=== PATIENT | female | born 1940 | race Caucasian/White ===

== ENCOUNTER 2020-08-18 07:33 | Outpatient (REF) | payer MEDICARE, MEDICAID, SELFPAY ==
[2020-08-18 11:03] LABS: Cholesterol 139 mg/dL; HDL Cholesterol 50 mg/dL; LDL Cholesterol Calculated 72 mg/dl; Triglycerides 86 mg/dL
== END 2020-08-18 07:34 | disposition home or self-care (01) ==
LOC: HO.10HDL 07:33
PROVIDERS: Visit Provider Internal Medicine
DX: E78.5 Hyperlipidemia, unspecified (principal)
CPT/HCPCS: 80061

== ENCOUNTER 2021-03-25 07:55 | Outpatient (REF) | payer MEDICARE, MEDICAID, SELFPAY ==
[2021-03-25 10:12] LABS: MANUAL DIFF FLAG NO
[2021-03-25 10:15] LABS: Basophils Percent Auto 0.5 % (0-2); Eosinophils Absolute Auto 0.1 X10*3/uL (0.0-0.4); Eosinophils Percent Auto 1.4 % (0-4); Hematocrit 39.3 % (37-47); Hemoglobin 13.1 g/dl (12.0-16.0); Imm Gran Abs Auto 0.03 X10*3/uL (0.00-0.03); Imm Gran Pct Auto 0.7 % (0.0-0.4); Lymphocytes Percent Auto 22.2 % (20-40); Mean Corpuscular HGB Conc 33.3 g/dl (31.0-35.0); Mean Corpuscular Volume 89.9 fL (80-98); Mean Platelet Volume 9.5 fL (9.4-12.3); Monocytes Absolute Auto 0.6 X10*3/uL (0.1-1.2); Monocytes Percent Auto 13.3 % (2-11); Neutrophils Absolute Auto 2.6 X10*3/uL (2.0-8.3); Neutrophils Percent Auto 61.9 % (45-73); Platelet Count 271 X10*3/uL (160-400); Red Blood Count 4.37 X10*6/uL (4.20-5.50); Red Cell Distribution Width 12.1 % (11.0-16.0); White Blood Count 4.3 X10*3/uL (4.8-10.8)
[2021-03-25 10:39] LABS: Alanine Aminotransferase 21 U/L (0-31); Alkaline Phosphatase 69 U/L (39-117); Anion Gap 14 (12-20); Aspartate Amino Transferase 32 U/L (5-31); Bilirubin Total 0.5 mg/dL (0.0-1.0); Blood Urea Nitrogen 17 mg/dL (9-16); Calcium 9.3 mg/dL (8.4-10.2); Carbon Dioxide 23 mmol/L (22-29); Chloride 106 mmol/L (96-108); Cholesterol 144 mg/dL; Estimated Glomerular Filt Rate > 60; Glucose Fasting 93 mg/dL (60-99); HDL Cholesterol 46 mg/dL; LDL Cholesterol Calculated 82 mg/dl; Sodium 139 mmol/L (135-145); Total Protein 8.2 g/dL (6.5-8.0); Triglycerides 82 mg/dL
[2021-03-25 11:03] LABS: Thyroid Stimulating Hormone 0.93 uIU/mL (0.32-4.0)
== END 2021-03-25 07:56 | disposition home or self-care (01) ==
LOC: HO.10HDL 07:55
PROVIDERS: Visit Provider Internal Medicine
DX: Z00.00 Encounter for general adult medical examination without abnormal findings (principal); E03.9 Hypothyroidism, unspecified; E11.9 Type 2 diabetes mellitus without complications
CPT/HCPCS: 36415; 80053; 80061; 84443; 85025

== ENCOUNTER 2021-12-20 13:35 | Inpatient (IN) | payer MEDICARE, MEDICAID, SELFPAY ==
--- NOTE | ~2021-12-20 | CT_ITS ---
EXAMINATION: CT HEAD WITHOUT CONTRAST CLINICAL INFORMATION: Confusion COMPARISON: Previous head CT July 2017 TECHNIQUE: Contiguous axial imaging was performed from the skull base to vertex without intravenous administration of contrast. This CT examination was performed using dose optimization techniques as appropriate, variously including the following: *Automated exposure control *Adjustment of mA and/or kV according to patient size (this includes techniques or standardized protocols for targeted exams where dose is matched to indication/reason for exam; i.e. extremities or head) *Use of iterative reconstruction technique DLP: 594 mGy-cm FINDINGS: There is no evidence of an extra-axial collection. There is no evidence of intra-axial or extra-axial hemorrhage. The ventricles and extra-axial CSF spaces are appropriate. There is nonspecific periventricular white matter disease. No mass, mass effect or infarct is seen. There is soft tissue opacification of the left middle ear and mastoid air cells similar to previous exam. The visualized paranasal sinuses and right mastoid air cells and middle ear are clear. There are degenerative changes at the right temporomandibular joint. Bony structures are otherwise unremarkable. CT/CT head/brain wo con IMPRESSION: No acute intracranial findings. Nonspecific periventricular white matter disease, soft tissue opacification of the left mastoid air cells and middle ear and degenerative changes of the right temporomandibular joint similar to 2017 exam.
--- NOTE | ~2021-12-20 | XR_ITS ---
EXAMINATION: XR CHEST CLINICAL INFORMATION: Weakness COMPARISON: Previous chest x-ray July 2017 TECHNIQUE: Frontal view of the chest was obtained. FINDINGS: The cardiac and mediastinal contours are stable. There is subsegmental atelectasis at the left lung base. The lungs are otherwise clear. There is no pleural effusion or pneumothorax. Bony structures are unremarkable. XR/XR chest 1V IMPRESSION: Subsegmental atelectasis at the left lung base.
--- NOTE | ~2021-12-20 | XR_ITS ---
EXAMINATION: XR CHEST CLINICAL INFORMATION: Fever. COMPARISON: 12/20/2021 chest radiograph. TECHNIQUE: Frontal view of the chest was obtained. FINDINGS: No significant abnormality is noted involving the heart, lungs, mediastinum, bony thorax or soft tissues. XR/XR chest 1V IMPRESSION: No acute cardiopulmonary process.
--- NOTE | 2021-12-20 13:41 | ECG_ITS ---
Test Reason : AM Blood Pressure : / mmHG Vent. Rate : 073 BPM Atrial Rate : 073 BPM P-R Int : 184 ms QRS Dur : 092 ms QT Int : 416 ms P-R-T Axes : 076 043 048 degrees QTc Int : 458 ms Normal sinus rhythm Nonspecific ST and T wave abnormality Abnormal ECG When compared with ECG of 21-OCT-2019 09:39, Nonspecific T wave abnormality has replaced inverted T waves in Inferior leads Referred By: Shayy Hay Electronically Signed By:JOSI TORO MD
--- NOTE | 2021-12-20 13:41 | PC.NURSE ---
patient's son lilly calls ahead of patient's arrival leaving contact number for information on patient's condition recently. lilly lives in [place]. [phone]
--- NOTE | 2021-12-20 13:50 | ED_ITS ---
HPI - Altered Mental Status General Chief Complaint: Altered Mental Status Stated Complaint: AMS Time Seen by Provider: 12/20/21 13:40 Source: patient, EMS and old records reviewed Mode of arrival: EMS Limitations: no limitations History of Present Illness HPI narrative: 81 y/o female with history of anxiety, HTN, HLD who presents to the ED from home via EMS with confusion. She lives home alone but was on the phone with her son who lives in [place] and said she wasn't sounding right so he had her call 911. She reports she is bad because I'm bleeding out of my behind. She is a poor historian but states she has had rectal bleeding for a few days. She states she has been straining to go and has blood streaks in her underwear. She also has been incontinent of urine and urinating more frequently. She denies any pain with urination, no nausea, vomiting or diarrhea. No lightheadedness or dizziness. She thinks she may be a little weaker than usual. MD complaint: confusion Onset (ago): unknown Timing confirmed by: family member Severity: moderate Consistency of symptoms: unknown Associated symptoms: loss of appetite, weakness, foul smelling urine and incontinence Treatments prior to arrival: IV fluid Related Data Previous Rx's Medication Instructions Recorded amlodipine 2.5 mg tablet 2.5 mg PO DAILY #90 tab 12/21/20 cetirizine 10 mg tablet (All Day 10 mg PO DAILY PRN #90 tab 12/21/20 Allergy (cetirizine)) fenofibrate 54 mg tablet 54 mg PO DAILY #60 tab 06/01/21 hydrochlorothiazide 25 mg tablet 25 mg PO DAILY #90 tab 10/11/21 Allergies Allergy/AdvReac Type Severity Reaction Status Date / Time acetaminophen Allergy Unknown HIVES,RASH Verified 12/20/21 15:34 [From TYLENOL-CODEINE #3] codeine Allergy Unknown HIVES,RASH Verified 12/20/21 15:34 [From TYLENOL-CODEINE #3] penicillin V Allergy Unknown Unknown Verified 12/20/21 15:34 Sulfa (Sulfonamide Allergy Unknown Unknown Verified 12/20/21 15:34 Antibiotics) Review of Systems Review of Systems: Constitutional: No Fever, No Chills ENT/Mouth: No sore throat, No Rhinorrhea, No Swallowing Difficulty Eyes: No Eye Pain, No Swelling, No Redness Cardiovascular: No Chest Pain, No SOB, No Orthopnea, No Edema Respiratory: No Cough, No Sputum, No Wheezing, No dyspnea Gastrointestinal: No Nausea, No Vomiting, No Diarrhea, No abdominal Pain, + Hematochezia, No Melena Genitourinary: No Dysuria, No Urinary Frequency, No Hematuria Musculoskeletal: No joint pain, No Myalgias Skin: No Skin Lesions, No rash Neuro: + Weakness, No Numbness, No Dizziness, No Headache Psych: + Anxiety/Panic, No Depression Heme/Lymph: No Bruising, No Lymphadenopathy Endocrine: No Polyuria, No Polydipsia [facility] Past Medical History Medical History (Updated 12/20/21 @ 16:51 by LARTICE Lopez) Anxiety Hyperlipidemia Hypertension Surgical History History of hysterectomy History of open reduction and internal fixation (ORIF) procedure Family History Family History (Updated 05/10/21 @ 09:57 by MIGUEL Sharif) Father No problems noted. Mother Hypertension Social History Social History Alcohol intake: never Advance Directives: No Advance Directives Information Provided: No Physical Exam ED Vital Signs: Vital Signs - 24 hr 12/20/21 13:51 12/20/21 14:00 Temperature 98.8 F 98.8 F Pulse Rate 73 73 Respiratory Rate 18 18 Blood Pressure 146/65 H 146/65 H Pulse Oximetry 99 99 BMI result Body Mass Index 24.4 Appearance: Alert. Oriented X3. No acute distress. Smells of urine Eyes: Pupils equal, round and reactive to light. ENT: Pharynx normal. Neck: Normal inspection. Neck supple. CVS: Tachycardic, regular rhythm. Pulses normal. Respiratory: No respiratory distress. Breath sounds normal. Abdomen: Obese, Soft and nontender. +BS x4 Genitalia: external hemorroid visible, erythematous but not bleeding, tender. external vaginal exam with protrusion consistent with cystocele. Skin: Skin warm and dry. Normal skin color. Normal skin turgor. No rashes. Extremities: No lower extremity edema. No peripheral swelling. Neuro: Oriented X 3. Asks repeated questions, confused at times. No motor deficit. No sensory deficit. Course Course Course Narrative: 81-year-old female with a history of hyperlipidemia, hypertension, anxiety who presents to the ER from home via EMS with confusion. There was concern for UTI given foul-smelling urine. She also reports rectal bleeding. On arrival to the ER she is tachycardic, afebrile, oriented but confused and asking repeated questions. Will get metabolic workup, CT head, urinalysis and evaluate for source of infection. Reevaluation(s) Reevaluation #1: Urinalysis is positive for infection, IV Rocephin ordered. She has no leukocytosis or fever at this time. She is getting gentle IV fluids. Her H&H is near her baseline 13.2/35.5. No evidence of active GI bleeding although she does have a visible hemorrhoid on examination, no active bleeding. Reevaluation #2: Sodium is 118. Urine osmolality and urine sodium added. She is on hydrochlorothiazide 25 mg per day. When asked additional questions she reports drinking 4-5 water bottles, 16 oz each because her son tells her she does not drink enough water. Her appetite has been poor in her p.o. intake has been poor. She is hungry and thirsty on arrival to the ED. She is getting normal saline. Hyponatremia is most likely multifactorial. Will plan to hold her HCTZ, give her gentle fluids and fluid restrict orally. Will follow urine studies. Dr. natali Redding made aware of the case, did a bedside ultrasound, her IVC is flat. She does not appear to be volume overloaded. Will admit to ICU for close m onitoring of her sodium. Consultations Consultation #1: Dr. Lea ICU MDM - Altered Mental Status Medical Records Attestation: I reviewed the patient's medical records. Lab Data Attestation: I reviewed the patient's lab results. Result diagrams: 12/20/21 14:26 12/20/21 15:49 Labs: Lab Results 12/20/21 12/20/21 12/20/21 Range/Units 14:00 14:00 14:00 WBC (4.8-10.8) X10*3/uL RBC (4.20-5.50) X10*6/uL Hgb (12.0-16.0) g/dl Hct (37.0-47.0) % MCV (80.0-98.0) fL MCH (27.0-33.0) pg MCHC (31.0-35.0) g/dl RDW (11.0-16.0) % Plt Count (160-400) X10*3/uL MPV (9.4-12.3) fL Immature Gran % (Auto) (0.0-0.4) % Neut % (Auto) (45-73) % Lymph % (Auto) (20-40) % Greene % (Auto) (2-11) % Eos % (Auto) (0-4) % Baso % (Auto) (0-2) % Lymph # (Auto) (1.2-4.9) X10*3/uL Greene # (Auto) (0.1-1.2) X10*3/uL Eos # (Auto) (0.0-0.4) X10*3/uL Baso # (Auto) (0.0-0.2) X10*3/uL Abs Immat Gran (auto) (0.00-0.03) X10*3/uL Absolute Neuts (auto) (2.0-8.3) x10*3/uL Absolute Nucleated RBC (0.0-0.012) X10*3/uL Nucleated RBC % (auto) (0.0-0.2) /100WBC Smear Tech's Comments Sodium (135-145) mmol/L Potassium (3.3-5.1) mmol/L Chloride (96-108) mmol/L Carbon Dioxide (22-29) mmol/L Anion Gap (12-20) BUN (9-16) mg/dL Creatinine (0.5-1.4) mg/dL Estim Creat Clear Calc Estimated GFR Random Glucose (60-115) mg/dL Lactic Acid (0.5-2.0) mmol/L Calcium (8.4-10.2) mg/dL Magnesium (1.6-2.6) mg/dL Total Bilirubin (0.0-1.0) mg/dL Direct Bilirubin (0.0-0.5) mg/dL AST (5-31) U/L ALT (0-31) U/L Alkaline Phosphatase (39-117) U/L Troponin I High Sens (<3.5-17.0) ng/L Total Protein (6.5-8.0) g/dL Albumin (3.5-5.0) g/dL Urine Color YELLOW Urine Appearance HAZY Urine pH 7.0 (5.0-8.0) Ur Specific [place] 1.015 (1.005-1.025) Urine Protein NEG (NEG-TRACE) MG/DL Urine Glucose (UA) NEG (NEG) MG/DL Urine Ketones NEG (NEG) MG/DL Urine Blood 1+ H (NEG) Urine Nitrite NEG (NEG) Ur Leukocyte Esterase 1+ H (NEG) Urine RBC 1-4 (0) /HPF Urine WBC 5-9 H (0-4) /HPF Ur Squamous Epith Cells TRACE /LPF Urine Bacteria 4+ /LPF COVID-19 (ALISSA) Negative (Negative) COVID-19 Clin Com See Note Influenza Type A (TAVARES) Negative (Negative) Influenza Type B (TAVARES) Negative (Negative) Influenza A & B Note See Note 12/20/21 12/20/21 12/20/21 Range/Units 14:26 14:26 15:49 WBC 6.6 (4.8-10.8) X10*3/uL RBC 4.25 (4.20-5.50) X10*6/uL Hgb 13.2 (12.0-16.0) g/dl Hct 35.5 L (37.0-47.0) % MCV 83.5 (80.0-98.0) fL MCH 31.1 (27.0-33.0) pg MCHC 37.2 H (31.0-35.0) g/dl RDW 11.9 (11.0-16.0) % Plt Count 256 (160-400) X10*3/uL MPV 9.7 (9.4-12.3) fL Immature Gran % (Auto) 2.0 H (0.0-0.4) % Neut % (Auto) 70.9 (45-73) % Lymph % (Auto) 18.3 L (20-40) % Greene % (Auto) 7.4 (2-11) % Eos % (Auto) 0.9 (0-4) % Baso % (Auto) 0.5 (0-2) % Lymph # (Auto) 1.2 (1.2-4.9) X10*3/uL Greene # (Auto) 0.5 (0.1-1.2) X10*3/uL Eos # (Auto) 0.1 (0.0-0.4) X10*3/uL Baso # (Auto) 0.0 (0.0-0.2) X10*3/uL Abs Immat Gran (auto) 0.13 H (0.00-0.03) X10*3/uL Absolute Neuts (auto) 4.7 (2.0-8.3) x10*3/uL Absolute Nucleated RBC 0.000 (0.0-0.012) X10*3/uL Nucleated RBC % (auto) 0.0 (0.0-0.2) /100WBC Smear Tech's Comments VERIFIED Sodium 118 L* (135-145) mmol/L Potassium 3.1 L D (3.3-5.1) mmol/L Chloride 86 L (96-108) mmol/L Carbon Dioxide 24 (22-29) mmol/L Anion Gap 11 L (12-20) BUN 12 (9-16) mg/dL Creatinine 0.62 (0.5-1.4) mg/dL Estim Creat Clear Calc 58.8 Estimated GFR > 60 Random Glucose 95 (60-115) mg/dL Lactic Acid (0.5-2.0) mmol/L Calcium 9.1 (8.4-10.2) mg/dL Magnesium 1.9 (1.6-2.6) mg/dL Total Bilirubin 0.8 (0.0-1.0) mg/dL Direct Bilirubin 0.4 (0.0-0.5) mg/dL AST 41 H (5-31) U/L ALT 22 (0-31) U/L Alkaline Phosphatase 65 (39-117) U/L Troponin I High Sens 3.7 (<3.5-17.0) ng/L Total Protein 7.9 (6.5-8.0) g/dL Albumin 4.1 (3.5-5.0) g/dL Urine Color Urine Appearance Urine pH (5.0-8.0) Ur Specific [place] (1.005-1.025) Urine Protein (NEG-TRACE) MG/DL Urine Glucose (UA) (NEG) MG/DL Urine Ketones (NEG) MG/DL Urine Blood (NEG) Urine Nitrite (NEG) Ur Leukocyte Esterase (NEG) Urine RBC (0) /HPF Urine WBC (0-4) /HPF Ur Squamous Epith Cells /LPF Urine Bacteria /LPF COVID-19 (ALISSA) (Negative) COVID-19 Clin Com Influenza Type A (TAVARES) (Negative) Influenza Type B (TAVARES) (Negative) Influenza A & B Note 12/20/21 Range/Units 15:49 WBC (4.8-10.8) X10*3/uL RBC (4.20-5.50) X10*6/uL Hgb (12.0-16.0) g/dl Hct (37.0-47.0) % MCV (80.0-98.0) fL MCH (27.0-33.0) pg MCHC (31.0-35.0) g/dl RDW (11.0-16.0) % Plt Count (160-400) X10*3/uL MPV (9.4-12.3) fL Immature Gran % (Auto) (0.0-0.4) % Neut % (Auto) (45-73) % Lymph % (Auto) (20-40) % Greene % (Auto) (2-11) % Eos % (Auto) (0-4) % Baso % (Auto) (0-2) % Lymph # (Auto) (1.2-4.9) X10*3/uL Greene # (Auto) (0.1-1.2) X10*3/uL Eos # (Auto) (0.0-0.4) X10*3/uL Baso # (Auto) (0.0-0.2) X10*3/uL Abs Immat Gran (auto) (0.00-0.03) X10*3/uL Absolute Neuts (auto) (2.0-8.3) x10*3/uL Absolute Nucleated RBC (0.0-0.012) X10*3/uL Nucleated RBC % (auto) (0.0-0.2) /100WBC Smear Tech's Comments Sodium (135-145) mmol/L Potassium (3.3-5.1) mmol/L Chloride (96-108) mmol/L Carbon Dioxide (22-29) mmol/L Anion Gap (12-20) BUN (9-16) mg/dL Creatinine (0.5-1.4) mg/dL Estim Creat Clear Calc Estimated GFR Random Glucose (60-115) mg/dL Lactic Acid 0.8 (0.5-2.0) mmol/L Calcium (8.4-10.2) mg/dL Magnesium (1.6-2.6) mg/dL Total Bilirubin (0.0-1.0) mg/dL Direct Bilirubin (0.0-0.5) mg/dL AST (5-31) U/L ALT (0-31) U/L Alkaline Phosphatase (39-117) U/L Troponin I High Sens (<3.5-17.0) ng/L Total Protein (6.5-8.0) g/dL Albumin (3.5-5.0) g/dL Urine Color Urine Appearance Urine pH (5.0-8.0) Ur Specific [place] (1.005-1.025) Urine Protein (NEG-TRACE) MG/DL Urine Glucose (UA) (NEG) MG/DL Urine Ketones (NEG) MG/DL Urine Blood (NEG) Urine Nitrite (NEG) Ur Leukocyte Esterase (NEG) Urine RBC (0) /HPF Urine WBC (0-4) /HPF Ur Squamous Epith Cells /LPF Urine Bacteria /LPF COVID-19 (ALISSA) (Negative) COVID-19 Clin Com Influenza Type A (TAVARES) (Negative) Influenza Type B (TAVARES) (Negative) Influenza A & B Note ECG Data ECG #1: Attestation: I personally reviewed and interpreted this ECG as follows: ECG interpretation date: 12/20/21 Prior ECG tracings: available for review Interpretation: normal sinus rhythm, HR 73 bpm, nonspecific ST & T wave abnormality, normal NE interval, No ST segment elevation or depression Critical Care Time Critical Care Time Critical Care Time: Yes Total Critical Care Time: 40 Attestation: I have personally provided critical care time exclusive of time spent on separately billable procedures. Time includes review of lab data, radiology results, discussion with consultants, and monitoring for potential decompensation. Intervention performed as documented. Discharge Plan Discharge Clinical Impression: Acute metabolic encephalopathy, Acute hyponatremia, Acute UTI Patient Disposition: Admitted As Inpatient Prescriptions: No Action cetirizine [All Day Allergy (cetirizine)] 10 mg tablet 10 mg PO DAILY PRN (Reason: allergy symptoms) Qty: 90 8RF amlodipine 2.5 mg tablet 2.5 mg PO DAILY Qty: 90 8RF fenofibrate 54 mg tablet 54 mg PO DAILY Qty: 60 6RF hydrochlorothiazide 25 mg tablet 25 mg PO DAILY Qty: 90 8RF
[2021-12-20 13:51] VITALS: BP 146/65; BP 150/81; PULSE 71; PULSE 73; RESP 18; TEMP 37.1; O2SAT 99; BMI 24.4
[2021-12-20 14:00] VITALS: BP 146/65; PULSE 73; RESP 18; TEMP 37.1; O2SAT 99
[2021-12-20 14:14] LABS: Appearance Urine HAZY; Color Urine YELLOW; Glucose Urine UA NEG (NEG); Leukocyte Esterase Urine 1+ (NEG); Nitrite Urine NEG (NEG); Specific Gravity - Urine 1.015 (1.005-1.025); UACC Culture Trigger YES; Urine Blood 1+ (NEG); Urine Ketones NEG (NEG); Urine Protein NEG (NEG-TRACE)
[2021-12-20 14:23] LABS: COVID-19 Test Negative (Negative)
[2021-12-20 14:30] LABS: IDNOW Serial# 08D9AD1C; Influenza A Negative (Negative); Influenza B2 Negative (Negative)
--- NOTE | 2021-12-20 14:31 | PHA.MEDREC ---
MED REC COMPLETE FROM PHARMACY HISTORY, PATIENT WITH AMS Pharmacy Consult ? Medication Reconciliation Pharmacy has completed the medication reconciliation.
--- NOTE | 2021-12-20 14:31 | PC.NURSE ---
Addendum entered by Edgardo Liu 12/20/21 14:34: provider in room w pt and reports hemorrhoids and poss bladder/vaginal prolapse. Original Note: pt a&ox3, but some baseline confusion - pt asking the same questions repeatedly, has questions about her inability to move her bowels. attempted to draw blood and place IV, was able to obtain some labs, unable to place IV. 20G left hand placed by EMS. pt brought to CT.
[2021-12-20 14:40] LABS: Basophils Percent Auto 0.5 % (0-2); Eosinophils Absolute Auto 0.1 X10*3/uL (0.0-0.4); Eosinophils Percent Auto 0.9 % (0-4); Hematocrit 35.5 % (37.0-47.0); Hemoglobin 13.2 g/dl (12.0-16.0); Imm Gran Abs Auto 0.13 X10*3/uL (0.00-0.03); Lymphocytes Absolute Auto 1.2 X10*3/uL (1.2-4.9); Lymphocytes Percent Auto 18.3 % (20-40); MANUAL DIFF FLAG SCAN; Mean Corpuscular HGB Conc 37.2 g/dl (31.0-35.0); Mean Corpuscular Hemoglobin 31.1 pg (27.0-33.0); Mean Corpuscular Volume 83.5 fL (80.0-98.0); Mean Platelet Volume 9.7 fL (9.4-12.3); Monocytes Absolute Auto 0.5 X10*3/uL (0.1-1.2); Monocytes Percent Auto 7.4 % (2-11); Neutrophils Absolute Auto 4.7 x10*3/uL (2.0-8.3); Neutrophils Percent Auto 70.9 % (45-73); PLT CLUMP 1; Red Blood Count 4.25 X10*6/uL (4.20-5.50); Red Cell Distribution Width 11.9 % (11.0-16.0); SCAN SMEAR FLAG 1
[2021-12-20 14:42] LABS: Platelet Count 256 X10*3/uL (160-400); White Blood Count 6.6 X10*3/uL (4.8-10.8)
[2021-12-20] MEDS: 0.9 % Sodium Chloride 1,000 ML 999 ML IVCONT (14:46)
--- NOTE | 2021-12-20 14:51 | PC.NURSE ---
flds started per provider order
[2021-12-20 14:56] LABS: SLIDE REVIEW VERIFIED
[2021-12-20 14:59] LABS: Bacteria Urine 4+ /LPF; Squamous Epithelial Cell Urine TRACE /LPF
[2021-12-20 15:03] LABS: Troponin-I High Sensitivity 3.7 ng/L (<3.5-17.0)
--- NOTE | 2021-12-20 15:43 | PC.NURSE ---
tech attempting to get labs
[2021-12-20 16:11] LABS: Lactic Acid 0.8 mmol/L (0.5-2.0)
[2021-12-20] MEDS: cefTRIAXone sodium 1 GM in 0.9 % Sodium Chloride 50 ML IV (16:14)
[2021-12-20 16:24] LABS: Alanine Aminotransferase 22 U/L (0-31); Albumin Level 4.1 g/dL (3.5-5.0); Alkaline Phosphatase 65 U/L (39-117); Anion Gap 11 (12-20); Aspartate Amino Transferase 41 U/L (5-31); Bilirubin Direct 0.4 mg/dL (0.0-0.5); Bilirubin Total 0.8 mg/dL (0.0-1.0); Blood Urea Nitrogen 12 mg/dL (9-16); Calcium 9.1 mg/dL (8.4-10.2); Carbon Dioxide 24 mmol/L (22-29); Chloride 86 mmol/L (96-108); Creatinine Clr Calc Pharmacy 58.8; Estimated Glomerular Filt Rate > 60; Glucose Random 95 mg/dL (60-115); Magnesium 1.9 mg/dL (1.6-2.6); Potassium 3.1 mmol/L (3.3-5.1); Sodium 118 mmol/L (135-145); Total Protein 7.9 g/dL (6.5-8.0)
--- NOTE | 2021-12-20 16:32 | PC.NURSE ---
patient medicated per order, used bedpan
--- NOTE | 2021-12-20 16:36 | PC.NURSE ---
pt ivf continues to run slowly
[2021-12-20 17:04] VITALS: BP 135/72; PULSE 74; RESP 16; O2SAT 98
--- NOTE | 2021-12-20 17:05 | P.HPCC_ITS ---
History of Present Illness Date of Service: 12/20/21 Attending physician on admission: Luís Lea Chief Complaint: confusion/altered mental status 81-year-old female hypertensive on hydrochlorothiazide admitted with confusion although oriented and awake no seizure activity no fall who admits to drinking at least in 0 5 quarts of just plain water no mixture of electrolytes and takes her hydrochlorothiazide and she is hyponatremic at 01:18 probably accounting for mental status and also hypokalemic all consistent with the combination of hydrochlorothiazide effect reducing did diluting capacity and for that we are awaiting the osmolality of the urine but the sodium at 51 reflects the hydrochlorothiazide effect coupled with her free water intake and my bedside echo shows normal LV and RV function no primary valve or pericardial disease and she has a small IVC diameter with normal inspiratory collapse so she is anywhere from mildly hypovolemic to euvolemic Review of Systems Review of Systems: Yes all other systems are reviewed and are negative PMFSH Past Medical History Medical History (Updated 12/20/21 @ 17:09 by Luís Lea MD) Anxiety Hyperlipidemia Hypertension Family History Family History (Updated 05/10/21 @ 09:57 by MIGUEL Sharif) Father No problems noted. Mother Hypertension Surgical History Surgical History History of hysterectomy History of open reduction and internal fixation (ORIF) procedure Social History Social History Alcohol intake: never Advance Directives: No Advance Directives Information Provided: No Meds Allergies Allergy/AdvReac Type Severity Reaction Status Date / Time acetaminophen Allergy Unknown HIVES,RASH Verified 12/20/21 15:34 [From TYLENOL-CODEINE #3] codeine Allergy Unknown HIVES,RASH Verified 12/20/21 15:34 [From TYLENOL-CODEINE #3] penicillin V Allergy Unknown Unknown Verified 12/20/21 15:34 Sulfa (Sulfonamide Allergy Unknown Unknown Verified 12/20/21 15:34 Antibiotics) Active Medications: Current Medications Levofloxacin (Levaquin) 500 mg in 100 mls @ 100 mls/hr IV Q24H [facility] Potassium Chloride/Sodium Chloride () 40 meq in 1,000 mls @ 80 mls/hr IVCONT .[id number] [facility] Pharmacy Consult (Consult Rx Perform Med Rec) 1 each MISCELLANE ONCE PRN PRN Reason: Consult order Physical Exam Vital Signs: Vital Signs: Last Vital Signs Temp 98.8 F 12/20/21 14:00 Pulse 74 12/20/21 17:04 Resp 16 12/20/21 17:04 BP 135/72 12/20/21 17:04 Pulse Ox 98 12/20/21 17:04 BMI result Body Mass Index 24.4 awake and alert nonfocal neurologically good bilateral carotid upstrokes and bedside echo shows normal cardiac function lungs clear by chest x-ray and exam abdomen benign no organomegaly no peripheral edema no acrocyanosis Results Labs CBC and Chem 7: 12/20/21 14:26 12/20/21 15:49 Labs: Laboratory Results - last 24 hr 12/20/21 12/20/21 12/20/21 14:00 14:00 14:00 MCV MCH MCHC RDW Plt Count MPV Immature Gran % (Auto) Neut % (Auto) Lymph % (Auto) [place] % (Auto) Eos % (Auto) Baso % (Auto) Lymph # (Auto) [place] # (Auto) Eos # (Auto) Baso # (Auto) Abs Immat Gran (auto) Absolute Neuts (auto) Absolute Nucleated RBC Nucleated RBC % (auto) Smear Tech's Comments Anion Gap Estim Creat Clear Calc Estimated GFR Random Glucose Lactic Acid Calcium Magnesium Total Bilirubin Direct Bilirubin AST ALT Alkaline Phosphatase Troponin I High Sens Total Protein Albumin Urine Color YELLOW Urine Appearance HAZY Urine pH 7.0 Ur Specific [place] 1.015 Urine Protein NEG Urine Glucose (UA) NEG Urine Ketones NEG Urine Blood 1+ H Urine Nitrite NEG Ur Leukocyte Esterase 1+ H Urine RBC 1-4 Urine WBC 5-9 H Ur Squamous Epith Cells TRACE Urine Bacteria 4+ Ur Random Sodium COVID-19 (ALISSA) Negative COVID-19 Clin Com See Note Influenza Type A (TAVARES) Negative Influenza Type B (TAVARES) Negative Influenza A & B Note See Note 12/20/21 12/20/21 12/20/21 14:00 14:26 14:26 MCV 83.5 MCH 31.1 MCHC 37.2 H RDW 11.9 Plt Count 256 MPV 9.7 Immature Gran % (Auto) 2.0 H Neut % (Auto) 70.9 Lymph % (Auto) 18.3 L [place] % (Auto) 7.4 Eos % (Auto) 0.9 Baso % (Auto) 0.5 Lymph # (Auto) 1.2 [place] # (Auto) 0.5 Eos # (Auto) 0.1 Baso # (Auto) 0.0 Abs Immat Gran (auto) 0.13 H Absolute Neuts (auto) 4.7 Absolute Nucleated RBC 0.000 Nucleated RBC % (auto) 0.0 Smear Tech's Comments VERIFIED Anion Gap Estim Creat Clear Calc Estimated GFR Random Glucose Lactic Acid Calcium Magnesium Total Bilirubin Direct Bilirubin AST ALT Alkaline Phosphatase Troponin I High Sens 3.7 Total Protein Albumin Urine Color Urine Appearance Urine pH Ur Specific [place] Urine Protein Urine Glucose (UA) Urine Ketones Urine Blood Urine Nitrite Ur Leukocyte Esterase Urine RBC Urine WBC Ur Squamous Epith Cells Urine Bacteria Ur Random Sodium 51.0 COVID-19 (ALISSA) COVID-19 Clin Com Influenza Type A (TAVARES) Influenza Type B (TAVARES) Influenza A & B Note 12/20/21 12/20/21 15:49 15:49 MCV MCH MCHC RDW Plt Count MPV Immature Gran % (Auto) Neut % (Auto) Lymph % (Auto) [place] % (Auto) Eos % (Auto) Baso % (Auto) Lymph # (Auto) [place] # (Auto) Eos # (Auto) Baso # (Auto) Abs Immat Gran (auto) Absolute Neuts (auto) Absolute Nucleated RBC Nucleated RBC % (auto) Smear Tech's Comments Anion Gap 11 L Estim Creat Clear Calc 58.8 Estimated GFR > 60 Random Glucose 95 Lactic Acid 0.8 Calcium 9.1 Magnesium 1.9 Total Bilirubin 0.8 Direct Bilirubin 0.4 AST 41 H ALT 22 Alkaline Phosphatase 65 Troponin I High Sens Total Protein 7.9 Albumin 4.1 Urine Color Urine Appearance Urine pH Ur Specific [place] Urine Protein Urine Glucose (UA) Urine Ketones Urine Blood Urine Nitrite Ur Leukocyte Esterase Urine RBC Urine WBC Ur Squamous Epith Cells Urine Bacteria Ur Random Sodium COVID-19 (ALISSA) COVID-19 Clin Com Influenza Type A (TAVARES) Influenza Type B (TAVARES) Influenza A & B Note Imaging Radiologist's Impressions: Impressions Chest X-Ray 12/20/21 14:30 IMPRESSION: Subsegmental atelectasis at the left lung base. Head CT 12/20/21 14:42 IMPRESSION: No acute intracranial findings. Nonspecific periventricular white matter disease, soft tissue opacification of the left mastoid air cells and middle ear and degenerative changes of the right temporomandibular joint similar to 2017 exam. Assessment and Plan (1) Acute metabolic encephalopathy: Status: Acute (2) Acute hyponatremia: Status: Acute (3) Acute UTI: Status: Acute (4) Hyperlipidemia: Status: Acute (5) Hypertension: Status: Acute (6) Hypokalemia due to excessive renal loss of potassium: Status: Acute Plan IV replacement at 80 cc/hour consisting of normal saline with 40 mEq per L of KCl at the same time stopping the hydrochlorothiazide and just follow her chemistry and await the urine osmolality to confirm
[2021-12-20] MEDS: KCl 40 mEq in 0.9 % Sodium Chl 40 MEQ/1,000 ML IV.SOLN 80 MEQ IVCONT (17:41)
[2021-12-20 18:00] VITALS: BP 121/64; PULSE 78; RESP 14; O2SAT 98
--- NOTE | 2021-12-20 19:04 | PC.NURSE ---
pt alert, oriented to person/place, vss, increased confusion, continues to ask repeated questions, difficult to redirect. calender inspector applied. bedding changed, pt using purewik. pt requesting food, given sandwich/pudding/juice.
[2021-12-20 20:22] LABS: Anion Gap 9 (12-20); Blood Urea Nitrogen 10 mg/dL (9-16); Calcium 8.3 mg/dL (8.4-10.2); Carbon Dioxide 25 mmol/L (22-29); Chloride 93 mmol/L (96-108); Creatinine Clr Calc Pharmacy 57.9; Estimated Glomerular Filt Rate > 60; Glucose Random 109 mg/dL (60-115); Potassium 2.9 mmol/L (3.3-5.1); Sodium 124 mmol/L (135-145)
--- NOTE | 2021-12-20 20:25 | PC.NURSE ---
spoke w son to update on pt condition, admission, son to follow up tomorrow.
--- NOTE | 2021-12-20 20:47 | P.PNCC_ITS ---
Critical Care Event Note Summary Date of Service: 12/20/21 Code activated: No Critical Care Time (minutes): 0 Comment: Patient's sodium came up to 124, patient will be transferred to [facility] for further monitoring as per Dr Lea request. Due to the fast increase in sodium from 119-124 in 4 hours, hospitalist will consult Nephrology. pt's HCTZ should be stopped at home to avoid a repeat issue and she should be counseled on an appropriate amount of water to drink daily. Patient is doing well, alert and talkative, resting comfortably watching television in bed. Vital signs are stable, patient has no complaints at this time. Patient appears to be hard of hearing, unsure if she has hearing aids with her. Dr Ruiz will accept the pt to [facility].
--- NOTE | 2021-12-20 20:55 | PC.NURSE ---
discontinued KCl per verbal provider order, phlebotomy notified about new lab order.
[2021-12-20 21:32] LABS: Anion Gap 9 (12-20); Blood Urea Nitrogen 11 mg/dL (9-16); Calcium 8.2 mg/dL (8.4-10.2); Carbon Dioxide 22 mmol/L (22-29); Chloride 96 mmol/L (96-108); Creatinine Clr Calc Pharmacy 59.8; Estimated Glomerular Filt Rate > 60; Glucose Random 117 mg/dL (60-115); Sodium 124 mmol/L (135-145)
[2021-12-20 21:58] VITALS: BP 132/61; PULSE 67; RESP 16; TEMP 36.9; O2SAT 98
--- NOTE | 2021-12-20 22:00 | PC.NURSE ---
PATIENT CAME OVER FROM THE MAIN ED ED ,PATIENT WAS INCONTINENT OF URINE ,BED BATH WAS GIVEN AND BEDDING WAS CHANGE .
[2021-12-20 23:43] VITALS: PULSE 60; RESP 16
[2021-12-21] VITALS (7 sets, daily range): BP systolic 128–177; BP diastolic 62–82; PULSE 61–75; RESP 14–20; TEMP 36.6–37.1; O2SAT 96–99
[2021-12-21 02:07] LABS: Anion Gap 12 (12-20); Blood Urea Nitrogen 13 mg/dL (9-16); Calcium 9.1 mg/dL (8.4-10.2); Carbon Dioxide 24 mmol/L (22-29); Chloride 95 mmol/L (96-108); Creatinine Clr Calc Pharmacy 60.8; Estimated Glomerular Filt Rate > 60; Glucose Random 91 mg/dL (60-115); Potassium 3.7 mmol/L (3.3-5.1); Sodium 127 mmol/L (135-145)
--- NOTE | 2021-12-21 06:39 | PC.NURSE ---
2200; Patient transferred to bed 5 overflow ed. Patient is alert, oriented to self and place, vague on time/situation, patient asks repeated questions, [place]. Denies pain or discomfort, incontinent of urine x2 overnight. vss, callbell within reach.
[2021-12-21] MEDS: levoFLOXacin/D5W 500 MG/100 ML PIGGYBACK 100 MG IV (08:00)
--- NOTE | 2021-12-21 10:51 | PC.NURSE ---
Pt is Alert, oriented x 3 but confused with repetitive questions at this time. Pt denies pain, increased urination at this time, IV antibitics given as per MAR order, spoke to Dr. Fuentes for morning medications as patient is fixated on them at this time. Pt's son given update on POC. Call josé within reach. Will continue to monitor.
[2021-12-21] MEDS: Loratadine 10 MG TABLET PO (11:38)
--- NOTE | 2021-12-21 11:55 | MHC.CM.PN ---
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
--- NOTE | 2021-12-21 12:00 | HO.PM.IMPN ---
Subjective Subjective Date of Service: 12/21/21 Interval History: Hyponatremia, UTI, metabolic encephalopathy Review of Systems seems still confused, Denies any chest pain or shortness of breath or abdominal pain or abdominal pain. Physical Exam Vital Signs: Vital Signs: Last Vital Signs Temp 98.5 F 12/21/21 07:59 Pulse 75 12/21/21 07:59 Resp 15 12/21/21 07:59 BP 132/63 12/21/21 07:59 Pulse Ox 98 12/21/21 07:59 BMI result Body Mass Index 24.4 Appearance: Awake , alert ,confused .? Eyes: Pupils equal, round and reactive to light.? Sclera nonicteric.? ENT: Pharynx normal.? Moist mucous membranes. cvs: rrr, [id number] , no murmur res: clear to auscultation ,no rhonchii or wheezing abd: no rebound or guarding ,nt, bs present. ext pulses present , no cyanosis ,Gait well balanced well coordinated. neuro: axo2, move all ext. Objective Data Active Medications Amlodipine Besylate (Amlodipine Besylate 2.5 Mg Tablet) 2.5 mg PO DAILY [facility]; Protocol Fenofibrate (Fenofibrate 54 Mg Tablet) 54 mg PO DAILY [facility] Levofloxacin (Levaquin) 500 mg in 100 mls @ 100 mls/hr IV Q24H [facility] Last Infusion: 12/21/21 11:25 Dose: 0 mls/hr Documented by: TRINY Dextrose (D5w) 1,000 mls @ 50 mls/hr IVCONT .Q20H [facility] Loratadine (Loratadine 10 Mg Tablet) 10 mg PO DAILY PRN PRN Reason: allergy symptoms Last Admin: 12/21/21 11:38 Dose: 10 mg Documented by: TRINY Pharmacy Consult (Consult Rx Perform Med Rec) 1 each MISCELLANE ONCE PRN PRN Reason: Consult order Labs CBC & Chem 7: 12/20/21 14:26 12/21/21 12:24 Labs: Laboratory Results - last 24 hr 12/20/21 12/20/21 12/20/21 14:00 14:00 14:00 MCV MCH MCHC RDW Plt Count MPV Immature Gran % (Auto) Neut % (Auto) Lymph % (Auto) Dougherty % (Auto) Eos % (Auto) Baso % (Auto) Lymph # (Auto) Dougherty # (Auto) Eos # (Auto) Baso # (Auto) Abs Immat Gran (auto) Absolute Neuts (auto) Absolute Nucleated RBC Nucleated RBC % (auto) Smear Tech's Comments Anion Gap Estim Creat Clear Calc Estimated GFR Random Glucose Lactic Acid Calcium Magnesium Total Bilirubin Direct Bilirubin AST ALT Alkaline Phosphatase Troponin I High Sens Total Protein Albumin Urine Color YELLOW Urine Appearance HAZY Urine pH 7.0 Ur Specific [place] 1.015 Urine Protein NEG Urine Glucose (UA) NEG Urine Ketones NEG Urine Blood 1+ H Urine Nitrite NEG Ur Leukocyte Esterase 1+ H Urine RBC 1-4 Urine WBC 5-9 H Ur Squamous Epith Cells TRACE Urine Bacteria 4+ Ur Random Sodium COVID-19 (ALISSA) Negative COVID-19 Clin Com See Note Influenza Type A (TAVARES) Negative Influenza Type B (TAVARES) Negative Influenza A & B Note See Note 12/20/21 12/20/21 12/20/21 14:00 14:26 14:26 MCV 83.5 MCH 31.1 MCHC 37.2 H RDW 11.9 Plt Count 256 MPV 9.7 Immature Gran % (Auto) 2.0 H Neut % (Auto) 70.9 Lymph % (Auto) 18.3 L Dougherty % (Auto) 7.4 Eos % (Auto) 0.9 Baso % (Auto) 0.5 Lymph # (Auto) 1.2 Dougherty # (Auto) 0.5 Eos # (Auto) 0.1 Baso # (Auto) 0.0 Abs Immat Gran (auto) 0.13 H Absolute Neuts (auto) 4.7 Absolute Nucleated RBC 0.000 Nucleated RBC % (auto) 0.0 Smear Tech's Comments VERIFIED Anion Gap Estim Creat Clear Calc Estimated GFR Random Glucose Lactic Acid Calcium Magnesium Total Bilirubin Direct Bilirubin AST ALT Alkaline Phosphatase Troponin I High Sens 3.7 Total Protein Albumin Urine Color Urine Appearance Urine pH Ur Specific [place] Urine Protein Urine Glucose (UA) Urine Ketones Urine Blood Urine Nitrite Ur Leukocyte Esterase Urine RBC Urine WBC Ur Squamous Epith Cells Urine Bacteria Ur Random Sodium 51.0 COVID-19 (ALISSA) COVID-19 Clin Com Influenza Type A (TAVARES) Influenza Type B (TAVARES) Influenza A & B Note 12/20/21 12/20/21 12/20/21 15:49 15:49 19:52 MCV MCH MCHC RDW Plt Count MPV Immature Gran % (Auto) Neut % (Auto) Lymph % (Auto) Dougherty % (Auto) Eos % (Auto) Baso % (Auto) Lymph # (Auto) Dougherty # (Auto) Eos # (Auto) Baso # (Auto) Abs Immat Gran (auto) Absolute Neuts (auto) Absolute Nucleated RBC Nucleated RBC % (auto) Smear Tech's Comments Anion Gap 11 L 9 L Estim Creat Clear Calc 58.8 57.9 Estimated GFR > 60 > 60 Random Glucose 95 109 Lactic Acid 0.8 Calcium 9.1 8.3 L D Magnesium 1.9 Total Bilirubin 0.8 Direct Bilirubin 0.4 AST 41 H ALT 22 Alkaline Phosphatase 65 Troponin I High Sens Total Protein 7.9 Albumin 4.1 Urine Color Urine Appearance Urine pH Ur Specific [place] Urine Protein Urine Glucose (UA) Urine Ketones Urine Blood Urine Nitrite Ur Leukocyte Esterase Urine RBC Urine WBC Ur Squamous Epith Cells Urine Bacteria Ur Random Sodium COVID-19 (ALISSA) COVID-19 Clin Com Influenza Type A (TAVARES) Influenza Type B (TAVARES) Influenza A & B Note 12/20/21 12/21/21 21:00 01:28 MCV MCH MCHC RDW Plt Count MPV Immature Gran % (Auto) Neut % (Auto) Lymph % (Auto) Dougherty % (Auto) Eos % (Auto) Baso % (Auto) Lymph # (Auto) Dougherty # (Auto) Eos # (Auto) Baso # (Auto) Abs Immat Gran (auto) Absolute Neuts (auto) Absolute Nucleated RBC Nucleated RBC % (auto) Smear Tech's Comments Anion Gap 9 L 12 Estim Creat Clear Calc 59.8 60.8 Estimated GFR > 60 > 60 Random Glucose 117 H 91 Lactic Acid Calcium 8.2 L 9.1 D Magnesium Total Bilirubin Direct Bilirubin AST ALT Alkaline Phosphatase Troponin I High Sens Total Protein Albumin Urine Color Urine Appearance Urine pH Ur Specific [place] Urine Protein Urine Glucose (UA) Urine Ketones Urine Blood Urine Nitrite Ur Leukocyte Esterase Urine RBC Urine WBC Ur Squamous Epith Cells Urine Bacteria Ur Random Sodium COVID-19 (ALISSA) COVID-19 Clin Com Influenza Type A (TAVARES) Influenza Type B (TVAARES) Influenza A & B Note Microbiology Microbiology Results: Microbiology 12/20/21 15:49 Urine Culture - Preliminary Urine clean catch - Urine quijano top Culture in progress. Assessment and Plan (1) Acute UTI: Status: Acute (2) Acute metabolic encephalopathy: Status: Acute (3) Acute hyponatremia: Status: Acute Plan 81-year-old female hypertensive on hydrochlorothiazide admitted with confusion,uti: 1. Acute metabolic encephalopathy secondary to probable hyponatremia : Improving but still confused Monitor electrolytes and renal function closely once sodium around [address] the patient on fluid restrictions. Hold hydrochlorothiazide Nephrology following 2. UTI: Continue IV antibiotics urine and blood culture pending 3.HTN: Continue amlodipine DVT prophylaxis Quality Stroke Does the patient have a stroke diagnosis?: No VTE Prior VTE?: No VTE Risk Level:: Medical - low VTE Device Contraindication: N/A - Device Ordered VTE Drug Contraindication: Treatment Not Indicated
--- NOTE | 2021-12-21 12:02 | P.CONNP_ITS ---
History of Present Illness Reason for Consult Consult date: 12/21/21 Chief Complaint Chief complaint: hyponatremia/ altered mental status History of Present Illness Narrative: 81 year old female with history of anxiety and HTN , who had been on HCTZ presented to the ER from home via EMS with altered mental status. She lives at home alone but was on the phone with her son who lives in [place] who felt she was no alright forcing him to call 911. She also has been incontinent of urine and urinating more frequently. She denies any pain with urination, no nausea, vomiting or diarrhea. No lightheadedness or dizziness. She thinks she may be a little weaker than usual. She was found to have UTI with profound hyponatremia. ICU had been consulted who had given her volume repletion as they thought her low sodium was as a result of diuretic. Her Na was corrected close to 4 MEq in 4 hours and it has gone upto 127 now. Nephrology has been consulted to assist in her clinical management during her current hospital stay Review of Systems Review of Systems Yes all other systems are reviewed and are negative PMFSH Past Medical History Medical History (Updated 12/20/21 @ 17:09 by Luís Lea MD) Anxiety Hyperlipidemia Hypertension Family History Family History (Updated 05/10/21 @ 09:57 by MIGUEL Sharif) Father No problems noted. Mother Hypertension Surgical History Surgical History History of hysterectomy History of open reduction and internal fixation (ORIF) procedure Social History Social History Alcohol intake: never Advance Directives: No Advance Directives Information Provided: No service: No Meds Allergies Allergy/AdvReac Type Severity Reaction Status Date / Time acetaminophen Allergy Unknown HIVES,RASH Verified 12/20/21 15:34 [From TYLENOL-CODEINE #3] codeine Allergy Unknown HIVES,RASH Verified 12/20/21 15:34 [From TYLENOL-CODEINE #3] penicillin V Allergy Unknown Unknown Verified 12/20/21 15:34 Sulfa (Sulfonamide Allergy Unknown Unknown Verified 12/20/21 15:34 Antibiotics) Active Medications: Current Medications Amlodipine Besylate (Amlodipine Besylate 2.5 Mg Tablet) 2.5 mg PO DAILY [facility]; Protocol Fenofibrate (Fenofibrate 54 Mg Tablet) 54 mg PO DAILY [facility] Levofloxacin (Levaquin) 500 mg in 100 mls @ 100 mls/hr IV Q24H [facility] Last Infusion: 12/21/21 11:25 Dose: Infused Documented by: Dextrose (D5w) 1,000 mls @ 50 mls/hr IVCONT .Q20H [facility] Loratadine (Loratadine 10 Mg Tablet) 10 mg PO DAILY PRN PRN Reason: allergy symptoms Last Admin: 12/21/21 11:38 Dose: 10 mg Documented by: Pharmacy Consult (Consult Rx Perform Med Rec) 1 each MISCELLANE ONCE PRN PRN Reason: Consult order Physical Exam Vital Signs: Last Vital Signs Temp 98.5 F 12/21/21 07:59 Pulse 75 12/21/21 07:59 Resp 15 12/21/21 07:59 BP 132/63 12/21/21 07:59 Pulse Ox 98 12/21/21 07:59 BMI result Body Mass Index 24.4 Const General: no acute distress Eyes EOM: EOMs intact bilaterally Neck Neck: Yes supple Resp Auscultation: diminished lung sounds Cardio Rate: regular rate GI Palpation (GI): Soft to palpation Neuro General: moves all extremities Results Lab Results Result Diagrams: 12/20/21 14:26 12/21/21 01:28 Lab results: Chemistry 12/20/21 12/20/21 12/20/21 15:49 19:52 21:00 Sodium 118 L* 124 L 124 L Potassium 3.1 L D 2.9 L 3.0 L Carbon Dioxide 24 25 22 BUN 12 10 11 Creatinine 0.62 0.63 0.61 Calcium 9.1 8.3 L D 8.2 L 12/21/21 01:28 Sodium 127 L Potassium 3.7 D Carbon Dioxide 24 BUN 13 Creatinine 0.60 Calcium 9.1 D Hematology 12/20/21 14:26 WBC 6.6 Hgb 13.2 Plt Count 256 Urinalysis 12/20/21 14:00 Urine Color YELLOW Urine Appearance HAZY Urine pH 7.0 Ur Specific [place] 1.015 Urine Protein NEG Urine Glucose (UA) NEG Urine Ketones NEG Urine Blood 1+ H Urine Nitrite NEG Ur Leukocyte Esterase 1+ H Urine RBC 1-4 Urine WBC 5-9 H Ur Squamous Epith Cells TRACE Assessment and Plan (1) Acute hyponatremia: Status: Acute Plan No H/O recurrent hyponatremia Had low Cl, low K and low Na Had been on HCTZ; Denies polydypsia Urine Osmolality pending No H/O CHF/renal / liver disease Has H/O anxiety; IVC was collapsed on USS Likely hypovolemic hyponatremia; Na currently 127 Would drop 3-4 MEQ of Na today with D5W today& then D/C D5W Once Na is dropped by 3-4 MEQ , would fluid restrict 48 oz/24 hours Needs close monitoring of serum sodium; Shall follow up Procedures Date of Service Date of Service: 12/21/21
[2021-12-21 12:54] LABS: Sodium 126 mmol/L (135-145)
[2021-12-21] MEDS: Dextrose 5 % 1,000 ML 50 ML IVCONT (13:00)
--- NOTE | 2021-12-21 13:34 | MHC.CM.PN ---
spoke with pts son who is in [facility] he is her hcp he will be faxng the proxy to cm dept he explains that he paysmprivateky for homem kaker every 2 weeks a hairdresser every 2 months [place] to do grocery shopping and an rn to attend to pts feet every 2 months [facility] address is [address] [address]
[2021-12-21 14:50] LABS: Osmolality Urine 402 mosm/kg (373-1093)
[2021-12-21 16:24] LABS: Sodium 127 mmol/L (135-145)
[2021-12-21 20:26] LABS: Sodium 128 mmol/L (135-145)
[2021-12-21] MEDS: Heparin Sodium,Porcine 5,000 UNIT/ML VIAL 5000 UNIT SUBCUT (20:37)
[2021-12-22] VITALS (8 sets, daily range): BP systolic 146–189; BP diastolic 70–84; PULSE 64–97; RESP 16–19; TEMP 36–37.1; O2SAT 94–99
[2021-12-22] MEDS: Heparin Sodium,Porcine 5,000 UNIT/ML VIAL 5000 UNIT SUBCUT ×3 (03:14→17:02)
[2021-12-22] MEDS: Dextrose 5 % 1,000 ML 70 ML IVCONT (03:19)
[2021-12-22 07:36] LABS: Anion Gap 11 (12-20); Blood Urea Nitrogen 9 mg/dL (9-16); Calcium 8.8 mg/dL (8.4-10.2); Carbon Dioxide 23 mmol/L (22-29); Chloride 99 mmol/L (96-108); Creatinine Clr Calc Pharmacy 61.8; Estimated Glomerular Filt Rate > 60; Glucose Random 97 mg/dL (60-115); Potassium 3.7 mmol/L (3.3-5.1); Sodium 129 mmol/L (135-145)
--- NOTE | 2021-12-22 08:24 | P.PNIM_ITS ---
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 Physical Exam Vital Signs: Vital Signs: Last Vital Signs Temp 97.6 F 12/22/21 07:42 Pulse 67 12/22/21 07:42 Resp 18 12/22/21 07:42 BP 146/76 H 12/22/21 07:42 Pulse Ox 98 12/22/21 07:42 BMI result Body Mass Index 24.4 Appearance: Awake , alert ,confused .?s. cvs: rrr, [id number] , no murmur res: clear to auscultation ,no rhonchii or wheezing abd: no rebound or guarding ,nt, bs present. ext pulses present , no cyanosis ,Gait well balanced well coordinated. neuro: axo2, move all ext Objective Data Active Medications Amlodipine Besylate (Amlodipine Besylate 2.5 Mg Tablet) 2.5 mg PO DAILY [facility]; Protocol Fenofibrate (Fenofibrate 54 Mg Tablet) 54 mg PO DAILY [facility] Heparin Sodium (Porcine) (Heparin Sodium,Porcine 5,000 Unit/Ml Vial) 5,000 unit SUBCUT Q8H [facility] Last Admin: 12/22/21 03:14 Dose: 5,000 unit Documented by: ZACH Levofloxacin (Levaquin) 500 mg in 100 mls @ 100 mls/hr IV Q24H [facility] Last Infusion: 12/21/21 11:25 Dose: 0 mls/hr Documented by: TRINY Dextrose (D5w) 1,000 mls @ 70 mls/hr IVCONT .[id number] [facility] Last Admin: 12/22/21 03:19 Dose: 70 mls/hr Documented by: ZACH Loratadine (Loratadine 10 Mg Tablet) 10 mg PO DAILY PRN PRN Reason: allergy symptoms Last Admin: 12/21/21 11:38 Dose: 10 mg Documented by: TRINY Pharmacy Consult (Consult Rx Perform Med Rec) 1 each MISCELLANE ONCE PRN PRN Reason: Consult order Labs CBC & Chem 7: 12/20/21 14:26 12/22/21 10:01 Labs: Laboratory Results - last 24 hr 12/20/21 12/20/21 12/20/21 14:00 15:49 19:52 Sodium 118 L* 124 L Anion Gap Estim Creat Clear Calc Estimated GFR Random Glucose Calcium Urine Osmolality 402 12/20/21 12/21/21 12/21/21 21:00 01:28 12:24 Sodium 124 L 127 L 126 L Anion Gap Estim Creat Clear Calc Estimated GFR Random Glucose Calcium Urine Osmolality 12/21/21 12/21/21 12/22/21 16:07 20:10 06:12 Sodium 127 L 128 L 129 L Anion Gap 11 L Estim Creat Clear Calc 61.8 Estimated GFR > 60 Random Glucose 97 Calcium 8.8 Urine Osmolality Microbiology Microbiology Results: Microbiology 12/20/21 15:49 Blood Culture - Preliminary Blood - Venous No growth after 24 hours. 12/20/21 15:48 Blood Culture - Preliminary Blood - Venous No growth after 24 hours. 12/20/21 15:49 Urine Culture - Preliminary Urine clean catch - Urine quijano top Culture in progress. Assessment and Plan (1) Acute UTI: Status: Acute (2) Acute metabolic encephalopathy: Status: Acute Plan 81-year-old female hypertensive on hydrochlorothiazide admitted with confusion,uti: 1. Acute metabolic encephalopathy secondary to probable hyponatremia : Improving but still confused Monitor electrolytes and renal function closely once sodium around 129 , fluid restrictions. Hold hydrochlorothiazide Nephrology following 2. UTI:? will switch for po antibiotics urine and blood culture pending 3.HTN:? Continue amlodipine 4. As probable rectal prolapse: Outpatient followup as per GI and DVT prophylaxis PT recommended rehab-waiting for placement. Quality Stroke Does the patient have a stroke diagnosis?: No VTE Prior VTE?: No VTE Risk Level:: Medical - low VTE Device Contraindication: N/A - Device Ordered VTE Drug Contraindication: Treatment Not Indicated
[2021-12-22] MEDS: Fenofibrate 54 MG TABLET PO (09:25)
[2021-12-22] MEDS: Loratadine 10 MG TABLET PO (09:30)
[2021-12-22 10:57] LABS: Sodium 129 mmol/L (135-145)
--- NOTE | 2021-12-22 12:40 | PM.PNNEP ---
Subjective Subjective Date of Service: 12/22/21 Interval history: Seen AM. Events noted. All recent data reviewed Physical Exam Vital Signs: Vital Signs: Last Vital Signs Temp 98.6 F 12/22/21 11:01 Pulse 70 12/22/21 11:45 Resp 18 12/22/21 11:01 BP 158/70 H 12/22/21 11:45 Pulse Ox 98 12/22/21 11:45 BMI result Body Mass Index 24.4 Const: Other: Hard of hearing General: alert Orientation/consciousness: patient oriented x3 Eyes: EOM: EOMs intact bilaterally Neck: Neck: Yes supple Resp: Auscultation: diminished lung sounds Cardio: Rate: regular rate GI: Palpation (GI): Soft to palpation Neuro: General: patient oriented x3 and moves all extremities Objective Data Labs CBC & Chem 7: 12/20/21 14:26 12/22/21 10:01 Labs: Laboratory Results - last 24 hr 12/20/21 12/21/21 12/21/21 14:00 12:24 16:07 Sodium 126 L 127 L Potassium Chloride Carbon Dioxide Anion Gap BUN Creatinine Estim Creat Clear Calc Estimated GFR Random Glucose Calcium Urine Osmolality 402 12/21/21 12/22/21 12/22/21 20:10 06:12 10:01 Sodium 128 L 129 L 129 L Potassium 3.7 Chloride 99 Carbon Dioxide 23 Anion Gap 11 L BUN 9 Creatinine 0.59 Estim Creat Clear Calc 61.8 Estimated GFR > 60 Random Glucose 97 Calcium 8.8 Urine Osmolality Microbiology Microbiology Results: Microbiology 12/20/21 15:49 Blood - Venous Blood Culture - Preliminary No growth after 24 hours. 12/20/21 15:48 Blood - Venous Blood Culture - Preliminary No growth after 24 hours. 12/20/21 15:49 Urine clean catch - Urine quijano top Urine Culture - Preliminary Culture in progress. Procedures Date of Service Date of Service: 12/22/21 Assessment & Plan Assessment and plan (1) Acute hyponatremia: Status: Acute Assessment and Plan: No H/O recurrent hyponatremia Had low Cl, low K and low Na Had been on HCTZ; Denies polydypsia No H/O CHF/renal / liver disease Has H/O anxiety; IVC was collapsed on USS @ presentation Likely hypovolemic hyponatremia May have some mild excess ADH Na currently 129 would fluid restrict 48 oz/24 hours Shall follow? up Time Spent With Patient Time: Total time spent is greater than 50% in coordination of care (as documented) at patient's floor/unit and/or counseling patient: Progress Note: Quality Stroke Does the patient have a stroke diagnosis?: No
--- NOTE | 2021-12-22 15:06 | MHC.CM.PN ---
IMM 12/21/21 Female 81 PT evaluation today recommends STR. Arlin/son/HCP was called re discharge planning. Unable to speak with son, a detailed VM was left: Patient qualifies for STR for strengthening. Preferences for STR should be called to Case management. A bed search has been started. Options for preference will be offered. CM office contact info has been left for return call. Met with Pt re DP. STR rec by P.T.. Local facilities in [place] have been referred. [facility]. [facility] pt would like [facility]. She defers to her son tho. CM will follow.
[2021-12-22] MEDS: levoFLOXacin 250 MG TABLET PO (16:59)
[2021-12-22] MEDS: amLODIPine Besylate 2.5 MG TABLET PO (17:10)
[2021-12-22] MEDS: Docusate Sodium 100 MG CAPSULE PO (20:01)
[2021-12-23] VITALS (7 sets, daily range): BP systolic 112–152; BP diastolic 64–72; PULSE 73–107; RESP 15–20; TEMP 36.4–38.2; O2SAT 96–99
[2021-12-23] MEDS: Heparin Sodium,Porcine 5,000 UNIT/ML VIAL 5000 UNIT SUBCUT ×3 (01:56→16:36)
[2021-12-23 08:02] LABS: Hematocrit 34.1 % (37.0-47.0); Hemoglobin 12.1 g/dl (12.0-16.0); Mean Corpuscular HGB Conc 35.5 g/dl (31.0-35.0); Mean Corpuscular Volume 87.4 fL (80.0-98.0); Mean Platelet Volume 8.5 fL (9.4-12.3); Platelet Count 269 X10*3/uL (160-400); Red Cell Distribution Width 12.7 % (11.0-16.0); White Blood Count 3.5 X10*3/uL (4.8-10.8)
[2021-12-23 08:14] LABS: Lactic Acid 1.1 mmol/L (0.5-2.0)
[2021-12-23 08:17] LABS: Anion Gap 11 (12-20); Blood Urea Nitrogen 11 mg/dL (9-16); Carbon Dioxide 24 mmol/L (22-29); Chloride 99 mmol/L (96-108); Creatinine Clr Calc Pharmacy 59.8; Estimated Glomerular Filt Rate > 60; Glucose Random 99 mg/dL (60-115); Potassium 4.1 mmol/L (3.3-5.1); Sodium 130 mmol/L (135-145)
[2021-12-23] MEDS: amLODIPine Besylate 2.5 MG TABLET PO (08:43)
[2021-12-23] MEDS: Fenofibrate 54 MG TABLET PO (08:43)
[2021-12-23] MEDS: polyethylene glycoL 3350 17 GM POWD.PACK PO (08:43)
[2021-12-23] MEDS: Loratadine 10 MG TABLET PO (08:48)
--- NOTE | 2021-12-23 10:04 | P.PNIM_ITS ---
Subjective Subjective Date of Service: 12/23/21 Interval History: fever, tachycaria, hyponatremia uti Review of Systems Mental status is improving, patient had fever preventive maintenance coordinator Denies any new complaint of cough phlegm or nausea vomiting or diarrhea. Physical Exam Vital Signs: Vital Signs: Last Vital Signs Temp 99.9 F 12/23/21 07:08 Pulse 100 12/23/21 07:08 Resp 18 12/23/21 07:08 BP 112/68 12/23/21 07:08 Pulse Ox 98 12/23/21 07:08 BMI result Body Mass Index 24.4 ? Appearance: Awake , alert ,confused .? cvs: rrr, [id number] , no murmur res: clear to auscultation ,no rhonchii or wheezing abd: no rebound or guarding ,nt, bs present. ext pulses present , no cyanosis ,Gait well balanced well coordinated. neuro: axo2, move all ext Objective Data Active Medications Amlodipine Besylate (Amlodipine Besylate 2.5 Mg Tablet) 2.5 mg PO DAILY [facility]; Protocol Last Admin: 12/23/21 08:43 Dose: 2.5 mg Documented by: NATALI Docusate Sodium (Docusate Sodium 100 Mg Capsule) 100 mg PO BEDTIME [facility] Last Admin: 12/22/21 20:01 Dose: 100 mg Documented by: FRANCOISE Fenofibrate (Fenofibrate 54 Mg Tablet) 54 mg PO DAILY [facility] Last Admin: 12/23/21 08:43 Dose: 54 mg Documented by: NATALI Heparin Sodium (Porcine) (Heparin Sodium,Porcine 5,000 Unit/Ml Vial) 5,000 unit SUBCUT Q8H [facility] Last Admin: 12/23/21 01:56 Dose: 5,000 unit Documented by: FRANCOISE Dextrose (D5w) 1,000 mls @ 70 mls/hr IVCONT .[id number] [facility] Last Admin: 12/23/21 08:49 Dose: Not Given Documented by: NATALI Non-Admin Reason: no iv - md aware Levofloxacin (Levofloxacin 250 Mg Tablet) 250 mg PO Q24H [facility] Last Admin: 12/22/21 16:59 Dose: 250 mg Documented by: VERN Loratadine (Loratadine 10 Mg Tablet) 10 mg PO DAILY PRN PRN Reason: allergy symptoms Last Admin: 12/23/21 08:48 Dose: 10 mg Documented by: NATALI Pharmacy Consult (Consult Rx Perform Med Rec) 1 each MISCELLANE ONCE PRN PRN Reason: Consult order Polyethylene Glycol (Polyethylene Glycol 3350 17 Gm Powd.Pack) 17 gm PO DAILY [facility] Last Admin: 12/23/21 08:43 Dose: 17 gm Documented by: NATALI Labs CBC & Chem 7: 12/23/21 07:41 12/23/21 07:41 Labs: Laboratory Results - last 24 hr 12/23/21 12/23/21 12/23/21 07:41 07:41 07:41 MCV 87.4 MCH 31.0 MCHC 35.5 H RDW 12.7 Plt Count 269 MPV 8.5 L Absolute Nucleated RBC 0.000 Nucleated RBC % (auto) 0.0 Anion Gap 11 L Estim Creat Clear Calc 59.8 Estimated GFR > 60 Random Glucose 99 Lactic Acid 1.1 Calcium 9.0 Microbiology Microbiology Results: Microbiology 12/20/21 15:48 Blood Culture - Preliminary Blood - Venous No growth after 48 hours. 12/20/21 15:49 Blood Culture - Preliminary Blood - Venous No growth after 48 hours. 12/20/21 15:49 Urine Culture - Final Urine clean catch - Urine quijano top Assessment and Plan (1) Acute UTI: Status: Acute (2) Acute metabolic encephalopathy: Status: Acute Plan 81-year-old female hypertensive on hydrochlorothiazide admitted with confusion,uti: 1. Acute metabolic encephalopathy secondary to probable hyponatremia : Improving but still confused Monitor electrolytes and renal function closely once sodium around 129 , fluid restrictions. Hold hydrochlorothiazide Nephrology following 2. UTI:? will switch for po antibiotics still febrile , tachycaric met sirs citertia Lactic acid normal, blood culture repeated sent urine and blood culture pending Switched back to IV Levaquin. 3.HTN:? Continue amlodipine 4. As probable rectal prolapse:? Outpatient followup as per GI and DVT prophylaxis PT recommended rehab-waiting for placement. Quality Stroke Does the patient have a stroke diagnosis?: No VTE Prior VTE?: No VTE Risk Level:: Medical - low VTE Device Contraindication: N/A - Device Ordered VTE Drug Contraindication: Treatment Not Indicated
--- NOTE | 2021-12-23 11:57 | PM.PNNEP ---
Subjective Subjective Date of Service: 12/23/21 Interval history: Events noted. All recent data reviewed Physical Exam Vital Signs: Vital Signs: Last Vital Signs Temp 98.2 F 12/23/21 11:24 Pulse 88 12/23/21 11:24 Resp 18 12/23/21 11:24 BP 131/66 12/23/21 11:24 Pulse Ox 99 12/23/21 11:24 BMI result Body Mass Index 24.4 Const: General: no acute distress HEENT: Head: Yes normocephalic Mouth: moist mucous membranes Eyes: EOM: EOMs intact bilaterally Resp: Auscultation: diminished lung sounds Cardio: Rate: regular rate GI: Palpation (GI): Soft to palpation Neuro: General: moves all extremities Objective Data Labs CBC & Chem 7: 12/23/21 07:41 12/23/21 07:41 Labs: Laboratory Results - last 24 hr 12/23/21 12/23/21 12/23/21 07:41 07:41 07:41 WBC 3.5 L RBC 3.90 L Hgb 12.1 Hct 34.1 L MCV 87.4 MCH 31.0 MCHC 35.5 H RDW 12.7 Plt Count 269 MPV 8.5 L Absolute Nucleated RBC 0.000 Nucleated RBC % (auto) 0.0 Sodium 130 L Potassium 4.1 Chloride 99 Carbon Dioxide 24 Anion Gap 11 L BUN 11 Creatinine 0.61 Estim Creat Clear Calc 59.8 Estimated GFR > 60 Random Glucose 99 Lactic Acid 1.1 Calcium 9.0 Microbiology Microbiology Results: Microbiology 12/20/21 15:48 Blood - Venous Blood Culture - Preliminary No growth after 48 hours. 12/20/21 15:49 Blood - Venous Blood Culture - Preliminary No growth after 48 hours. 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 up Time Spent With Patient Time: Total time spent is greater than 50% in coordination of care (as documented) at patient's floor/unit and/or counseling patient: Progress Note: Quality Stroke Does the patient have a stroke diagnosis?: No
[2021-12-23 12:03] LABS: Adenovirus PCR Not Detected (Not Detect.); Bordetella parapertussis PCR Not Detected (Not Detect.); Bordetella pertussis PCR Not Detected (Not Detect.); Chlamydia pneumoniae PCR Not Detected (Not Detect.); Coronavirus 229E PCR Not Detected (Not Detect.); Coronavirus HKU1 PCR Not Detected (Not Detect.); Coronavirus NL63 PCR Not Detected (Not Detect.); Coronavirus OC43 PCR Not Detected (Not Detect.); Human metapneumovirus PCR Not Detected (Not Detect.); Influenza A PCR Detected (Not Detect.); Influenza B PCR Not Detected (Not Detect.); Mycoplasma pneumoniae PCR Not Detected (Not Detect.); Parainfluenza 1 PCR Not Detected (Not Detect.); Parainfluenza 2 PCR Not Detected (Not Detect.); Parainfluenza 3 PCR Not Detected (Not Detect.); Parainfluenza 4 PCR Not Detected (Not Detect.); RSV PCR Not Detected (Not Detect.); Rhino/Enterovirus PCR Not Detected (Not Detect.); SARS-CoV-2 PCR Not Detected (Not Detect.)
[2021-12-23] MEDS: levoFLOXacin/D5W 500 MG/100 ML PIGGYBACK 100 MG IV (14:42)
[2021-12-23] MEDS: Docusate Sodium 100 MG CAPSULE PO (21:21)
[2021-12-24] MEDS: Heparin Sodium,Porcine 5,000 UNIT/ML VIAL 5000 UNIT SUBCUT ×2 (02:47→09:58)
[2021-12-24 04:00] VITALS: BP 142/67; PULSE 73; RESP 18; TEMP 37.2; O2SAT 96
[2021-12-24] MEDS: Throat Lozenge, Medicated LOZENGE 1 LOZENGE MUCOUS MEM (06:26)
[2021-12-24 07:20] VITALS: BP 118/58; PULSE 63; RESP 17; TEMP 36.7; O2SAT 97
--- NOTE | 2021-12-24 07:58 | P.DS_ITS ---
DS: Providers Provider Date of Service: 12/24/21 Date of admission: 12/20/21 16:55 Primary care physician: Alcides Powers MD Consults: 12/20/21 20:45 Consult to Nephrology Routine Consulting Provider: [facility] Reason for consultation: hyponatremia Has provider been notified: No 12/22/21 09:24 Consult to Urology Routine Consulting Provider: Mateusz Nath Reason for consultation: bladder proplase question Has provider been notified: No DS: Diagnosis Discharge Diagnosis (1) Acute UTI: Status: Acute (2) Acute metabolic encephalopathy: Status: Acute DS: Summary Hospital Course Hospital Course: 81-year-old female hypertensive on hydrochlorothiazide admitted with confusion although oriented and awake no seizure activity no fall who admits to drinking at least in 0 5 quarts of just plain water no mixture of electrolytes and takes her hydrochlorothiazide and she is hyponatremic at 01:18 probably accounting for mental status and also hypokalemic all consistent with the combination of hydrochlorothiazide effect reducing did diluting capacity and for that we are awaiting the osmolality of the urine but the sodium at 51 reflects the hydrochlorothiazide effect coupled with her free water intake and my bedside echo shows normal LV and RV function no primary valve or pericardial disease and she has a small IVC diameter with normal inspiratory collapse so she is anywhere from mildly hypovolemic to euvolemic. Hospital course: Patient admitted for hyponatremia-seen by Nephrology thought to be related to hydrochlorothiazide use, and hypo volemic hyponatremia. patient hyponatremia seems improved, patient also has UTI and on Levaquin seems improving-please complete the course of p.o. antibiotics. Discussed with the family- Patient possibly has mildly uterine prolapse for which she needs to follow-up out patiently with core cutter. influenza A:started her tamiflu -complete the course tamiflu. Hypertension: Her blood pressure seems to be controlled with amlodipine currently, if needed amlodipine can be adjusted for blood pressure will stop hydrochlorothiazide secondary to hyponatremia, consider repeating renal fun ction and electrolytes in rehab in 1 week. Above management discussed with the patient in detail as well as patient family over the phone length they understand and in agreement with the above plan, time spent 50 minutes and 50% time spent on counseling. Significant findings: As above. Procedures performed: None. Treatment and response: As above. Complications: None. Time Spent with Patient Time attestation: Total time spent providing and/or coordinating discharge services: Discharge coordination time: Greater than 30 minutes Quality: Safe Use of Opioids Does Pt have an Active Cancer Diagnosis on the Problem List?: No Quality: Stroke Does the patient have a stroke diagnosis?: No Physical Exam Vital Signs: Vital Signs: Last Vital Signs Temp 98.0 F 12/24/21 07:20 Pulse 63 12/24/21 07:20 Resp 17 12/24/21 07:20 BP 118/58 L 12/24/21 07:20 Pulse Ox 97 12/24/21 07:20 BMI result Body Mass Index 24.4 Appearance: Alert.? Oriented X3.? not in distress.? Eyes: Pupils equal, round and reactive to light.? Sclera nonicteric.? ENT: Pharynx normal.? Moist mucous membranes. cvs: rrr, [id number] , no murmur res: clear to auscultation ,no rhonchii or wheezing abd: no rebound or guarding ,nt, bs present. ext pulses present , no cyanosis . neuro: axo3 , nonfocal. DS: Data Data Completed and Pending Labs on day of discharge: Laboratory Results - last 24 hr 12/23/21 12/23/21 12/23/21 07:41 07:41 07:41 WBC 3.5 L RBC 3.90 L Hgb 12.1 Hct 34.1 L MCV 87.4 MCH 31.0 MCHC 35.5 H RDW 12.7 Plt Count 269 MPV 8.5 L Absolute Nucleated RBC 0.000 Nucleated RBC % (auto) 0.0 Sodium 130 L Potassium 4.1 Chloride 99 Carbon Dioxide 24 Anion Gap 11 L BUN 11 Creatinine 0.61 Estim Creat Clear Calc 59.8 Estimated GFR > 60 Random Glucose 99 Lactic Acid 1.1 Calcium 9.0 Respiratory Panel Golden Adenovirus (Rapid PCR) B.pert (TEM-PCR) B.parapertussis DNA PCR C. pneumoniae DNA (PCR) Coronavirus OC43 (PCR) Coronavirus HKU1 (PCR) Coronavirus 229E (PCR) Coronavirus NL63 (PCR) Human Metapneumovir PCR Influenza A (RT-PCR) Influenza B (RT-PCR) M. pneumoniae (PCR) Parainfluenza 1 (PCR) Parainfluenza 2 (PCR) Parainfluenza 3 (PCR) Parainfluenza 4 (PCR) RSV (PCR) Entero/Rhino (PCR) SARS-CoV-2 RNA (RT-PCR) 12/23/21 10:23 WBC RBC Hgb Hct MCV MCH MCHC RDW Plt Count MPV Absolute Nucleated RBC Nucleated RBC % (auto) Sodium Potassium Chloride Carbon Dioxide Anion Gap BUN Creatinine Estim Creat Clear Calc Estimated GFR Random Glucose Lactic Acid Calcium Respiratory Panel Golden See Note Adenovirus (Rapid PCR) Not Detected B.pert (TEM-PCR) Not Detected B.parapertussis DNA PCR Not Detected C. pneumoniae DNA (PCR) Not Detected Coronavirus OC43 (PCR) Not Detected Coronavirus HKU1 (PCR) Not Detected Coronavirus 229E (PCR) Not Detected Coronavirus NL63 (PCR) Not Detected Human Metapneumovir PCR Not Detected Influenza A (RT-PCR) Detected A Influenza B (RT-PCR) Not Detected M. pneumoniae (PCR) Not Detected Parainfluenza 1 (PCR) Not Detected Parainfluenza 2 (PCR) Not Detected Parainfluenza 3 (PCR) Not Detected Parainfluenza 4 (PCR) Not Detected RSV (PCR) Not Detected Entero/Rhino (PCR) Not Detected SARS-CoV-2 RNA (RT-PCR) Not Detected Preliminary micro results at discharge 12/20/21 15:48 Blood Culture - Preliminary Blood - Venous No growth after 48 hours. 12/20/21 15:49 Blood Culture - Preliminary Blood - Venous No growth after 48 hours. Additional Comments Additional comments: XR/XR chest 1V IMPRESSION: No acute cardiopulmonary process. Discharge Plan Discharge Patient Disposition: [facility] Discharge Diagnosis: uti, hyponatremia Referrals: [facility] [Outside] - 1 Week Alcides Powers MD [Primary Care Provider] - 1 Week Discharge Medications: New levofloxacin 250 mg tablet 250 mg PO DAILY Qty: 5 0RF oseltamivir [Tamiflu] 75 mg capsule 30 mg PO BID 5 Days Qty: 4 0RF Robitussin Cough-Sore Throat 325-10 mg/10 mL liquid 20 ml PO Q4H PRN (Reason: cold symptoms) Qty: 237 0RF Continued cetirizine [All Day Allergy (cetirizine)] 10 mg tablet 10 mg PO DAILY PRN (Reason: allergy symptoms) Qty: 90 8RF amlodipine 2.5 mg tablet 2.5 mg PO DAILY Qty: 90 8RF fenofibrate 54 mg tablet 54 mg PO DAILY Qty: 60 6RF Discontinued hydrochlorothiazide 25 mg tablet 25 mg PO DAILY Qty: 90 8RF Discharge Orders: Discharge Order (Routine); Ordered 12/24/21 Ordered By: Elisa Fuentes Diet: advance to usual diet Activity on Discharge: As tolerated Stand Alone Forms: Patient Portal Discharge page Care Plan Goals: Patient admitted for hyponatremia-seen by Nephrology thought to be related to hydrochlorothiazide use, and hypo volemic hyponatremia. patient hyponatremia seems improved, patient also has UTI and on Levaquin seems improving-please complete the course of p.o. antibiotics. Patient possibly has mildly uterine prolapse for which she needs to follow-up out patiently with core cutter. Health Concerns: As above. Plan of Treatment: As above. Assessment: As above.
[2021-12-24] MEDS: Fenofibrate 54 MG TABLET PO (09:58)
[2021-12-24] MEDS: amLODIPine Besylate 2.5 MG TABLET PO (09:58)
[2021-12-24] MEDS: Oseltamivir Phosphate 75 MG CAPSULE PO (09:58)
[2021-12-24] MEDS: Loratadine 10 MG TABLET PO (10:05)
--- NOTE | 2021-12-24 11:13 | MHC.CM.PN ---
Patient has been medically cleared for dc to [facility]/SNF today. CM confirmed with Son/Hansel @ [phone] that [facility] is first choice. Patient will dc to [facility] today at 2PM, via [facility]. IMM addressed with Hansel and kobe will be mailed certified letter to him and a copy has been placed on the chart.
[2021-12-24 11:26] VITALS: BP 132/71; PULSE 64; RESP 18; TEMP 36.7; O2SAT 98
== END 2021-12-24 14:33 | disposition skilled nursing facility (03) | DRG 640 ==
LOC: HO.ED 16:51 → HO.EDOVER 17:09 → HO.IMC 12-21 16:13
PROVIDERS: Internal Medicine; Physician Assistant; Admitting Provider Internal Medicine Cardiovascular Disease; Emergency Provider Emergency Medicine; PCP Internal Medicine; Visit Provider Internal Medicine
DX: E87.1 Hypo-osmolality and hyponatremia (principal); G93.41 Metabolic encephalopathy; N39.0 Urinary tract infection, site not specified; J10.81 Influenza due to other identified influenza virus with encephalopathy; E78.5 Hyperlipidemia, unspecified; T50.2X5A Adverse effect of carbonic-anhydrase inhibitors, benzothiadiazides and other diuretics, initial encounter; E87.6 Hypokalemia; I10 Essential (primary) hypertension; Z20.822 Contact with and (suspected) exposure to COVID-19; Z79.899 Other long term (current) drug therapy
CPT/HCPCS: 36415; 70450; 71045; 80048; 80076; 81001; 83605; 83735; 83935; 84295; 84300; 84484; 85025; 85027; 87040; 87086; 87502; 87633; 87635; 93005; 96361; 96365; 97116; 97162; 99285; 99291; J0696; J1956

== ENCOUNTER → 2022-02-02 11:00 | Outpatient (BNVA) | payer MEDICARE, MEDICAID, SELFPAY | PROVIDERS: PCP Internal Medicine; Referring Provider Internal Medicine; Visit Provider Surgery | DX: K62.3 Rectal prolapse (principal) | CPT/HCPCS: 99202 ==

== ENCOUNTER 2025-06-24 12:16 | Inpatient (IN) | payer OTHER, SELFPAY ==
--- OUTSIDE RECORDS SUMMARY | 2025-06-19 | XMS_ITS | Encounter Summary ---
Author Organization [place] [address] Care Team Providers Care Gear Machine Operator General Name Role Phone Patrizia Mariscal LANGUAGE PATH Primary Care Provider [phone] Reason for Visit * Reason Comments Med Management Monthly med mgmt Encounter Details Date Type Department Care Team (Late st Contact Info) Description 06/19/2025 Clinical Support [address] [phone] Nasima Caceres RN Social History Tobacco Use Types Packs/Day Years Used Date Smoking Tobacco: Never Smokeless Tobacco: Never Alcohol Use Standard Drinks/Week Comments Never 0 (1 standard drink = 0.6 oz pur e alcohol) Comments Unknown Sex and Gender Information Value Date Recorded Sex Assigned at Not on file Legal Sex Female 3:20 AM EST Gender Identity Not on file Sexual Orientation Not on file documented as of this encounter Last Filed Vital Signs Vital Sign Reading Time Taken Comments Blood Pressure 126/68 06/19/2025 11:08 AM EDT Pulse 78 06/19/2025 11:08 AM EDT Temperature 36.7 C (98.1 F) 06/19/2025 11:08 AM EDT Respiratory Rate 16 06/19/2025 11:08 AM EDT Oxygen Saturation 98% 06/19/2025 11:08 AM EDT Inhaled Oxygen Concentration - - Weight 56.1 kg (123 lb 9.6 oz) 06/19/2025 11:08 AM EDT Height - - Body Mass Index 23.35 05/01/2025 11:00 AM EDT documented in this encounter Progress Notes * Nasima Caceres RN - 06/19/2025 12:00 AM EDT Par seen in home for monthly med mgmt, VS, weight. Par presents at baseline. Hearing much improved.Good mood, cooperative and engaging. Par denies pain this visit, L hip intermittent pain uses muscle rub with good effect. Mediplanner empty, par is compliant with meds. Par has good understanding ofhealthy diet. Par has no concerns this visit. Wants a dental appt. Team aware. Educated that q4 week SN visit moving forward. Par in agreement. Plan to continue monitoring at [facility]. documented in this encounter Plan of Treatment Upcoming Encounters Date Type Department Care Team (Late st Contact Info) Description 06/25/2025 11:30 AM EDT [facility] / [facility] Visit [facility] [address] [place] [phone] Brina Tse 07/02/2025 11:30 AM EDT [facility] / [facility] Home Visit [facility] [address] [place] [phone] Brina Tse 07/03/2025 Clinical Support [facility] [address] [place] [phone] Nasima Caceres RN 07/09/2025 11:30 AM EDT [facility] / [facility] Home Visit [facility] [address] [place] [phone] Brina Tse 07/15/2025 10:30 AM EDT Clinical Support [facility] [address] [place] [phone] 07/16/2025 11:30 AM EDT [facility] / [facility] Home Visit [facility] [address] [place] [phone] Brina Tse 07/17/2025 Clinical Support [facility] [address] [place] [phone] Nasima Caceres, STORMY 07/22/2025 10:00 AM EST Clinical Support [facility] [address] [place] [phone] 07/23/2025 11:30 AM EST [facility] / [facility] Home Visit [facility] [address] [place] [phone] Brina Tse 07/24/2025 11:00 AM EST [facility] Visit [facility] [address] [place] [phone] Patrizia Mariscal NP [address] [place] [phone] 07/25/2025 10:00 AM EST Clinical Support [facility] [address] [place] [phone] 07/30/2025 11:30 AM EST [facility] / [facility] Home Visit [facility] [address] [place] [phone] Brina Tse 07/31/2025 Clinical Support [facility] [address] [place] [phone] Nasima Caceres, STORMY 08/06/2025 11:30 AM EST [facility] / [facility] Home Visit [facility] [address] [place] [phone] Brina Tse 08/13/2025 11:30 AM EST [facility] / [facility] Home Visit [facility] [address] [place] [phone] Brina Tse 08/14/2025 Clinical Support [facility] [address] [place] [phone] Nasima Caceres, RN 08/19/2025 11:00 AM EST Clinical Support [facility] [address] [place] [phone] 08/20/2025 11:30 AM EST [facility] / [facility] Home Visit [facility] [address] [place] [phone] Brina Tse 08/28/2025 Clinical Support [facility] [address] [place] [phone] Nasima Caceres, STORMY 09/11/2025 Clinical Support [facility] [address] [place] [phone] Nasima Caceres, STORMY 09/25/2025 Clinical Support [facility] [address] [place] [phone] Nasima Caceres, RN 10/09/2025 Clinical Support [facility] [address] [place] [phone] Nasima Caceres, STORMY 10/23/2025 Clinical Support [facility] [address] [place] [phone] Nasima Caceres, RN 11/06/2025 Clinical Support [facility] [address] [place] [phone] Nasima Caceres, RN 11/20/2025 Clinical Support [facility] [address] [place] [phone] Nasima Caceres, RN 12/04/2025 Clinical Support [facility] [address] [place] [phone] Nasima Caceres, RN 12/18/2025 Clinical Support [facility] [address] [place] [phone] Nasima Caceres, STORMY 01/01/2026 [facility] [address] [place] [phone] Nasima Caceres, STORMY 01/15/2026 [facility] [address] [place] [phone] Nasima Caceres, STORMY 01/29/2026 [facility] [address] [place] [phone] Nasima Caceres, STORMY 02/12/2026 Clinical Support [facility] [address] [place] [phone] Nasima Caceres, STORMY 02/26/2026 [facility] [address] [place] [phone] Nasima Caceres, STORMY 02/27/2026 9:45 AM EDT [facility] [address] [place] [phone] 03/12/2026 [facility] [address] [place] [phone] Nasima Caceres, STORMY 03/26/2026 [facility] Support [facility] [address] [place] [phone] Nasima Caceres, STORMY 04/09/2026 [facility] Support [facility] [address] [place] [phone] Nasima Caceres, STORMY 04/23/2026 [facility] Support [facility] [address] [place] [phone] Nasima Caceres, STORMY 05/07/2026 Clinical Support [facility] [address] [phone] Nasima Caceres, STORMY 05/21/2026 Clinical Support [address] [phone] Nasima Caceres, STORMY 06/04/2026 Clinical Support [address] [phone] Nasima Caceres, RN documented as of this encounter Visit Diagnoses Not on filedocumented in this encounter Care Teams Gear Machine Operator General Relationship Specialty Start Date End Date Patrizia Mariscal NP PCP - General Family Medicine 07/26/24 documented as of this encounter
--- NOTE | ~2025-06-24 | CT_ITS ---
EXAMINATION: CT HEAD WITHOUT CONTRAST CLINICAL INFORMATION: Fall, head strike COMPARISON: 12/20/2021 TECHNIQUE: Contiguous axial imaging was performed from the skull base to vertex without intravenous administration of contrast. This CT examination was performed using dose optimization techniques as appropriate, variously including the following: *Automated exposure control *Adjustment of mA and/or kV according to patient size (this includes techniques or standardized protocols for targeted exams where dose is matched to indication/reason for exam; i.e. extremities or head) *Use of iterative reconstruction technique FINDINGS: There is no evidence of intracranial hemorrhage or extra-axial fluid collection. There is no mass effect, or edema. No CT evidence of acute territorial infarct. Ventricles, sulci, and cisterns are normal in size and configuration for patient age. No hydrocephalus. No midline shift. Negative hyperdense MCA sign. Negative insular ribbon sign. Patchy periventricular and deep white matter hypoattenuation is consistent with moderate small vessel ischemic changes. Normal pituitary. Mild atheromatous calcification of the bilateral carotid siphons and V4 segments vertebral arteries bilaterally. Globes and orbital contents image normally. No extracranial soft tissue abnormalities. There is mild sphenoid paranasal sinus disease bilaterally. There is chronic opacification of the left mastoid air cells extending into the left middle ear cavity, also chronic. 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 No suspicious bony abnormalities. There are no acute fractures evident. CT/CT head/brain wo IV con IMPRESSION: 1. No acute intracranial abnormality. No acute fracture evident. 2. 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 3. Severe degenerative arthritis right TM joint. Electronically signed by: Brandon Maharaj MD 06/24/2025 03:24 PM EDT
--- NOTE | ~2025-06-24 | XR_ITS ---
EXAMINATION: XR PELVIS CLINICAL INFORMATION: post op COMPARISON: None available. TECHNIQUE: AP view of the pelvis. 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 Femoral, and acetabular components are intact, well seated, in anatomic alignment. No periprosthetic fracture is evident. There are 3 compression screws fixating the left hip, unchanged from the prior radiograph. There are skin olga over the lateral right hip, with subcutaneous emphysema and soft tissue swelling, expected postop. There are soft tissue vascular calcifications. XR/XR pelvis 1-2V IMPRESSION: Total right hip arthroplasty without complication. Electronically signed by: Brandon Maharaj MD 06/27/2025 02:28 PM EDT
--- NOTE | ~2025-06-24 | XR_ITS ---
EXAMINATION: XR HIP 2 OR MORE VIEWS RIGHT HISTORY: pain, fall COMPARISON: Comparison is made with the prior examination dated 11/03/2017. FINDINGS: A single AP view of the pelvis and two views of the right hip are submitted. Osseous mineralization is normal. There is a comminuted subcapital fracture of the femur. No additional fracture is identified. There is no dislocation. The patient is status post internal fixation of the left hip with 3 cannulated screws. There is degenerative disc disease of the spine. There is mild narrowing of both hip joints. The soft tissues are unremarkable. XR/XR hip RT min 2V IMPRESSION: Comminuted subcapital fracture. Electronically signed by: Michael Floyd MD 06/24/2025 01:18 PM EDT
--- NOTE | ~2025-06-24 | XR_ITS ---
EXAMINATION: XR CHEST CLINICAL INFORMATION: fall COMPARISON: None available. TECHNIQUE: Frontal view of the chest was obtained. FINDINGS: The patient is rotated toward the left. Heart size normal. Lungs clear. XR/XR chest 1V IMPRESSION: No acute disease. Electronically signed by: Teodoro Chapman MD 06/24/2025 01:19 PM EDT RP
--- NOTE | ~2025-06-24 | CT_ITS ---
EXAMINATION: CT CERVICAL SPINE WITHOUT IV CONTRAST HISTORY: fall. TECHNIQUE: Helical CT of the cervical spine was performed per standard departmental protocol. Coronal and sagittal reformatted images were also evaluated. One or more of the following techniques was used for dose reduction: Automated exposure control, adjustment of the mA and/or kV according to patient size, use of iterative reconstruction technique. DLP: 279 mGy-cm COMPARISON: There are no prior studies available for comparison. FINDINGS: CERVICAL SPINE: There is mild to moderate leftward curvature. Osseous mineralization is normal. The vertebral bodies maintain normal height without evidence of fracture or subcutaneous fixation. There is moderate degenerative disc disease with disc space narrowing and osteophyte formation. Evaluation for disc pathology is limited by lack of intrathecal contrast material. BRAIN: The visualized portion of the brain is unremarkable. SINUSES: There is mucosal thickening in the bilateral sphenoid sinuses. There is complete opacification of the left mastoid air cells and middle ear cavity. LUNG APICES: There is a 10 mm nodule at the left lung apex. SOFT TISSUES: There is a 1.5 cm partially calcified left thyroid nodule. CT/CT cervical spine wo IV con IMPRESSION: 1. No evidence of fracture or subluxation of the cervical spine. 2. 10 mm left apical lung nodule. Nonemergent chest CT is recommended for further evaluation. 3. Complete opacification of the left mastoid air cells and middle ear cavity. Electronically signed by: Michael Floyd MD 06/24/2025 03:18 PM EDT
--- OUTSIDE RECORDS SUMMARY | 2025-06-24 11:00 | XMS_ITS | Encounter Summary ---
Author Organization [facility] [place] [address] Care Team Providers Care Glass Bulb Machine Adjuster Name Role Phone Patrizia Mariscal NP Primary Care Provider [phone] Reason for Visit * Reason Comments Follow-up Insomnia Encounter Details Date Type Department Care Team (Late st Contact Info) Description 06/24/2025 11:00 AM EDT Clinical Support [address] [phone] Nasima Caceres RN Social History [...] on file documented as of this encounter Progress Notes * Nasima Caceres RN - 06/24/2025 11:00 AM EDT Par seen in home by RN after [facility] mgr received a call from par who was frantic and crying. This lead technical writer called par and left a message stating 15 min arrival. Neighbor allowed access to building as pardid not answer. Apartment door was unlocked. Par sitting in living room chair. Visibly upset, crying, apartment smelled of urine and feces. Freddy was very anxious and stated where is the ambulance, I can't walk dt anxiety, it was difficult to get full story. Per par, on Monday she fell under the table and has been stuck in chair since Monday. She could not explain how she got up, as she was perseverating about sitting in shit and being hungry. This lead technical writer made 2 waffles while waiting for EMS. Freddy was anxious about not taking her meds x2 days and asking multiple times am I going to . Freddy had one empty water bottle and one full water bottle within reach. Phone was in reach. PERS wrist and necklace both in bedroom. Freddy was incont of bladder and bowel. Par reported I can't walk rollator within reach. Minimal pain noted. Par reports R groin pain. Freddy was able to stand for approx 5secs with max assist so SN could take pants off and help clean while waiting for EMT. No open areas, bruising or abrasions noted. Groin and buttocks very excoriated. Shirt was changed, pants and underpants were removed and SN used wet wipes to clean up feces. Clothing and sheet freddy was using on chair was thrown away with garbage in building trash chute. EMS arrived and given report and med list, SN assisted with using sheet for sling to lift to stretcher. Underwear and pants, shoes, purse and house keys went with EMS, freddy was wearing her glasses. VS not obtained by this lead technical writer, as freddy was anxious and very concerned about getting cleaned up and eating. During elevator ride down, freddy was cooperative, engaging and did not seem confused. Freddy was talking with neighbors and smiling, appeared less anxious. [place] team aware of par's status. documented in this encounter Plan of Treatment Upcoming Encounters Date Type Department Care Team (Late st Contact Info) Description 06/25/2025 11:30 AM EDT [facility] Home [facility] / [facility] Home Visit [facility] [address] [place] [phone] Brina Tse 07/02/2025 11:30 AM EDT [facility] Home [facility] / [facility] [address] [place] [phone] Brina Tse 07/03/2025 Clinical Support [facility] [place] [facility] [address] [place] [phone] Nasima Caceres, RN 07/09/2025 11:30 AM EDT [facility] Home [facility] / [facility] [place] [facility] [address] [place] [phone] Brina Tse 07/15/2025 10:30 AM EDT Clinical Support [facility] [place] [address] [place] [phone] 07/16/2025 11:30 AM EDT [facility] Home [facility] / [facility] [place] [facility] [address] [place] [phone] Dedrick Brina 07/17/2025 Clinical [facility] [address] [place] [phone] Nasima Caceres, STOMRY 07/22/2025 10:00 AM EST Clinical Support [facility] [place] [address] [place] [phone] 07/23/2025 11:30 AM EST [facility] Home [facility] / [facility] [place] [facility] [address] [place] [phone] Colin Tseah 07/24/2025 11:00 AM EST [facility] [place] [facility] [address] [place] [phone] Patrizia Mariscal NP [address] [address] 07/25/2025 10:00 AM EST Clinical Support [facility] [place] [address] [place] [phone] 07/30/2025 11:30 AM EST [facility] Home [facility] / [facility] Home [facility] [place] [facility] [address] [place] [phone] Dedrick Brina 07/31/2025 Clinical [facility] [place] [facility] [address] [place] [phone] Nasima Caceres, RN 08/06/2025 11:30 AM EST [facility] / [facility] [address] [place] [phone] Dedrick Brina 08/13/2025 11:30 AM EST [facility] Home [facility] / [facility] Home [facility] [place] [facility] [address] [place] [phone] Dedrick Brina 08/14/2025 Clinical [facility] [address] [place] [phone] Nasima Caceres, STORMY 08/19/2025 11:00 AM EST Clinical Support [facility] [address] [place] [phone] 08/20/2025 11:30 AM EST [facility] Home [facility] / [facility] Home [facility] [address] [place] [phone] Dedrick Brina 08/28/2025 [facility] Support [facility] [address] [place] [phone] Nasima Caceres, RN 09/11/2025 [facility] Support [facility] [address] [place] [phone] Nasima Caceres, RN 09/25/2025 [facility] Support [facility] [address] [place] [phone] Nasima Caceres, RN 10/09/2025 [facility] Support [facility] [address] [place] [phone] Nasima Caceres, RN 10/23/2025 Clinical [facility] [place] [facility] [address] [place] [phone] Nasima Caceres, RN 11/06/2025 Clinical Support [facility] [place] [facility] [address] [place] [phone] Nasima Caceres, RN 11/20/2025 Clinical Support [facility] [place] [facility] [address] [place] [phone] Nasima Caceres, STORMY 12/04/2025 Clinical Support [facility] [place] [facility] [address] [place] [phone] Nasima Caceres, STORMY 12/18/2025 Clinical Support [facility] [place] [facility] [address] [place] [phone] Nasima Caceres, STORMY 01/01/2026 Clinical Support [facility] [place] [facility] [address] [place] [phone] Nasima Caceres, STORMY 01/15/2026 Clinical Support [facility] [address] [place] [phone] Nasima Caceres, STORMY 01/29/2026 Clinical Support [facility] [place] [facility] [address] [place] [phone] Nasima Caceres, STORMY 02/12/2026 Clinical Support [facility] [place] [facility] [address] [place] [phone] Nasima Caceres, STORMY 02/26/2026 Clinical Support [facility] [place] [facility] [address] [place] [phone] Nasima Caceres, STORMY 02/27/2026 9:45 AM EDT PACE External Visit [facility] [address] [phone] 03/12/2026 Clinical Support [facility] [address] [phone] Nasima Caceres, STORMY 03/26/2026 Clinical Support [facility] [address] [phone] Nasima Caceres, STORMY 04/09/2026 Clinical Support [facility] [address] [phone] Nasima Caceres, STORMY 04/23/2026 Clinical Support [address] [phone] Nasima Caceres, STORMY 05/07/2026 Clinical Support [address] [phone] Nasima Caceres, STORMY 05/21/2026 Clinical Support [address] [phone] Nasima Caceres, STORMY 06/04/2026 Clinical Support [address] [phone] Nasima Caceres, RN documented as of this encounter Visit Diagnoses Not on filedocumented in this encounter Care Teams Glass Bulb Machine Adjuster Relationship Specialty Start Date End Date Patrizia Mariscal NP PCP - General Family Medicine 07/26/24 documented as of this encounter
[2025-06-24 12:21] VITALS: BP 138/66; BP 142/73; PULSE 109; PULSE 76; RESP 15; TEMP 38.6; O2SAT 96; BMI 44.1
--- NOTE | 2025-06-24 12:36 | ECG_ITS ---
Test Reason : FALL Blood Pressure : */* mmHG Vent. Rate : 94 BPM Atrial Rate : 94 BPM P-R Int : 158 ms QRS Dur : 88 ms QT Int : 344 ms P-R-T Axes : 84 37 -12 degrees QTcB Int : 430 ms Normal sinus rhythm ST & T wave abnormality, consider inferior ischemia Abnormal ECG When compared with ECG of 20-Dec-2021 13:49, ST more depressed Inferior leads T wave inversion now evident in Inferior leads Referred By: Miya Patel Electronically Signed By: JOSI TORO MD
[2025-06-24 13:12] LABS: MANUAL DIFF FLAG NO
[2025-06-24 13:14] LABS: Hematocrit 37.9 % (37.0-47.0); Hemoglobin 12.8 g/dl (12.0-16.0); Imm Gran Abs Auto 0.10 X10*3/uL (0.00-0.03); Imm Gran Pct Auto 0.9 % (0.0-0.4); Lymphocytes Absolute Auto 0.9 X10*3/uL (1.2-4.9); Mean Corpuscular HGB Conc 33.8 g/dl (31.0-35.0); Mean Corpuscular Hemoglobin 30.4 pg (27.0-33.0); Mean Corpuscular Volume 90.0 fL (80.0-98.0); NRBC Abs Auto 0.000 X10*3/uL (0.0-0.012); NRBC Pct Auto 0.0 /100WBC (0.0-0.2); Platelet Count 275 X10*3/uL (160-400); Red Blood Count 4.21 X10*6/uL (4.20-5.50); White Blood Count 11.6 X10*3/uL (4.8-10.8)
--- NOTE | 2025-06-24 13:17 | ED.FALL ---
HPI - Fall General Chief Complaint: Fall Stated Complaint: Unable to ambulate Time Seen by Provider: 06/24/25 12:27 Source: patient and old records reviewed Mode of arrival: ambulatory Limitations: no limitations History of Present Illness ED Provider: SP RM Narrative: 85 yo female with PMH of anxiety, HLD, HTN, who lives alone she is not on blood thinners here with c/o having unwitnessed fall while ambulating with a walker. She reports a trip and fall. She has been on the ground since then. She denies LOC or headstrike. She has [facility] at home and they found her today c/o R hip pain and covered in urine and feces. Her buttocks and vaginal area where raw. She is demaning her c collar be removed and does not want it on. She states she couldn't walk due to the pain. complaint: fall Onset (ago): day(s) (Monday) Fall from: standing Fall witnessed: no Place fall occurred: home Loss of consciousness: none Prolonged down time: yes and day(s) Symptoms prior to fall: none Context: tripped/slipped Location of injury: pelvis Severity: moderate Quality: aching Associated symptoms (after fall): unable to walk Related Data Home Medications ?Medication ?Instructions ?Recorded ?Confirmed hydrochlorothiazide 25 mg tablet 25 mg PO DAILY 01/11/22 02/02/22 Previous Rx's ?Medication ?Instructions ?Recorded cetirizine 10 mg tablet (All Day 10 mg PO DAILY PRN allergy 12/21/20 Allergy (cetirizine)) symptoms #90 tabs fenofibrate 54 mg tablet 54 mg PO DAILY #60 tabs 06/01/21 levofloxacin 250 mg tablet 250 mg PO DAILY #5 tabs 12/24/21 amlodipine 2.5 mg tablet 2.5 mg PO DAILY #90 tabs 02/18/22 Allergies Allergy/AdvReac Type Severity Reaction Status Date / Time acetaminophen (From Allergy Unknown HIVES,RASH Verified 06/24/25 12:25 TYLENOL-CODEINE #3) codeine (From Allergy Unknown HIVES,RASH Verified 06/24/25 12:25 TYLENOL-CODEINE #3) penicillin V Allergy Unknown Unknown Verified 06/24/25 12:25 Sulfa (Sulfonamide Allergy Unknown Unknown Verified 06/24/25 12:25 Antibiotics) Review of Systems Review of Systems: Constitutional : No Fever, No Chills ENT/Mouth : No Ear Pain, No Hoarseness, No sore throat Eyes: No Eye Pain, No Swelling, No Redness, No Foreign Body Cardiovascular : No Chest Pain, No SOB Respiratory : No Cough, No Dyspnea Gastrointestinal : No Nausea, No Vomiting, No Diarrhea, No abdominal Pain Genitourinary : No Dysuria, No Hematuria Musculoskeletal : positive joint pain, No Myalgias, No Joint Swelling Skin : No Skin lacerations, No rash Neuro : No Weakness, No Numbness, No Loss of Consciousness, No Dizziness, No Headache All other systems reviewed and are negative [facility] Past Medical History Attestation statement: The following information was validated with the patient. Source: old records reviewed Medical History Rectal prolapse Anxiety Hyperlipidemia Hypertension Surgical History History of open reduction and internal fixation (ORIF) procedure History of hysterectomy Family History Family History Father No problems noted. Mother Hypertension Social History Social History Household Members: None Housing: Assisted Living Facility Do you presently have visiting nurse or other home services: Yes Alcohol intake: never Patient Tobacco Use Status: Never used Tobacco e-Cigarette/Vaping Use: Never Used Second Hand Smoke Exposure: No Advance Directives: No Advance Directives Information Provided: No Do you have a plan to hurt others: No Plan service: No Current occupational status: disabled Current occupational exposures/hazards: No Cognitive needs: Yes Hearing needs: Yes Vision needs: Yes Physical Exam Vital Signs: Vital Signs: Last Vital Signs Temp 99.7 F 06/24/25 14:37 Pulse 85 06/24/25 14:37 Resp 16 06/24/25 14:37 BP 155/89 H 06/24/25 14:37 Pulse Ox 96 06/24/25 14:37 O2 Del Method Room Air 06/24/25 14:37 BMI result Body Mass Index 44.1 Appearance: Alert. Oriented X3. in pain, mild acute distress. frail and thin Eyes: Pupils equal, round and reactive to light. ENT: Pharynx dry MM. atraumatic Neck: Normal inspection. Neck supple. CVS: Normal heart rate and rhythm. Pulses normal. Respiratory: No respiratory distress. Breath sounds normal. Abdomen: Soft and nontender. : raw excoriated skin on vaginal area and buttocks - applied barrier cream Skin: Skin warm and dry. Normal skin color. Normal skin turgor. Extremities: No lower extremity edema. R hip ttp along upper thigh - compartments are soft and compressible, distal NV intact Neuro: Oriented X 3. No motor deficit. No sensory deficit. CN2-12 intact Medications Administered Discontinued Medications Generic Name Dose Route Start Last Admin Trade Name Freq PRN Reason Stop Dose Admin Ceftriaxone Sodium 1 gm 06/24/25 12:55 06/24/25 13:16 Ceftriaxone Sodium 1 Gm Vial IVPUSH 06/24/25 12:56 1 gm ONCE ONE Administration Fentanyl 50 mcg 06/24/25 12:36 06/24/25 13:18 Fentanyl Citrate/Pf 100 Mcg/2 Ml Vial IVPUSH 06/24/25 12:37 50 mcg ONCE ONE Administration Protocol Sodium Chloride 1,000 mls @ 999 mls/hr 06/24/25 12:36 06/24/25 13:57 Ns IV 06/24/25 13:36 Infused .Q1H1M ONE Infusion Acetaminophen 1,000 mg in 100 mls @ 400 mls/hr 06/24/25 12:55 06/24/25 13:41 Ofirmev IV 06/24/25 13:09 Infused ONCE ONE Infusion Potassium Chloride 40 meq 06/24/25 13:33 06/24/25 14:02 Potassium Chloride Er 20 Meq Tab.Er.Prt PO 06/24/25 13:34 40 meq ONCE ONE Administration Medical Decision Making Medical Decision Making MDM Narrative: 85 yo female with PMH of anxiety, HLD, HTN, who lives alone she is not on blood thinners here with c/o trip and fall on Monday with downtime since then - she has pain in R hip but NV intact and compartment soft suspect fracture, she will also need CT head/cspine given age, labs, IVF, IV tylenol and fentanyl for pain, xrays of R hip. Given fever empiric ceftriaxone ordered. Planned admit Differential Diagnosis Differential Diagnoses: The differential diagnosis associated with the presentation includes femur fracture, rhabdo, anemia, lyte abnormality, UTI, pneumonia, head injury Admission/Observation Consideration of admission/observation: Escalation of care including admission/observation considered admit for further management patient's pain is better but she is very angry and wants to eat. no cause for fever at this time could be skin breakdown - I did cover with ceftriaxone. No UTI or pneumonia viral panel is pending Consult Healthcare Provider Management of the patient was discussed with: Hospitalist (will admit) and Roller Skates Assembler (message sent to orthopedics) Lab Data MDM Lab Attestation statement: I reviewed the patient's lab results. 06/24/25 13:01 06/24/25 13:01 Labs: Lab Results 06/24/25 06/24/25 06/24/25 Range/Units 13:01 13:40 14:55 WBC 11.6 H (4.8-10.8) X10*3/uL RBC 4.21 (4.20-5.50) X10*6/uL Hgb 12.8 (12.0-16.0) g/dl Hct 37.9 (37.0-47.0) % MCV 90.0 (80.0-98.0) fL MCH 30.4 (27.0-33.0) pg MCHC 33.8 (31.0-35.0) g/dl RDW 12.3 (11.0-16.0) % Plt Count 275 (160-400) X10*3/uL MPV 8.5 L (9.4-12.3) fL Immature Gran % (Auto) 0.9 H (0.0-0.4) % Neut % (Auto) 84.9 H (45-73) % Lymph % (Auto) 7.5 L (20-40) % [place] % (Auto) 6.5 (2-11) % Eos % (Auto) 0.0 (0-4) % Baso % (Auto) 0.2 (0-2) % Lymph # (Auto) 0.9 L (1.2-4.9) X10*3/uL [place] # (Auto) 0.8 (0.1-1.2) X10*3/uL Eos # (Auto) 0.0 (0.0-0.4) X10*3/uL Baso # (Auto) 0.0 (0.0-0.2) X10*3/uL Abs Immat Gran (auto) 0.10 H (0.00-0.03) X10*3/uL Absolute Neuts (auto) 9.9 H (2.0-8.3) x10*3/uL Absolute Nucleated RBC 0.000 (0.0-0.012) X10*3/uL Nucleated RBC % (auto) 0.0 (0.0-0.2) /100WBC PT 12.8 H (10.9-12.4) SEC INR 1.1 (0.9-1.1) Sodium 140 (135-145) mmol/L Potassium 3.0 L (3.3-5.1) mmol/L Chloride 103 (96-108) mmol/L Carbon Dioxide 29 (22-29) mmol/L Anion Gap 11 L (12-20) BUN 50 H (9-16) mg/dL Creatinine 0.67 (0.5-1.4) mg/dL Estim Creat Clear Calc 79.7 Estimated GFR > 60 Random Glucose 170 H (60-115) mg/dL Lactic Acid 1.6 (0.5-2.0) mmol/L Calcium 8.9 (8.4-10.2) mg/dL Magnesium 2.5 (1.6-2.6) mg/dL Total Bilirubin 1.2 H (0.0-1.0) mg/dL Direct Bilirubin 0.5 (0.0-0.5) mg/dL AST 96 H (5-31) U/L ALT 40 H (0-31) U/L Alkaline Phosphatase 85 (39-117) U/L Total Creatine Kinase 1875 H (26-140) U/L Troponin I High Sens 21.6 H (<3.5-17.0) ng/L C-Reactive Protein 13.25 H (< or = 0.50) mg/dL Total Protein 8.2 H (6.5-8.0) g/dL Albumin 3.9 (3.5-5.0) g/dL Lipase 25 (8-78) U/L Urine Color Dark Yellow Urine Appearance Clear Urine pH 6.0 (5.0-9.0) Ur Specific Emmett 1.025 (1.005-1.025) Urine Protein 30 (1+) H (Neg-Trace) mg/dL Urine Glucose (UA) Negative (Negative) mg/dL Urine Ketones Trace (Negative) mg/dL Urine Blood Negative (Negative) Urine Nitrite Negative (Negative) Ur Leukocyte Esterase Small (1+) H (Negative) Urine RBC 0-2 (0-2) /HPF Urine WBC 0-5 (0-5) /HPF Ur Squamous Epith Cells 0-2 (0-2) /HPF Urine Bacteria None Seen (None Seen) Hyaline Casts 3-5 (0-2) /LPF Blood Type A Negative Antibody Screen NEGATIVE Independent Interpretation I performed an independent interpretation of an: EKG, Plain X-Ray (+ femur fracture) and CT Scan (no trauma) Interpretation: Rate: 94 Rhythm: NSR [place]: mpr,a; Normal P waves. Normal JENNY. Normal QRS complex. ST T wave : nonspecific ST T wave changes in inf and lateral leads, no NEHEMIAH, hx of same in 2020 qTC: 430 prior studies: no sig change from 2020 The study has been interpreted contemporaneously by me. . Radiology Impression Discussion of test interpretation with radiology: I have reviewed the radiologist's reading. Independent Historian Clinical information obtained from an independent historian. History obtained from or confirmed by: EMS External Record Review External record reviewed: Inpatient record and Outpatient record Discharge Plan Discharge Clinical Impression: Femur fracture, right, Fever and chills, Acute hypokalemia, Rhabdomyolysis, Skin excoriation Patient Disposition: Admitted As Inpatient Print Language: Italian
[2025-06-24 13:23] LABS: INTERNATIONAL NORM RATIO 1.1 (0.9-1.1); Prothrombin Time 12.8 SEC (10.9-12.4)
[2025-06-24 13:30] LABS: Alanine Aminotransferase 40 U/L (0-31); Albumin Level 3.9 g/dL (3.5-5.0); Alkaline Phosphatase 85 U/L (39-117); Anion Gap 11 (12-20); Aspartate Amino Transferase 96 U/L (5-31); Blood Urea Nitrogen 50 mg/dL (9-16); Calcium 8.9 mg/dL (8.4-10.2); Carbon Dioxide 29 mmol/L (22-29); Chloride 103 mmol/L (96-108); Creatinine Clr Calc Pharmacy 79.7; Estimated Glomerular Filt Rate > 60; Lipase 25 U/L (8-78); Magnesium 2.5 mg/dL (1.6-2.6); Potassium 3.0 mmol/L (3.3-5.1); Sodium 140 mmol/L (135-145); Total Protein 8.2 g/dL (6.5-8.0)
[2025-06-24 13:38] LABS: Troponin-I High Sensitivity 21.6 ng/L (<3.5-17.0)
[2025-06-24] MEDS: Potassium Chloride ER 20 MEQ TAB.ER.PRT 40 MEQ PO (14:02)
[2025-06-24 14:03] VITALS: BP 132/70; PULSE 90; RESP 20; TEMP 37.7; O2SAT 96
[2025-06-24 14:37] VITALS: BP 155/89; PULSE 85; RESP 16; TEMP 37.6; O2SAT 96
[2025-06-24 15:11] LABS: Appearance Urine Clear; Glucose Urine UA Negative (Negative); PH 6.0 (5.0-9.0); Specific Gravity - Urine 1.025 (1.005-1.025); UMIC TRIGGER UACC YES
--- NOTE | 2025-06-24 15:18 | PC.NURSE ---
assumed care of patient, brought in ambulance from home, states she was walking with walker on monday and has been on the floor since the fall, found by [facility] services this morning. patient presented to the ED was covered in feces and urine. patient cleaned up, aura area noted to be red and raw, barrier cream applied. patient stated she has pain in the right hip, xray confirms hip is broken. 18fr rose placed, 800 cc chico urine output, ua obtained and sent. patient is alert and oriented to palce, time and situation, recall is altered, asks the same questions despite being told the answer previously. has #20 IV in right AC. family called and given update, plan for admit
[2025-06-24 15:22] LABS: UACC Culture Trigger YES
--- NOTE | 2025-06-24 15:59 | PM.CNOR ---
History of Present Illness HPI Consult date: 06/24/25 Chief complaint: Hip fracture Narrative: 85 yo female with PMH of anxiety, HLD, HTN, who lives alone admitted to the medical service after sustaining a fall resulting in a right femoral neck fracture . She had an unwitnessed fall while ambulating with a walker. She reports a trip and fall. She states she fell on Monday and has been on thr ground since the [facility] found her earlier today. She denies LOC or headstrike. While in the ED patient has labs significant for Acute hypokalemia, Rhabdomyolysis. Patient was admitted to medical service and orthopedics was consulted for surgical intervention Review of Systems Review of Systems: Yes all other systems are reviewed and are negative PMFSH Past Medical History Medical History Rectal prolapse Anxiety Hyperlipidemia Hypertension Family History Family History Father No problems noted. Mother Hypertension Surgical History Surgical History History of open reduction and internal fixation (ORIF) procedure History of hysterectomy Social History Social History Household Members: None Housing: Assisted Living Facility Do you presently have visiting nurse or other home services: Yes Alcohol intake: never Patient Tobacco Use Status: Never used Tobacco e-Cigarette/Vaping Use: Never Used Second Hand Smoke Exposure: No Advance Directives: No Advance Directives Information Provided: No Do you have a plan to hurt others: No Plan service: No Current occupational status: disabled Current occupational exposures/hazards: No Cognitive needs: Yes Hearing needs: Yes Vision needs: Yes Meds Allergies Allergy/AdvReac Type Severity Reaction Status Date / Time acetaminophen (From Allergy Unknown HIVES,RASH Verified 06/24/25 12:25 TYLENOL-CODEINE #3) codeine (From Allergy Unknown HIVES,RASH Verified 06/24/25 12:25 TYLENOL-CODEINE #3) penicillin V Allergy Unknown Unknown Verified 06/24/25 12:25 Sulfa (Sulfonamide Allergy Unknown Unknown Verified 06/24/25 12:25 Antibiotics) Active Medications: Current Medications Acetaminophen (Acetaminophen 325 Mg Tablet) 650 mg PO Q6H PRN PRN Reason: Pain, Mild 1-3,fever,headache Calcium Carbonate (Calcium Carbonate 750 Mg Tab.Chew) 750 mg PO Q4H PRN PRN Reason: Heartburn Magnesium Hydroxide (Milk Of Magnesia 30 Ml Oral.Susp) 30 ml PO DAILY PRN PRN Reason: Constipation Melatonin (Melatonin 3 Mg Tablet) 6 mg PO BEDTIME PRN PRN Reason: Insomnia Sodium Chloride (0.9 % Sodium Chloride Flush 3 Ml Syringe) 3 ml IVFLUSH QSHIFT [facility] Home Medications ?Medication ?Instructions ?Recorded ?Confirmed ?Last Taken ?Type hydrochlorothiazide 25 mg tablet 25 mg PO DAILY 01/11/22 06/24/25 Unknown History acetaminophen 500 mg tablet 1,000 mg PO Q6H PRN Pain 06/24/25 06/24/25 Unknown History cyanocobalamin (vitamin B-12) 1,000 mcg PO DAILY 06/24/25 06/24/25 Unknown History 1,000 mcg tablet (Vitamin B-12) lidocaine 4 % topical cream 1 appl topical TID PRN Mild Pain 06/24/25 06/24/25 Unknown History (Scale Score 1-4) loperamide 2 mg tablet 2 mg PO BID PRN Diarrhea 06/24/25 06/24/25 Unknown History melatonin 5 mg tablet 5 mg PO BEDTIME 06/24/25 06/24/25 Unknown History Physical Exam Vital Signs: Vital Signs: Last Vital Signs Temp 99.7 F 06/24/25 14:37 Pulse 85 06/24/25 14:37 Resp 16 06/24/25 14:37 BP 155/89 H 06/24/25 14:37 Pulse Ox 96 06/24/25 14:37 O2 Del Method Room Air 06/24/25 14:37 BMI result Body Mass Index 44.1 Const: General: cooperative and no acute distress Orientation/consciousness: patient oriented x3 Resp: Effort & Inspection: normal respiratory effort and able to speak in complete sentences Cardio: Peripheral pulses: Peripheral pulses 2+ throughout Neuro: General: patient oriented x3 Extrem: Other: Rt hip skin intact , unable to SLR, pain with log roll. She is able to plantar and dorsi flex. NVI. Results Labs 06/24/25 13:01 06/24/25 13:01 Labs: Abnormal lab results 06/24/25 06/24/25 Range/Units 13:01 14:55 WBC 11.6 H (4.8-10.8) X10*3/uL MPV 8.5 L (9.4-12.3) fL Immature Gran % (Auto) 0.9 H (0.0-0.4) % Neut % (Auto) 84.9 H (45-73) % Lymph % (Auto) 7.5 L (20-40) % Lymph # (Auto) 0.9 L (1.2-4.9) X10*3/uL Abs Immat Gran (auto) 0.10 H (0.00-0.03) X10*3/uL Absolute Neuts (auto) 9.9 H (2.0-8.3) x10*3/uL PT 12.8 H (10.9-12.4) SEC Potassium 3.0 L (3.3-5.1) mmol/L Anion Gap 11 L (12-20) BUN 50 H (9-16) mg/dL Random Glucose 170 H (60-115) mg/dL Total Bilirubin 1.2 H (0.0-1.0) mg/dL AST 96 H (5-31) U/L ALT 40 H (0-31) U/L Total Creatine Kinase 1875 H (26-140) U/L Troponin I High Sens 21.6 H (<3.5-17.0) ng/L C-Reactive Protein 13.25 H (< or = 0.50) mg/dL Total Protein 8.2 H (6.5-8.0) g/dL Urine Protein 30 (1+) H (Neg-Trace) mg/dL Ur Leukocyte Esterase Small (1+) H (Negative) H & H 06/24/25 Range/Units 13:01 Hgb 12.8 (12.0-16.0) g/dl Hct 37.9 (37.0-47.0) % Coagulation 06/24/25 Range/Units 13:01 INR 1.1 (0.9-1.1) All other labs normal. Diagnostic results Hip x-ray: image reviewed (XR hip RT min 2V IMPRESSION: Comminuted subcapital fracture.) Assessment and Plan (1) Femur fracture, right: Qualifiers: Encounter type: sequela Femur location: unspecified portion of femur Fracture morphology: unspecified fracture morphology Fracture type: closed Qualified Code(s): S72.91XS - Unspecified fracture of right femur, sequela Status: Acute Plan I explained to the patient the extent of her injury which would benefit from surgical intervention for optimal functioning. The patient does understand nonsurgical intervention would result in significantly limited function including bed bound for anywhere from 8-12 weeks at least. Given the patient is ambulatory, it would be recommended to pursue surgical intervention. We discussed the procedure in detail along with the risks benefits and alternatives. Risks including but not limited to infection, injury to surrounding nerves and tissue and bone, small and large vessels, stiffness,need for further surgery, DVT/PE along with intraoperative complications including but not limited to . We discussed postoperative recovery which includes Home with VNA vs STR. I explained typical recovery is often WBAT with a walker for approximately 6 weeks,but overall recovery could be anywhere from 6-12 months. The patient does express understanding and would like to proceed with Operative fixation of the right hip with Dr. Hewitt. The patient will be booked accordingly. NPO after midnight, medical clearance obtained. Procedures Date of Service Date of Service: 06/24/25
--- NOTE | 2025-06-24 16:15 | PM.IMHP ---
History of Present Illness Date of Service: 06/24/25 Attending physician on admission: Elisa Fuentes Chief Complaint: fall athome 85 yo female with PMH of anxiety, HLD, HTN, who lives alone she is not on blood thinners, very loud on hearing-came with c/o having unwitnessed fall while ambulating with a walker. She reports a trip and fall. She has been on the ground since then. She denies LOC or headstrike. She has VNA at home and they found her today c/o R hip pain and covered in urine and feces. Her buttocks and vaginal area where raw. She has very loud on hearing-but still could able to answer most of the questions-says that she fell down sometime on Monday, and then she called the ambulance-but actually the stories different as above. But she remembers she fell down because she missed the chair, she did not lose consciousness. In ED patient also found to have 101.4 temp, mild tachycardia, WBC count of 11.2, potassium 3.0, elevated CPK, mild elevated LFT, trop, EKG seems unchanged. Imaging studies shows: Comminuted subcapital fracture-please see detailed imaging studies reports in the imaging section. Denies any new complaint of chest pain or shortness of breath or abdominal pain or nausea or vomiting Denies any cough Denies any weakness or numbness. Review of Systems Review of Systems: As above. Yes all other systems are reviewed and are negative [facility] Medical History Rectal prolapse Anxiety Hyperlipidemia Hypertension Family History Father No problems noted. Mother Hypertension Surgical History History of open reduction and internal fixation (ORIF) procedure History of hysterectomy Social History Household Members: None Housing: Assisted Living Facility Do you presently have visiting nurse or other home services: Yes Alcohol intake: never Patient Tobacco Use Status: Never used Tobacco e-Cigarette/Vaping Use: Never Used Second Hand Smoke Exposure: No Advance Directives: No Advance Directives Information Provided: No Do you have a plan to hurt others: No Plan service: No Current occupational status: disabled Current occupational exposures/hazards: No Cognitive needs: Yes Hearing needs: Yes Vision needs: Yes Meds Allergies Allergy/AdvReac Type Severity Reaction Status Date / Time acetaminophen (From Allergy Unknown HIVES,RASH Verified 06/24/25 12:25 TYLENOL-CODEINE #3) codeine (From Allergy Unknown HIVES,RASH Verified 06/24/25 12:25 TYLENOL-CODEINE #3) penicillin V Allergy Unknown Unknown Verified 06/24/25 12:25 Sulfa (Sulfonamide Allergy Unknown Unknown Verified 06/24/25 12:25 Antibiotics) Active Medications: Current Medications Acetaminophen (Acetaminophen 325 Mg Tablet) 650 mg PO Q6H PRN PRN Reason: Pain, Mild 1-3,fever,headache Calcium Carbonate (Calcium Carbonate 750 Mg Tab.Chew) 750 mg PO Q4H PRN PRN Reason: Heartburn Magnesium Hydroxide (Milk Of Magnesia 30 Ml Oral.Susp) 30 ml PO DAILY PRN PRN Reason: Constipation Melatonin (Melatonin 3 Mg Tablet) 6 mg PO BEDTIME PRN PRN Reason: Insomnia Sodium Chloride (0.9 % Sodium Chloride Flush 3 Ml Syringe) [facility]ations ?Medication ?Instructions ?Recorded ?Confirmed ?Last Taken ?Type hydrochlorothiazide 25 mg tablet 25 mg PO DAILY 01/11/22 06/24/25 Unknown History acetaminophen 500 mg tablet 1,000 mg PO Q6H PRN Pain 06/24/25 06/24/25 Unknown History cyanocobalamin (vitamin B-12) 1,000 mcg PO DAILY 06/24/25 06/24/25 Unknown History 1,000 mcg tablet (Vitamin B-12) lidocaine 4 % topical cream 1 appl topical TID PRN Mild Pain 06/24/25 06/24/25 Unknown History (Scale Score 1-4) loperamide 2 mg tablet 2 mg PO BID PRN Diarrhea 06/24/25 06/24/25 Unknown History melatonin 5 mg tablet 5 mg PO BEDTIME 06/24/25 06/24/25 Unknown History Physical Exam Vital Signs and Narrative: Vital Signs: Last Vital Signs Temp 99.7 F 06/24/25 14:37 Pulse 85 06/24/25 14:37 Resp 16 06/24/25 14:37 BP 155/89 H 06/24/25 14:37 Pulse Ox 96 10/07/25 14:37 O2 Del Method Room Air 06/24/25 14:37 BMI result Body Mass Index 44.1 Appearance: Alert.? Oriented X3.? cvs: rrr, [id number] . res: clear to auscultation ,no rhonchii or wheezing abd: no rebound or guarding ,nt, bs present. ext pulses present , no cyanosis, right leg externally rotated, still can wiggle both toes. neuro: axo3 , nonfocal. Results Labs 06/24/25 13:01 06/24/25 13:01 Labs: Laboratory Results - last 24 hr 06/24/25 06/24/25 06/24/25 13:01 13:40 14:55 MCV 90.0 MCH 30.4 MCHC 33.8 RDW 12.3 Plt Count 275 MPV 8.5 L Immature Gran % (Auto) 0.9 H Neut % (Auto) 84.9 H Lymph % (Auto) 7.5 L [place] % (Auto) 6.5 Eos % (Auto) 0.0 Baso % (Auto) 0.2 Lymph # (Auto) 0.9 L [place] # (Auto) 0.8 Eos # (Auto) 0.0 Baso # (Auto) 0.0 Abs Immat Gran (auto) 0.10 H Absolute Neuts (auto) 9.9 H Absolute Nucleated RBC 0.000 Nucleated RBC % (auto) 0.0 PT 12.8 H INR 1.1 Anion Gap 11 L Estim Creat Clear Calc 79.7 Estimated GFR > 60 Random Glucose 170 H Lactic Acid 1.6 Calcium 8.9 Magnesium 2.5 Total Bilirubin 1.2 H Direct Bilirubin 0.5 AST 96 H ALT 40 H Alkaline Phosphatase 85 Total Creatine Kinase 1875 H Troponin I High Sens 21.6 H C-Reactive Protein 13.25 H Total Protein 8.2 H Albumin 3.9 Lipase 25 Urine Color Dark Yellow Urine Appearance Clear Urine pH 6.0 Ur Specific [place] 1.025 Urine Protein 30 (1+) H Urine Glucose (UA) Negative Urine Ketones Trace Urine Blood Negative Urine Nitrite Negative Ur Leukocyte Esterase Small (1+) H Urine RBC 0-2 Urine WBC 0-5 Ur Squamous Epith Cells 0-2 Urine Bacteria None Seen Hyaline Casts 3-5 Blood Type A Negative Antibody Screen NEGATIVE Imaging Radiologist's Impressions: Impressions Hip X-Ray 06/24/25 13:12 IMPRESSION: Comminuted subcapital fracture. Chest X-Ray 06/24/25 13:14 IMPRESSION: No acute disease. Cervical Spine CT 06/24/25 14:21 IMPRESSION: 1. No evidence of fracture or subluxation of the cervical spine. 2. 10 mm left apical lung nodule. Nonemergent chest CT is recommended for further evaluation. 3. Complete opacification of the left mastoid air cells and middle ear cavity. Electronically signed by: Michael Floyd MD 06/24/2025 03:18 PM EDT RP Head CT 06/24/25 14:21 IMPRESSION: 1. No acute intracranial abnormality. No acute fracture evident. 2. 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 3. Severe degenerative arthritis right TM joint. Assessment and Plan (1) Femur fracture, right: Qualifiers: Encounter type: sequela Femur location: unspecified portion of femur Fracture morphology: unspecified fracture morphology Fracture type: closed Qualified Code(s): S72.91XS - Unspecified fracture of right femur, sequela Status: Acute (2) Rhabdomyolysis: Qualifiers: Encounter type: initial encounter Rhabdomyolysis type: traumatic Qualified Code(s): T79.6XXA - Traumatic ischemia of muscle, initial encounter Status: Acute (3) Fever: Qualifiers: Fever type: unspecified Qualified Code(s): R50.9 - Fever, unspecified Status: Acute Plan 85 yo female with PMH of anxiety, HLD, HTN, who lives alone she is not on blood thinners, very loud on hearing-came with c/o having unwitnessed fall while ambulating with a walker. She reports a trip and fall. Right Hip fracture : Pain management, orthopedic evaluation, incentive spirometry, chest physiotherapy, PT evaluation after surgery elevated trops EKG unchanged We will repeat troponin again Echo cardiology for risk straification fever/tachycardia -meets sirs. wbc 11.2 Lactic acid 1.6. Patient denies any respiratory or urinary or abdominal symptoms UA negative for pyuria and bacteriuria Blood cultures sent by ED Chest x-ray negative Patient received ceftriaxone in the ED, consider continuing ceftriaxone until blood culture come back. If patient has persistent fever-may need further workup. prerenal azotemia: IV fluid Monitor renal function electrolyte Acute hypokalemia: Repleted Monitor electrolytes. Rhabdomyolysis: EKG unchanged Echo added IV fluids mild elevated lft's: ?related to rhabdo. ivf moniter lft -if does not improve -consider further workup. CT cervical spine: Incidental findin mm left apical lung nodule. Nonemergent chest CT is recommended for further evaluation. DVT prophylaxis: Mechanical devices in anticipation of surgery. As per the family they do not want vaccine/biological. Above management discussed with the patient and her family in detail length they all understand and in agreement with the above plan, time spent 70 minute. Patient is full code. Family is requesting to talk to ortho before the procedure if possible, son's name is Hansel ([phone]). Quality Stroke Does the patient have a stroke diagnosis?: No VTE Prior VTE?: No VTE Risk Level:: Medical - moderate - high VTE Device Contraindication: N/A - Device Ordered VTE Drug Contraindication: N/A - Med Ordered
--- OUTSIDE RECORDS SUMMARY | 2025-06-24 16:21 | XMS_ITS ---
Author Organization [facility] Address [address] [place] [address] Phone Care Team Providers Care Docking Saw Operator Name Role Phone Patrizia Mariscal CRIPPLE CHASER Primary Care Provider [phone] [facility] Status:Enrolled (Active) Start date:11/16/2024 Related program episode:Program of [facility] for [facility] Elder[facility] (Active) Case Team Name Relationship Phone Patrizia Mariscal CRIPPLE CHASER(Responsible Staff) Nurse Prac titioner [phone] Continued Care and Services Coordination
--- OUTSIDE RECORDS SUMMARY | 2025-06-24 16:21 | XMS_ITS | Encounter Summary ---
Author Organization [facility] [place] [address] Care Team Providers Care Bicycle Fitter Name Role Phone Patrizia Mariscal DROP SHIPMENT CLERK Primary Care Provider [phone] Encounter Details Date Type Department Care Team (Late st Contact Info) Description 06/20/2025 [facility] [place] [facility] [address] [place] [phone] Kiera Cameron RN Hard of hearing Social History Tobacco Use Types Packs/Day Years [...] on file documented as of this encounter Plan of Treatment Upcoming Encounters Date Type Department Care Team (Late st Contact Info) Description 06/25/2025 11:30 AM EDT [facility] [address] [place] [phone] Brina Tse 07/02/2025 11:30 AM EDT [facility] [place] [facility] [address] [place] [address] Brina Tse 07/03/2025 Clinical Support [facility] [address] [place] [address] Nasima Caceres, RN 07/09/2025 11:30 AM EDT [facility] [place] [facility] [address] [place] [phone] Brina Tse 07/15/2025 10:30 AM EDT Clinical Support [facility] [place] [address] [place] [address] 07/16/2025 11:30 AM EDT [facility] / [facility] [place] [facility] [address] [place] [address] Brina Tse 07/17/2025 Clinical [facility] [place] [facility] [address] [place] [address] Nasima Caceres, STORMY 07/22/2025 10:00 AM EST Clinical Support [facility] [place] [address] [place] [phone] 07/23/2025 11:30 AM EST [facility] [place] [facility] [address] [place] [phone] Brina Tse 07/24/2025 11:00 AM EST Office Visit [facility] [place] [facility] [address] [place] [address] Patrizia Mariscal NP [address] [address] 07/25/2025 10:00 AM EST Clinical Support [facility] [place] [address] [place] [address] 07/30/2025 11:30 AM EST [facility] [place] [facility] [address] [place] [phone] [facility] 07/31/[facility] [place] [facility] [address] [place] [phone] Nasima Caceres, RN 08/06/2025 11:30 AM EST [facility] [place] [facility] [address] [place] [phone] [facility] 08/13/2025 11:30 AM EST [facility] [place] [facility] [address] [place] [phone] [facility] 08/14/2025 [facility] [place] [facility] [address] [place] [phone] Nasima Caceres, STORMY 08/19/2025 11:00 AM EST [facility] Support [facility] [place] [address] [place] [phone] 08/20/2025 11:30 AM EST [facility] [place] [facility] [address] [place] [phone] [facility] 08/28/2025 [facility] [place] [facility] [address] [place] [phone] Nasima Caceres, RN 09/11/2025 Clinical Support [facility] [place] [facility] [address] [place] [phone] Nasima Caceres, RN 09/25/2025 Clinical Support [facility] [address] [place] [phone] Nasima Caceres, RN 10/09/2025 Clinical Support [facility] [place] [facility] [address] [place] [phone] Nasima Caceres, RN 10/23/2025 Clinical Support [facility] [place] [facility] [address] [place] [phone] Nasima Caceres, STORMY 11/06/2025 Clinical Support [facility] [place] [facility] [address] [place] [phone] Nasima Caceres, RN 11/20/2025 [facility] [place] [facility] [address] [place] [phone] Nasima Caceres, STORMY 12/04/2025 Clinical [facility] [place] [facility] [address] [place] [phone] Nasima Caceres, RN 12/18/2025 Clinical [facility] [place] [facility] [address] [place] [phone] Nasima Caceres, STORMY 01/01/2026 Clinical [facility] [place] [facility] [address] [place] [phone] Nasima Caceres, STORMY 01/15/2026 Clinical [facility] [place] [facility] [address] [place] [phone] Nasima Caceres, RN 01/29/2026 Clinical [facility] [place] [facility] [address] [place] [phone] Nasima Caceres, STORMY 02/12/2026 Clinical [facility] [place] [facility] [address] [place] [phone] Nasima Caceres, STORMY 02/26/2026 Clinical [facility] [place] [facility] [address] [place] [phone] Nasima Caceres, STORMY 02/27/2026 9:45 AM EDT [facility] [address] [phone] 03/12/2026 Clinical [facility] [place] [facility] [address] [place] [phone] Nasima Caceres, STORMY 03/26/2026 Clinical Support [address] [phone] Nasima Caceres, STORMY 04/09/2026 Clinical Support [address] [phone] Nasima Caceres, STORMY 04/23/2026 Clinical Support [address] [phone] Nasima Caceres, STORMY 05/07/2026 Clinical Support [address] [phone] Nasima Caceres, STORMY 05/21/2026 Clinical Support [address] [phone] Nasima Caceres, STORMY 06/04/2026 Clinical Support [address] [phone] Nasima Caceres, RN documented as of this encounter Visit Diagnoses Diagnosis Hard of hearing Unspecified hearing loss documented in this encounter Orders [facility] Orderables Count Last Ordered Date First Ordered Date [facility] 1 06/13/2025 documented in this encounter Care Teams Bicycle Fitter Relationship Specialty Start Date End Date Patrizia Mariscal NP PCP - General Family Medicine 07/26/24 documented as of this encounter
--- OUTSIDE RECORDS SUMMARY | 2025-06-24 16:21 | XMS_ITS | Encounter Summary ---
Author Organization [facility] [place] [address] Care Team Providers Care Cable Puller Name Role Phone Patrizia Mariscal [employer] Primary Care Provider [phone] Encounter Details Date Type Department Care Team (Late st Contact Info) Description 01/28/2025 Health Home [facility] [place] [facility] [address] [place] [phone] Beverly Lebron RN Social History Tobacco Use Types Packs/Day Years Used Date Smoking Tobacco: Never Assessed Comments Unknown Sex and Gender Information Value [...] In [facility] Services [address] [place] [phone] Brina Tse 07/02/2025 11:30 AM EDT [facility] / [facility] [place] [facility] [address] [place] [phone] Brina Tse 07/03/2025 Clinical Support [facility] [address] [place] [address] Nasima Caceres, STORMY 07/09/2025 11:30 AM EDT [facility] / [facility] [place] [facility] [address] [place] [phone] Brina Tse 07/15/2025 10:30 AM EDT Clinical Support [facility] [place] [address] [place] [phone] 07/16/2025 11:30 AM EDT [facility] / [facility] [place] [facility] [address] [place] [phone] Brina Tse 07/17/2025 Clinical Support [facility] [address] [place] [phone] Nasima Caceres RN 07/22/2025 10:00 AM EST Clinical Support [facility] [place] [address] [place] [phone] 07/23/2025 11:30 AM EST [facility] / [facility] [place] [facility] [address] [place] [phone] Brina Tse 07/24/2025 11:00 AM EST Office Visit [facility] [address] [place] [phone] Patrizia Mariscal NP [address] [address] 07/25/2025 10:00 AM EST Clinical Support [facility] [place] [address] [place] [phone] 07/30/2025 11:30 AM EST [facility] / [facility] [place] [facility] [address] [place] [phone] Brina Tse 07/31/2025 Clinical Support [facility] [place] [facility] [address] [place] [phone] Nasima Caceres, RN 08/06/2025 11:30 AM EST [facility] / [facility] [place] [facility] [address] [place] [phone] Dedrick Avon 08/13/2025 11:30 AM EST [facility] / [facility] [place] [facility] [address] [place] [phone] Dedrick Avon 08/14/2025 Clinical Support [facility] [address] [place] [phone] Nasima Caceres, RN 08/19/2025 11:00 AM EST Clinical Support [facility] [place] [address] [place] [phone] 08/20/2025 11:30 AM EST [facility] / [facility] [place] [facility] [address] [place] [phone] Dedrick Avon 08/28/2025 Clinical Support [facility] [address] [place] [phone] Nasima Caceres, RN 09/11/2025 Clinical Support [facility] [address] [place] [phone] Nasima Caceres, RN 09/25/2025 Clinical Support [facility] [address] [place] [phone] Nasima Caceres, RN 10/09/2025 Clinical Support [facility] [address] [place] [phone] Nasima Caceres, RN 10/23/2025 Clinical Support [facility] [address] [place] [phone] Nasima Caceres, STORMY 11/06/2025 Clinical Support [facility] [address] [place] [phone] Nasima Caceres, RN 11/20/2025 Clinical Support [facility] [place] [facility] [address] [place] [phone] Nasima Caceres, STORMY 12/04/2025 Clinical Support [facility] [place] [facility] [address] [place] [phone] Nasima Caceres, STORMY 12/18/2025 Clinical Support [facility] [place] [facility] [address] [place] [phone] Nasima Caceres, STORMY 01/01/2026 Clinical Support [facility] [place] [facility] [address] [place] [phone] Nasima Caceres, STORMY 01/15/2026 Clinical Support [facility] [place] [facility] [address] [place] [phone] Nasima Caceres, STORMY 01/29/2026 Clinical Support [facility] [place] [facility] [address] [place] [phone] Nasima Caceres, STORMY 02/12/2026 Clinical Support [facility] [place] [facility] [address] [place] [phone] Nasima Caceres, RN 02/26/2026 Clinical Support [facility] [place] [facility] [address] [place] [phone] Nasima Caceres, STORMY 02/27/2026 9:45 AM EDT [facility] Visit [facility] [place] [address] [place] [phone] 03/12/2026 Clinical Support [facility] [place] [facility] [address] [place] [phone] Nasima Caceres, STORMY 03/26/2026 Clinical Support [address] [phone] Nasima Caceres, STORMY 04/09/2026 Clinical Support [address] [phone] Nasima Caceres, STORMY 04/23/2026 Clinical Support [address] [phone] Nasima Caceres, STORMY 05/07/2026 Clinical Support [address] [phone] Nasima Caceres, STORMY 05/21/2026 Clinical Support [address] [phone] aNsima Caceres, STORMY 06/04/2026 Clinical Support [address] [phone] Nasima Caceres, RN documented as of this encounter Visit Diagnoses Not on filedocumented in this encounter Care Teams Cable Puller Relationship Specialty Start Date End Date Patrizia Mariscal NP PCP - General Family Medicine 07/26/24 documented as of this encounter
--- OUTSIDE RECORDS SUMMARY | 2025-06-24 16:21 | XMS_ITS | Clinical Summary ---
Author Organization [facility] Facility Address [address] [address] Care Team Providers Care Vp Compliance Name Role Phone Alcides Powers MD Primary Care Provider [phone] Social History Tobacco Use Types Packs/Day Years Used Date Smoking Tobacco: Never Assessed Comments Unknown Sex and Gender Information Value Date Recorded Sex Assigned at Not on file Legal Sex Female 8:40 AM EDT Gender Identity Not on file Sexual Orientation Not on file Plan of Treatment Health Maintenance Due Date Last Done Comments Pneumococcal Vaccine: 50+ Ye ars (1 of 1 - PCV) 1990 Influenza Vaccine (#1) 2025 Hepatitis B Vaccine Aged Out No longe r eligible based on patient's age to complete this topic Insurance Medicare Medicaid [place] Care Teams Vp Compliance Relationship Specialty Start Date End Date Alcides Powers MD [address] [place] [address] PCP - General Internal Medicine 12/22/21
--- OUTSIDE RECORDS SUMMARY | 2025-06-24 16:21 | XMS_ITS ---
Author Organization [facility] Address [address] [place] [address] Phone Care Team Providers Care Gas Distribution Plant Operator Name Role Phone Patrizia Mariscal [employer] Primary Care Provider [phone] Program of [facility] Elder[facility] Status:Enrolled (Active) Start date:03/18/2022 Enrollment date:03/18/2022 Related social drivers of health:Housing Instability, Financial Risk, Transportation, Social Isolation, Food Risk Related service episodes:[facility] (Active) Overview This episode will track [facility] documentation. Case Team Name Relationship Phone Patrizia Mariscal [employer] Nurse Practitioner Ivonne Meade Recreational Therapist Myrna Stratton RN Ski Topper Nasima Caceres package dyeing machine operatorSki Topper Radha Watkins SIGNAL SYSTEM TESTING MAINTAINER Pipe Setter Willy Woo OT Occupational Therapist Marko Aaron RD Dietitian Jc Sequeira PT Physical Therapist [facility] Jarad Castrejon ENVIRONMENTAL DIRECTOR Data Management Consultant Marylu Nova package dyeing machine operatorSki Topper Kathryn Hernandez Data Management Consultant Sherley [facility] Data Management Consultant Hernan Kendrick Spiritual Care Gregoria Ferreira OT Occupational Therapist Renate Guerrier CYBER INTELLIGENCE ANALYST Data Management Consultant Soto Albetr PT Physical Therapist Marilu Simon RN Registered Nurse Kristi Evans MD Primary Care Provider [phone] Continued Care and Services Coordination
--- OUTSIDE RECORDS SUMMARY | 2025-06-24 16:22 | XMS_ITS | Clinical Summary ---
Author Organization [facility] Address [address] [place] [address] Phone Care Team Providers Care Plugger Man Name Role Phone Margo Mariscal [employer]IN [employer] FRAMER Primary Care Provider [phone] Allergies Active Allergy Reactions Criticality Noted Date Comments Codeine 11/04/2024 Sensitivity. Stated on enrollment. Milk Containing Products (Dairy) 11/04/2024 Dairy- diarrhea Other 11/04/2024 Seasonal Allergies- takes antihistamine PRN Medications amLODIPine (NORVASC) 2.5 mg tablet 1 tab by mouth daily Active cetirizine (ZyrTEC) 10 mg tablet 1 tab by mouth daily Active cyanocobalami n (VITAMIN B-12) 1,000 mcg tablet 1 tab by mouth daily Active hydroCHLOROth iazide (HYDRODIURIL) 25 mg tablet 1 tab by mouth daily Active melatonin 5 mg tablet 1 tab by mouth every day at bedtime Active acetaminophen (TYLENOL) 500 mg tabletIndicat ions:Other chronic pain Take 2 tablets (1,000 mg total) by mouth every 6 (six) hours if needed for moderate pain. 100 tablet 5 01/31/ 25 07/30/ 025 Active loperamide (Imodium A-D) 2 mg tabletIndicat ions:Function al diarrhea Take 1 tablet (2 mg total) by mouth 2 (two) times a day if needed for diarrhea. 30 tablet 2 06/11/20 25 025 Active lidocaine (XYLOCAINE) 4 % external solutionIndic ations:Rectal prolapse Apply topically 3 (three) times a day if needed for mild pain. 1 application to (affected) skin 3 times per day prn pain 50 mL 5 06/11/20 25 026 Active UNABLE TO FIND BAG BALM) - ointment apply to rectal prolapse after toileting/eloisa l movements. cleanse area first with soft cloth and water. 025 Discontinued lidocaine (XYLOCAINE) 4 % external solution 1 application to (affected) skin 3 times per day prn pain 025 Discontinued(Re order) Active Problems Problem Noted Date Diagnosed Date Irritable bowel syndrome wit h both constipation and diarrhea 04/24/2025 Assessment & Plan (04/24/2025 12:33 PM EDT): Condition; stable. Continue to encourage following high-fiber diet. Monitor. Other specified disorders of bone density and structure, multiple sites 11/04/2024 Overview (11/04/2024): DEXA: Z13.820, M85.89 Assessment & Plan (04/24/2025 12:55 PM EDT): Chronic condition; monitor vitamin D level. No DEXA scan on record. Will discuss with son. Allergic rhinitis 11/04/2024 Assessment & Plan (04/24/2025 12:30 PM EDT): Chronic condition; stable. Continue on oral antihistamine. Monitor. Cystocele, unspecified 11/04/2024 Assessment & Plan (04/24/2025 12:42 PM EDT): >>ASSESSMENT AND PLAN FOR CYSTOCELE, UNSPECIFIED WRITTEN ON 04/24/2025 12:37 PM BY MARGO MARISCAL NP Chronic condition; stable. Continue to follow and use pessary. Follow-up with urology nurse practitioner as indicated. >>ASSESSMENT AND PLAN FOR PELVIC PROLAPSE WRITTEN ON 04/24/2025 12:37 PM BY MARGO MARISCAL NP Chronic condition; stable. Continue to monitor. Vaginal vault prolapse 11/04/2024 Assessment & Plan (04/24/2025 12:43 PM EDT): Chronic condition; stable. Continue to monitor. Rectal prolapse 11/04/2024 Assessment & Plan (04/24/2025 12:32 PM EDT): Chronic condition; has been stable. Continue to monitor Deficiency of vitamin B12 11/04/2024 Assessment & Plan (04/24/2025 12:32 PM EDT): Chronic condition; continue daily B12 supplementation. Check B12 level with next of labs. Vitamin D deficiency 11/04/2024 Assessment & Plan (04/24/2025 12:32 PM EDT): Chronic condition; check vitamin D level. Moderate dementia without be havioral disturbance (CMS/HCC V24, CMS/HCC V28) 11/04/2024 Assessment & Plan (04/24/2025 12:28 PM EDT): Chronic condition; stable. Would benefit from a cognition evaluation. Will discuss with occupational therapy. OCD (obsessive compulsive disorder) 11/04/2024 Overview (11/04/2024): Undiagnosed OCD Assessment & Plan (04/24/2025 4:31 PM EDT): Chronic condition; stable. Unchanged. Continue to monitor. Anxiety 11/04/2024 Assessment & Plan (04/24/2025 4:31 PM EDT): Chronic condition; labile. PAR reassured during visit. Dental caries 11/04/2024 Assessment & Plan (04/24/2025 12:32 PM EDT): Chronic condition; stable. Follow-up with dentist as indicated. Hard of hearing 11/04/2024 Overview (11/04/2024): Hard of Hearing, Bilateral Assessment & Plan (04/24/2025 12:29 PM EDT): Extremely hard of hearing worse with cerumen in ears. Encourage participant to use hearing aids. Impacted cerumen of both ears 11/04/2024 Overview (11/04/2024): Cerumen, Bilateral Ears Assessment & Plan (04/24/2025 3:51 PM EDT): Ear lavage preformed with minimal success. Able to use ear curette and removed a moderate amount of cerumen from left ear. PAR tolerated well. Remainder of cerumen in deeper into canal. EAR Instructed PAR to use Debrox ear drop for another week and to RTC next week for repeat Lavage. ENT referral in place but appointment too far out. Assessment & Plan (04/24/2025 12:30 PM EDT): Able to remove some cerumen from ears bilaterally but still has cerumen in both ears. Lavage performed first and then curette used to attempt to remove remainder of cerumen, but participant reported pain. Advised participant to use Debrox eardrops for 5 days prior to next visit. Also plan to refer to ENT if unsuccessful. Hemorrhoids, external 11/04/2024 Assessment & Plan (04/24/2025 12:31 PM EDT): Condition; stable. Continue to monitor and treat as needed. Hyperlipidemia 11/04/2024 Assessment & Plan (04/24/2025 4:28 PM EDT): Chronic condition; not on any statin therapy, Monitor. Hypertension 11/04/2024 Assessment & Plan (04/24/2025 12:31 PM EDT): Chronic condition; stable. Blood pressure is at goal. Continue current medications as prescribed. Urinary incontinence 11/04/2024 Assessment & Plan (04/24/2025 12:43 PM EDT): Chronic condition; continue supportive measures. Urination frequency 11/04/2024 Assessment & Plan (04/24/2025 4:32 PM EDT): Chronic condition; continue supportive measures. Nocturia 11/04/2024 Assessment & Plan (04/24/2025 4:32 PM EDT): Chronic condition; continue supportive measures. Leg length discrepancy 11/04/2024 Overview (11/04/2024): Length Discrepancy, Left Leg Shoe Lift Assessment & Plan (04/24/2025 1:16 PM EDT): Has lift left shoe Dry skin 11/04/2024 Overview (11/04/2024): Dry Feet Assessment & Plan (04/24/2025 4:27 PM EDT): Chronic condition; use moisturizer as needed. Hammer toe of left foot 11/04/2024 Overview (11/04/2024): Hammertoe, Left Fourth Toe Assessment & Plan (04/24/2025 4:27 PM EDT): Chronic condition; encourage use of proper footwear. Cataracts, bilateral 11/04/2024 Assessment & Plan (04/24/2025 12:30 PM EDT): Chronic condition; surgery not yet indicated. Continue with yearly eye examinations. Presbyopia 11/04/2024 Assessment & Plan (04/24/2025 4:32 PM EDT): Chronic condition; stable. Continue to follow up with optometry for yearly eye exam. Resolved Problems Problem Noted Date Diagnosed Date Resolved Date Onychomycosis 11/04/2024 04/24/2025 Encounters Date Type Department Care Team Description 06/24/2025 11:00 AM EDT Clinical Support [address] [phone] Nasima Caceres, STORMY 06/20/2025 Lab [facility] [address] [place] [phone] Kiera Cameron, STORMY Hard of hearing 06/19/2025 Clinical Support [facility] [address] [phone] Nasima Caceres, RN 06/18/2025 11:30 AM EDT PACE Home Care / PACE Home Visit [facility] [address] [place] [phone] Brina Tse 06/16/2025 11:30 AM EDT Treatment [facility] [address] [place] [phone] Wilma, Keira, CAKE FROSTER 06/13/2025 Lab [facility] [address] [place] [phone] Kiera Cameron, STORMY Hard of hearing 06/11/2025 11:30 AM EDT PACE Home Care / [facility] Home [facility] [address] [place] [phone] Brina Tse 06/06/2025 Lab [facility] [address] [place] [phone] Kiera Cameron, STORMY Hard of hearing 06/05/2025 9:15 AM EDT PACE External Visit [facility] [address] [phone] Adult general medical examination 06/04/2025 11:30 AM EDT PACE Home Care / PACE Home Visit [facility] [address] [place] [phone] Brina Tse 05/30/2025 Lab [facility] [address] [place] [phone] Kiera Cameron, RN Hard of hearing 05/28/2025 11:30 AM EDT PACE Home Care / [facility] Home [facility] [address] [place] [phone] Brina Tse 05/27/2025 11:00 AM EDT Treatment [facility] [address] [place] [phone] Jc Sequeira, PT 05/23/2025 Telephone [facility] [address] [place] [phone] Jc Sequeira, PT 05/23/2025 Telephone [facility] [address] [place] [phone] Jc Sequeira, PT 05/23/2025 Lab [facility] [address] [place] [phone] Kiera Cameron, STORMY Hard of hearing 05/22/2025 11:00 AM EDT Clinical Support [facility] [address] [place] [phone] Kiera Cameron, STORMY 05/21/2025 11:30 AM EDT PACE Home Care / [facility] Home [facility] [address] [place] [phone] Brina Tse 05/16/2025 Telephone [facility] [address] [place] [phone] Jc Sequeira, PT 05/16/2025 Lab [facility] [address] [place] [phone] Kiera Cameron, RN Hard of hearing 05/14/2025 11:30 AM EDT PACE Home Care / PACE Home Visit [facility] [address] [place] [phone] Brina Tse 05/09/2025 Lab [facility] [address] [phone] Kiera Cameron, RN Hard of hearing 05/07/2025 11:30 AM EDT PACE Home Care / PACE Home Visit [facility] [address] [place] [phone] Brina Tse 05/02/2025 Lab [facility] [address] [phone] Kiera Cameron, RN Hard of hearing 05/01/2025 12:45 PM EDT Office Visit [address] [phone] Margo Mariscal, SAUL Edema of left lower leg (Primary Dx) 05/01/2025 11:50 AM EDT PACE External Visit [address] [phone] Healthcare maintenance 05/01/2025 10:00 AM EDT Clinical Support [address] [phone] Marilu Simon, STORMY 05/01/2025 10:00 AM EDT Clinical Support [address] [phone] Kiera Cameron, RN 05/01/2025 Plan of Care Documentation [address] [phone] 04/30/2025 11:30 AM EDT PACE [facility] [address] [place] [phone] Brina Tse 04/25/2025 [facility] [address] [place] [phone] Jc Sequeira, PT 04/25/2025 Lab [facility] [address] [place] [phone] Kiera Cameron, STORMY Hard of hearing 04/24/2025 1:15 PM EDT Treatment [facility] [address] [place] [phone] Jc Sequeira, PT 04/24/2025 1:00 PM EDT Office Visit [facility] [address] [place] [phone] Margo Mariscal, SAUL Impacted cerumen of both ears (Primary Dx); Acute cystitis without hematuria 04/23/2025 11:30 AM EDT PACE Home Care / [facility] Home Visit [facility] [address] [place] [phone] Brina Tse 04/21/2025 12:00 PM EDT Clinical Support [facility] [address] [phone] Nasima Caceres RN 04/18/2025 Lab [facility] [address] [phone] Kiera Cameron, STORMY Hard of hearing 04/16/2025 11:30 AM EDT PACE Home Care / PACE Home Visit [facility] [address] [place] [phone] Brina Tse 04/14/2025 11:00 AM EDT [facility]ACE Assessment [facility] [address] [place] [phone] Jc Sequeira, PT Dementia, unspecified dementia severity, unspecified dementia type, unspecified whether behavioral, psychotic, or mood disturbance or anxiety (CMS/HCC V24, CMS/HCC V28) (Primary Dx) 04/14/2025 11:00 AM EDT [facility]ACE Assessment [facility] [address] [place] [phone] Willy Woo, OT Moderate dementia without behavioral disturbance (CMS/HCC V24, [facility] V28) (Primary Dx) 04/11/2025 10:00 AM EDT PACE Assessment [address] [phone] Marilu Simon RN Adult general medical examination (Primary Dx) 04/11/2025 10:00 AM EDT PACE Assessment [address] [phone] Margo Mariscal NP Impacted cerumen of both ears (Primary Dx); History of skin cancer; Primary hypertension; Vitamin D deficiency; Deficiency of vitamin B12; Moderate dementia without behavioral disturbance ([facility] V24, [facility] V28); Hard of hearing; Age-related cataract of both eyes, unspecified age-related cataract type; Non-seasonal allergic rhinitis, unspecified trigger; Hemorrhoids, external; Rectal prolapse; Dental caries; Irritable bowel syndrome with both constipation and diarrhea; Cystocele, unspecified; Vaginal vault prolapse; Urinary incontinence, unspecified type; Other specified disorders of bone density and structure, multiple sites; Leg length discrepancy; Dry skin; Hammer toe of left foot; Moderate mixed hyperlipidemia not requiring statin therapy; Obsessive-compulsive disorder, unspecified type; Anxiety; Urination frequency; Nocturia; Presbyopia 04/11/[address] [phone] Kiera Cameron, STORMY Hard of hearing 04/10/2025 11:00 AM EDT Clinical Support [address] [phone] Nasima Caceres RN 04/09/2025 1:30 PM EDT PACE [facility] [address] [place] [phone] Brina Tse 04/04/[address] [phone] Kiera Cameron, STORMY Hard of hearing 04/02/2025 12:30 PM EDT PACE Home Care / [facility] Home Visit [facility] [address] [place] [address] Brina Tse 03/28/2025 Lab [facility] [address] [place] [address] Kiera Cameron RN Hard of hearing 03/26/2025 12:00 PM EDT PACE Home Care / [facility] Home Visit [facility] [address] [place] [address] Brina Tse 03/25/2025 10:00 AM EDT [facility] External Visit [facility] [address] [place] [address] Hammer toe of left foot from Last 3 Months Surgical History Surgery Date Site/Laterality Comments HYSTERECTOMY N/A HIP FRACTURE SURGERY Left RECTAL PROLAPSE REPAIR INCONTINENCE SURGERY Medical History Medical History Date Comments Uses hearing aid History of basal cell carcinoma History of urinary tract infection History of fracture of left hip Social History Tobacco Use Types Packs/Day Years Used Date Smoking Tobacco: Never Smokeless Tobacco: Never Tobacco Cessation:Counseling Given: Not Answered Alcohol Use Standard Drinks/Week Comments Never 0 (1 standard drink = 0.6 oz pur e alcohol) Comments Unknown Sex and Gender Information Value Date Recorded Sex Assigned at Not on file Legal Sex Female 3:20 AM EST Gender Identity Not on file Sexual Orientation Not on file Obstetrics History Last Filed Vital Signs Vital Sign Reading Time Taken Comments Blood Pressure 126/68 06/19/2025 11:08 AM EDT Pulse 78 06/19/2025 11:08 AM EDT Temperature 36.7 C (98.1 F) 06/19/2025 11:08 AM EDT Respiratory Rate 16 06/19/2025 11:08 AM EDT Oxygen Saturation 98% 06/19/2025 11:08 AM EDT Inhaled Oxygen Concentration - - Weight 56.1 kg (123 lb 9.6 oz) 06/19/2025 11:08 AM EDT Height 154.9 cm (5' 1 ) 05/01/2025 11:00 AM EDT Body Mass Index 23.35 05/01/2025 11:00 AM EDT Plan of Treatment Upcoming Encounters Date Type Department Care Team (Late st Contact Info) Description 06/25/2025 11:30 AM EDT PACE Home Care / [facility] Home Visit [facility] [address] [place] [address] Brina Tse 07/02/2025 11:30 AM EDT PACE Home Care / [facility] Home Visit [facility] [address] [place] [phone] Brina Tse 07/03/2025 Clinical Support [facility] [address] [place] [phone] Nasima Caceres, RN 07/09/2025 11:30 AM EDT PACE Home Care / [facility] Home Visit [facility] [address] [place] [phone] Brina Tse 07/15/2025 10:30 AM EDT Clinical Support [facility] [address] [place] [phone] 07/16/2025 11:30 AM EDT PACE Home Care / [facility] Home Visit [facility] [address] [place] [phone] Brina Tse 07/17/2025 Clinical Support [facility] [address] [place] [phone] Nasima Caceres, RN 07/22/2025 10:00 AM EST Clinical Support [facility] [address] [place] [phone] 07/23/2025 11:30 AM EST PACE Home Care / [facility] Home Visit [facility] [address] [place] [phone] Brina Tse 07/24/2025 11:00 AM EST Office Visit [facility] [address] [place] [phone] Margo Mariscal, SAUL [address] [address] 07/25/2025 10:00 AM EST Clinical Support [facility] [address] [place] [address] 07/30/2025 11:30 AM EST PACE Home Care / [facility] [address] [place] [address] Dedrick Brina 07/31/2025 Clinical Support [facility] [address] [place] [phone] Nasima Caceres, RN 08/06/2025 11:30 AM EST PACE Home Care / [facility] Home [facility] [address] [place] [phone] Dedrick Brina 08/13/2025 11:30 AM EST PACE Home Care / PACE Home Visit [facility] [address] [place] [phone] Dedrick Brina 08/14/2025 Clinical Support [facility] [address] [place] [phone] Nasima Caceres, STORMY 08/19/2025 11:00 AM EST Clinical Support [facility] [address] [place] [phone] 08/20/2025 11:30 AM EST PACE Home Care / [facility] Home [facility] [address] [place] [phone] Dedrick Brina 08/28/2025 Clinical Support [facility] [address] [place] [phone] Nasima Caceres, RN 09/11/2025 Clinical Support [facility] [address] [place] [phone] Nasima Caceres, RN 09/25/2025 Clinical Support [facility] [address] [place] [phone] Nasima Caceres, RN 10/09/2025 Clinical Support [facility] [address] [place] [phone] Nasima Caceres, STORMY 10/23/2025 Clinical Support [facility] [address] [place] [phone] Nasima Caceres, RN 11/06/2025 Clinical Support [facility] [address] [place] [phone] Nasima Caceers, STORMY 11/20/2025 Clinical Support [facility] [address] [place] [phone] Nasima Caceres, STORMY 12/04/2025 Clinical Support [facility] [address] [place] [phone] Nasima Caceres, STORMY 12/18/2025 Clinical Support [facility] [address] [place] [phone] Nasima Caceres, STORMY 01/01/2026 Clinical Support [facility] [address] [place] [phone] Nasima Caceres, STORMY 01/15/2026 Clinical Support [facility] [address] [place] [phone] Nasima Caceres, RN 01/29/2026 Clinical Support [facility] [address] [place] [phone] Nasima Caceres, STORMY 02/12/2026 Clinical Support [facility] [address] [place] [phone] Nasima Caceres, STORMY 02/26/2026 Clinical Support [facility] [address] [address] Nasima Caceres RN 02/27/2026 9:45 AM EDT PACE External Visit [address] [phone] 03/12/2026 Clinical Support [facility] [address] [phone] Nasima Caceres RN 03/26/2026 Clinical Support [facility] [address] [phone] Nasima Caceres, STORMY 04/09/2026 Clinical Support [facility] [address] [phone] Nasima Caceres, STORMY 04/23/2026 Clinical Support [facility] [address] [phone] Nasima Caceres RN 05/07/2026 Clinical Support [facility] [address] [phone] Nasima Caceres, STORMY 05/21/2026 Clinical Support [facility] [address] [phone] Nasima Caceres, STORMY 06/04/2026 Clinical Support [facility] [address] [phone] Nasima Caceres, RN Health Maintenance Due Date Last Done Comments COVID-19 Vaccine (#1) 1945 DTaP,Tdap,and Td Vaccines (1 - Tdap) 1959 Zoster Vaccines (1 of 2) 1959 Pneumococcal Vaccine: 50+ Years (1 of 1 - PCV) 1990 RSV Immunization Adult Patients (1 - 1-dose 75+ series) 2015 Falls Risk Assessment 08/21/2022 Osteoporosis Screening (Bone Density Screening) 08/21/2022 Social Influencers of Health Screening 08/21/2022 Depression Screening 09/18/2024 Influenza Vaccine (#1) 2025 06/22/2011 Hypertension/CHF/CAD Annual BMP Blood Test 04/11/2026 04/11/2025, 09/19/2024 Cholesterol Screening (Lipid Panel) 10/18/2029 10/18/2024 HIB Vaccines Aged Out No longer eligi ble based on patient's age to complete this topic HPV Vaccines Aged Out No longer eligi ble based on patient's age to complete this topic Hepatitis A Vaccines Aged Out No long er eligible based on patient's age to complete this topic Hepatitis B Vaccines Aged Out No long er eligible based on patient's age to complete this topic IPV Vaccines Aged Out No longer eligi ble based on patient's age to complete this topic MMR Vaccines Aged Out No longer eligi ble based on patient's age to complete this topic Meningococcal ACWY Vaccine Aged Out N o longer eligible based on patient's age to complete this topic Meningococcal B Vaccine Aged Out No l onger eligible based on patient's age to complete this topic RSV Immunization Patients Under 20 months Aged Out No longer eligible b ased on patient's age to complete this topic Varicella Vaccines Aged Out No longer eligible based on patient's age to complete this topic Procedures Procedure Name Priority Date/Time Associated Diagnosis Comments URINALYSIS WITH REFLEX MICROSCOPIC AND CULTURE Routine 04/21/2025 10:24 AM EDT Urination frequency CULTURE URINE Routine 04/21/2025 10:24 AM EDT Urination frequency CBC WITH AUTO DIFFERENTIAL Routine 04/11/2025 12:17 PM EDT Deficiency of vitamin B12 VITAMIN D 25 HYDROXY Routine 04/11/2025 12:17 PM EDT Vitamin D deficiency COMPREHENSIVE METABOLIC PANEL Routine 04/11/2025 12:17 PM EDT Primary hypertension CBC AND DIFFERENTIAL Routine 04/11/2025 12:17 PM EDT Deficiency of vitamin B12 LIPID PANEL Routine 10/18/2024 from Last 3 Months or Most Recently Relevant to Health Maintenance Results * (ABNORMAL) Urinalysis with reflex microscopic and culture (04/21/2025 10:24 AM EDT) Specific [place]fall Urine 1.018 1.003 - 1.030 LAB URINALYSIS - AUTOMATED METHOD 04/21/2025 6:[address] [facility] pH, Urine 7.0 5.0 - 8.0 pH LAB URINALYSIS - AUTOMATED METHOD 04/21/2025 6:[address] [facility] Leukocytes, Urine Large(A) Negative LAB URINALYSIS - AUTOMATED METHOD 04/21/2025 6:[address] [facility] Nitrite, Urine Negative Negative LAB URINALYSIS - AUTOMATED METHOD 04/21/2025 6:[address] [facility] Protein, Urine Trace <=Trace mg/dL LAB URINALYSIS - AUTOMATED METHOD 04/21/2025 6:[address] [facility] Glucose, Urine Negative Negative mg/dL LAB URINALYSIS - AUTOMATED METHOD 04/21/2025 6:[address] [facility] Ketones, Urine Negative Negative mg/dL LAB URINALYSIS - AUTOMATED METHOD 04/21/2025 6:[address] [facility] Urobilinogen, Urine 1.0 0.2 - 1.0 mg/dL LAB URINALYSIS - AUTOMATED METHOD 04/21/2025 6:[address] [facility] Bilirubin, Urine Negative Negative LAB URINALYSIS - AUTOMATED METHOD 04/21/2025 6:[address] [facility] Blood, Urine Negative Negative LAB URINALYSIS - AUTOMATED METHOD 04/21/2025 6:[address] [facility] RBC, Urine 1.6 0 - 4 /HPF LAB URINALYSIS - AUTOMATED METHOD 04/21/2025 6:[address] [facility] WBC, Urine 144.8(H) 0 - 4 /HPF LAB URINALYSIS - AUTOMATED METHOD 04/21/2025 6:55 PM EDT [facility] Squamous Epithelial, Urine >100(H) 0 - 60 /LPF LAB URINALYSIS - AUTOMATED METHOD 04/21/2025 6:55 PM EDT [facility] Bacteria, Urine Many(A) Negative /HPF LAB URINALYSIS - AUTOMATED METHOD 04/21/2025 6:55 PM EDT [facility] Hyaline Casts, Urine 10.0(H) 0 - 3 /LPF LAB URINALYSIS - AUTOMATED METHOD 04/21/2025 6:55 PM EDT [facility] Urine Urine specimen obtained by clean catch procedure / Unknown Non-blood Collection / Unknown 04/21/2025 10:24 AM EDT 04/21/2025 10:24 AM EDT Margo Mariscal [employer] LAB URINE ORDERABLES Final Re sult [facility] [address] [place] [address], * (ABNORMAL) Culture urine (04/21/2025 10:24 AM EDT) Culture, Urine >=100,000 CFU/mL Enterobacter cloacae complex(A) PIYUSH 04/24/2025 8:06 AM EDT [facility] Comment: This is an edited result. Previous organism was Gram negative bacilli on 04/23/2025 at 1119 EDT. Urine Urine specimen obtained by clean catch procedure / Unknown Non-blood Collection / Unknown 04/21/2025 10:24 AM EDT 04/21/2025 6:55 PM EDT Narrative Organism Antibiotic Method Susceptibility Enterobacter cloacae complex Amoxicillin/Clavulanate PIYUSH 16 ug/ml: Resistant Enterobacter cloacae complex Cefoxitin PIYUSH >=64 ug/ml: Resistant Enterobacter cloacae complex Ceftazidime PIYUSH <=0.5 ug/ml: Susceptible Enterobacter cloacae complex Cefepime PIYUSH <=0.12 ug/ml: Susceptible Enterobacter cloacae complex Meropenem PIYUSH <=0.25 ug/ml: Susceptible Enterobacter cloacae complex Amikacin PIYUSH <=1 ug/ml: Susceptible Enterobacter cloacae complex Gentamicin PIYUSH <=1 ug/ml: Susceptible Enterobacter cloacae complex Ciprofloxacin PIYUSH <=0.06 ug/ml: Susceptible Enterobacter cloacae complex Levofloxacin PIYUSH <=0.12 ug/ml: Susceptible Enterobacter cloacae complex Nitrofurantoin PIYUSH <=16 ug/ml: Susceptible Enterobacter cloacae complex Trimethoprim/Sulfamethoxazo le PIYUSH <=20 ug/ml: Susceptible us Margo Mariscal NP LAB MICROBIOLOGY - GENERAL OR DERABLES Final Result [facility] [address] [place] [address], * (ABNORMAL) CBC auto differential (04/11/2025 12:17 PM EDT) WBC 5.2 4.8 - 10.8 K/mcL LAB HEMETOLOGY METHOD 04/11/2025 6:46 PM EDT [facility] RBC 4.00 3.80 - 4.80 M/mcL LAB HEMETOLOGY METHOD 04/11/2025 6:46 PM EDT [facility] Hemoglobin 13.3 11.5 - 16.0 g/dL LAB HEMETOLOGY METHOD 04/11/2025 6:46 PM EDT [facility] Hematocrit 37.0 35.0 - 47.0 % LAB HEMETOLOGY METHOD 04/11/2025 6:46 PM EDT [facility] MCV 91.6 79.0 - 98.0 FL LAB HEMETOLOGY METHOD 04/11/2025 6:46 PM EDT [facility] MCH 32.9(H) 27.0 - 32.0 pcg LAB HEMETOLOGY METHOD 04/11/2025 6:46 PM EDT [facility] MCHC 35.9 32.0 - 37.0 g/dL LAB HEMETOLOGY METHOD 04/11/2025 6:46 PM EDT [facility] RDW 12.3 11.0 - 15.0 % LAB HEMETOLOGY METHOD 04/11/2025 6:46 PM EDT [facility] Platelets 324 130 - 400 K/mcL LAB HEMETOLOGY METHOD 04/11/2025 6:46 PM EDT [facility] MPV 9.7 7.0 - 11.0 FL LAB [facility] NRBC 0.0 <1.0 % [facility]OLOGY [facility] NRBC Absolute 0.00 <0.10 K/mcL LAB HEMETOLOGY METHOD 04/11/2025 6:46 PM EDT [facility] Neutrophils Relative 69.9 % LAB [facility]OLOGY [facility] Lymphocytes Relative 21.6 % LAB HEMETOLOGY METHOD 04/11/2025 6:[address] [facility] Monocytes Relative 6.9 % LAB HEMETOLOGY METHOD [facility] Eosinophils Relative 0.4 % LAB HEMETOLOGY METHOD [facility]25 [facility] Basophils Relative 0.6 % LAB HEMETOLOGY METHOD [facility]25 [facility] Immature Granulocytes Relative 0.6 % LAB HEMETOLOGY METHOD 04/11/2025 6:[address] [facility] Neutrophils Absolute 3.62 1.50 - 7.00 K/mcL LAB HEMETOLOGY METHOD 04/11/2025 6:46 PM EDT [facility] Lymphocytes Absolute 1.12 1.00 - 5.00 K/mcL LAB HEMETOLOGY METHOD 04/11/2025 6:46 PM EDT [facility] Monocytes Absolute 0.36 0.20 - 1.00 K/mcL LAB HEMETOLOGY METHOD 04/11/2025 6:46 PM EDT [facility] Eosinophils Absolute 0.02 0.00 - 0.50 K/[facility] LAB HEMETOLOGY METHOD 04/11/2025 6:46 PM EDT [facility] Basophils Absolute 0.03 0.00 - 0.20 K/[facility] LAB HEMETOLOGY METHOD 04/11/2025 6:46 PM EDT [facility] Immature Granulocytes Absolute 0.03 0.00 - 0.03 K/mcL LAB HEMETOLOGY METHOD 04/11/2025 6:46 PM EDT [facility] Blood Venous blood specimen / Unknown Venipuncture / Unknown 04/11/2025 12:17 PM EDT 04/11/2025 12:17 PM EDT Margo Mariscal NP LAB BLOOD ORDERABLES Final Re sult [facility] [address] [place] [address], * Vitamin D 25 hydroxy (04/11/2025 12:17 PM EDT) Vit D, 25-Hydroxy 36.1 30.0 - 80.0 ng/mL LAB CHEMISTRY METHOD 04/11/2025 8:45 PM EDT [facility] Blood Venous blood specimen / Unknown Venipuncture / Unknown 04/11/2025 12:17 PM EDT 04/11/2025 12:17 PM EDT us Margo Barb Mariscal [employer] LAB BLOOD ORDERABLES Final Re sult [facility] [address] [place] [address], * (ABNORMAL) Comprehensive metabolic panel (04/11/2025 12:17 PM EDT) Sodium 132(L) 133 - 145 mmol/L LAB CHEMISTRY METHOD 04/11/2025 7:44 PM EDT [facility] Potassium 3.5 3.5 - 5.5 mmol/L LAB CHEMISTRY METHOD 04/11/2025 7:[address] [facility] Chloride 98 96 - 110 mmol/L LAB CHEMISTRY METHOD 04/11/2025 7:[address] [facility] CO2 30 21 - 32 mmol/L LAB CHEMISTRY [facility] Anion Gap 4 3 - 11 LAB CHEMISTRY METHOD 04/11/2025 7:[address] [facility] Glucose 110(H) 70 - 100 mg/dL LAB CHEMISTRY METHOD 04/11/2025 7:[address] [facility] BUN 15 5 - 25 mg/dL LAB CHEMISTRY METHOD 04/11/2025 7:[address] [facility] Creatinine 0.62 0.50 - 1.10 mg/dL LAB CHEMISTRY METHOD [facility]25 [facility] eGFR 88 >=60 mL/min/1. 73m2 LAB CHEMISTRY METHOD 04/11/2025 7:[address] [facility] Comment:Calculation based on the Chronic Kidney Disease Epidemiology Collaboration (CKD-EPI) equation refit without adjustment for race. BUN/Creatinine Ratio 24.2 LAB CHEMISTRY METHOD 04/11/2025 7:[address] [facility] Calcium 8.8 8.5 - 10.5 mg/dL LAB CHEMISTRY METHOD 04/11/2025 7:44 PM EDT [facility] AST (SGOT) 26 10 - 42 unit/L LAB CHEMISTRY METHOD 04/11/2025 7:44 PM EDT [facility] ALT (SGPT) 19 10 - 60 unit/L LAB CHEMISTRY METHOD 04/11/2025 7:44 PM EDT [facility] Alkaline Phosphatase 78 42 - 121 unit/L LAB CHEMISTRY METHOD 04/11/2025 7:44 PM EDT [facility] Total Protein 7.8 6.0 - 8.0 g/dL LAB CHEMISTRY METHOD 04/11/2025 7:44 PM EDT [facility] Albumin 3.5 3.2 - 5.0 g/dL LAB CHEMISTRY METHOD [facility] Total Bilirubin 0.4 0.0 - 1.4 mg/dL LAB CHEMISTRY METHOD 04/11/2025 7:44 PM EDT [facility] Blood Venous blood specimen / Unknown Venipuncture / Unknown 04/11/2025 12:17 PM EDT 04/11/2025 12:17 PM EDT Margo Mariscal NP LAB BLOOD ORDERABLES Final Re sult [facility] [address] [place] [address], * Lipid panel (10/18/2024) LDL/HDL Ratio 3 <=5 Triglycerides 93 <=150 mg/dL Cholesterol 152 <=200 mg/dL HDL 57 >=50 mg/dL LDL Cholesterol 77 <=100 mg/dL Blood Venous blood specimen / Unknown Historical Provider LAB BLOOD ORDERABLES La l Result from Last 3 Months or Most Recently Relevant to Health Maintenance Insurance [employer] * Guarantor: [employer] Account Type Relation to Patient Date of Phone Billing [place] [address] [employer] Advance Directives Documents on File Type Date Recorded Patient Intertype Operator Expl anation Advance Directives and Living Will 11/04/2024 6:59 PM ADV DIR-Healthcare Proxy [email or web address] * Full Code - Default (Latest Code Status on File) Date Activated Date Inactivated Comments 11/11/2024 4:41 PM This is order is used when code status has not been discussed with the patient, or code status is otherwise unknown/unconfirmed To update the patient's code status, place a code status order. Do not modify or discontinue any currently active code status orders. Care Teams Plugger Man Relationship Specialty Start Date End Date Margo Mariscal NP PCP - General Family Medicine 07/26/24
--- NOTE | 2025-06-24 16:33 | PHA.MEDREC ---
Addendum entered by Devin Otoole RPh 06/24/25 16:40: med rec reviewed Original Note: Pharmacy Consult ? Medication Reconciliation Pharmacy has completed the medication reconciliation. Spoke to patient fausto Hamm JR to confirm med list. Son states patient has VNA services through [facility] [place] [phone]. Utilized list from [facility] to confirm med list.
[2025-06-24 18:32] VITALS: BP 166/74; PULSE 80; RESP 15; TEMP 36.6; O2SAT 96
[2025-06-24 19:01] LABS: Troponin-I High Sensitivity 19.3 ng/L (<3.5-17.0)
--- NOTE | 2025-06-24 19:15 | PC.NURSE ---
Assuemd care of pt, presents with unwitnessed fall at home pt was found on the ground x4 days , unknown Head-strike, denies LOC, pt is alert and awake, aaox4, hard of hearing, pending admission bed
--- NOTE | 2025-06-24 19:41 | MHC.EDTECH ---
Pt refused nasal swabs that were ordered.
[2025-06-24 21:25] VITALS: BP 111/50; PULSE 71; RESP 15; TEMP 36.6; O2SAT 95
[2025-06-25] VITALS (15 sets, daily range): BP systolic 101–171; BP diastolic 54–90; PULSE 54–126; RESP 12–20; TEMP 36.3–37.2; O2SAT 93–98
[2025-06-25 04:48] LABS: MANUAL DIFF FLAG NO
[2025-06-25 04:54] LABS: Hematocrit 33.1 % (37.0-47.0); Hemoglobin 11.6 g/dl (12.0-16.0); Imm Gran Abs Auto 0.05 X10*3/uL (0.00-0.03); Imm Gran Pct Auto 0.7 % (0.0-0.4); Lymphocytes Absolute Auto 1.4 X10*3/uL (1.2-4.9); Mean Corpuscular HGB Conc 35.0 g/dl (31.0-35.0); Mean Corpuscular Hemoglobin 31.4 pg (27.0-33.0); Mean Corpuscular Volume 89.7 fL (80.0-98.0); NRBC Abs Auto 0.000 X10*3/uL (0.0-0.012); NRBC Pct Auto 0.0 /100WBC (0.0-0.2); Platelet Count 234 X10*3/uL (160-400); Red Blood Count 3.69 X10*6/uL (4.20-5.50); White Blood Count 7.0 X10*3/uL (4.8-10.8)
[2025-06-25 05:14] LABS: Alanine Aminotransferase 27 U/L (0-31); Albumin Level 3.0 g/dL (3.5-5.0); Alkaline Phosphatase 57 U/L (39-117); Anion Gap 11 (12-20); Aspartate Amino Transferase 64 U/L (5-31); Blood Urea Nitrogen 27 mg/dL (9-16); Calcium 8.1 mg/dL (8.4-10.2); Carbon Dioxide 24 mmol/L (22-29); Chloride 110 mmol/L (96-108); Creatinine Clr Calc Pharmacy 121.5; Estimated Glomerular Filt Rate > 60; Potassium 3.2 mmol/L (3.3-5.1); Sodium 142 mmol/L (135-145); Total Protein 6.5 g/dL (6.5-8.0)
--- NOTE | 2025-06-25 07:00 | CA_ITS ---
Transthoracic Echocardiogram Patient (Last, First, Middle): Eileen Leiva, Gender: F Date of : 1940 Age: 85 Procedure Date: 06/25/2025 Procedure Type: Transthoracic Echocardiogram Location: ER Height: 152.4 cm Weight: 58.06 kg BSA: 1.54 m2 Heart Rate: bpm BP: 157 / 75 mmHg Boot Trimmer: CLAYTON Referring MD: Elisa Fuentes MD Mine Foreman: Justino Umana MD Symptoms: eleavted trop Study Quality: Fair ECG Rhythm: Sinus Conclusions: - 1. Hyperdynamic LV EF of greater than 70% with impaired relaxation filling pattern 2. Cardiac valvular Dopplers within normal limits 3. Mildly elevated right ventricular systolic pressure 4. No gross pericardial effusion Findings Left Ventricle Normal left ventricular cavity size. There is normal left ventricular wall thickness. The left ventricular systolic function is hyperdynamic. The visually estimated ejection fraction is >70%. Spectral Doppler is indicative of an impaired relaxation filling pattern. Right Ventricle Normal right ventricular cavity size and systolic function. Atria Both atria are normal in size. There is lipomatous hypertrophy of the interatrial septum. There is no evidence of interatrial shunt. Aortic Valve The aortic valve was not well visualized. There is no aortic valve stenosis. There is no aortic valve regurgitation. Mitral Valve There is mild anterior mitral leaflet thickening. There is trace mitral valve regurgitation. There is no mitral valve stenosis. Pulmonic Valve The pulmonic valve was not well visualized. Tricuspid Valve Normal tricuspid valve structure. There is mild tricuspid valve regurgitation. The right ventricular systolic pressure is normal. The right ventricular systolic pressure is 43 mmHg. Normal right atrial pressure. Mild pulmonary hypertension is present. Great Vessels All visible segments of the aorta are normal in size. The pulmonary artery was not well visualized. Venous The inferior vena cava is normal in size and collapses greater than 50% with inspiration. Pericardium/Pleural There is no evidence of pericardial effusion. Measurements 2D Linear Measurements IVSd: 0.90 0.6-0.9/0.6-1.0 cm LVIDd: 3.17 3.9-5.3/4.2-5.9 cm LVIDd Index: 2.06 2.4-3.2/2.2-3.1 cm/m2 LVIDs: 2.11 2.0-3.6 cm LVPWd: 0.87 0.7-1.1 cm LA Diam: 3.40 2.7-3.8/3.0-4.0 cm LAIDs Index: 2.21 1.5-2.3 cm/m2 LV Mass: 159.47 67-162/88-224 g LV Mass Index: 103.55 43-95/49-115 g/m2 2D Systolic Function EF 4C: 77.30 >55% EF 2C: 67.10 >55% EF BiP: 70.80 >55% Mitral Valve MV VTI: 0.27 MV Pk Pradepe: 1.09 MV Mn Pradeep: 0.67 MV Pk Grad: 5.00 MV Mn Grad: 2.00 MV Pk E: 0.72 MV PK A: 1.11 MV Decel Time: 134.00 E/A: 0.70 E'Lateral: 7.51 E'Medial: 5.33 E/E' Med: 13.60 E/E' Lat: 9.60 PHT: 39.00 MVA PHT: 5.64 Decel Sully: 5.42 Aortic Valve AoV Pk Pradeep: 2.05 AoV Mn Pradeep: 1.30 AoV VTI: 0.45 AoV Pk Grad: 17.00 Aov Mn Grad: 8.00 Diastolic Function MV Pk E: 0.72 MV Pk A: 1.11 E/A: 0.70 E'Medial: 5.33 E/E' Med: 13.60 E' Laterial: 7.51 E/E' Lat: 9.60 Right Ventricle TAPSE (mm): 23.00 TVS' Pradeep: 17.00 Tricuspid Valve TR Pk Pradeep: 3.16 TR Pk Grad: 40.00 RA Press: 3.00 RVSP: 43.00 Pulmonary Valve PV Pk Pradeep: 1.11 Peak PV Grad: 5.00 Updated in Other Vendor System with Status of Final Justino Umana MD electronically signed on 06/25/2025 1:28:00 PM with status of Final
--- NOTE | 2025-06-25 08:22 | HO.ANESPROP2 ---
Documented by User: Lindsey Blankenship NP 06/25/25 08:26 HPI - Anesthesia Eval Consult details Narrative: 85 yr old female for right Had fall in 2017 with left hip fx/repair, no trouble with anesthesia. No recent illness. No CP or SOB; denies any cardiac hx Rhabdo: CK 900 on 06/25/25 [facility] Active Problems Active Problems: All Active Problems Fever (Acute) Skin excoriation (Acute) Rhabdomyolysis (Acute) Acute hypokalemia (Acute) Fever and chills (Acute) Femur fracture, right (Acute) Rectal prolapse (Acute) Hemorrhoid prolapse (Acute) Hypokalemia due to excessive renal loss of potassium (Acute) Acute metabolic encephalopathy (Acute) Acute hyponatremia (Acute) Acute UTI (Acute) Anxiety (Acute) Hyperlipidemia (Acute) Encounter for initial annual wellness visit (AWV) in Medicare patient (Acute) Hypertension (Acute) Past Medical History Medical History Rectal prolapse Anxiety Hyperlipidemia Hypertension Family History Family History Father No problems noted. Mother Hypertension Family history of problems with anesthesia: No Surgical History Surgical History History of open reduction and internal fixation (ORIF) procedure History of hysterectomy History of Problems with Anesthesia: No Social History Social History Household Members: None Housing: Assisted Living Facility Are you a primary infant childcare provider to a significant other at home: No Do you presently have visiting nurse or other home services: No Alcohol intake: never Patient Tobacco Use Status: Never used Tobacco e-Cigarette/Vaping Use: Never Used Second Hand Smoke Exposure: No service: No Current occupational status: disabled Current occupational exposures/hazards: No Cognitive needs: Yes Hearing needs: Yes Vision needs: Yes Meds Allergies Allergy/AdvReac Type Severity Reaction Status Date / Time acetaminophen (From Allergy Unknown HIVES,RASH Verified 06/25/25 14:46 TYLENOL-CODEINE #3) codeine (From Allergy Unknown HIVES,RASH Verified 06/25/25 14:46 TYLENOL-CODEINE #3) penicillin V Allergy Unknown Unknown Verified 06/25/25 14:46 Sulfa (Sulfonamide Allergy Unknown Unknown Verified 06/25/25 14:46 Antibiotics) Active Medications: Current Medications Acetaminophen (Acetaminophen 325 Mg Tablet) 650 mg PO Q6H PRN PRN Reason: Pain, Severe (Pain Scale 7-10) Last Admin: 06/24/25 20:34 Dose: 650 mg Amlodipine Besylate (Amlodipine Besylate 2.5 Mg Tablet) 2.5 mg PO DAILY [facility]LY [facility], [facility]; Protocol Calcium Carbonate (Calcium Carbonate 750 Mg Tab.Chew) 750 mg PO Q4H PRN PRN Reason: Heartburn Ceftriaxone Sodium (Ceftriaxone Sodium 1 Gm Vial) 1 gm IVPUSH Q24H [facility] Cyanocobalamin (Cyanocobalamin (Vitamin B-12) 1,000 Mcg Tablet) 1,000 mcg PO DAILY [facility], [facility]–1983 Sodium Chloride (Ns) 1,000 mls @ 80 mls/hr IVCONT .[id number] [facility], [facility] Last Admin: 06/25/25 05:58 Dose: 80 mls/hr Cefazolin Sodium/Dextrose (Ancef) 2 gm in 50 mls @ 100 mls/hr IV PREOP ONE Stop: 06/25/25 13:29 Lidocaine HCl (Lidocaine 4 % Cream Kit) 1 appl TOPICAL TID PRN PRN Reason: Mild Pain (Scale Score 1-4) Loperamide HCl (Loperamide Hcl 2 Mg Capsule) 2 mg PO BID PRN PRN Reason: Diarrhea Loratadine (Loratadine 10 Mg Tablet) 10 mg PO DAILY PRN PRN Reason: allergy symptoms Magnesium Hydroxide (Milk Of Magnesia 30 Ml Oral.Susp) 30 ml PO DAILY PRN PRN Reason: Constipation Melatonin (Melatonin 3 Mg Tablet) 6 mg PO BEDTIME PRN PRN Reason: Insomnia Melatonin (Melatonin 3 Mg Tablet) 6 mg PO BEDTIME [facility] Last Admin: 06/24/25 20:35 Dose: 6 mg Sodium Chloride (0.9 % Sodium Chloride Flush 3 Ml Syringe) 3 ml IVFLUSH QSHIFT [facility], [facility] Last Admin: 06/24/25 19:15 Dose: Not Given Home Medications ?Medication ?Instructions ?Recorded ?Confirmed ?Last Taken ?Type hydrochlorothiazide 25 mg tablet 25 mg PO DAILY 01/11/22 06/24/25 Unknown History acetaminophen 500 mg tablet 1,000 mg PO Q6H PRN Pain 06/24/25 06/24/25 Unknown History cyanocobalamin (vitamin B-12) 1,000 mcg PO DAILY 06/24/25 06/24/25 Unknown History 1,000 mcg tablet (Vitamin B-12) lidocaine 4 % topical cream 1 appl topical TID PRN Mild Pain 06/24/25 06/24/25 Unknown History (Scale Score 1-4) loperamide 2 mg tablet 2 mg PO BID PRN Diarrhea 06/24/25 06/24/25 Unknown History melatonin 5 mg tablet 5 mg PO BEDTIME 06/24/25 06/24/25 Unknown History Exam Height,Weight and Vital Signs: Height 5 ft 5 in Weight 120.3 kg Last Vital Signs Temp 97.8 F 06/25/25 00:35 Pulse 83 06/25/25 08:19 Resp 17 06/25/25 08:19 BP 169/74 H 06/25/25 08:19 Pulse Ox 98 06/25/25 08:19 O2 Del Method Room Air 06/25/25 08:19 Pertinent Lab Results Pertinent Lab Results: Laboratory Tests 06/24/25 06/24/25 06/24/25 13:01 13:40 14:55 WBC 11.6 H RBC 4.21 Hgb 12.8 Hct 37.9 MCV 90.0 MCH 30.4 MCHC 33.8 RDW 12.3 Plt Count 275 MPV 8.5 L Immature Gran % (Auto) 0.9 H Neut % (Auto) 84.9 H Lymph % (Auto) 7.5 L [place] % (Auto) 6.5 Eos % (Auto) 0.0 Baso % (Auto) 0.2 Lymph # (Auto) 0.9 L [place] # (Auto) 0.8 Eos # (Auto) 0.0 Baso # (Auto) 0.0 Abs Immat Gran (auto) 0.10 H Absolute Neuts (auto) 9.9 H Absolute Nucleated RBC 0.000 Nucleated RBC % (auto) 0.0 PT 12.8 H INR 1.1 Sodium 140 Potassium 3.0 L Chloride 103 Carbon Dioxide 29 Anion Gap 11 L BUN 50 H Creatinine 0.67 Estim Creat Clear Calc 79.7 Estimated GFR > 60 Random Glucose 170 H Lactic Acid 1.6 Calcium 8.9 Magnesium 2.5 Total Bilirubin 1.2 H Direct Bilirubin 0.5 AST 96 H ALT 40 H Alkaline Phosphatase 85 Total Creatine Kinase 1875 H Troponin I High Sens 21.6 H C-Reactive Protein 13.25 H Total Protein 8.2 H Albumin 3.9 Lipase 25 Urine Color Dark Yellow Urine Appearance Clear Urine pH 6.0 Ur Specific [place] 1.025 Urine Protein 30 (1+) H Urine Glucose (UA) Negative Urine Ketones Trace Urine Blood Negative Urine Nitrite Negative Ur Leukocyte Esterase Small (1+) H Urine RBC 0-2 Urine WBC 0-5 Ur Squamous Epith Cells 0-2 Urine Bacteria None Seen Hyaline Casts 3-5 Blood Type A Negative Antibody Screen NEGATIVE 06/24/25 06/25/25 18:31 03:31 WBC 7.0 RBC 3.69 L Hgb 11.6 L Hct 33.1 L MCV 89.7 MCH 31.4 MCHC 35.0 RDW 12.3 Plt Count 234 MPV 9.0 L Immature Gran % (Auto) 0.7 H Neut % (Auto) 68.6 Lymph % (Auto) 20.5 [place] % (Auto) 9.2 Eos % (Auto) 0.7 Baso % (Auto) 0.3 Lymph # (Auto) 1.4 [place] # (Auto) 0.7 Eos # (Auto) 0.1 Baso # (Auto) 0.0 Abs Immat Gran (auto) 0.05 H Absolute Neuts (auto) 4.8 Absolute Nucleated RBC 0.000 Nucleated RBC % (auto) 0.0 PT INR Sodium 142 Potassium 3.2 L Chloride 110 H Carbon Dioxide 24 Anion Gap 11 L BUN 27 H Creatinine 0.44 L Estim Creat Clear Calc 121.5 Estimated GFR > 60 Random Glucose 86 Lactic Acid Calcium 8.1 L D Magnesium Total Bilirubin 0.8 Direct Bilirubin AST 64 H ALT 27 Alkaline Phosphatase 57 Total Creatine Kinase 900 H Troponin I High Sens 19.3 H C-Reactive Protein Total Protein 6.5 Albumin 3.0 L Lipase Urine Color Urine Appearance Urine pH Ur Specific [place] Urine Protein Urine Glucose (UA) Urine Ketones Urine Blood Urine Nitrite Ur Leukocyte Esterase Urine RBC Urine WBC Ur Squamous Epith Cells Urine Bacteria Hyaline Casts Blood Type Antibody Screen Narrative Narrative: EKG 06/24/25 Vent. Rate : 94 BPM Atrial Rate : 94 BPM P-R Int : 158 ms QRS Dur : 88 ms QT Int : 344 ms P-R-T Axes : 84 37 -12 degrees QTcB Int : 430 ms Normal sinus rhythm ST & T wave abnormality, consider inferior ischemia Abnormal ECG When compared with ECG of 20-Dec-2021 13:49, ST no longer elevated in Inferior leads T wave inversion now evident in Inferior leads Airway Mallampati Class: IV TM Dist: >3cm Neck ROM: Limited Loose/Missing/Broken Teeth: Yes (broken teeth uppers 8/9) Heart: RRR Lungs: CTAB Assessment and Plan Final Anesthetic Review Family History of Problems with Anesthesia: No History of Problems with Anesthesia: No Documented by User: Sue Matute MD 06/25/25 15:59 PMFSH Past Medical History Medical History Rectal prolapse Anxiety Hyperlipidemia Hypertension Family History Family History Father No problems noted. Mother Hypertension Surgical History Surgical History History of open reduction and internal fixation (ORIF) procedure History of hysterectomy Social History Social History Household Members: None Housing: Assisted Living Facility Are you a primary infant childcare provider to a significant other at home: No Do you presently have visiting nurse or other home services: No Alcohol intake: never Patient Tobacco Use Status: Never used Tobacco e-Cigarette/Vaping Use: Never Used Second Hand Smoke Exposure: No service: No Current occupational status: disabled Current occupational exposures/hazards: No Cognitive needs: Yes Hearing needs: Yes Vision needs: Yes Meds Allergies Allergy/AdvReac Type Severity Reaction Status Date / Time acetaminophen (From Allergy Unknown HIVES,RASH Verified 06/25/25 14:46 TYLENOL-CODEINE #3) codeine (From Allergy Unknown HIVES,RASH Verified 06/25/25 14:46 TYLENOL-CODEINE #3) penicillin V Allergy Unknown Unknown Verified 06/25/25 14:46 Sulfa (Sulfonamide Allergy Unknown Unknown Verified 06/25/25 14:46 Antibiotics) Home Medications ?Medication ?Instructions ?Recorded ?Confirmed ?Last Taken ?Type hydrochlorothiazide 25 mg tablet 25 mg PO DAILY 01/11/22 06/24/25 Unknown History acetaminophen 500 mg tablet 1,000 mg PO Q6H PRN Pain 06/24/25 06/24/25 Unknown History cyanocobalamin (vitamin B-12) 1,000 mcg PO DAILY 06/24/25 06/24/25 Unknown History 1,000 mcg tablet (Vitamin B-12) lidocaine 4 % topical cream 1 appl topical TID PRN Mild Pain 06/24/25 06/24/25 Unknown History (Scale Score 1-4) loperamide 2 mg tablet 2 mg PO BID PRN Diarrhea 06/24/25 06/24/25 Unknown History melatonin 5 mg tablet 5 mg PO BEDTIME 06/24/25 06/24/25 Unknown History Exam Airway Mallampati Class: III Assessment and Plan Assessment Anesthesia Assessment: Anesthesia Plan Discussed and Chart Reviewed Final Anesthetic Review NPO: Yes ASA Class: III Final Preanesthetic Review: No Changes in Pt Med Stat, Meds/Allgs Chart Reviewed and Consent Obtained/Reviewed Patient Risk: Intermediate (consent with son, aware itermediate cardiac risk per clinical cytopathologist ) Procedure Risk: Intermediate Anesthetic Plan Anesthetic Plan: GA Disposition: Standard PACU
--- NOTE | 2025-06-25 09:39 | PM.CNCAR ---
History of Present Illness History of Present Illness Date of Service: 06/25/25 Requesting physician: Elisa Fuentes Consult reason: pre-op evaluation Chief complaint: Hip fracture Narrative: I was consulted to see Eileen in cardiology consultation today because of preop cardiovascular risk stratification prior to urgent hip surgery. Patient is a pleasant 84 year female with prior history of hypertension, poor balance with prior fall and left hip surgery in 2017 as per her came to the hospital with fall. Patient said she was trying to move her kitchen chair and lost her balance and fell and then had right hip pain. She says she was on the ground for about an hour or so and screening for help and her neighbors helped her to get to the hospital. Hip x-ray consistent with right hip fracture. She needs to undergo urgent hip repair for improving her morbidity and mortality. Patient's initially EKGs was suggestive of ST-depression in inferior leads. Patient has no chest pain. She says she has never had any prior cardiac issues. She says she walks in the hallways routinely with a walker in her apartment building and has no symptoms of chest pain or shortness of breath. She has no heart failure symptoms. Her troponins were minimally elevated but flat. She also was noted to have rhabdomyolysis. She is also noted to have hypokalemia. Blood pressure noted to be elevated this morning although she says she has not received her blood pressure medications in the morning. She denies any palpitations, lightheadedness, syncope. Review of Systems Constitutional: Constitutional: Reports other ( Poor balance) Eyes: Eyes: Reports no additional eye complaints Cardiovascular: Cardiovascular: Reports no additional cardiovascular complaints Respiratory: Respiratory: Reports no additional respiratory complaints Gastrointestinal: Gastrointestinal: Reports no additional gastrointestinal complaints Genitourinary: Genitourinary: Reports no additional female genitourinary complaints Musculoskeletal: Musculoskeletal: Reports no additional musculoskeletal complaints Integumentary/Breasts: Skin/Breast: Reports system reviewed and no additional complaints, except as docu Neurologic: Reports system reviewed and no additional complaints, except as documented Psychiatric: Psychiatric: Reports no additional psychiatric complaints Endocrine: Endocrine: Reports no additional endocrine complaints [facility] Past Medical History Medical History Rectal prolapse Anxiety Hyperlipidemia Hypertension Family History Family History Father No problems noted. Mother Hypertension Surgical History Surgical History History of open reduction and internal fixation (ORIF) procedure History of hysterectomy Social History Social History Household Members: None Housing: Assisted Living Facility Do you presently have visiting nurse or other home services: Yes Alcohol intake: never Patient Tobacco Use Status: Never used Tobacco Smoked in Last 30 Days: No e-Cigarette/Vaping Use: Never Used Second Hand Smoke Exposure: No Advance Directives: No Advance Directives Information Provided: No Do you have a plan to hurt others: No Plan service: No Current occupational status: disabled Current occupational exposures/hazards: No Cognitive needs: Yes Hearing needs: Yes Vision needs: Yes Meds Allergies Allergy/AdvReac Type Severity Reaction Status Date / Time acetaminophen (From Allergy Unknown HIVES,RASH Verified 06/24/25 12:25 TYLENOL-CODEINE #3) codeine (From Allergy Unknown HIVES,RASH Verified 06/24/25 12:25 TYLENOL-CODEINE #3) penicillin V Allergy Unknown Unknown Verified 06/24/25 12:25 Sulfa (Sulfonamide Allergy Unknown Unknown Verified 06/24/25 12:25 Antibiotics) Active Medications: Current Medications Acetaminophen (Acetaminophen 325 Mg Tablet) 650 mg PO Q6H PRN PRN Reason: Pain, Severe (Pain Scale 7-10) Last Admin: 06/24/25 20:34 Dose: 650 mg Amlodipine Besylate (Amlodipine Besylate 2.5 Mg Tablet) 2.5 mg PO DAILY [facility]; Protocol Last Admin: 06/25/25 09:24 Dose: 2.5 mg Calcium Carbonate (Calcium Carbonate 750 Mg Tab.Chew) 750 mg PO Q4H PRN PRN Reason: Heartburn Ceftriaxone Sodium (Ceftriaxone Sodium 1 Gm Vial) 1 gm IVPUSH Q24H [facility] Cyanocobalamin (Cyanocobalamin (Vitamin B-12) 1,000 Mcg Tablet) 1,000 mcg PO DAILY [facility] Last Admin: 06/25/25 09:24 Dose: 1,000 mcg Sodium Chloride (Ns) 1,000 mls @ 80 mls/hr IVCONT .[id number] [facility] Last Admin: 06/25/25 05:58 Dose: 80 mls/hr Cefazolin Sodium/Dextrose (Ancef) 2 gm in 50 mls @ 100 mls/hr IV PREOP ONE Stop: 06/25/25 13:29 Lidocaine HCl (Lidocaine 4 % Cream Kit) 1 appl TOPICAL TID PRN PRN Reason: Mild Pain (Scale Score 1-4) Loperamide HCl (Loperamide Hcl 2 Mg Capsule) 2 mg PO BID PRN PRN Reason: Diarrhea Loratadine (Loratadine 10 Mg Tablet) 10 mg PO DAILY PRN PRN Reason: allergy symptoms Magnesium Hydroxide (Milk Of Magnesia 30 Ml Oral.Susp) 30 ml PO DAILY PRN PRN Reason: Constipation Melatonin (Melatonin 3 Mg Tablet) 6 mg PO BEDTIME PRN PRN Reason: Insomnia Melatonin (Melatonin 3 Mg Tablet) 6 mg PO BEDTIME [facility] Last Admin: 06/24/25 20:35 Dose: 6 mg Sodium Chloride (0.9 % Sodium Chloride Flush 3 Ml Syringe) [facility] Last Admin: 06/25/25 09:19 Dose: Not Given Home Medications ?Medication ?Instructions ?Recorded ?Confirmed ?Last Taken ?Type hydrochlorothiazide 25 mg tablet 25 mg PO DAILY 01/11/22 06/24/25 Unknown History acetaminophen 500 mg tablet 1,000 mg PO Q6H PRN Pain 06/24/25 06/24/25 Unknown History cyanocobalamin (vitamin B-12) 1,000 mcg PO DAILY 06/24/25 06/24/25 Unknown History 1,000 mcg tablet (Vitamin B-12) lidocaine 4 % topical cream 1 appl topical TID PRN Mild Pain 06/24/25 06/24/25 Unknown History (Scale Score 1-4) loperamide 2 mg tablet 2 mg PO BID PRN Diarrhea 06/24/25 06/24/25 Unknown History melatonin 5 mg tablet 5 mg PO BEDTIME 06/24/25 06/24/25 Unknown History Physical Exam Vital Signs: Vital Signs: Last Vital Signs Temp 97.8 F 06/25/25 00:35 Pulse 82 06/25/25 09:24 Resp 12 06/25/25 09:24 BP 162/90 H 06/25/25 09:24 Pulse Ox 97 06/25/25 09:24 O2 Del Method Room Air 06/25/25 09:24 BMI result Body Mass Index 44.1 Const: General: cooperative, comfortable, no acute distress, alert and awake Nutritional Appearance: average body habitus Orientation/consciousness: patient oriented x3 HEENT: Head: Yes normocephalic and Yes atraumatic Neck: Neck: Yes trachea midline, Yes supple and Yes no JVD Resp: Effort & Inspection: normal respiratory effort Auscultation: clear to auscultation bilaterally Cardio: Jugular venous distension: no JVD Rate: regular rate Rhythm: regular rhythm Heart sounds: S1 normal heart sound present, S2 normal heart sound present, no click, no gallops and Murmur heart sound present systolic early and soft GI: Auscultation: normal bowel sounds Skin: General skin exam: no rashes or lesions noted Neuro: General: patient oriented x3 and no focal motor deficits Extrem: General: Yes no clubbing, cyanosis or edema Psych: Appearance: grossly normal Objective Labs and Meds 06/25/25 03:31 06/25/25 03:31 Lab results: Laboratory Results - last 24 hr 06/24/25 06/24/25 06/24/25 13:01 13:40 14:55 WBC 11.6 H RBC 4.21 Hgb 12.8 Hct 37.9 MCV 90.0 MCH 30.4 MCHC 33.8 RDW 12.3 Plt Count 275 MPV 8.5 L Immature Gran % (Auto) 0.9 H Neut % (Auto) 84.9 H Lymph % (Auto) 7.5 L [place] % (Auto) 6.5 Eos % (Auto) 0.0 Baso % (Auto) 0.2 Lymph # (Auto) 0.9 L [place] # (Auto) 0.8 Eos # (Auto) 0.0 Baso # (Auto) 0.0 Abs Immat Gran (auto) 0.10 H Absolute Neuts (auto) 9.9 H Absolute Nucleated RBC 0.000 Nucleated RBC % (auto) 0.0 PT 12.8 H INR 1.1 Sodium 140 Potassium 3.0 L Chloride 103 Carbon Dioxide 29 Anion Gap 11 L BUN 50 H Creatinine 0.67 Estim Creat Clear Calc 79.7 Estimated GFR > 60 Random Glucose 170 H Lactic Acid 1.6 Calcium 8.9 Magnesium 2.5 Total Bilirubin 1.2 H Direct Bilirubin 0.5 AST 96 H ALT 40 H Alkaline Phosphatase 85 Total Creatine Kinase 1875 H Troponin I High Sens 21.6 H C-Reactive Protein 13.25 H Total Protein 8.2 H Albumin 3.9 Lipase 25 Urine Color Dark Yellow Urine Appearance Clear Urine pH 6.0 Ur Specific [place] 1.025 Urine Protein 30 (1+) H Urine Glucose (UA) Negative Urine Ketones Trace Urine Blood Negative Urine Nitrite Negative Ur Leukocyte Esterase Small (1+) H Urine RBC 0-2 Urine WBC 0-5 Ur Squamous Epith Cells 0-2 Urine Bacteria None Seen Hyaline Casts 3-5 Blood Type A Negative Antibody Screen NEGATIVE 06/24/25 06/25/25 18:31 03:31 WBC 7.0 RBC 3.69 L Hgb 11.6 L Hct 33.1 L MCV 89.7 MCH 31.4 MCHC 35.0 RDW 12.3 Plt Count 234 MPV 9.0 L Immature Gran % (Auto) 0.7 H Neut % (Auto) 68.6 Lymph % (Auto) 20.5 [place] % (Auto) 9.2 Eos % (Auto) 0.7 Baso % (Auto) 0.3 Lymph # (Auto) 1.4 [place] # (Auto) 0.7 Eos # (Auto) 0.1 Baso # (Auto) 0.0 Abs Immat Gran (auto) 0.05 H Absolute Neuts (auto) 4.8 Absolute Nucleated RBC 0.000 Nucleated RBC % (auto) 0.0 PT INR Sodium 142 Potassium 3.2 L Chloride 110 H Carbon Dioxide 24 Anion Gap 11 L BUN 27 H Creatinine 0.44 L Estim Creat Clear Calc 121.5 Estimated GFR > 60 Random Glucose 86 Lactic Acid Calcium 8.1 L D Magnesium Total Bilirubin 0.8 Direct Bilirubin AST 64 H ALT 27 Alkaline Phosphatase 57 Total Creatine Kinase 900 H Troponin I High Sens 19.3 H C-Reactive Protein Total Protein 6.5 Albumin 3.0 L Lipase Urine Color Urine Appearance Urine pH Ur Specific [place] Urine Protein Urine Glucose (UA) Urine Ketones Urine Blood Urine Nitrite Ur Leukocyte Esterase Urine RBC Urine WBC Ur Squamous Epith Cells Urine Bacteria Hyaline Casts Blood Type Antibody Screen Imaging Radiologist's impression: Impressions Hip X-Ray 06/24/25 13:12 IMPRESSION: Comminuted subcapital fracture. Electronically signed by: Michael Floyd MD 06/24/2025 01:18 PM EDT Chest X-Ray 06/24/25 13:14 IMPRESSION: No acute disease. Electronically signed by: Teodoro Chapman MD 06/24/2025 01:19 PM EDT RP Cervical Spine CT 06/24/25 14:21 IMPRESSION: 1. No evidence of fracture or subluxation of the cervical spine. 2. 10 mm left apical lung nodule. Nonemergent chest CT is recommended for further evaluation. 3. Complete opacification of the left mastoid air cells and middle ear cavity. Electronically signed by: Michael Floyd MD 06/24/2025 03:18 PM EDT RP Head CT 06/24/25 14:21 IMPRESSION: 1. No acute intracranial abnormality. No acute fracture evident. 2. 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 3. Severe degenerative arthritis right TM joint. Electronically signed by: Brandon Maharaj MD 06/24/2025 03:24 PM EDT RP Assessment and Plan (1) Preoperative cardiovascular examination: Status: Acute preoperative cardiovascular risk stratification this elderly woman without any significant cardiovascular history and no significant cardiovascular symptoms in the recent past with exertion. Patient comes in to the hospital with a fall which is accidental and has right hip fracture needs to undergo urgent hip surgery. Patient has no symptoms of chest pain although EKGs suggestive of inferior ischemia with ST-depression inferior inferolateral leads there was no evidence of acute myocardial injury. Troponin elevation most likely related to rhabdomyolysis. At this point time patient is optimized to undergo surgery with intermediate risk for perioperative cardiovascular morbidity mortality. Her blood pressure needs to be controlled and I would give her p.o. amlodipine prior to surgery to control blood pressure. In the long run I think hydrochlorothiazide probably is not inappropriate therapy for elderly person who is at risk for developing electrolyte imbalance especially hypokalemia. I would also correct her hypokalemia which may be responsible for EKG changes. Please consider postoperative consult if there any further cardiac issues. Will sign of the case. Thank you for allowing me to partake in her care Procedures Date of Service Date of Service: 06/25/25
--- NOTE | 2025-06-25 14:07 | MHC.CM.PN ---
Pt in surgery today, CM to meet with tomorrow.
--- NOTE | 2025-06-25 14:50 | PC.NURSE ---
RECTAL TEMP REMOVED
--- NOTE | 2025-06-25 14:52 | PC.NURSE ---
report given to arnoldo lucia rn. miguel gil to naa lee that was not given in ER. Aware that son needs to son consent and dr. victoria needs to be aware of that. site needs to be marked and signatures needed on preop record when all completed.
--- NOTE | 2025-06-25 15:01 | MHC.SHP ---
Pre-Procedural Eval Section A - 24 Hr Update-Section A only Date of Service: 06/25/25 The patient is an INPATIENT: Yes Changes since office visit: No Cold of Flu in the past 2 weeks, No New Medical Problems, No Changes in Medication and No Patient answered all questions The patient has been examined within 24 hours of the surgical procedure. The History & Physical has been completed within 30 days and I have reviewed it.: Yes Section B - Complete if H&P > 30 days Chief Complaint: Hip fracture Allergies: Allergies Allergy/AdvReac Type Severity Reaction Status Date / Time acetaminophen (From Allergy Unknown HIVES,RASH Verified 06/25/25 14:46 TYLENOL-CODEINE #3) codeine (From Allergy Unknown HIVES,RASH Verified 06/25/25 14:46 TYLENOL-CODEINE #3) penicillin V Allergy Unknown Unknown Verified 06/25/25 14:46 Sulfa (Sulfonamide Allergy Unknown Unknown Verified 06/25/25 14:46 Antibiotics) Plan I have reviewed the history and physical and performed a pertinent physical examination on my patient. No changes have occurred unless specified. Time Spent With Patient Time: Total time managing care of this patient today ____ minutes.
--- NOTE | 2025-06-25 15:02 | P.PNIM_ITS ---
Subjective Subjective Date of Service: 06/25/25 Interval History: hip pain Physical Exam 2 Vital Signs: Vital Signs: Last Vital Signs Temp 98.1 F 06/25/25 14:44 Pulse 98 06/25/25 14:44 Resp 18 06/25/25 14:44 BP 126/88 06/25/25 14:44 Pulse Ox 97 06/25/25 14:44 O2 Del Method Room Air 06/25/25 14:44 BMI result Body Mass Index 44.1 Const: General: cooperative, comfortable, no acute distress, alert and awake Nutritional Appearance: average body habitus Orientation/consciousness: p atient oriented x3 HEENT: Head: Yes normocephalic and Yes atraumatic Neck: Neck: Yes trachea midline, Yes supple and Yes no JVD Resp: Effort & Inspection: normal respiratory effort Auscultation: clear to auscultation bilaterally Cardio: Jugular venous distension: no JVD Rate: regular rate Rhythm: r egular rhythm Heart sounds: S1 normal heart sound present, S2 normal heart sound present, no click, no gallops and Murmur heart sound present systolic early and soft GI: Auscultation: normal bowel sounds Skin: General skin exam: no rashes or lesions noted Neuro: General: patient oriented x3 and no focal motor deficits Extrem: General: Yes no clubbing, cyanosis or edema Psych: Appearance: grossly normal Objective Data Active Medications Acetaminophen (Acetaminophen 325 Mg Tablet) 650 mg PO Q6H PRN PRN Reason: Pain, Severe (Pain Scale 7-10) Last Admin: 06/24/25 20:34 Dose: 650 mg Documented By: NUPUR Amlodipine Besylate (Amlodipine Besylate 2.5 Mg Tablet) 2.5 mg PO DAILY [facility]; Protocol Last Admin: 06/25/25 09:24 Dose: 2.5 mg Documented By: DARRICK Calcium Carbonate (Calcium Carbonate 750 Mg Tab.Chew) 750 mg PO Q4H PRN PRN Reason: Heartburn Ceftriaxone Sodium (Ceftriaxone Sodium 1 Gm Vial) 1 gm IVPUSH Q24H [facility] Cyanocobalamin (Cyanocobalamin (Vitamin B-12) 1,000 Mcg Tablet) 1,000 mcg PO DAILY [facility] Last Admin: 06/25/25 09:24 Dose: 1,000 mcg Documented By: DARRICK Sodium Chloride (Ns) 1,000 mls @ 80 mls/hr IVCONT .[id number] [facility] Last Admin: 06/25/25 05:58 Dose: 80 mls/hr Documented By: CLAUDIO Lidocaine HCl (Lidocaine 4 % Cream Kit) 1 appl TOPICAL TID PRN PRN Reason: Mild Pain (Scale Score 1-4) Loperamide HCl (Loperamide Hcl 2 Mg Capsule) 2 mg PO BID PRN PRN Reason: Diarrhea Loratadine (Loratadine 10 Mg Tablet) 10 mg PO DAILY PRN PRN Reason: allergy symptoms Magnesium Hydroxide (Milk Of Magnesia 30 Ml Oral.Susp) 30 ml PO DAILY PRN PRN Reason: Constipation Melatonin (Melatonin 3 Mg Tablet) 6 mg PO BEDTIME PRN PRN Reason: Insomnia Melatonin (Melatonin 3 Mg Tablet) 6 mg PO BEDTIME [facility] Last Admin: 06/24/25 20:35 Dose: 6 mg Documented By: BRUNO-MATTE Sodium Chloride (0.9 % Sodium Chloride Flush 3 Ml Syringe) 3 ml IVFLUSH QSHIFT [facility] Last Admin: 06/25/25 09:19 Dose: Not Given Documented By: DARRICK Non-Admin Reason: IV Running Labs 06/25/25 03:31 06/25/25 03:31 Labs: Laboratory Results - last 24 hr 06/24/25 06/24/25 06/25/25 14:55 18:31 03:31 MCV 89.7 MCH 31.4 MCHC 35.0 RDW 12.3 Plt Count 234 MPV 9.0 L Immature Gran % (Auto) 0.7 H Neut % (Auto) 68.6 Lymph % (Auto) 20.5 [place] % (Auto) 9.2 Eos % (Auto) 0.7 Baso % (Auto) 0.3 Lymph # (Auto) 1.4 [place] # (Auto) 0.7 Eos # (Auto) 0.1 Baso # (Auto) 0.0 Abs Immat Gran (auto) 0.05 H Absolute Neuts (auto) 4.8 Absolute Nucleated RBC 0.000 Nucleated RBC % (auto) 0.0 Anion Gap 11 L Estim Creat Clear Calc 121.5 Estimated GFR > 60 Random Glucose 86 Calcium 8.1 L D Total Bilirubin 0.8 AST 64 H ALT 27 Alkaline Phosphatase 57 Total Creatine Kinase 900 H Troponin I High Sens 19.3 H Total Protein 6.5 Albumin 3.0 L Urine Color Dark Yellow Urine Appearance Clear Urine pH 6.0 Ur Specific [place] 1.025 Urine Protein 30 (1+) H Urine Glucose (UA) Negative Urine Ketones Trace Urine Blood Negative Urine Nitrite Negative Ur Leukocyte Esterase Small (1+) H Urine RBC 0-2 Urine WBC 0-5 Ur Squamous Epith Cells 0-2 Urine Bacteria None Seen Hyaline Casts 3-5 Microbiology Microbiology Results: Microbiology 06/24/25 Unknown Urine Culture - Preliminary Urine Catheterized - Straight Catheter Culture too young to evaluate. Assessment and Plan (1) Acute UTI: Status: Acute Plan 85F PMH mood disorder, hypertension, hyperlipidemia presented with fall, found to be febrile and right femoral fracture Mechanical fall complicated by right hip fracture Intermediate risk for surgery Benefits outweigh risk would proceed as planned Sirs criteria Possible viral sepsis versus urinary tract infection Continue empiric ceftriaxone Acute mild rhabdomyolysis IV fluids Acute hypokalemia Replace and monitor DVT prophylaxis-mechanical due to surgery Full code reason for continued hospitalization: Hip fracture, cultures pending Quality Stroke Does the patient have a stroke diagnosis?: No VTE Prior VTE?: No VTE Risk Level:: Medical - moderate - high VTE Device Contraindication: N/A - Device Ordered VTE Drug Contraindication: N/A - Med Ordered
--- NOTE | 2025-06-25 16:23 | PM.OP ---
Brief Operative Note Date of Service: 06/25/25 Pre-op diagnosis: Right femoral neck fracture Post-op diagnosis: same Procedure: Right hip Jah Implants: Sonja AccoladeC #[id number] with + bipolar Surgeon: Henrry Hewitt MD Anesthesia: GLMA and local Was an Director Regulatory Affairs used for this Procedure?: Yes Director Regulatory Affairs: Victorina Jean Estimated blood loss (mL): 200 IV fluids (mL): 750 Pathology: other Condition: stable Disposition: PACU
[2025-06-25] MEDS: 0.9 % Sodium Chloride Flush 3 ML SYRINGE IVFLUSH ×2 (17:45→20:17)
--- NOTE | 2025-06-25 17:50 | PC.NURSE ---
Pt HR upon arrival from the PACU in the 120s, pt asymptomatic. DR tan made aware. will continue to monitor.
[2025-06-26 04:00] VITALS: BP 108/52; PULSE 74; RESP 16; TEMP 36.1; O2SAT 95
--- NOTE | 2025-06-26 05:34 | PC.NURSE ---
spoke to patients son and gave update on patient. requested that patient has something other than tylenol for pain management due to patient being post op for fractured hip. patients son reassured this rn would reach out to provider to express concerns. linda notified and expressed sons concern for better pain management if something additional could be added prn due to the patient only having tylenol ordered. at this time, patient was given tylenol with good effect,patient VSS, and patient expressed that tylenol worked great for her, and is alert x 4. linda ordered an additional x1 dose of tylenol. patient stated she did not need the dose of tylenol and just wanted to go back to sleep.
[2025-06-26 06:32] LABS: MANUAL DIFF FLAG NO
[2025-06-26 06:46] LABS: Hematocrit 30.0 % (37.0-47.0); Hemoglobin 10.4 g/dl (12.0-16.0); Imm Gran Abs Auto 0.04 X10*3/uL (0.00-0.03); Imm Gran Pct Auto 0.6 % (0.0-0.4); Lymphocytes Absolute Auto 0.8 X10*3/uL (1.2-4.9); Mean Corpuscular HGB Conc 34.7 g/dl (31.0-35.0); Mean Corpuscular Hemoglobin 31.4 pg (27.0-33.0); Mean Corpuscular Volume 90.6 fL (80.0-98.0); NRBC Abs Auto 0.000 X10*3/uL (0.0-0.012); NRBC Pct Auto 0.0 /100WBC (0.0-0.2); Platelet Count 244 X10*3/uL (160-400); Red Blood Count 3.31 X10*6/uL (4.20-5.50); White Blood Count 6.4 X10*3/uL (4.8-10.8)
[2025-06-26 06:54] LABS: Anion Gap 10 (12-20); Blood Urea Nitrogen 20 mg/dL (9-16); Calcium 7.7 mg/dL (8.4-10.2); Carbon Dioxide 25 mmol/L (22-29); Chloride 106 mmol/L (96-108); Creatinine Clr Calc Pharmacy 113.6; Estimated Glomerular Filt Rate > 60; Potassium 3.6 mmol/L (3.3-5.1); Sodium 137 mmol/L (135-145)
[2025-06-26 07:17] VITALS: BP 110/56; PULSE 70; RESP 16; TEMP 36.6; O2SAT 93
--- NOTE | 2025-06-26 08:48 | PM.PNORT ---
Subjective Subjective Date of Service: 06/26/25 Interval history: POD1 s/p rt hip jeffrey Patient is resting in the recliner No overnight events Pain is managed No additional complaints Physical Exam Vital Signs: Vital Signs: Last Vital Signs Temp 97.8 F 06/26/25 07:17 Pulse 70 06/26/25 07:17 Resp 16 06/26/25 07:17 BP 110/56 L 06/26/25 07:17 Pulse Ox 93 06/26/25 07:17 O2 Del Method Room Air 06/26/25 07:17 BMI result Body Mass Index 44.1 Const: General: no acute distress Resp: Effort & Inspection: normal respiratory effort and able to speak in complete sentences Extrem: Other: rt hip dressing is c/d/i. Able to dorsi/plantar flex. Calf is supple and nontender. Sensation intact. Pedal pulse intact. Procedures Date of Service Date of Service: 06/26/25 Progress Note: A&P Assessment and plan (1) Femur fracture, right: Status: Acute (2) Rhabdomyolysis: Status: Acute (3) Status post hemiarthroplasty of right hip: Status: Acute Assessment and Plan: Continue pain mgmnt Begin ASA for dvt ppx begin PT/OT for right hip jeffrey Dispo planning-Pending PT eval, pain mgmnt, able to d/c to rehab once medically cleared Time Spent With Patient Time: Total time managing care of this patient today ____ minutes. Quality Stroke Does the patient have a stroke diagnosis?: No VTE Prior VTE?: No VTE Risk Level:: Medical - moderate - high VTE Device Contraindication: N/A - Device Ordered VTE Drug Contraindication: N/A - Med Ordered
--- NOTE | 2025-06-26 09:24 | MHC.CM.PN ---
CM met with Patient at bedside and addressed IMM with her, providing Patient with the original and a copy has been placed on the chart. CM assisted Patient with the completion of a HCP; she named her Son/Hansel as her Agent. Patient lives alone and has a Nurse and Homemaker through [employer]. PT is recommending STR and Patient agrees with that plan and referrals being made to facilities that are in contract with her insurance. CM has initiated and will follow for dc planning. Patient will require BLS transport at dc and she is unsure of her PCP's name.
[2025-06-26] MEDS: 0.9 % Sodium Chloride Flush 3 ML SYRINGE IVFLUSH ×3 (09:32→20:36)
--- NOTE | 2025-06-26 09:46 | HO.PM.IMPN ---
Subjective Subjective Date of Service: 06/26/25 Interval History: hip pain Physical Exam Vital Signs: Vital Signs: Last Vital Signs Temp 97.8 F 06/26/25 07:17 Pulse 70 06/26/25 07:17 Resp 16 06/26/25 07:17 BP 110/56 L 06/26/25 07:17 Pulse Ox 93 06/26/25 07:17 O2 Del Method Room Air 06/26/25 07:17 BMI result Body Mass Index 44.1 Const: General: no acute distress Resp: Effort & Inspection: normal respiratory effort and able to speak in complete sentences Extrem: Other: rt hip dressing is c/d/i. Able to dorsi/plantar flex. Calf is supple and nontender. Sensation intact. Pedal pulse intact. Objective Data Active Medications Acetaminophen (Acetaminophen 325 Mg Tablet) 650 mg PO Q6H PRN PRN Reason: Pain, Severe (Pain Scale 7-10) Last Admin: 06/26/25 05:10 Dose: 650 mg Documented By: DWAIN Amlodipine Besylate (Amlodipine Besylate 2.5 Mg Tablet) 2.5 mg PO DAILY [facility]; Protocol Last Admin: 06/26/25 09:32 Dose: 2.5 mg Documented By: ARIANNA Aspirin (Aspirin 325 Mg Tablet) 325 mg PO BID [facility] Calcium Carbonate (Calcium Carbonate 750 Mg Tab.Chew) 750 mg PO Q4H PRN PRN Reason: Heartburn Ceftriaxone Sodium (Ceftriaxone Sodium 1 Gm Vial) 1 gm IVPUSH Q24H [facility] Last Admin: 06/25/25 15:04 Dose: 1 gm Documented By: TING Cyanocobalamin (Cyanocobalamin (Vitamin B-12) 1,000 Mcg Tablet) 1,000 mcg PO DAILY [facility] Last Admin: 06/26/25 09:32 Dose: 1,000 mcg Documented By: ARIANNA Sodium Chloride (Ns) 1,000 mls @ 80 mls/hr IVCONT .[id number] [facility] Last Admin: 06/26/25 05:08 Dose: 80 mls/hr Documented By: DWAIN Cefazolin Sodium/Dextrose (Ancef) 2 gm in 50 mls @ 100 mls/hr IV POSTOP [facility] Lidocaine HCl (Lidocaine 4 % Cream Kit) 1 appl TOPICAL TID PRN PRN Reason: Mild Pain (Scale Score 1-4) Loperamide HCl (Loperamide Hcl 2 Mg Capsule) 2 mg PO BID PRN PRN Reason: Diarrhea Loratadine (Loratadine 10 Mg Tablet) 10 mg PO DAILY PRN PRN Reason: allergy symptoms Magnesium Hydroxide (Milk Of Magnesia 30 Ml Oral.Susp) 30 ml PO DAILY PRN PRN Reason: Constipation Melatonin (Melatonin 3 Mg Tablet) 6 mg PO BEDTIME PRN PRN Reason: Insomnia Melatonin (Melatonin 3 Mg Tablet) 6 mg PO BEDTIME [facility] Last Admin: 06/25/25 20:17 Dose: 6 mg Documented By: DWAIN Naloxone HCl (Naloxone Hcl 0.4 Mg/Ml Vial) 0.04 mg IVPUSH Q5M PRN PRN Reason: Excessive sedation or RR < 8 Sodium Chloride (0.9 % Sodium Chloride Flush 3 Ml Syringe) 3 ml IVFLUSH QSHIFT [facility] Last Admin: 06/26/25 09:32 Dose: 3 ml Documented By: ARIANNA Labs 06/26/25 05:59 06/26/25 05:59 Labs: Laboratory Results - last 24 hr 06/26/25 05:59 MCV 90.6 MCH 31.4 MCHC 34.7 RDW 12.4 Plt Count 244 MPV 8.8 L Immature Gran % (Auto) 0.6 H Neut % (Auto) 77.4 H Lymph % (Auto) 13.0 L [place] % (Auto) 8.6 Eos % (Auto) 0.2 Baso % (Auto) 0.2 Lymph # (Auto) 0.8 L [place] # (Auto) 0.6 Eos # (Auto) 0.0 Baso # (Auto) 0.0 Abs Immat Gran (auto) 0.04 H Absolute Neuts (auto) 4.9 Absolute Nucleated RBC 0.000 Nucleated RBC % (auto) 0.0 Anion Gap 10 L Estim Creat Clear Calc 113.6 Estimated GFR > 60 Fasting Glucose 124 H Calcium 7.7 L Microbiology Microbiology Results: Microbiology 06/24/25 13:01 Blood Culture - Preliminary Blood - Venous No growth after 24 hours. 06/24/25 13:01 Blood Culture - Preliminary Blood - Venous No growth after 24 hours. 06/24/25 Unknown Urine Culture - Preliminary Urine Catheterized - Straight Catheter Culture too young to evaluate. Assessment and Plan (1) Acute UTI: Status: Acute Plan 85F PMH mood disorder, hypertension, hyperlipidemia presented with fall, found to be febrile and right femoral fracture Mechanical fall complicated by right hip fracture pod 1 right hemiarthroplasty 06/25/25 Sirs criteria Possible viral sepsis versus urinary tract infection Continue empiric ceftriaxone follow up cultures Acute mild rhabdomyolysis resolved Acute hypokalemia Replaced DVT prophylaxis-asa bis Full code reason for continued hospitalization: cultures pending Quality Stroke Does the patient have a stroke diagnosis?: No VTE Prior VTE?: No VTE Risk Level:: Medical - moderate - high VTE Device Contraindication: N/A - Device Ordered VTE Drug Contraindication: N/A - Med Ordered
--- NOTE | 2025-06-26 10:53 | HO.POSTANES ---
Post Anesthesia Evaluation Post Anesthesia Evaluation Date of Service: 06/26/25 Vital Signs: Vital Signs Temp Pulse Resp BP Pulse Ox O2 Del Method 06/26/25 07:17 97.8 F 70 16 110/56 L 93 Room Air 06/26/25 04:00 97 F 74 16 108/52 L 95 Room Air 06/25/25 23:22 98.9 F 82 17 101/56 L 96 Room Air Anesthesia: General Mental Status: Awake Pain Control: Satisfactory Nausea/Vomiting: None Hydration: Adequate Anesthesia-Related Issues: No Anes. Related Issues
[2025-06-26 11:14] VITALS: BP 127/71; PULSE 75; RESP 16; TEMP 36.3; O2SAT 94
[2025-06-26 16:00] VITALS: BP 111/55; PULSE 78; RESP 16; TEMP 37; O2SAT 93
[2025-06-26 19:25] VITALS: BP 114/56; PULSE 75; RESP 16; TEMP 36.6; O2SAT 96
[2025-06-26 23:17] VITALS: BP 120/55; PULSE 70; RESP 16; TEMP 37.1; O2SAT 96
[2025-06-27 00:05] VITALS: BP 130/60; PULSE 74; RESP 17; TEMP 36.6; O2SAT 94
[2025-06-27 03:17] VITALS: BP 123/60; PULSE 73; RESP 19; TEMP 36.7; O2SAT 96
[2025-06-27 06:45] LABS: MANUAL DIFF FLAG NO
[2025-06-27 06:53] LABS: Hematocrit 27.7 % (37.0-47.0); Hemoglobin 9.3 g/dl (12.0-16.0); Imm Gran Abs Auto 0.08 X10*3/uL (0.00-0.03); Imm Gran Pct Auto 1.5 % (0.0-0.4); Lymphocytes Absolute Auto 1.1 X10*3/uL (1.2-4.9); Mean Corpuscular HGB Conc 33.6 g/dl (31.0-35.0); Mean Corpuscular Hemoglobin 31.0 pg (27.0-33.0); Mean Corpuscular Volume 92.3 fL (80.0-98.0); NRBC Abs Auto 0.000 X10*3/uL (0.0-0.012); NRBC Pct Auto 0.0 /100WBC (0.0-0.2); Platelet Count 224 X10*3/uL (160-400); Red Blood Count 3.00 X10*6/uL (4.20-5.50); White Blood Count 5.3 X10*3/uL (4.8-10.8)
[2025-06-27 07:03] LABS: Anion Gap 7 (12-20); Blood Urea Nitrogen 16 mg/dL (9-16); Calcium 7.8 mg/dL (8.4-10.2); Carbon Dioxide 28 mmol/L (22-29); Chloride 108 mmol/L (96-108); Creatinine Clr Calc Pharmacy 116.2; Estimated Glomerular Filt Rate > 60; Potassium 3.8 mmol/L (3.3-5.1); Sodium 139 mmol/L (135-145)
[2025-06-27 07:14] VITALS: BP 169/74; PULSE 78; RESP 18; TEMP 36.4; O2SAT 97
[2025-06-27] MEDS: 0.9 % Sodium Chloride Flush 3 ML SYRINGE IVFLUSH (07:56)
--- NOTE | 2025-06-27 08:38 | PM.PNORT ---
Subjective Subjective Date of Service: 06/27/25 Interval history: POD2 s/p Patient is resting in bed comfortably No overnight events Pain is managed No additional complaints Physical Exam Vital Signs: Vital Signs: Last Vital Signs Temp 97.6 F 06/27/25 07:14 Pulse 78 06/27/25 07:14 Resp 18 06/27/25 07:14 BP 169/74 H 06/27/25 07:14 Pulse Ox 97 06/27/25 07:14 O2 Del Method Room Air 06/27/25 07:14 BMI result Body Mass Index 44.1 Const: General: no acute distress Resp: Effort & Inspection: normal respiratory effort and able to speak in complete sentences Extrem: Other: rt hip dressing is c/d/i. Able to dorsi/plantar flex. Calf is supple and nontender. Sensation intact. Pedal pulse intact. Procedures Date of Service Date of Service: 06/27/25 Progress Note: A&P Assessment and plan (1) Status post hemiarthroplasty of right hip: Status: Acute Assessment and Plan: Continue pain mgmnt Continue ASA for dvt ppx Continue PT/OT for right hip jeffrey Dispo planning-PT/OT, pain mgmnt, able to d/c to rehab once medically cleared (2) Rhabdomyolysis: Status: Acute (3) Femur fracture, right: Status: Acute Time Spent With Patient Time: Total time managing care of this patient today ____ minutes. Quality Stroke Does the patient have a stroke diagnosis?: No VTE Prior VTE?: No VTE Risk Level:: Medical - moderate - high VTE Device Contraindication: N/A - Device Ordered VTE Drug Contraindication: N/A - Med Ordered
--- NOTE | 2025-06-27 10:02 | P.PNIM_ITS ---
Subjective Subjective Date of Service: 06/27/25 Interval History: improving Physical Exam 2 Vital Signs: Vital Signs: Last Vital Signs Temp 97.6 F 06/27/25 07:14 Pulse 78 06/27/25 07:14 Resp 18 06/27/25 07:14 BP 169/74 H 06/27/25 07:14 Pulse Ox 97 06/27/25 07:14 O2 Del Method Room Air 06/27/25 07:14 BMI result Body Mass Index 44.1 Const: General: no acute distress Resp: Effort & Inspection: normal respiratory effort and able to speak in complete sentences Extrem: Other: rt hip dressing is c/d/i. Able to dorsi/plantar flex. Calf is supple and nontender. Sensation intact. Pedal pulse intact. Objective Data Active Medications Acetaminophen (Acetaminophen 325 Mg Tablet) 650 mg PO Q6H PRN PRN Reason: Pain, Severe (Pain Scale 7-10) Last Admin: 06/26/25 20:32 Dose: 650 mg Documented By: DWAIN Amlodipine Besylate (Amlodipine Besylate 2.5 Mg Tablet) 2.5 mg PO DAILY [facility]; Protocol Last Admin: 06/27/25 07:56 Dose: 2.5 mg Documented By: ARIANNA Amoxicillin (Amoxicillin 250 Mg Capsule) 250 mg PO Q12H [facility] Aspirin (Aspirin 325 Mg Tablet) 325 mg PO BID [facility] Last Admin: 06/27/25 07:56 Dose: 325 mg Documented By: ARIANNA Calcium Carbonate (Calcium Carbonate 750 Mg Tab.Chew) 750 mg PO Q4H PRN PRN Reason: Heartburn Cyanocobalamin (Cyanocobalamin (Vitamin B-12) 1,000 Mcg Tablet) 1,000 mcg PO DAILY [facility] Last Admin: 06/27/25 07:56 Dose: 1,000 mcg Documented By: ARIANNA Cefazolin Sodium/Dextrose (Ancef) 2 gm in 50 mls @ 100 mls/hr IV POSTOP [facility] Lidocaine HCl (Lidocaine 4 % Cream Kit) 1 appl TOPICAL TID PRN PRN Reason: Mild Pain (Scale Score 1-4) Loperamide HCl (Loperamide Hcl 2 Mg Capsule) 2 mg PO BID PRN PRN Reason: Diarrhea Loratadine (Loratadine 10 Mg Tablet) 10 mg PO DAILY PRN PRN Reason: allergy symptoms Magnesium Hydroxide (Milk Of Magnesia 30 Ml Oral.Susp) 30 ml PO DAILY PRN PRN Reason: Constipation Melatonin (Melatonin 3 Mg Tablet) 6 mg PO BEDTIME PRN PRN Reason: Insomnia Melatonin (Melatonin 3 Mg Tablet) 6 mg PO BEDTIME [facility] Last Admin: 06/26/25 20:36 Dose: 6 mg Documented By: DWAIN Naloxone HCl (Naloxone Hcl 0.4 Mg/Ml Vial) 0.04 mg IVPUSH Q5M PRN PRN Reason: Excessive sedation or RR < 8 Sodium Chloride (0.9 % Sodium Chloride Flush 3 Ml Syringe) 3 ml IVFLUSH QSHIFT [facility] Last Admin: 06/27/25 07:56 Dose: 3 ml Documented By: ARIANNA Labs 06/27/25 06:07 06/27/25 06:07 Labs: Laboratory Results - last 24 hr 06/27/25 06:07 MCV 92.3 MCH 31.0 MCHC 33.6 RDW 12.5 Plt Count 224 MPV 9.0 L Immature Gran % (Auto) 1.5 H Neut % (Auto) 65.4 Lymph % (Auto) 21.0 [place] % (Auto) 8.1 Eos % (Auto) 3.2 Baso % (Auto) 0.8 Lymph # (Auto) 1.1 L [place] # (Auto) 0.4 Eos # (Auto) 0.2 Baso # (Auto) 0.0 Abs Immat Gran (auto) 0.08 H Absolute Neuts (auto) 3.5 Absolute Nucleated RBC 0.000 Nucleated RBC % (auto) 0.0 Anion Gap 7 L Estim Creat Clear Calc 116.2 Estimated GFR > 60 Random Glucose 94 Fasting Glucose 95 Calcium 7.8 L Microbiology Microbiology Results: Microbiology 06/24/25 Unknown Urine Culture - Final Urine Catheterized - Straight Catheter Enterococcus faecium 06/24/25 13:01 Blood Culture - Preliminary Blood - Venous No growth after 48 hours. 06/24/25 13:01 Blood Culture - Preliminary Blood - Venous No growth after 48 hours. Assessment and Plan (1) Acute UTI: Status: Acute Plan 85F PMH mood disorder, hypertension, hyperlipidemia presented with fall, found to be febrile and right femoral fracture Mechanical fall complicated by right hip fracture pod 2 right hemiarthroplasty 06/25/[address] sepsis (not severe) due to urinary tract infection e faecium change to amoxil (noted pcn allergy remote and non anaphylactic) Acute mild rhabdomyolysis resolved Acute hypokalemia Replaced DVT prophylaxis-asa bid Full code reason for continued hospitalization: dispo planning Quality Stroke Does the patient have a stroke diagnosis?: No VTE Prior VTE?: No VTE Risk Level:: Medical - moderate - high VTE Device Contraindication: N/A - Device Ordered VTE Drug Contraindication: N/A - Med Ordered
--- NOTE | 2025-06-27 10:07 | P.DS_ITS ---
DS: Providers Provider Date of Service: 06/27/25 Date of admission: 06/25/25 08:20 Date of discharge: 06/27/25 Primary care physician: Lesvia Cr MD Consults: 06/24/25 15:48 Consult to Orthopedics Routine Consulting Provider: [facility] Reason for consultation: hip fracture Has provider been notified: No 06/24/25 18:43 Consult to Cardiology Routine Consulting Provider: [facility] Reason for consultation: risk stratification for hip fracture surgery, elevated troponins Has provider been notified: No DS: Diagnosis Discharge Diagnosis (1) Acute UTI: Status: Acute DS: Summary Time Attestation Discharge Coordination Time (in mins): 33 Quality: Safe Use of Opioids Does Pt have an Active Cancer Diagnosis on the Problem List?: No Quality: Stroke Does the patient have a stroke diagnosis?: No Physical Exam Vital Signs: Vital Signs: Last Vital Signs Temp 97.6 F 06/27/25 07:14 Pulse 78 06/27/25 07:14 Resp 18 06/27/25 07:14 BP 169/74 H 06/27/25 07:14 Pulse Ox 97 06/27/25 07:14 O2 Del Method Room Air 06/27/25 07:14 BMI result Body Mass Index 44.1 DS: Data Data Completed and Pending Pending studies at discharge: Pending at discharge 06/25/25 16:13 Surgical [PTH] Routine Labs on day of discharge: Laboratory Results - last 24 hr 06/27/25 06:07 WBC 5.3 RBC 3.00 L Hgb 9.3 L Hct 27.7 L MCV 92.3 MCH 31.0 MCHC 33.6 RDW 12.5 Plt Count 224 MPV 9.0 L Immature Gran % (Auto) 1.5 H Neut % (Auto) 65.4 Lymph % (Auto) 21.0 Sharp % (Auto) 8.1 Eos % (Auto) 3.2 Baso % (Auto) 0.8 Lymph # (Auto) 1.1 L Sharp # (Auto) 0.4 Eos # (Auto) 0.2 Baso # (Auto) 0.0 Abs Immat Gran (auto) 0.08 H Absolute Neuts (auto) 3.5 Absolute Nucleated RBC 0.000 Nucleated RBC % (auto) 0.0 Sodium 139 Potassium 3.8 Chloride 108 Carbon Dioxide 28 Anion Gap 7 L BUN 16 Creatinine 0.46 L Estim Creat Clear Calc 116.2 Estimated GFR > 60 Random Glucose 94 Fasting Glucose 95 Calcium 7.8 L Preliminary micro results at discharge 06/24/25 13:01 Blood Culture - Preliminary Blood - Venous No growth after 48 hours. 06/24/25 13:01 Blood Culture - Preliminary Blood - Venous No growth after 48 hours. Discharge Plan Discharge Anticipated Discharge Date/Time: 06/27/25 10:05 Patient Disposition: Xfer SNF Discharge Diagnosis: sepsis uti, hip fracture, rhabdo Referrals: Hetal Thakkar PA-C [Physician [employer] Ii Inspector, Orthopedics] - 07/09/25 9:45 am Referral Note: 07/09/25 at 9:45 Physician,Unknown J [Physician, Medical] - 1 Week Discharge Medications: New aspirin 325 mg Tablet 325 mg PO BID 42 Days Qty: 0 0RF amoxicillin 500 mg tablet 500 mg PO BID Qty: 8 0RF Continued cetirizine [All Day Allergy (cetirizine)] 10 mg tablet 10 mg PO DAILY PRN (Reason: allergy symptoms) Qty: 90 8RF amlodipine 2.5 mg tablet 2.5 mg PO DAILY Qty: 90 8RF lidocaine 4 % Cream 1 appl TOPICAL TID PRN (Reason: Mild Pain (Scale Score 1-4)) loperamide 2 mg Tablet 2 mg PO BID PRN (Reason: Diarrhea) cyanocobalamin (vitamin B-12) [Vitamin B-12] 1,000 mcg Tablet 1,000 mcg PO DAILY acetaminophen 500 mg Tablet 1,000 mg PO Q6H PRN (Reason: Pain) melatonin 5 mg Tablet 5 mg PO BEDTIME hydrochlorothiazide 25 mg tablet 25 mg PO DAILY Discharge Orders: Discharge Order (Routine); Ordered 06/27/25 Ordered By: Richard Greco Activity on Discharge: Use cane or walker Stand Alone Forms: Patient Portal Discharge page Print Language: Armenian Care Plan Goals: Recovery Health Concerns: Hip fracture and UTI Plan of Treatment: Physical Therapy for total hip arthroplasty: posterior precautions, gait training, ROM, strength Limit stair climbing No showering, no tub bath-keep dressing clean, dry and intact No driving x 6 weeks Continue Aspirin tabs once a day x 6 weeks Follow up with [facility] in 2 weeks -Bandage/Incision Site Care: -Ice 20mins at a time -Make sure you use a towel or cloth on your skin as a barrier -DO NOT remove the bandage -Keep Bandage clean, dry and intact -Do not get the bandage wet: -No tub bath, pools or hot tubs -If there are any concerns regarding the bandage please call orthopedics: [phone] -Hip Precautions: -Do not bend hip past 90 degrees -Do not cross at your knees or ankles -Do not turn your operative leg inward (avoid twisting the foot in) -Avoid low chairs and deep couches -Use supportive shoes with nonslip soles -Physical Therapy: -Patient is WBAT with the use of a walker -Gait training -Limit stair climbing -Hip range of motion -Strengthening: Quadriceps and hip muscles -Walking: Gait training and gradually increasing distance with walker -Ankle pumps and incentive spirometry to limit the risk of blood clot -Diet: -Resume regular diet as tolerated. -Drink plenty of fluids and eat a high-fiber foods to avoid constipation -This is a common side effect of pain medication) -Take stool softeners as prescribed -Blood Clot Prevention: -Take the prescribed blood thinner as directed for 6 weeks -Perform ankle pumps and walk frequently with the walker and assistance if needed -Report calf pain, swelling, or shortness of breath immediately Assessment: See above
--- NOTE | 2025-06-27 10:21 | MHC.CM.PN ---
Per ROUNDS discussion, Patient is medically cleared for dc to [facility] today. CM asked MD if Patient is her own decision maker and if the HCP will be invoked. Per MD, decision making is decision specific, and family/HCP should be involved with decision making regarding dc planning. CM left detailed messages with Primary Contact/Justine @ [phone] and Son/HCP/Hansel @ [phone]; CM awaits a return call.
--- NOTE | 2025-06-27 10:45 | HO.WOUND ---
Wound Consult: Initial 85 yr old female admitted [place] [facility] [place] - See progress notes and H&P for detailed history. Wound consult placed for buttoks. Patient agreeable to assessment and photo documentation. Per chart review, patient was found down at home by [facility], she was sitting in urine/feces. Buttocks Groin Etiology: MASD/IAD Wound Bed: largely intact, moist red/purple with scattered open areas. open moist pink skin to posterior thigh fold. red/purple areas are all blanching Drainage / Odor: scant sanguineous Edges: ? diffuse Aura wound: ? No Induration, Fluctuance or Warmth noted Pain: yes Goals of Treatment: ? triad paste: provide an occlusive dressing, to allow moist wound healing with absorption of mild exudate, to minimize contamination of urine/stool or bacteria, and to soothe and protect aura wound skin. Incontinence Associated Dermatitis (IAD): bright or angry red, shiny, moist skin, may appear white or yellow in dark skin tones, blistered or denuded, may bleed, exposed to urine and/or stool (moderate to severe) Recommendations: 1. Turn and Reposition every 2 hours and as needed for patient comfort. Use pillows or wedges to support off loading positions. 2. Off Load all bony prominences with use of pillows and heel boots if needed. Apply Preventative foams where needed. 3. Monitor for incontinence and moisture control, use barrier creams when needed for prevention and treatment. 4. Provide adequate and supplemental nutrition. 5. Order or Continue low air loss mattress. 6. When applicable maintain blood glucose levels per Providers order. Buttocks/Groin/Perineum: Off Load Pressure with Q2 hr turns and use of pillows - Cleanse with PH balance spray or wipes, pat dry. ?Apply thin layer of Triad to wound bed - only pat and dab no scrub and rub when soiling occurs. Reapply thin layer PRN after each episode of incontinence. Re-consult wound care Nurse for wound deterioration or wound changes.
[2025-06-27 11:04] VITALS: BP 145/69; PULSE 82; RESP 18; TEMP 37.2; O2SAT 96
--- NOTE | 2025-06-27 13:24 | MHC.CM.PN ---
Addendum entered by Darlene Vargas 06/27/25 13:32: DC Summary has been faxed to TRAVIS/Marguerite @ [phone]. Original Note: Patient has been medically cleared for dc to [facility] today. Patient's Son/HCP/Hamm is in agreement with dc to [place] @ [facility] today at 3 PM, via [facility] (auth # [id number]). Last IMM addressed yesterday.
--- NOTE | 2025-06-27 14:52 | W.PM.OPN ---
Operative Note Operative Note Date of Service: 06/25/25 Narrative: Date of Service: 06/25/25 Pre-op diagnosis: Right femoral neck fracture Post-op diagnosis: same Procedure: Right hip Jah Implants: Sonja AccoladeC #4 [id number] with +0/26/47 bipolar Surgeon: Henrry Hewitt MD Anesthesia: GLMA and local Was an [employer] Supervisor used for this Procedure?: Yes [employer] Supervisor: Victorina Jean Estimated blood loss (mL): 200 IV fluids (mL): 750 Pathology: other Condition: stable Disposition: PACU Procedure in detail: Patient was brought to the operative room placed in the lateral decubitus position. All bony prominences were well padded and the was prepped and draped in standard sterile fashion. IV antibiotics per weight were administered and a time-out was called to identify proper site proper procedure proper surgeon. Radiographs were available and confirmed. I began by making a curvilinear incision over the posterolateral aspect of the greater trochanter. Dissection was taken down to the tensor fascia which was incised in line with the incision and a Charnley retractor was placed. The hip was internally rotated and the external rotators were identified. All vessels in the area were cauterized and a full-thickness capsular/external rotator layer was developed in a hockey-stick fashion starting just proximal to the piriformis. This layer was tagged and the displaced femoral neck fracture was identified. Clean-up cuts was performed while protecting the posterolateral soft tissues and the head was removed and measured (47 mm) on the back table. I then copiously irrigated the acetabulum and removed all bony fragments. Once this was done I used a cookie cutter to lateralize and a Charnley awl to identify the canal and then sequentially broached up to a #4. I then trialed with a standard head (+0) and a bipolar component matching the femoral head size (47). I was satisfied with the range of motion and stability and length. Therefore I removed all instrumentation and copiously irrigated. 2 bags of Simplex on the back table using 3rd gen technique. A centralizer and distal plug were placed and the canal irrigated and then dried. A cement gun was used to fill the canal and then the #4/127 Accolade C stem was placed maintaining anatomic version and against the calcar. Once the cement was dry and all excess cement was removed I re-trialed with a + bipolar. I was satisfied with the stability and tension. My final bipolar components were then placed. I closed the capsular layer with FiberWire and then copiously irrigated. I performed a layered closure with olga on skin. The patient was placed in sterile dressing extubated brought to recovery room in stable condition there were no known complications.
--- NOTE | 2025-07-02 16:04 | PC.NURSE ---
Pt was given Tylenol on 06/26/25 by this RN for a pain level of 3 in the right hip. There were two Tylenol orders in the system, one for mild pain level 1-3 and one for severe pain level 7-10, both with q 6 hr frequencies. When the active order was selected it documented under the severe pain order rather than the mild pain order for the matching level of pain.
== END 2025-06-27 15:30 | disposition skilled nursing facility (03) | DRG 853 ==
LOC: HO.ED 15:34 → HO.EDOVER 15:52 → HO.IMC 06-25 16:18
PROVIDERS: Orthopaedic Surgery; Physician Assistant; Admitting Provider Internal Medicine; Emergency Provider Emergency Medicine; PCP Internal Medicine; Visit Provider Internal Medicine
PROC: 0SRR0J9 Replacement of Right Hip Joint, Femoral Surface with Synthetic Substitute, Cemented, Open Approach (ICD-10-PCS; CPT 27125; principal; 2025-06-25 14:30)
DX: A41.9 Sepsis, unspecified organism (principal); S72.011A Unspecified intracapsular fracture of right femur, initial encounter for closed fracture; M62.82 Rhabdomyolysis; N39.0 Urinary tract infection, site not specified; W19.XXXA Unspecified fall, initial encounter; B95.2 Enterococcus as the cause of diseases classified elsewhere; E78.5 Hyperlipidemia, unspecified; I10 Essential (primary) hypertension; E87.6 Hypokalemia; R91.1 Solitary pulmonary nodule; Z79.899 Other long term (current) drug therapy
CPT/HCPCS: 36415; 70450; 71045; 72125; 72170; 73502; 80048; 80053; 80076; 81001; 81003; 82550; 83605; 83690; 83735; 84484; 85025; 85610; 86140; 86850; 86900; 86901; 87040; 87086; 87088; 87186; 88305; 88311; 93005; 93306; 97162; 97166; 97530; 97535; 99285; C1776; J0131; J0668; J0690; J0696; J1100; J2003; J2405; J2704; J2795; J3010; Q9957

== ENCOUNTER → 2025-06-24 12:36 | Outpatient (BNV) | payer OTHER, SELFPAY | PROVIDERS: Admitting Provider Internal Medicine; Emergency Provider Emergency Medicine; Visit Provider Internal Medicine Cardiovascular Disease | DX: R94.31 Abnormal electrocardiogram [ECG] [EKG] (principal); Z04.3 Encounter for examination and observation following other accident | CPT/HCPCS: 93010 ==

== ENCOUNTER → 2025-06-24 12:36 | Outpatient (BNV) | payer OTHER, SELFPAY | PROVIDERS: Emergency Provider Emergency Medicine; Visit Provider Radiology Diagnostic Radiology | DX: Z04.3 Encounter for examination and observation following other accident (principal); R91.8 Other nonspecific abnormal finding of lung field; H74.8X2 Other specified disorders of left middle ear and mastoid; S72.011A Unspecified intracapsular fracture of right femur, initial encounter for closed fracture; W19.XXXA Unspecified fall, initial encounter | CPT/HCPCS: 71045; 72125; 73502 ==

== ENCOUNTER → 2025-06-24 15:46 | Outpatient (BNV) | payer OTHER, SELFPAY | PROVIDERS: Admitting Provider Internal Medicine; Emergency Provider Emergency Medicine; Visit Provider Internal Medicine | DX: N39.0 Urinary tract infection, site not specified (principal) | CPT/HCPCS: 99222; 99232; 99239; 99499 ==

== ENCOUNTER → 2025-06-24 15:46 | Outpatient (BNV) | payer OTHER, SELFPAY | PROVIDERS: Admitting Provider Internal Medicine; Emergency Provider Emergency Medicine; Visit Provider Physician Assistant | DX: S72.001A Fracture of unspecified part of neck of right femur, initial encounter for closed fracture (principal) | CPT/HCPCS: 99223 ==

== ENCOUNTER 2025-06-25 08:20 | Outpatient (BNV) | payer OTHER, SELFPAY | END 2025-06-27 13:52 | PROVIDERS: Admitting Provider Internal Medicine; Emergency Provider Emergency Medicine; PCP Internal Medicine; Visit Provider Radiology Diagnostic Radiology | DX: S72.001A Fracture of unspecified part of neck of right femur, initial encounter for closed fracture (principal); Z96.641 Presence of right artificial hip joint | CPT/HCPCS: 72170 ==

== ENCOUNTER → 2025-06-25 08:20 | Outpatient (BNV) | payer OTHER, SELFPAY | PROVIDERS: Admitting Provider Internal Medicine; Emergency Provider Emergency Medicine; Visit Provider Internal Medicine Cardiovascular Disease | DX: Z01.810 Encounter for preprocedural cardiovascular examination (principal); I51.89 Other ill-defined heart diseases | CPT/HCPCS: 93306; 99222 ==

== ENCOUNTER 2025-07-09 09:57 | Outpatient (AMB) | payer OTHER, SELFPAY ==
--- OUTSIDE RECORDS SUMMARY | 2025-07-09 09:30 | XMS_ITS | Encounter Summary ---
Author Organization [facility] Address [address] [place] [address] Care Team Providers Care Help Desk Associate Name Role Phone Antonio Esquivel MD Primary Care Provider [phone] Reason for Visit * Consultation (Routine) - Authorized Specialty Diagnoses / Procedures Referred By Jackson osborne Referred To Contact Orthopaedics Diagnoses Closed fracture of right hip with routine healing, subsequent encounter Patrizia Mariscal NP [address] [facility] 1 [place] [address] Phone: tel: fax: [facility] [address] [place] [address] Dr [address] [place] [address] Phone: tel: Referral ID Status Reason Start Date Expiration Date Visits Requested Visits Authorized [id number] Authorized Specialty Services Required 06/30/2026 1 1 Encounter Details Date Type Department Care Team (Late st Contact Info) Description 07/09/2025 9:30 AM EDT PACE External Visit [facility] [address] [place] [phone] Social History Tobacco Use Types Packs/Day Years [...] Team (Late st Contact Info) Description 07/14/2025 9:00 AM EDT PACE Home Care / [facility] [place] [facility] [address] [place] [phone] Flavia Acuña 07/14/2025 3:00 PM EDT PACE Home Care / [facility] [place] [facility] [place] [facility] [address] [place] [phone] Flavia Acuña 07/15/2025 9:00 AM EDT PACE Home Care / [facility] [place] [facility] [place] [facility] [address] [place] [phone] Flavia Acuña 07/15/2025 10:30 AM EDT Clinical Support [facility] [place] [address] [place] [phone] 07/15/2025 3:00 PM EDT PACE Home Care / [facility] [place] [facility] [address] [place] [phone] Flavia Acuña 07/16/2025 3:00 PM EDT PACE Home Care / [facility] [place] [facility] [address] [place] [phone] Flavia Acuña 07/17/2025 9:00 AM EDT PACE Home Care / [facility] [place] [facility] [address] [place] [phone] Flavia Acuña 07/17/2025 2:00 PM EDT PACE Home Care / [facility] [place] [facility] [address] [place] [phone] Flavia Acuña 07/18/2025 10:00 AM EDT PACE Home Care / [facility] [address] [place] [address] Grace Kessler 07/18/2025 12:00 PM EDT [facility] [place] [facility] [address] [place] [address] Patrizia Mariscal, SAUL [address] [address] 07/18/2025 3:00 PM EDT PACE Home Care / [facility] [address] [place] [phone] Grace Kessler 07/21/2025 9:00 AM EST PACE Home Care / [facility] [place] [facility] [address] [place] [phone] Flavia Acuña 07/21/2025 3:00 PM EST PACE Home Care / [facility] [place] [facility] [address] [place] [phone] Falvia Acuña 07/22/2025 9:00 AM EST PACE Home Care / [facility] [place] [facility] [address] [place] [phone] Flavia Acuña 07/22/2025 10:00 AM EST Clinical Support [facility] [place] [address] [place] [address] 07/22/2025 3:00 PM EST PACE Home Care / [facility] [address] [place] [phone] Flavia Acuña 07/23/2025 11:30 AM EST PACE Home Care / [facility] [address] [place] [phone] Dedrick Brina 07/23/2025 3:00 PM EST PACE Home Care / [facility] [place] [facility] [address] [place] [address] Flavia Acuña 07/24/2025 9:00 AM EST PACE Home Care / [facility] [place] [facility] [address] [place] [address] Flavia Acuña 07/24/2025 11:00 AM EST [facility] [place] [facility] [address] [place] [address] Patrizia Mariscal, SAUL [address] [address] 07/24/2025 3:00 PM EST PACE Home Care / [facility] [place] [facility] [address] [place] [address] Flavia Acuña 07/25/2025 10:00 AM EST Clinical Support [facility] [place] [address] [place] [address] 07/25/2025 3:00 PM EST PACE Home Care / [facility] [place] [facility] [address] [place] [address] Grace Kessler 07/28/2025 9:00 AM EST PACE Home Care / [facility] [place] [facility] [address] [place] [address] Flavia Acuña 07/28/2025 3:00 PM EST PACE Home Care / [facility] [place] [facility] [address] [place] [address] Flavia Acuña 07/29/2025 9:00 AM EST PACE Home Care / [facility] [place] [facility] [address] [place] [address] Flavia Acuña 07/29/2025 3:00 PM EST PACE Home Care / [place] [facility] [place] [facility] [address] [place] [address] Flavia Acuña 07/30/2025 11:30 AM EST PACE Home Care / [place] [facility] [place] [facility] [address] [place] [phone] Brina Tse 07/30/2025 3:00 PM EST PACE Home Care / [place] [facility] [place] [facility] [place] [facility] [address] [place] [phone] Flavia Acuña 07/31/2025 9:00 AM EST PACE Home Care / [facility] [facility] [place] [facility] [place] [facility] [address] [place] [phone] Flavia Acuña 07/31/2025 3:00 PM EST PACE Home Care / [place] [facility] [place] [facility] [place] [facility] [address] [place] [phone] Flavia Acuña 08/01/2025 10:00 AM EST PACE Home Care / [facility] [place] [facility] [address] [place] [phone] Grace Kessler 08/01/2025 3:00 PM EST PACE Home Care / [place] [facility] [place] [facility] [place] [facility] [address] [place] [phone] Grace Kessler 08/04/2025 9:00 AM EST PACE Home Care / [place] [facility] [place] [facility] [place] [facility] [address] [place] [phone] Flavia Acuña 08/04/2025 3:00 PM EST PACE Home Care / [facility] [place] [facility] [address] [place] [address] Flavia Acuña 08/05/2025 9:00 AM EST PACE Home Care / [facility] [place] [facility] [address] [place] [address] Flavia Acuña 08/05/2025 3:00 PM EST PACE Home Care / [facility] [place] [facility] [address] [place] [address] Flavia Acuña 08/06/2025 10:45 AM EST Clinical Support [facility] [place] [address] [place] [address] 08/06/2025 11:30 AM EST PACE Home Care / [facility] [place] [facility] [address] [place] [address] Brina Tse 08/06/2025 3:00 PM EST PACE Home Care / [facility] [place] [facility] [address] [place] [phone] Flavia Acuña 08/07/2025 9:00 AM EST PACE Home Care / [facility] [place] [facility] [address] [place] [phone] Flavia Acuña 08/07/2025 3:00 PM EST PACE Home Care / [facility] [place] [facility] [address] [place] [phone] Flavia Acuña 08/08/2025 10:00 AM EST PACE Home Care / [facility] [place] [facility] [address] [place] [address] Grace Kessler 08/08/2025 3:00 PM EST PACE Home Care / [facility] [place] [facility] [address] [place] [address] Grace Kessler 08/11/2025 9:00 AM EST PACE Home Care / [facility] [place] [facility] [place] [facility] [address] [place] [address] Flavia Acuña 08/11/2025 3:00 PM EST PACE Home Care / [place] [facility] [place] [facility] [address] [place] [phone] Flavia Acuña 08/12/2025 9:00 AM EST PACE Home Care / [place] [facility] [place] [facility] [address] [place] [phone] Flavia Acuña 08/12/2025 3:00 PM EST PACE Home Care / [facility] [facility] [place] [facility] [address] [place] [phone] Flavia Acuña 08/13/2025 11:30 AM EST PACE Home Care / [facility] [facility] [place] [facility] [address] [place] [phone] Brina Tse 08/13/2025 3:00 PM EST PACE Home Care / [place] [facility] [place] [facility] [place] [facility] [address] [place] [phone] Flavia Acuña 08/14/2025 9:00 AM EST PACE Home Care / [facility] [facility] [place] [facility] [place] [facility] [address] [place] [phone] Flavia Acuña 08/14/2025 3:00 PM EST PACE Home Care / [facility] [place] [facility] [address] [place] [phone] Flavia Acuña 08/15/2025 10:00 AM EST PACE Home Care / [facility] [place] [facility] [address] [place] [address] Grace Kessler 08/15/2025 3:00 PM EST PACE Home Care / [facility] [place] [facility] [address] [place] [address] Grace Kessler 08/18/2025 9:00 AM EST PACE Home Care / [facility] [place] [facility] [address] [place] [address] Flavia Acuña 08/18/2025 3:00 PM EST PACE Home Care / [facility] [place] [facility] [address] [place] [address] Flavia Acuña 08/19/2025 9:00 AM EST PACE Home Care / [facility] [place] [facility] [address] [place] [address] Flavia Acuña 08/19/2025 11:00 AM EST Clinical Support [facility] [place] [address] [place] [address] 08/19/2025 3:00 PM EST PACE Home Care / [facility] [place] [facility] [address] [place] [phone] Flavia Acuña 08/20/2025 11:30 AM EST PACE Home Care / [facility] [place] [facility] [address] [place] [phone] Brina Tse 08/20/2025 3:00 PM EST PACE Home Care / [facility] [place] [facility] [address] [place] [address] Flavia Acuña 08/21/2025 9:00 AM EST PACE Home Care / [facility] [place] [facility] [place] [facility] [address] [place] [address] Flavia Acuña 08/21/2025 3:00 PM EST PACE Home Care / [facility] [place] [facility] [address] [place] [address] Flavia Acuña 08/22/2025 10:00 AM EST PACE Home Care / [facility] [place] [facility] [address] [place] [address] Grace Kessler 08/22/2025 3:00 PM EST PACE Home Care / [facility] [place] [facility] [address] [place] [phone] Grace Kessler 08/25/2025 9:00 AM EST PACE Home Care / [facility] [place] [facility] [address] [place] [phone] Flavia Acuña 08/25/2025 3:00 PM EST PACE Home Care / [facility] [place] [facility] [address] [place] [phone] Flavia Acuña 08/26/2025 9:00 AM EST PACE Home Care / [facility] [place] [facility] [place] [facility] [address] [place] [phone] Flavia Acuña 08/26/2025 3:00 PM EST PACE Home Care / [facility] [place] [facility] [place] [facility] [address] [place] [phone] Flavia Acuña 08/27/2025 11:30 AM EST PACE Home Care / [facility] [facility] [place] [facility] [place] [facility] [address] [place] [phone] Brina Tse 08/27/2025 3:00 PM EST PACE Home Care / [facility] [place] [facility] [address] [place] [address] Flavia Acuña 08/28/2025 9:00 AM EST PACE Home Care / [facility] [place] [facility] [address] [place] [phone] Flavia Acuña 08/28/2025 3:00 PM EST PACE Home Care / [facility] [place] [facility] [address] [place] [phone] Flavia Acuña 08/29/2025 10:00 AM EST PACE Home Care / [facility] [place] [facility] [address] [place] [phone] Grace Kessler 08/29/2025 3:00 PM EST PACE Home Care / [facility] [address] [place] [phone] Grace Kessler 09/01/2025 9:00 AM EST PACE Home Care / [facility] [place] [facility] [address] [place] [phone] Flavia Acuña 09/01/2025 3:00 PM EST PACE Home Care / [facility] [place] [facility] [place] [facility] [address] [place] [phone] Flavia Acuña 09/02/2025 9:00 AM EST PACE Home Care / [facility] [place] [facility] [address] [place] [phone] Flavia Acuña 09/02/2025 3:00 PM EST PACE Home Care / [facility] [place] [facility] [address] [place] [phone] Flavia Acuña 09/03/2025 11:30 AM EST PACE Home Care / [facility] [place] [facility] [address] [place] [phone] Colin Tseah 09/03/2025 3:00 PM EST PACE Home Care / [facility] [place] [facility] [address] [place] [phone] Flavia Acuña 09/04/2025 9:00 AM EST PACE Home Care / [facility] [place] [facility] [address] [place] [phone] Flavia Acuña 09/04/2025 3:00 PM EST PACE Home Care / [facility] [place] [facility] [address] [place] [phone] Flavia Acuña 09/05/2025 10:00 AM EST PACE Home Care / [facility] [place] [facility] [address] [place] [phone] Grace Kessler 09/05/2025 3:00 PM EST PACE Home Care / [facility] [place] [facility] [address] [place] [phone] Grace Kessler 02/27/2026 9:45 AM EDT P[place] External Visit [facility] [place] [address] [place] [phone] documented as of this encounter Visit Diagnoses Not on filedocumented in this encounter Orders Outpatient Referral Count Last Ordered Date Fir st Ordered Date AMB REFERRAL TO ORTHOPEDIC SURGERY 1 2024 documented in this encounter Care Teams Help Desk Associate Relationship Specialty Start Date End Date Antonio Esquivel MD [address] [place] [address] PCP - General Geriatric Medicine 06/30/25 documented as of this encounter
--- NOTE | 2025-07-09 10:07 | A.OFFVIS_ITS ---
Intake Visit Reasons: PO-s/p right hip jeffrey with NE 06/25/25 Intake Note: Eileen is an 85 year old female who presents today post operatively after undergoing a right hip jeffrey status post right femoral neck fracture, DOS 06/25/25, performed by Dr. Hewitt. Patient reports she is doing well, states that she wants to know when she is able to walk again. Allergies codeine (From TYLENOL-CODEINE #3) Allergy (Unknown, Verified 07/09/25 10:31) HIVES,RASH penicillin V Allergy (Unknown, Verified 07/09/25 10:31) Unknown Sulfa (Sulfonamide Antibiotics) Allergy (Unknown, Verified 07/09/25 10:31) Unknown Medication List - Last Reconciled 07/09/25 by Hetal Thakkar PA-C acetaminophen 1,000 mg PO Q6H PRN amlodipine 2.5 mg PO DAILY aspirin 325 mg PO BID 42 days cetirizine (All Day Allergy (cetirizine)) 10 mg PO DAILY PRN cyanocobalamin (vitamin B-12) (Vitamin B-12) 1,000 mcg PO DAILY hydrochlorothiazide 25 mg PO DAILY lidocaine 4% 1 appl topical TID PRN loperamide 2 mg PO BID PRN melatonin 5 mg PO BEDTIME HPI HPI PO-s/p right hip jeffrey with NE 06/25/25: Details: 85-year-old female returns to the office today status post right hip hemiarthroplasty with Dr. Hewitt on 06/25/2025. She is currently in a rehab facility where she is working with physical therapy ambulating with a walker. She has no concerns today. COUNTS INCLUDE 234 BEDS AT THE [facility] Medical History Rectal prolapse Anxiety Hyperlipidemia Hypertension Surgical History History of open reduction and internal fixation (ORIF) procedure History of hysterectomy Family History Father No problems noted. Mother Hypertension Social History Household Members: None Housing: Apartment Are you a primary critical care nurse practitioner to a significant other at home: No Do you presently have visiting nurse or other home services: Yes ([employer]) Alcohol intake: never Patient Tobacco Use Status: Former Tobacco user e-Cigarette/Vaping Use: Never Used Second Hand Smoke Exposure: No service: No Current occupational status: disabled Current occupational exposures/hazards: No Cognitive needs: Yes Hearing needs: Yes Vision needs: Yes Review of Systems Const All systems reviewed & are unremarkable except as noted in HPI and below Physical Exam Extrem Other: Right hip incision is clean dry and intact. No surrounding erythema or drainage. She is able to perform hip flexion and range of motion without pain. Calf is supple and nontender neurovascularly intact. Results Reviewed Results Reviewed: X-rays of the right hip obtained in the office today and reviewed by me show intact hip prosthesis. Assessment & Plan Assessment & Plan (1) Status post hemiarthroplasty of right hip: Code(s): Z96.641 - Presence of right artificial hip joint Category: Surgical Plan: Kim removed today Steri-Strips applied. The patient will continue working with physical therapy to improve strength and gait training. I explained to the patient she needs to be cleared by the Physical therapy Department in rehab to return back home to make sure she is safe and able to perform her ADLs. She will return in 4 weeks for routine follow up, sooner if needed. Orders: Orders XR hip RT min 2V Today M25.551 - Pain in right hip Coding Level of Care Code Global (82737) Diagnoses Status post hemiarthroplasty of right hip Z96.641
--- OUTSIDE RECORDS SUMMARY | 2025-07-09 12:00 | XMS_ITS ---
Author Organization [facility] Address [address] [place] [address] Phone Care Team Providers Care Drop Worker Name Role Phone Antonio Esquivel MD Primary Care Provider [phone] [facility] Status:Enrolled (Active) Start date:11/16/2024 Related program episode:Program of All-Inclusive Care for the Elderly (Active) Case Team Name Relationship Phone Patrizia Mariscal CERTIFIED ETHICAL HACKER(Responsible Staff) Nurse Prac titioner [phone] Continued Care and Services Coordination
--- OUTSIDE RECORDS SUMMARY | 2025-07-09 12:00 | XMS_ITS | Encounter Summary ---
Author Organization [facility] [place] [address] Care Team Providers Care Track And Field Coach Name Role Phone Antonio Esquivel MD Primary Care Provider [phone] Encounter Details Date Type Department Care Team (Late st Contact Info) Description 07/08/2025 Lab Requisition [facility] - Main Lab [address] [place] [address] Antonio Esquivel MD [address] [place] [address] Urinary tract infection, site not specified Social History Tobacco Use Types Packs/Day Years [...] PACE Home Care / PACE Home Visit [facility] [address] [place] [address] Flavia Acuña 07/14/2025 3:00 PM EDT PACE Home Care / [facility] [facility] [place] [facility] [place] [facility] [address] [place] [address] Flavia Acuña 07/15/2025 9:00 AM EDT PACE Home Care / [place] [facility] [place] [facility] [place] [facility] [address] [place] [phone] Flavia Acuña 07/15/2025 10:30 AM EDT Clinical Support [facility] [place] [address] [place] [address] 07/15/2025 3:00 PM EDT PACE Home Care / [facility] [facility] [place] [facility] [place] [facility] [address] [place] [phone] Flavia Acuña 07/16/2025 3:00 PM EDT PACE Home Care / [facility] [facility] [place] [facility] [address] [place] [address] Flavia Acuña 07/17/2025 9:00 AM EDT PACE Home Care / [facility] [place] [facility] [address] [place] [phone] Flavia Acuña 07/17/2025 2:00 PM EDT PACE Home Care / [facility] [place] [facility] [address] [place] [phone] Flavia Acuña 07/18/2025 10:00 AM EDT PACE Home Care / [facility] [facility] [place] [facility] [address] [place] [phone] Grace Kessler 07/18/2025 12:00 PM EDT [facility] [place] [facility] [address] [place] [address] Patrizia Mariscal, TUBING SUPERVISOR [address] [address] 07/18/2025 3:00 PM EDT PACE Home Care / [facility] [place] [facility] [address] [place] [address] Grace Kessler 07/21/2025 9:00 AM EST PACE Home Care / [facility] [place] [facility] [address] [place] [address] Flavia Acuña 07/21/2025 3:00 PM EST PACE Home Care / [facility] [place] [facility] [address] [place] [address] Flavia Acuña 07/22/2025 9:00 AM EST PACE Home Care / [facility] [place] [facility] [address] [place] [phone] Flavia Acuña 07/22/2025 10:00 AM EST Clinical Support [facility] [place] [address] [place] [address] 07/22/2025 3:00 PM EST PACE Home Care / [facility] [place] [facility] [address] [place] [phone] Flavia Acuña 07/23/2025 11:30 AM EST PACE Home Care / [facility] [place] [facility] [address] [place] [phone] Brina Tse 07/23/2025 3:00 PM EST PACE Home Care / [facility] [place] [facility] [address] [place] [phone] Flavia Acuña 07/24/2025 9:00 AM EST PACE Home Care / [facility] [place] [facility] [address] [place] [address] Flavia Acuña 07/24/2025 11:00 AM EST [facility] [place] [facility] [address] [place] [address] Patrizia Mariscal, SAUL [address] [address] 07/24/2025 3:00 PM EST PACE Home Care / [facility] [place] [facility] [address] [place] [address] Flavia Acuña 07/25/2025 10:00 AM EST Clinical Support [facility] [place] [address] [place] [address] 07/25/2025 3:00 PM EST PACE Home Care / [facility] [place] [facility] [address] [place] [address] Grace Kessler 07/28/2025 9:00 AM EST PACE Home Care / [facility] Home [facility] [place] [facility] [address] [place] [phone] Flavia Acuña 07/28/2025 3:00 PM EST PACE Home Care / [facility] [facility] [place] [facility] [address] [place] [phone] Flavia Acuña 07/29/2025 9:00 AM EST PACE Home Care / [facility] [facility] [place] [facility] [place] [facility] [address] [place] [phone] Flavia Acuña 07/29/2025 3:00 PM EST PACE Home Care / [facility] [place] [facility] [address] [place] [address] Flavia Acuña 07/30/2025 11:30 AM EST PACE Home Care / [place] [facility] Visit [facility] [place] [facility] [address] [place] [address] Brina Tse 07/30/2025 3:00 PM EST PACE Home Care / [place] [facility] [place] [facility] [address] [place] [phone] Flavia Acuña 07/31/2025 9:00 AM EST PACE Home Care / [place] [facility] [place] [facility] [address] [place] [phone] Flavia Acuña 07/31/2025 3:00 PM EST PACE Home Care / [place] [facility] [place] [facility] [address] [place] [phone] Flavia Acuña 08/01/2025 10:00 AM EST PACE Home Care / [place] [facility] [place] [facility] [address] [place] [phone] Grace Kessler 08/01/2025 3:00 PM EST PACE Home Care / [place] [facility] [place] [facility] [address] [place] [phone] Grace Kessler 08/04/2025 9:00 AM EST PACE Home Care / [place] [facility] [place] [facility] [address] [place] [phone] Flavia Acuña 08/04/2025 3:00 PM EST PACE Home Care / [place] [facility] [place] [facility] [address] [place] [phone] Flavia Acuña 08/05/2025 9:00 AM EST PACE Home Care / [place] [facility] [place] [facility] [place] [facility] [address] [place] [phone] Flavia Acuña 08/05/2025 3:00 PM EST PACE Home Care / [facility] [place] [facility] [address] [place] [phone] Flavia Acuña 08/06/2025 10:45 AM EST Clinical Support [facility] [place] [address] [place] [address] 08/06/2025 11:30 AM EST PACE Home Care / [facility] [place] [facility] [address] [place] [phone] Brina Tse 08/06/2025 3:00 PM EST PACE Home Care / [facility] [place] [facility] [address] [place] [phone] Flavia Acuña 08/07/2025 9:00 AM EST PACE Home Care / [facility] [place] [facility] [address] [place] [phone] Flavia Acuña 08/07/2025 3:00 PM EST PACE Home Care / [facility] [place] [facility] [address] [place] [phone] Flavia Acuña 08/08/2025 10:00 AM EST PACE Home Care / [facility] [place] [facility] [address] [place] [phone] Grace Kessler 08/08/2025 3:00 PM EST PACE Home Care / [facility] Home Visit [facility] [place] [facility] [address] [place] [phone] Grace Kessler 08/11/2025 9:00 AM EST PACE Home Care / [place] [facility] [place] [facility] [address] [place] [phone] Flavia Acuña 08/11/2025 3:00 PM EST PACE Home Care / [place] [facility] Visit [facility] [place] [facility] [address] [place] [address] Flavia Acuña 08/12/2025 9:00 AM EST PACE Home Care / [place] [facility] [place] [facility] [address] [place] [phone] Flavia Acuña 08/12/2025 3:00 PM EST PACE Home Care / [place] [facility] [place] [facility] [address] [place] [phone] Flavia Acuña 08/13/2025 11:30 AM EST PACE Home Care / [place] [facility] [place] [facility] [address] [place] [phone] Brina Tse 08/13/2025 3:00 PM EST PACE Home Care / [place] [facility] [place] [facility] [address] [place] [phone] Flavia Acuña 08/14/2025 9:00 AM EST PACE Home Care / [place] [facility] [place] [facility] [place] [facility] [address] [place] [phone] Flavia Acuña 08/14/2025 3:00 PM EST PACE Home Care / [place] [facility] [place] [facility] [place] [facility] [address] [place] [phone] Flavia Acuña 08/15/2025 10:00 AM EST PACE Home Care / [place] [facility] [place] [facility] [address] [place] [phone] Grace Kessler 08/15/2025 3:00 PM EST PACE Home Care / [place] [facility] [place] [facility] [place] [facility] [address] [place] [phone] Grace Kessler 08/18/2025 9:00 AM EST PACE Home Care / [place] [facility] [place] [facility] [place] [facility] [address] [place] [address] Flavia Acuña 08/18/2025 3:00 PM EST PACE Home Care / [place] [facility] Visit [facility] [place] [facility] [address] [place] [address] Flavia Acuña 08/19/2025 9:00 AM EST PACE Home Care / [facility] [place] [facility] [address] [place] [address] Flavia Acuña 08/19/2025 11:00 AM EST [facility] Support [facility] [place] [address] [place] [address] 08/19/2025 3:00 PM EST PACE Home Care / [facility] [place] [facility] [address] [place] [phone] Flavia Acuña 08/20/2025 11:30 AM EST PACE Home Care / [facility] [facility] Visit [facility] [place] [facility] [address] [place] [phone] Brina Tse 08/20/2025 3:00 PM EST PACE Home Care / [facility] [facility] Visit [facility] [place] [facility] [address] [place] [phone] Flavia Acuña 08/21/2025 9:00 AM EST PACE Home Care / [facility] [facility] Visit [facility] [place] [facility] [address] [place] [phone] Flavia Acuña 08/21/2025 3:00 PM EST PACE Home Care / [facility] [facility] Visit [facility] [place] [facility] [address] [place] [phone] Flavia Acuña 08/22/2025 10:00 AM EST PACE Home Care / [place] [facility] [place] [facility] [address] [place] [address] Grace Kessler 08/22/2025 3:00 PM EST PACE Home Care / [place] [facility] [place] [facility] [address] [place] [address] Grace Kessler 08/25/2025 9:00 AM EST PACE Home Care / [place] [facility] [place] [facility] [address] [place] [phone] Flavia Acuña 08/25/2025 3:00 PM EST PACE Home Care / [facility] [facility] [place] [facility] [address] [place] [phone] Flavia Acuña 08/26/2025 9:00 AM EST PACE Home Care / [facility] [facility] [place] [facility] [address] [place] [phone] Flavia Acuña 08/26/2025 3:00 PM EST PACE Home Care / [place] [facility] [place] [facility] [address] [place] [phone] Flavia Acuña 08/27/2025 11:30 AM EST PACE Home Care / [facility] [facility] [place] [facility] [place] [facility] [address] [place] [phone] Brina Tse 08/27/2025 3:00 PM EST PACE Home Care / [place] [facility] Visit [facility] [place] [facility] [address] [place] [phone] Flavia Acuña 08/28/2025 9:00 AM EST PACE Home Care / [facility] [facility] [place] [facility] [address] [place] [phone] Flavia Acuña 08/28/2025 3:00 PM EST PACE Home Care / [facility] [facility] [place] [facility] [address] [place] [address] Flavia Acuña 08/29/2025 10:00 AM EST PACE Home Care / [facility] [facility] [place] [facility] [address] [place] [address] Grace Kessler 08/29/2025 3:00 PM EST PACE Home Care / [facility] [facility] [place] [facility] [address] [place] [address] Grace Kessler 09/01/2025 9:00 AM EST PACE Home Care / [facility] [facility] [place] [facility] [place] [facility] [address] [place] [phone] Flavia Acuña 09/01/2025 3:00 PM EST PACE Home Care / [place] [facility] [place] [facility] [place] [facility] [address] [place] [phone] Flavia Acuña 09/02/2025 9:00 AM EST PACE Home Care / [facility] [facility] [place] [facility] [address] [place] [phone] Flavia Acuña 09/02/2025 3:00 PM EST PACE Home Care / [facility] [facility] [place] [facility] [address] [place] [phone] Flavia Acuña 09/03/2025 11:30 AM EST PACE Home Care / [facility] [facility] [place] [facility] [address] [place] [phone] Brina Tse 09/03/2025 3:00 PM EST PACE Home Care / [facility] [facility] [place] [facility] [place] [facility] [address] [place] [phone] Flavia Acuña 09/04/2025 9:00 AM EST PACE Home Care / [facility] [place] [facility] [address] [place] [address] Flavia Acuña 09/04/2025 3:00 PM EST PACE Home Care / [facility] [place] [facility] [address] [place] [address] Flavia Acuña 09/05/2025 10:00 AM EST PACE Home Care / [facility] [place] [facility] [address] [place] [address] Grace Kessler 09/05/2025 3:00 PM EST PACE Home Care / [facility] [place] [facility] [address] [place] [address] Grace Kessler 02/27/2026 9:45 AM EDT PACE External Visit [facility] [place] [address] [place] [address] documented as of this encounter Procedures Procedure Name Priority Date/Time Associated Diagnosis Comments URINALYSIS WITH REFLEX MICROSCOPIC AND CULTURE Routine 07/08/2025 12:00 AM EDT Urinary tract infection, site not specified REEVES URINE CULTURE TUBE Routine 07/08/2025 12:00 AM EDT Urinary tract infection, site not specified URINALYSIS WITH REFLEX MICROSCOPIC AND CULTURE Routine 07/08/2025 12:00 AM EDT Urinary tract infection, site not specified CULTURE URINE Routine 07/08/2025 12:00 AM EDT Urinary tract infection, site not specified documented in this encounter Results * Culture urine (07/08/2025 12:00 AM EDT) Culture, Urine 10,000-49,000 CFU/mL Mixed bacterial morphotypes present suggestive of possible contamination during collection. Suggest appropriate recollection if clinically indicated. 07/09/2025 8:36 AM EDT [facility] Urine Urine specimen obtained by clean catch procedure / Unknown 07/08/2025 07/08/2025 9:10 AM EDT us Antonio Esquivel MD LAB MICROBIOLOGY - GENERAL ORDER MICK Final Result Performing Organization Address [facility]/ZIP Co de Phone Number [facility] [address] [place] [address], [place] [phone] * Reeves urine culture tube (07/08/2025 12:00 AM EDT) Pathologist [facility] Extra Tube Hold for add-ons. 07/08/2025 11:01 AM EDT [facility] Comment:Auto resulted. Urine Urine specimen obtained by clean catch procedure / Unknown 07/08/2025 07/08/2025 9:03 AM EDT us Antonio Esquivel MD LAB URINE ORDERABLES Final Resul t Performing Organization Address [facility] de Phone Number [facility] [address] [place] [address], [place] [phone] * (ABNORMAL) Urinalysis with reflex microscopic and culture (07/08/2025 12:00 AM EDT) Pathologist [facility] Specific [place] Urine 1.015 1.003 - 1.030 LAB URINALYSIS - AUTOMATED METHOD 07/08/2025 9:10 AM EDT [facility] pH, Urine 7.0 5.0 - 8.0 pH LAB URINALYSIS - AUTOMATED METHOD 07/08/2025 9:10 AM EDT [facility] Leukocytes, Urine Small(A) Negative LAB URINALYSIS - AUTOMATED METHOD 07/08/2025 9:10 AM EDT [facility] Nitrite, Urine Negative Negative LAB URINALYSIS - AUTOMATED METHOD 07/08/2025 9:10 AM [facility] Protein, Urine Negative <=Trace mg/dL LAB URINALYSIS - AUTOMATED METHOD 07/08/2025 9:10 AM [facility] Glucose, Urine Negative Negative mg/dL LAB URINALYSIS - AUTOMATED METHOD 07/08/2025 9:10 AM [facility] Ketones, Urine Negative Negative mg/dL LAB URINALYSIS - AUTOMATED METHOD 07/08/2025 9:10 AM [facility] Urobilinogen, Urine 0.2 0.2 - 1.0 mg/dL LAB URINALYSIS - AUTOMATED METHOD 07/08/2025 9:10 AM [facility] Bilirubin, Urine Negative Negative LAB URINALYSIS - AUTOMATED METHOD 07/08/2025 9:10 AM [facility] Blood, Urine Negative Negative LAB URINALYSIS - AUTOMATED METHOD 07/08/2025 9:10 AM [facility] RBC, Urine 0.9 0 - 4 /HPF LAB URINALYSIS - AUTOMATED METHOD 07/08/2025 9:10 AM [facility] WBC, Urine 17.7(H) 0 - 4 /HPF LAB URINALYSIS - AUTOMATED METHOD 07/08/2025 9:10 AM [facility] Squamous Epithelial, Urine 77(H) 0 - 60 /LPF LAB URINALYSIS - AUTOMATED METHOD 07/08/2025 9:10 AM [facility] Bacteria, Urine Few(A) Negative /HPF LAB URINALYSIS - AUTOMATED METHOD 07/08/2025 9:10 AM [facility] Hyaline Casts, Urine 0.8 0 - 3 /LPF LAB URINALYSIS - AUTOMATED METHOD 07/08/2025 9:10 AM [facility] Urine Urine specimen obtained by clean catch procedure / Unknown 07/08/2025 07/08/2025 8:27 AM EDT us Antonio Esquivel MD LAB URINE ORDERABLES Final Resul t [facility] [address] [place] [address], documented in this encounter Visit Diagnoses Diagnosis Urinary tract infection, site not specified documented in this encounter Care Teams Track And Field Coach Relationship Specialty Start Date End Date Antonio Esquivel MD [address] [place] [address] PCP - General Geriatric Medicine 06/30/25 documented as of this encounter
--- OUTSIDE RECORDS SUMMARY | 2025-07-09 12:00 | XMS_ITS | Encounter Summary ---
Author Organization [facility] [place] [address] Care Team Providers Care Strap Stitcher Name Role Phone Antonio Esquivel MD Primary Care Provider [phone] Encounter Details Date Type Department Care Team (Late st Contact Info) Description 07/04/2025 [facility] [address] [place] [phone] Kiera Cameron RN Hard of hearing Social [...] [facility] [address] [place] [phone] Flavia Acuña 07/14/2025 3:00 PM EDT P[facility] Home [facility] / [facility] [place] [facility] [address] [place] [address] Flavia Acuña 07/15/2025 9:00 AM EDT [facility] Home [facility] / [facility] [place] [facility] [address] [place] [address] Flavia Acuña 07/15/2025 10:30 AM EDT Clinical Support [facility] [place] [address] [place] [address] 07/15/2025 3:00 PM EDT P[facility] Home [facility] / [facility] [place] [facility] [address] [place] [phone] Flavia Acuña 07/16/2025 3:00 PM EDT [facility] Home [facility] / [facility] [place] [facility] [address] [place] [phone] Flavia Acuña 07/17/2025 9:00 AM EDT P[facility] Home [facility] / [facility] [place] [facility] [address] [place] [phone] Flavia Acuña 07/17/2025 2:00 PM EDT [facility] Home [facility] / [facility] [place] [facility] [address] [place] [phone] Flavia Acuña 07/18/2025 10:00 AM EDT [facility] Home [facility] / [facility] [place] [facility] [address] [place] [phone] Grace Kessler 07/18/2025 12:00 PM EDT Office [facility] [address] [place] [address] Patrizia Mariscal NP [address] [address] 07/18/2025 3:00 PM EDT [facility] Home [facility] / [facility] [place] [facility] [address] [place] [address] Grace Kessler 07/21/2025 9:00 AM EST [facility] / [facility] [place] [facility] [address] [place] [address] Flavia Acuña 07/21/2025 3:00 PM EST [facility] / [facility] [place] [facility] [address] [place] [address] Flavia Acuña 07/22/2025 9:00 AM EST [facility] Home [facility] / [facility] [place] [facility] [address] [place] [address] Flavia Acuña 07/22/2025 10:00 AM EST Clinical Support [facility] [place] [address] [place] [address] 07/22/2025 3:00 PM EST [facility] Home [facility] / [facility] [place] [facility] [address] [place] [phone] Flavia Acuña 07/23/2025 11:30 AM EST [facility] Home [facility] / [facility] [place] [facility] [address] [place] [address] Brina Tse 07/23/2025 3:00 PM EST [facility] Home [facility] / [facility] [place] [facility] [address] [place] [phone] Flavia Acuña 07/24/2025 9:00 AM EST [facility] Home [facility] / [facility] [place] [facility] [address] [place] [phone] Flavia Acuña 07/24/2025 11:00 AM EST [facility] [address] [place] [address] Patrizia Mariscal, SAUL [address] [address] 07/24/2025 3:00 PM EST [facility] Home [facility] / [facility] [place] [facility] [address] [place] [phone] Flavia Acuña 07/25/2025 10:00 AM EST Clinical Support [facility] [place] [address] [place] [address] 07/25/2025 3:00 PM EST [facility] Home [facility] / [facility] [place] [facility] [address] [place] [phone] Grace Kessler 07/28/2025 9:00 AM EST [facility] Home [facility] / [facility] [place] [facility] [address] [place] [phone] Flavia Acuña 07/28/2025 3:00 PM EST P[facility] Home [facility] / [facility] [place] [facility] [address] [place] [phone] Flavia Acuña 07/29/2025 9:00 AM EST [facility] Home [facility] / [facility] [place] [facility] [address] [place] [phone] Flavia Acuña 07/29/2025 3:00 PM EST [facility] Home [facility] / [facility] [place] [facility] [address] [place] [phone] Flavia Acuña 07/30/2025 11:30 AM EST [facility] Home [facility] / [facility] [place] [facility] [address] [place] [phone] Brina Tse 07/30/2025 3:00 PM EST [facility] Home [facility] / [facility] [place] [facility] [address] [place] [address] Flavia Acuña 07/31/2025 9:00 AM EST [facility] Home [facility] / [facility] [place] [facility] [address] [place] [address] Flavia Acuña 07/31/2025 3:00 PM EST [facility] / [facility] [place] [facility] [address] [place] [address] Flavia Acuña 08/01/2025 10:00 AM EST [facility] Home [facility] / [facility] [place] [facility] [address] [place] [phone] Grace Kessler 08/01/2025 3:00 PM EST [facility] Home [facility] / [facility] [place] [facility] [address] [place] [phone] Grace Kessler 08/04/2025 9:00 AM EST [facility] Home [facility] / [facility] [place] [facility] [address] [place] [phone] Flavia Acuña 08/04/2025 3:00 PM EST [facility] Home [facility] / [facility] [place] [facility] [address] [place] [address] Flavia Acuña 08/05/2025 9:00 AM EST [facility] Home [facility] / [facility] [place] [facility] [address] [place] [phone] Flavia Acuña 08/05/2025 3:00 PM EST [facility] Home [facility] / [facility] [place] [facility] [address] [place] [phone] Flavia Acuña 08/06/2025 10:45 AM EST Clinical Support [facility] [address] [place] [address] 08/06/2025 11:30 AM EST [facility] Home [facility] / [facility] [place] [facility] [address] [place] [phone] Brina Tse 08/06/2025 3:00 PM EST [facility] Home [facility] / [facility] [place] [facility] [address] [place] [phone] Flavia Acuña 08/07/2025 9:00 AM EST [facility] Home [facility] / [facility] [place] [facility] [address] [place] [phone] Flavia Acuña 08/07/2025 3:00 PM EST [facility] Home [facility] / [facility] [place] [facility] [address] [place] [address] Flavia Acuña 08/08/2025 10:00 AM EST [facility] Home [facility] / [facility] [place] [facility] [address] [place] [address] Grace Kessler 08/08/2025 3:00 PM EST [facility] Home [facility] / [facility] [place] [facility] [address] [place] [phone] Grace Kessler 08/11/2025 9:00 AM EST [facility] Home [facility] / [facility] [place] [facility] [address] [place] [phone] Flavia Acuña 08/11/2025 3:00 PM EST [facility] Home [facility] / [facility] [place] [facility] [address] [place] [phone] Flavia Acuña 08/12/2025 9:00 AM EST [facility] Home [facility] / [facility] [place] [facility] [address] [place] [phone] Flavia Acuña 08/12/2025 3:00 PM EST [facility] Home [facility] / [facility] [place] [facility] [address] [place] [phone] Flavia Acuña 08/13/2025 11:30 AM EST [facility] Home [facility] / [facility] [place] [facility] [address] [place] [phone] Brina Tse 08/13/2025 3:00 PM EST [facility] Home [facility] / [facility] [place] [facility] [address] [place] [address] Flavia Acuña 08/14/2025 9:00 AM EST [facility] Home [facility] / [facility] [place] [facility] [address] [place] [phone] Flavia Acuña 08/14/2025 3:00 PM EST [facility] Home [facility] / [facility] [place] [facility] [address] [place] [phone] Flavia Acuña 08/15/2025 10:00 AM EST [facility] Home [facility] / [facility] [place] [facility] [address] [place] [phone] Grace Kessler 08/15/2025 3:00 PM EST [facility] Home [facility] / [facility] [place] [facility] [address] [place] [phone] Grace Kessler 08/18/2025 9:00 AM EST [facility] Home [facility] / [facility] [place] [facility] [address] [place] [phone] Flavia Acuña 08/18/2025 3:00 PM EST P[facility] Home [facility] / [facility] [place] [facility] [address] [place] [phone] Flavia Acuña 08/19/2025 9:00 AM EST [facility] Home [facility] / [facility] [place] [facility] [address] [place] [phone] Flavia Acuña 08/19/2025 11:00 AM EST Clinical Support [facility] [address] [place] [address] 08/19/2025 3:00 PM EST [facility] Home [facility] / [facility] [place] [facility] [address] [place] [phone] Flavia Acuña 08/20/2025 11:30 AM EST [facility] Home [facility] / [facility] [place] [facility] [address] [place] [phone] Brina Tse 08/20/2025 3:00 PM EST [facility] Home [facility] / [facility] [place] [facility] [address] [place] [phone] Flavia Acuña 08/21/2025 9:00 AM EST [facility] Home [facility] / [facility] [place] [facility] [address] [place] [phone] Flavia Acuña 08/21/2025 3:00 PM EST [facility] Home [facility] / [facility] [place] [facility] [address] [place] [phone] Flavia Acuña 08/22/2025 10:00 AM EST [facility] Home [facility] / [facility] [place] [facility] [address] [place] [phone] Grace Kessler 08/22/2025 3:00 PM EST [facility] Home [facility] / [facility] [place] [facility] [address] [place] [address] Grace Kessler 08/25/2025 9:00 AM EST [facility] Home [facility] / [facility] [place] [facility] [address] [place] [address] Flavia Acuña 08/25/2025 3:00 PM EST [facility] Home [facility] / [facility] [place] [facility] [address] [place] [address] Flavia Acuña 08/26/2025 9:00 AM EST [facility] Home [facility] / [facility] [place] [facility] [address] [place] [phone] Flavia Acuña 08/26/2025 3:00 PM EST [facility] Home [facility] / [facility] [place] [facility] [address] [place] [phone] Flavia Acuña 08/27/2025 11:30 AM EST [facility] Home [facility] / [facility] [place] [facility] [address] [place] [phone] Brina Tse 08/27/2025 3:00 PM EST [facility] / [facility] [place] [facility] [address] [place] [address] Flavia Acuña 08/28/2025 9:00 AM EST [facility] / [facility] [place] [facility] [address] [place] [phone] Flavia Acuña 08/28/2025 3:00 PM EST [facility] Home [facility] / [facility] [place] [facility] [address] [place] [address] [place] [address] Flavia Acuña 08/29/2025 10:00 AM EST [facility] Home [facility] / [facility] [place] [facility] [address] [place] [address] Grace Kessler 08/29/2025 3:00 PM EST [facility] / [facility] [place] [facility] [address] [place] [address] Grace Kessler 09/01/2025 9:00 AM EST [facility] / [facility] [place] [facility] [address] [place] [phone] Flavia Acuña 09/01/2025 3:00 PM EST [facility] / [facility] [place] [facility] [address] [place] [phone] Flavia Acuña 09/02/2025 9:00 AM EST [facility] / [facility] [place] [facility] [address] [place] [phone] Flavia Acuña 09/02/2025 3:00 PM EST [facility] / [facility] [place] [facility] [address] [place] [phone] Flavia Acuña 09/03/2025 11:30 AM EST [facility] / [facility] [place] [facility] [address] [place] [phone] Brina Tse 09/03/2025 3:00 PM EST [facility] Home [facility] / [facility] [place] [facility] [address] [place] [address] Flavia Acuña 09/04/2025 9:00 AM EST [facility] / [facility] [place] [facility] [address] [place] [phone] Flavia Acuña 09/04/2025 3:00 PM EST P[facility] Home [facility] / [facility] [place] [facility] [address] [place] [phone] Flavia Acuña 09/05/2025 10:00 AM EST PACE Home [facility] / [facility] [place] [facility] [address] [place] [phone] Grcae Kessler 09/05/2025 3:00 PM EST [facility] Home [facility] / [facility] [place] [facility] [address] [place] [phone] Grace Kessler 02/27/2026 9:45 AM EDT [facility] [place] [address] [place] [phone] documented as of this encounter Visit Diagnoses Diagnosis Hard of hearing Unspecified hearing loss documented in this encounter Orders PACE Service Orderables Count Last Ordered Date First Ordered Date [facility] 1 06/27/2025 documented in this encounter Care Teams Strap Stitcher Relationship Specialty Start Date End Date Antonio Esquivel MD [address] [place] [address] PCP - General Geriatric Medicine 06/30/25 documented as of this encounter
--- OUTSIDE RECORDS SUMMARY | 2025-07-09 12:00 | XMS_ITS | Encounter Summary ---
Author Organization [facility] [address] Care Team Providers Care Diabetes Education Coordinator Name Role Phone Antonio Esquivel MD Primary Care Provider [phone] Reason for Referral * Consultation (Routine) - Authorized Specialty Diagnoses / Procedures Referred By Contac t Referred To Contact [facility] Diagnoses S/P right hip fracture Patrizia Mariscal NP [address] [address] Phone: tel: fax: [facility] [employer] [facility] [address] [place] [address] Referral ID Status Reason Start Date Expiration Date Visits Requested Visits Authorized [id number] Authorized Co-Managemen t of Problem 06/27/2026 1 1 Encounter Details Date Type Department Care Team (Latest Contact Info) Description 06/27/2025 [facility] [address] [place] [id number] Marguerite Higginbotham, RN S/P right hip fracture (Primary Dx) Social History Tobacco Use Types Packs/Day Years [...] [place] [facility] [address] [place] [phone] Flavia Acuña 07/14/2025 3:00 PM EDT PACE Home Care / [facility] [place] [facility] [address] [place] [phone] Flavia Acuña 07/15/2025 9:00 AM EDT PACE Home Care / [facility] [place] [facility] [address] [place] [phone] Flavia Acuña 07/15/2025 10:30 AM EDT Clinical Support [facility] [place] [address] [place] [phone] 07/15/2025 3:00 PM EDT PACE Home Care / [facility] [place] [facility] [address] [place] [phone] Flavia Acuña 07/16/2025 3:00 PM EDT PACE Home Care / [facility] [place] [facility] [address] [place] [phone] Flavia Acuña 07/17/2025 9:00 AM EDT PACE Home Care / [facility] [place] [facility] [address] [place] [phone] Flavia Acuña 07/17/2025 2:00 PM EDT PACE Home Care / [facility] [place] [facility] [address] [place] [phone] Flavia Acuña 07/18/2025 10:00 AM EDT PACE Home Care / [facility] [place] [facility] 200 [place] [address] Grace Kessler 07/18/2025 12:00 PM EDT Office Visit [facility] 200 [place] [address] Patrizia Mariscal, SAUL [address] [address] 07/18/2025 3:00 PM EDT PACE Home Care / [facility] 200 [place] [address] Grace Kessler 07/21/2025 9:00 AM EST P[facility] Home Care / [facility] [place] [facility] [address] [place] [phone] Flavia Acuña 07/21/2025 3:00 PM EST PACE Home Care / [facility] [place] [facility] [address] [place] [phone] Flavia Acuña 07/22/2025 9:00 AM EST PACE Home Care / [facility] [place] [facility] [address] [place] [phone] Flavia Acuña 07/22/2025 10:00 AM EST Clinical Support [facility] [place] 200 [place] [address] 07/22/2025 3:00 PM EST PACE Home Care / [facility] [place] [facility] 200 [place] [address] Flavia Acuña 07/23/2025 11:30 AM EST PACE Home Care / [facility] [place] [facility] 200 [place] [address] Brina Tse 07/23/2025 3:00 PM EST PACE Home Care / [facility] [address] [place] [address] Flavia Acuña 07/24/2025 9:00 AM EST PACE Home Care / [facility] Home Visit [facility] [place] [facility] [address] [place] [address] Flavia Acuña 07/24/2025 11:00 AM EST [facility] [place] [facility] [address] [place] [address] Patrizia Mariscal NP [address] [address] 07/24/2025 3:00 PM EST PACE Home Care / [facility] Home [facility] [place] [facility] [address] [place] [phone] Flavia Acuña 07/25/2025 10:00 AM EST Clinical Support [facility] [place] 200 [place] [address] 07/25/2025 3:00 PM EST PACE Home Care / [facility] [place] [facility] [address] [place] [address] Grace Kessler 07/28/2025 9:00 AM EST PACE Home Care / [facility] Home [facility] [place] [facility] [address] [place] [phone] Flavia Acuña 07/28/2025 3:00 PM EST PACE Home Care / [facility] [place] [facility] [address] [place] [address] Flavia Acuña 07/29/2025 9:00 AM EST PACE Home Care / [facility] [place] [facility] [address] [place] [address] Flavia Acuña 07/29/2025 3:00 PM EST PACE Home Care / [facility] [place] [facility] [address] [place] [address] Flavia Acuña 07/30/2025 11:30 AM EST PACE Home Care / [facility] [place] [facility] [address] [place] [phone] Brina Tse 07/30/2025 3:00 PM EST PACE Home Care / [facility] [place] [facility] [address] [place] [phone] Flavia Acuña 07/31/2025 9:00 AM EST PACE Home Care / [facility] [place] [facility] [address] [place] [phone] Flavia Acuña 07/31/2025 3:00 PM EST PACE Home Care / [facility] [place] [facility] [address] [place] [phone] Flavia Acuña 08/01/2025 10:00 AM EST PACE Home Care / [facility] [place] [facility] [address] [place] [phone] Grace Kessler 08/01/2025 3:00 PM EST PACE Home Care / [facility] [place] [facility] [address] [place] [phone] Grace Kessler 08/04/2025 9:00 AM EST PACE Home Care / [facility] Visit [facility] [place] [facility] [address] [place] [phone] Flavia Acuña 08/04/2025 3:00 PM EST PACE Home Care / [facility] [place] [facility] [address] [place] [phone] Flavia Acuña 08/05/2025 9:00 AM EST PACE Home Care / [facility] [place] [facility] [address] [place] [phone] Flavia Acuña 08/05/2025 3:00 PM EST PACE Home Care / [facility] [place] [facility] [address] [place] [phone] Flavia Acuña 08/06/2025 10:45 AM EST Clinical Support [facility] [place] [address] [place] [phone] 08/06/2025 11:30 AM EST PACE Home Care / [facility] Visit [facility] [place] [facility] [address] [place] [phone] Brina Tse 08/06/2025 3:00 PM EST PACE Home Care / [facility] [place] [facility] [address] [place] [phone] Flavia Acuña 08/07/2025 9:00 AM EST PACE Home Care / [facility] [place] [facility] [address] [place] [phone] Flavia Acuña 08/07/2025 3:00 PM EST PACE Home Care / [facility] [place] [facility] [address] [place] [phone] Flavia Acuña 08/08/2025 10:00 AM EST PACE Home Care / [facility] [place] [facility] [address] [place] [phone] Grace Kessler 08/08/2025 3:00 PM EST PACE Home Care / [facility] Visit [facility] [place] [facility] [address] [place] [address] Grace Kessler 08/11/2025 9:00 AM EST PACE Home Care / [facility] [place] [facility] [address] [place] [address] Flavia Acuña 08/11/2025 3:00 PM EST PACE Home Care / [facility] [place] [facility] [address] [place] [phone] Flavia Acuña 08/12/2025 9:00 AM EST PACE Home Care / [facility] [place] [facility] [address] [place] [phone] Flavia Acuña 08/12/2025 3:00 PM EST PACE Home Care / [facility] [place] [facility] [address] [place] [phone] Flavia Acuña 08/13/2025 11:30 AM EST PACE Home Care / [facility] [place] [facility] [address] [place] [phone] Brina Tse 08/13/2025 3:00 PM EST PACE Home Care / [facility] [place] [facility] [address] [place] [phone] Flavia Acuña 08/14/2025 9:00 AM EST PACE Home Care / [facility] [place] [facility] [address] [place] [phone] Flavia Acuña 08/14/2025 3:00 PM EST PACE Home Care / [facility] [place] [facility] [address] [place] [phone] Flavia Acuña 08/15/2025 10:00 AM EST PACE Home Care / [facility] Visit [facility] [place] [facility] [address] [place] [address] Grace Kessler 08/15/2025 3:00 PM EST PACE Home Care / [facility] Visit [facility] [place] [facility] [address] [place] [address] Grace Kessler 08/18/2025 9:00 AM EST PACE Home Care / [facility] [place] [facility] [address] [place] [phone] Flavia Acuña 08/18/2025 3:00 PM EST PACE Home Care / [facility] [place] [facility] [address] [place] [phone] Flavia Acuña 08/19/2025 9:00 AM EST PACE Home Care / [facility] [place] [facility] [address] [place] [phone] Flavia Acuña 08/19/2025 11:00 AM EST Clinical Support [facility] [place] [address] [place] [address] 08/19/2025 3:00 PM EST PACE Home Care / [facility] [place] [facility] [address] [place] [address] Flavia Acuña 08/20/2025 11:30 AM EST PACE Home Care / [facility] [place] [facility] [address] [place] [phone] Brina Tse 08/20/2025 3:00 PM EST PACE Home Care / [facility] [place] [facility] [address] [place] [phone] Flavia Acuña 08/21/2025 9:00 AM EST PACE Home Care / [facility] [place] [facility] [address] [place] [address] Flavia Acuña 08/21/2025 3:00 PM EST PACE Home Care / [facility] [place] [facility] [address] [place] [address] Flavia Acuña 08/22/2025 10:00 AM EST PACE Home Care / [facility] [place] [facility] [address] [place] [address] Grace Kessler 08/22/2025 3:00 PM EST PACE Home Care / [facility] [place] [facility] [address] [place] [phone] Grace Kessler 08/25/2025 9:00 AM EST PACE Home Care / [facility] [place] [facility] [address] [place] [phone] Flavia Acuña 08/25/2025 3:00 PM EST PACE Home Care / [facility] Visit [facility] [place] [facility] [address] [place] [phone] Flavia Acuña 08/26/2025 9:00 AM EST PACE Home Care / [facility] [place] [facility] [address] [place] [phone] Flavia Acuña 08/26/2025 3:00 PM EST PACE Home Care / [facility] Visit [facility] [place] [facility] [address] [place] [phone] Flavia Acuña 08/27/2025 11:30 AM EST PACE Home Care / [facility] [place] [facility] [address] [place] [phone] AnaColin lewisah 08/27/2025 3:00 PM EST PACE Home Care / [facility] [place] [facility] [address] [place] [address] Flavia Acuña 08/28/2025 9:00 AM EST PACE Home Care / [facility] [place] [facility] [address] [place] [address] Flavia Acuña 08/28/2025 3:00 PM EST PACE Home Care / [facility] [place] [facility] [address] [place] [address] Flavia Acuña 08/29/2025 10:00 AM EST PACE Home Care / [facility] [place] [facility] [address] [place] [address] Grace Kessler 08/29/2025 3:00 PM EST PACE Home Care / [facility] [place] [facility] [address] [place] [address] Grace Kessler 09/01/2025 9:00 AM EST PACE Home Care / [facility] [place] [facility] [address] [place] [address] Flavia Acuña 09/01/2025 3:00 PM EST PACE Home Care / [facility] [place] [facility] [address] [place] [address] Flavia Acuña 09/02/2025 9:00 AM EST PACE Home Care / [facility] [place] [facility] [address] [place] [address] Flavia Acuña 09/02/2025 3:00 PM EST PACE Home Care / [facility] [place] [facility] [address] [place] [address] Flavia Acuña 09/03/2025 11:30 AM EST PACE Home Care / [facility] [place] [facility] [address] [place] [phone] Brina Tse 09/03/2025 3:00 PM EST PACE Home Care / [facility] [place] [facility] [address] [place] [phone] Flavia Acuña 09/04/2025 9:00 AM EST PACE Home Care / [facility] Visit [facility] [place] [facility] [address] [place] [phone] Flavia Acuña 09/04/2025 3:00 PM EST PACE Home Care / [facility] Visit [facility] [place] [facility] [address] [place] [phone] Flavia Acuña 09/05/2025 10:00 AM EST PACE Home Care / [facility] Visit [facility] [place] [facility] [address] [place] [phone] Grace Kessler 09/05/2025 3:00 PM EST PACE Home Care / [facility] Home Visit [facility] [address] [place] [phone] Grace Kessler 02/27/2026 9:45 AM EDT PACE External Visit [facility] [place] [address] [place] [phone] Scheduled Referrals Name Type Priority Associated Diagnoses Orde r Schedule PACE Admisssion Outpatient Referral Routine S/P right hip fracture Ordered: 06/27/2025 documented as of this encounter Visit Diagnoses Diagnosis S/P right hip fracture- Primary documented in this encounter Care Teams Diabetes Education Coordinator Relationship Specialty Start Date End Date Antonio Esquivel MD [address] [place] [address] PCP - General Geriatric Medicine 06/30/25 documented as of this encounter
--- OUTSIDE RECORDS SUMMARY | 2025-07-09 12:00 | XMS_ITS | Encounter Summary ---
Author Organization [facility] [place] [address] Care Team Providers Care Escrow Manager Name Role Phone Antonio Esquivel MD Primary Care Provider Encounter Details Date Type Department Care Team (Late st Contact Info) Description 06/30/2025 Lab Requisition [facility] - Main Lab [address] [place] [address] Antonio Esquivel MD [address] [place] [address] Urinary tract infection, site not specified; Hyperlipidemia, unspecified; Essential (primary) hypertension Social History Tobacco Use Types Packs/Day Years [...] [facility] / [facility] [place] [facility] [address] [place] [address] Flavia Acuña 07/14/2025 3:00 PM EDT PACE Home Care / [facility] Home [place] [facility] [place] [facility] [address] [place] [address] Flavia Acuña 07/15/2025 9:00 AM EDT PACE Home Care / [place] [facility] [place] [facility] [place] [facility] [address] [place] [phone] Flavia Acuña 07/15/2025 10:30 AM EDT Clinical Support [facility] [place] [address] [place] [address] 07/15/2025 3:00 PM EDT PACE Home Care / [place] [facility] [place] [facility] [place] [facility] [address] [place] [phone] Flavia Acuña 07/16/2025 3:00 PM EDT PACE Home Care / [place] [facility] [place] [facility] [place] [facility] [address] [place] [phone] Flavia Acuña 07/17/2025 9:00 AM EDT PACE Home Care / [facility] [facility] [place] [facility] [place] [facility] [address] [place] [phone] Flavia Acuña 07/17/2025 2:00 PM EDT PACE Home Care / [facility] [facility] [place] [facility] [place] [facility] [address] [place] [phone] Flavia Acuña 07/18/2025 10:00 AM EDT PACE Home Care / [place] [facility] [place] [facility] [place] [facility] [address] [place] [phone] Grace Kessler 07/18/2025 12:00 PM EDT [place] [facility] [place] [facility] [address] [place] [phone] Patrizia Mariscal, SAUL 200 [facility] [place] [address] [place] [address] 07/18/2025 3:00 PM EDT PACE Home Care / [place] [facility] [place] [facility] [place] [facility] [address] [place] [address] Grace Kessler 07/21/2025 9:00 AM EST PACE Home Care / [facility] [facility] [place] [facility] [place] [facility] [address] [place] [address] Flavia Acuña 07/21/2025 3:00 PM EST PACE Home Care / [facility] [place] [facility] [place] [facility] [address] [place] [address] Flavia Acuña 07/22/2025 9:00 AM EST PACE Home Care / [place] [facility] [place] [facility] [place] [facility] [address] [place] [address] Flavia Acuña 07/22/2025 10:00 AM EST Clinical Support [facility] [place] [address] [place] [address] 07/22/2025 3:00 PM EST PACE Home Care / [facility] [facility] [place] [facility] [place] [facility] [address] [place] [phone] Flavia Acuña 07/23/2025 11:30 AM EST PACE Home Care / [facility] [place] [facility] [address] [place] [phone] Brina Tse 07/23/2025 3:00 PM EST PACE Home Care / [place] [facility] [place] [facility] [place] [facility] [address] [place] [phone] Flavia Acuña 07/24/2025 9:00 AM EST PACE Home Care / [place] Home [place] [facility] [place] [facility] [address] [place] [address] Flavia Acuña 07/24/2025 11:00 AM EST [facility] [place] [facility] [place] [facility] [address] [place] [address] Patrizia Mariscal, SAUL [address] [address] 07/24/2025 3:00 PM EST PACE Home Care / [place] [facility] [place] [facility] [address] [place] [address] Flavia Acuña 07/25/2025 10:00 AM EST Clinical Support [facility] [place] [address] [place] [address] 07/25/2025 3:00 PM EST PACE Home Care / [place] [facility] [place] [facility] [address] [place] [phone] Grace Kessler 07/28/2025 9:00 AM EST PACE Home Care / [place] [facility] [place] [facility] [address] [place] [phone] Flavia Acuña 07/28/2025 3:00 PM EST PACE Home Care / [place] [facility] [place] [facility] [address] [place] [phone] Flavia Acuña 07/29/2025 9:00 AM EST PACE Home Care / [place] [facility] [place] [facility] [address] [place] [phone] Flavia Acuña 07/29/2025 3:00 PM EST PACE Home Care / [place] [facility] [place] [facility] [address] [place] [phone] Flavia Acuña 07/30/2025 11:30 AM EST PACE Home Care / [place] [facility] [place] [facility] [address] [place] [phone] Anadebbie Brina 07/30/2025 3:00 PM EST PACE Home Care / [place] [facility] [place] [facility] [place] [facility] [address] [place] [phone] Flavia Acuña 07/31/2025 9:00 AM EST PACE Home Care / [place] [facility] [place] [facility] [address] [place] [phone] Flavia Acuña 07/31/2025 3:00 PM EST PACE Home Care / [place] [facility] [place] [facility] [address] [place] [phone] Flavia Acuña 08/01/2025 10:00 AM EST PACE Home Care / [place] [facility] [place] [facility] [address] [place] [phone] Grace Kessler 08/01/2025 3:00 PM EST PACE Home Care / [place] [facility] [place] [facility] [address] [place] [phone] Grace Kessler 08/04/2025 9:00 AM EST PACE Home Care / [place] [facility] [place] [facility] [address] [place] [phone] Flavia Acuña 08/04/2025 3:00 PM EST PACE Home Care / [place] [facility] [place] [facility] [place] [facility] [address] [place] [phone] Flavia Acuña 08/05/2025 9:00 AM EST PACE Home Care / [place] [facility] [place] [facility] [address] [place] [phone] Flavia Acuña 08/05/2025 3:00 PM EST PACE Home Care / [place] [facility] [place] [facility] [address] [place] [phone] Flavia Acuña 08/06/2025 10:45 AM EST Clinical Support [facility] [place] [address] [place] [address] 08/06/2025 11:30 AM EST PACE Home Care / [place] [facility] [place] [facility] [address] [place] [phone] Brina Tse 08/06/2025 3:00 PM EST PACE Home Care / [place] [facility] [place] [facility] [place] [facility] [address] [place] [phone] Flavia Acuña 08/07/2025 9:00 AM EST PACE Home Care / [place] [facility] [place] [facility] [address] [place] [phone] Flavia Acuña 08/07/2025 3:00 PM EST PACE Home Care / [place] [facility] [place] [facility] [address] [place] [phone] Flavia Acuña 08/08/2025 10:00 AM EST PACE Home Care / [place] [facility] [place] [facility] [place] [facility] [address] [place] [phone] Grace Kessler 08/08/2025 3:00 PM EST PACE Home Care / [place] [facility] [place] [facility] [address] [place] [phone] Grace Kessler 08/11/2025 9:00 AM EST PACE Home Care / [place] [facility] [place] [facility] [place] [facility] [address] [place] [phone] Flavia Acuña 08/11/2025 3:00 PM EST PACE Home Care / [place] [facility] [place] [facility] [place] [facility] [address] [place] [address] Flavia Acuña 08/12/2025 9:00 AM EST PACE Home Care / [place] [facility] [place] [facility] [address] [place] [address] Flavia Acuña 08/12/2025 3:00 PM EST PACE Home Care / [place] [facility] [place] [facility] [address] [place] [phone] Flavia Acuña 08/13/2025 11:30 AM EST PACE Home Care / [place] [facility] [place] [facility] [address] [place] [phone] Brina Tse 08/13/2025 3:00 PM EST PACE Home Care / [place] [facility] [place] [facility] [address] [place] [phone] Flavai Acuña 08/14/2025 9:00 AM EST PACE Home Care / [place] [facility] [place] [facility] [address] [place] [phone] Flavia Acuña 08/14/2025 3:00 PM EST PACE Home Care / [place] [facility] [place] [facility] [address] [place] [phone] Flavia Acuña 08/15/2025 10:00 AM EST PACE Home Care / [place] [facility] [place] [facility] [address] [place] [phone] Grace Kessler 08/15/2025 3:00 PM EST PACE Home Care / [place] [facility] [place] [facility] [address] [place] [phone] Grace Kessler 08/18/2025 9:00 AM EST PACE Home Care / [place] [facility] [place] [facility] [place] [facility] [address] [place] [phone] Flavia Acuña 08/18/2025 3:00 PM EST PACE Home Care / [place] [facility] [place] [facility] [address] [place] [phone] Flavia Acuña 08/19/2025 9:00 AM EST PACE Home Care / [place] [facility] [place] [facility] [address] [place] [phone] Flavia Acuña 08/19/2025 11:00 AM EST Clinical Support [facility] [place] [address] [place] [phone] 08/19/2025 3:00 PM EST PACE Home Care / [place] [facility] [place] [facility] [address] [place] [phone] Flavia Acuña 08/20/2025 11:30 AM EST PACE Home Care / [place] [facility] [place] [facility] [address] [place] [phone] Brina Tse 08/20/2025 3:00 PM EST PACE Home Care / [place] [facility] [place] [facility] [address] [place] [phone] Flavia Acuña 08/21/2025 9:00 AM EST PACE Home Care / [place] [facility] [place] [facility] [place] [facility] [address] [place] [phone] Flavia Acuña 08/21/2025 3:00 PM EST PACE Home Care / [place] [facility] [place] [facility] [place] [facility] [address] [place] [phone] Flavia Acuña 08/22/2025 10:00 AM EST PACE Home Care / [place] [facility] [place] [facility] [place] [facility] [address] [place] [address] Grace Kessler 08/22/2025 3:00 PM EST PACE Home Care / [place] [facility] [place] [facility] [address] [place] [address] Grace Kessler 08/25/2025 9:00 AM EST PACE Home Care / [place] [facility] [place] [facility] [address] [place] [phone] Flavia Acuña 08/25/2025 3:00 PM EST PACE Home Care / [place] [facility] [place] [facility] [address] [place] [phone] Flavia Acuña 08/26/2025 9:00 AM EST PACE Home Care / [place] [facility] [place] [facility] [address] [place] [phone] Flavia Acuña 08/26/2025 3:00 PM EST PACE Home Care / [place] [facility] [place] [facility] [address] [place] [phone] Flavia Acuña 08/27/2025 11:30 AM EST PACE Home Care / [place] [facility] [place] [facility] [address] [place] [phone] Brina Tse 08/27/2025 3:00 PM EST PACE Home Care / [place] [facility] [place] [facility] [address] [place] [phone] Flavia Acuña 08/28/2025 9:00 AM EST PACE Home Care / [place] [facility] [place] [facility] [address] [place] [phone] Flavia Acuña 08/28/2025 3:00 PM EST PACE Home Care / [place] [facility] [place] [facility] [address] [place] [address] Flavia Acuña 08/29/2025 10:00 AM EST PACE Home Care / [place] [facility] [place] [facility] [address] [place] [phone] Grace Kessler 08/29/2025 3:00 PM EST PACE Home Care / [place] [facility] [place] [facility] [address] [place] [address] Grace Kessler 09/01/2025 9:00 AM EST PACE Home Care / [place] [facility] [place] [facility] [address] [place] [address] Flavia Acuña 09/01/2025 3:00 PM EST PACE Home Care / [place] [facility] [place] [facility] [address] [place] [address] Flavia Acuña 09/02/2025 9:00 AM EST PACE Home Care / [place] [facility] [place] [facility] [address] [place] [address] Flavia Acuña 09/02/2025 3:00 PM EST PACE Home Care / [place] [facility] [place] [facility] [address] [place] [address] Flavia Acuña 09/03/2025 11:30 AM EST PACE Home Care / [place] [facility] [place] [facility] [address] [place] [phone] Brina Tse 09/03/2025 3:00 PM EST PACE Home Care / [place] [facility] [place] [facility] [address] [place] [address] Flavia Acuña 09/04/2025 9:00 AM EST PACE Home Care / [facility] [place] [facility] [place] [facility] [address] [place] [phone] Flavia Acuña 09/04/2025 3:00 PM EST PACE Home Care / [place] [facility] [place] [facility] [address] [place] [phone] Flavia Acuña 09/05/2025 10:00 AM EST PACE Home Care / [place] [facility] [place] [facility] [address] [place] [phone] Grace Kessler 09/05/2025 3:00 PM EST PACE Home Care / [place] [facility] [place] [facility] [address] [place] [phone] Grace Kessler 02/27/2026 9:45 AM EDT PACE External Visit [facility] [place] [address] [place] [address] documented as of this encounter Procedures Procedure Name Priority Date/Time Associated Diagnosis Comments COMPLETE BLOOD COUNT Routine 06/30/2025 5:07 AM EDT Urinary tract infection, site not specified Hyperlipidemia, unspecified Essential (primary) hypertension COMPREHENSIVE METABOLIC PANEL Routine 06/30/2025 5:07 AM EDT Urinary tract infection, site not specified Hyperlipidemia, unspecified Essential (primary) hypertension documented in this encounter Results * (ABNORMAL) Comprehensive metabolic panel (06/30/2025 5:07 AM EDT) [facility] Sodium 138 133 - 145 mmol/L LAB CHEMISTRY METHOD 06/30/2025 10:34 AM EDT [facility] Potassium 3.7 3.5 - 5.5 mmol/L LAB CHEMISTRY METHOD 06/30/2025 10:34 AM [facility] Chloride 102 96 - 110 mmol/L LAB CHEMISTRY METHOD 06/30/2025 10:34 AM [facility] CO2 28 21 - 32 mmol/L LAB CHEMISTRY METHOD 06/30/2025 10:34 AM [facility] Anion Gap 8 3 - 11 LAB CHEMISTRY METHOD 06/30/2025 10:34 AM [facility] Glucose 83 70 - 100 mg/dL LAB CHEMISTRY METHOD 06/30/2025 10:34 AM [facility] BUN 17 5 - 25 mg/dL LAB CHEMISTRY METHOD 06/30/2025 10:34 AM [facility] Creatinine 0.40(L) 0.50 - 1.10 mg/dL LAB CHEMISTRY METHOD 06/30/2025 10:34 AM [facility] eGFR 97 >=60 mL/min/1. 73m2 LAB CHEMISTRY METHOD 06/30/2025 10:34 AM [facility] Comment:Calculation based on the Chronic Kidney Disease Epidemiology Collaboration (CKD-EPI) equation refit without adjustment for race. BUN/Creatinine Ratio 42.5 LAB CHEMISTRY METHOD 06/30/2025 10:34 AM [facility] Calcium 8.2(L) 8.5 - 10.5 mg/dL LAB CHEMISTRY METHOD 06/30/2025 10:34 AM [facility] AST (SGOT) 29 10 - 42 unit/L LAB CHEMISTRY METHOD 06/30/2025 10:34 AM [facility] ALT (SGPT) 21 10 - 60 unit/L LAB CHEMISTRY METHOD 06/30/2025 10:34 AM [facility] Alkaline Phosphatase 54 42 - 121 unit/L LAB CHEMISTRY METHOD 06/30/2025 10:34 AM [facility] Total Protein 5.7(L) 6.0 - 8.0 g/dL LAB CHEMISTRY METHOD 06/30/2025 10:34 AM EDT [facility] Albumin 2.2(L) 3.2 - 5.0 g/dL LAB CHEMISTRY METHOD 06/30/2025 10:34 AM [facility] Total Bilirubin 0.3 0.0 - 1.4 mg/dL LAB CHEMISTRY METHOD 06/30/2025 10:34 AM [facility] Blood Venous blood specimen / Unknown Venipuncture / Unknown 06/30/2025 5:07 AM EDT 06/30/2025 9:40 AM EDT us Antonio Esquivel MD LAB BLOOD ORDERABLES Final Resul t [facility] [address] [place] [address], * (ABNORMAL) Complete blood count (06/30/2025 5:07 AM EDT) WBC 5.1 4.8 - 10.8 K/mcL LAB HEMETOLOGY METHOD 06/30/2025 10:07 AM [facility] RBC 3.10(L) 3.80 - 4.80 M/mcL LAB HEMETOLOGY METHOD 06/30/2025 10:07 AM [facility] Hemoglobin 9.5(L) 11.5 - 16.0 g/dL LAB HEMETOLOGY METHOD 06/30/2025 10:07 AM [facility] Hematocrit 29.1(L) 35.0 - 47.0 % LAB HEMETOLOGY METHOD 06/30/2025 10:07 AM [facility] MCV 93.6 79.0 - 98.0 FL LAB HEMETOLOGY METHOD 06/30/2025 10:07 AM [facility] MCH 30.5 27.0 - 32.0 pcg LAB HEMETOLOGY METHOD 06/30/2025 10:07 AM EDT [facility] MCHC 32.6 32.0 - 37.0 g/dL LAB HEMETOLOGY METHOD 06/30/2025 10:07 AM EDT [facility] RDW 12.7 11.0 - 15.0 % LAB HEMETOLOGY METHOD 06/30/2025 10:07 AM EDT [facility] Platelets 314 130 - 400 K/mcL LAB HEMETOLOGY METHOD 06/30/2025 10:07 AM EDT [facility] MPV 9.2 7.0 - 11.0 FL LAB HEMETOLOGY METHOD 06/30/2025 10:07 AM EDT [facility] NRBC 0.0 <1.0 % LAB HEMETOLOGY METHOD 06/30/2025 10:07 AM EDT [facility] NRBC Absolute 0.00 <0.10 K/mcL LAB HEMETOLOGY METHOD 06/30/2025 10:07 AM EDT [facility] Blood Venous blood specimen / Unknown Venipuncture / Unknown 06/30/2025 5:07 AM EDT 06/30/2025 9:40 AM EDT us Antonio Esquivel MD LAB BLOOD ORDERABLES Final Resul t [facility] [address] [place] [address], documented in this encounter Visit Diagnoses Diagnosis Urinary tract infection, site not specified Hyperlipidemia, unspecified Essential (primary) hypertension Unspecified essential hypertension documented in this encounter Care Teams Escrow Manager Relationship Specialty Start Date End Date Antonio Esquivel MD [address] [place] [id number] PCP - General Geriatric Medicine 06/30/25 documented as of this encounter
--- OUTSIDE RECORDS SUMMARY | 2025-07-09 12:00 | XMS_ITS | Encounter Summary ---
Author Organization [facility] [place] [address] Care Team Providers Care Sole Molding Machine Operator Name Role Phone Antonio Esquivel MD Primary Care Provider [phone] Encounter Details Date Type Department Care Team (Late st Contact Info) Description 01/28/2025 [facility] [address] [place] [phone] Beverly Lebron RN Social History Tobacco Use [...] [facility] [address] [place] [phone] Flavia Acuña 07/14/2025 3:00 PM EDT P[facility] Home [facility] / [facility] [address] [place] [phone] Flavia Acñua 07/15/2025 9:00 AM EDT [facility] Home [facility] / [facility] [address] [place] [phone] Flavia Acuña 07/15/2025 10:30 AM EDT Clinical Support [facility] [address] [place] [address] 07/15/2025 3:00 PM EDT PACE Home Care / [facility] [address] [place] [phone] Flavia Acuña 07/16/2025 3:00 PM EDT PACE Home Care / [facility] [address] [place] [phone] Flavia Acuña 07/17/2025 9:00 AM EDT [facility] Home [facility] / [facility] [address] [place] [phone] Flavia Acuña 07/17/2025 2:00 PM EDT [facility] Home [facility] / [facility] [address] [place] [phone] Flavia Acuña 07/18/2025 10:00 AM EDT [facility] Home [facility] / [facility] [address] [place] [phone] Grace Kessler 07/18/2025 12:00 PM EDT [facility] [address] [place] [phone] Patrizia Mariscal NP [address] [address] 07/18/2025 3:00 PM EDT [facility] Home [facility] / [facility] [address] [place] [phone] Grace Kessler 07/21/2025 9:00 AM EST [facility] / [facility] [address] [place] [phone] Flavia Acuña 07/21/2025 3:00 PM EST [facility] Home [facility] / [facility] [address] [place] [phone] Flavia Acuña 07/22/2025 9:00 AM EST [facility] Home [facility] / [facility] [address] [place] [phone] Flavia Acuña 07/22/2025 10:00 AM EST Clinical Support [facility] [address] [place] [phone] 07/22/2025 3:00 PM EST [facility] Home [facility] / [facility] [address] [place] [phone] Flavia Acuña 07/23/2025 11:30 AM EST [facility] Home [facility] / [facility] [address] [place] [phone] Brina Tse 07/23/2025 3:00 PM EST [facility] Home [facility] / [facility] [address] [place] [phone] Flavia Acuña 07/24/2025 9:00 AM EST [facility] Home [facility] / [facility] [address] [place] [phone] Flavia Acuña 07/24/2025 11:00 AM EST [facility] [address] [place] [phone] Patrizia Mariscal, SAUL 200 [facility] [address] [place] [address] 07/24/2025 3:00 PM EST PACE Home Care / [facility] [address] [place] [address] Flavia Acuña 07/25/2025 10:00 AM EST Clinical Support [facility] [address] [place] [address] 07/25/2025 3:00 PM EST [facility] Home [facility] / [facility] [address] [place] [address] Grace Kessler 07/28/2025 9:00 AM EST [facility] Home [facility] / [facility] [address] [place] [address] Flavia Acuña 07/28/2025 3:00 PM EST [facility] Home [facility] [address] [place] [phone] Flavia Acuña 07/29/2025 9:00 AM EST [facility] Home [facility] [address] [place] [address] Flavia Acuña 07/29/2025 3:00 PM EST [facility] Home [facility] / [facility] [address] [place] [phone] Flavia Acuña 07/30/2025 11:30 AM EST [facility] Home [facility] / [facility] [address] [place] [address] Brina Tse 07/30/2025 3:00 PM EST [facility] Home [facility] / [facility] [place] [facility] [address] [place] [address] Flavia Acuña 07/31/2025 9:00 AM EST [facility] Home [facility] / [facility] [address] [place] [address] Flavia Acuña 07/31/2025 3:00 PM EST [facility] Home [facility] / [facility] [address] [place] [phone] Flavia Acuña 08/01/2025 10:00 AM EST [facility] Home [facility] / [facility] [address] [place] [phone] Grace Kessler 08/01/2025 3:00 PM EST [facility] Home [facility] / [facility] [address] [place] [phone] Grace Kessler 08/04/2025 9:00 AM EST [facility] Home [facility] / [facility] [address] [place] [phone] Flavia Acuña 08/04/2025 3:00 PM EST P[facility] Home Care / [facility] [address] [place] [phone] Flavia Acuña 08/05/2025 9:00 AM EST [facility] Home Care / [facility] [place] [facility] [address] [place] [phone] Flavia Acuña 08/05/2025 3:00 PM EST [facility] Home [facility] / [facility] [place] [facility] [address] [place] [phone] Flavia Acuña 08/06/2025 10:45 AM EST Clinical Support [facility] [address] [place] [address] 08/06/2025 11:30 AM EST [facility] Home [facility] / [facility] [address] [place] [address] Brina Tse 08/06/2025 3:00 PM EST [facility] Home Care / [facility] [address] [place] [address] Flavia Acuña 08/07/2025 9:00 AM EST [facility] Home [facility] / [facility] [address] [place] [address] Flavia Acuña 08/07/2025 3:00 PM EST [facility] Home [facility] / [facility] [address] [place] [address] Flavia Acuña 08/08/2025 10:00 AM EST [facility] Home [facility] / [facility] [place] [facility] [address] [place] [phone] Grace Kessler 08/08/2025 3:00 PM EST [facility] Home [facility] / [facility] [address] [place] [phone] Grace Kessler 08/11/2025 9:00 AM EST [facility] Home [facility] / [facility] [place] [facility] [address] [place] [address] Flavia Acuña 08/11/2025 3:00 PM EST [facility] Home [facility] / [facility] [place] [facility] [address] [place] [address] Flavia Acuña 08/12/2025 9:00 AM EST [facility] Home [facility] / [facility] [place] [facility] [address] [place] [address] Flavia Acuña 08/12/2025 3:00 PM EST [facility] Home [facility] / [facility] [place] [facility] [address] [place] [address] Flavia Acuña 08/13/2025 11:30 AM EST [facility] Home [facility] / [facility] [address] [place] [address] Brina Tse 08/13/2025 3:00 PM EST [facility] Home [facility] / [facility] [address] [place] [phone] Flavia Acuña 08/14/2025 9:00 AM EST [facility] Home [facility] / [facility] [place] [facility] [address] [place] [phone] Flavia Acuña 08/14/2025 3:00 PM EST [facility] Home [facility] / [facility] [place] [facility] [address] [place] [phone] Flavia Acuña 08/15/2025 10:00 AM EST [facility] Home [facility] / [facility] [place] [facility] [address] [place] [phone] Grace Kessler 08/15/2025 3:00 PM EST P[facility] Home [facility] / [facility] [place] [facility] [address] [place] [phone] Grace Kessler 08/18/2025 9:00 AM EST [facility] Home [facility] / [facility] [address] [place] [phone] Flavia Acuña 08/18/2025 3:00 PM EST [facility] Home [facility] / [facility] [place] [facility] [address] [place] [address] Flavia Acuña 08/19/2025 9:00 AM EST [facility] Home [facility] / [facility] [place] [facility] [address] [place] [address] Flavia Acuña 08/19/2025 11:00 AM EST Clinical Support [facility] [address] [place] [address] 08/19/2025 3:00 PM EST [facility] Home [facility] / [facility] [place] [facility] [address] [place] [address] Flavia Acuña 08/20/2025 11:30 AM EST [facility] Home [facility] / [facility] [place] [facility] [address] [place] [address] Brina Tse 08/20/2025 3:00 PM EST [facility] Home [facility] / [facility] [place] [facility] [address] [place] [phone] Flavia Acuña 08/21/2025 9:00 AM EST [facility] Home [facility] / [facility] [place] [facility] [address] [place] [phone] Flavia Acuña 08/21/2025 3:00 PM EST [facility] Home [facility] / [facility] [place] [facility] [address] [place] [address] Flavia Acuña 08/22/2025 10:00 AM EST [facility] Home [facility] / [facility] [address] [place] [address] Grace Kessler 08/22/2025 3:00 PM EST [facility] Home [facility] / [facility] [place] [facility] [address] [place] [address] Grace Kessler 08/25/2025 9:00 AM EST [facility] Home [facility] / [facility] [address] [place] [address] Flavia Acuña 08/25/2025 3:00 PM EST [facility] Home [facility] / [facility] [place] [facility] [address] [place] [address] Flavia Acuña 08/26/2025 9:00 AM EST [facility] Home [facility] / [facility] [address] [place] [phone] Flavia Acuña 08/26/2025 3:00 PM EST [facility] Home [facility] / [facility] [address] [place] [phone] Flavia Acuña 08/27/2025 11:30 AM EST [facility] Home [facility] / [facility] [address] [place] [phone] Brina Tse 08/27/2025 3:00 PM EST [facility] Home [facility] / [facility] [address] [place] [phone] Flavia Acuña 08/28/2025 9:00 AM EST [facility] Home [facility] / [facility] [address] [place] [phone] Flavia Acuña 08/28/2025 3:00 PM EST P[facility] Home [facility] / [facility] [address] [place] [phone] Flavia Acuña 08/29/2025 10:00 AM EST [facility] Home [facility] / [facility] [address] [place] [address] Grace Kessler 08/29/2025 3:00 PM EST [facility] Home [facility] / [facility] [address] [place] [phone] Grace Kessler 09/01/2025 9:00 AM EST [facility] Home [facility] / [facility] [address] [place] [phone] Flavia Acuña 09/01/2025 3:00 PM EST [facility] Home [facility] / [facility] [place] [facility] [address] [place] [phone] Flavia Acuña 09/02/2025 9:00 AM EST [facility] Home [facility] / [facility] [address] [place] [phone] Flavia Acuña 09/02/2025 3:00 PM EST [facility] Home [facility] / [facility] [address] [place] [phone] Flavia Acuña 09/03/2025 11:30 AM EST [facility] Home [facility] / [facility] [address] [place] [phone] Brina Tse 09/03/2025 3:00 PM EST PACE Home [facility] / [facility] [address] [place] [phone] Flavia Acuña 09/04/2025 9:00 AM EST [facility] Home [facility] / [facility] [address] [place] [phone] Flavia Acuña 09/04/2025 3:00 PM EST PACE Home [facility] / [facility] [place] [facility] [address] [place] [phone] Flavia Acuña 09/05/2025 10:00 AM EST PACE Home [facility] / [facility] [address] [place] [phone] Grace Kessler 09/05/2025 3:00 PM EST [facility] Home [facility] / [facility] [address] [place] [phone] Grace Kessler 02/27/2026 9:45 AM EDT P[facility] External [facility] [place] [address] [place] [phone] documented as of this encounter Visit Diagnoses Not on filedocumented in this encounter Care Teams Sole Molding Machine Operator Relationship Specialty Start Date End Date Antonio Esquivel MD [address] [place] [address] PCP - General Geriatric Medicine 06/30/25 documented as of this encounter
--- OUTSIDE RECORDS SUMMARY | 2025-07-09 12:00 | XMS_ITS | Encounter Summary ---
Author Organization [facility] [place] [place] [address] Care Team Providers Care Wireless Architect Name Role Phone Antonio Esquivel MD Primary Care Provider [phone] Encounter Details Date Type Department Care Team (Late st Contact Info) Description 07/05/2025 Lab Requisition [facility] - Main Lab [address] [place] [address] Antonio Esquivel MD [address] [place] [address] Aftercare following joint replacement surgery; Essential (primary) hypertension; Hyperlipidemia, unspecified Social History Tobacco Use Types Packs/Day Years [...] PACE Home Care / PACE Home Visit [facility] [address] [place] [address] Flavia Acuña 07/14/2025 3:00 PM EDT PACE Home Care / [place] [facility] [place] [facility] [place] [facility] [address] [place] [address] Flavia Acuña 07/15/2025 9:00 AM EDT PACE Home Care / [place] [facility] [place] [facility] [address] [place] [phone] Flavia Acuña 07/15/2025 10:30 AM EDT Clinical Support [facility] [place] [address] [place] [address] 07/15/2025 3:00 PM EDT PACE Home Care / [place] [facility] [place] [facility] [address] [place] [phone] Flavia Acuña 07/16/2025 3:00 PM EDT PACE Home Care / [place] [facility] [place] [facility] [address] [place] [phone] Flavia Acuña 07/17/2025 9:00 AM EDT PACE Home Care / [place] [facility] [place] [facility] [place] [facility] [address] [place] [phone] Flavia Acuña 07/17/2025 2:00 PM EDT PACE Home Care / [place] [facility] [place] [facility] [place] [facility] [address] [place] [phone] Flavia Acuña 07/18/2025 10:00 AM EDT PACE Home Care / [place] [facility] [place] [facility] [place] [facility] [address] [place] [phone] Grace Kessler 07/18/2025 12:00 PM EDT [facility] [place] [facility] [address] [place] [phone] Patrizia Mariscal, SAUL 200 [facility] [address] [place] [address] 07/18/2025 3:00 PM EDT PACE Home Care / [facility] [facility] [place] [facility] [address] [place] [address] Grace Kessler 07/21/2025 9:00 AM EST PACE Home Care / [facility] [facility] [place] [facility] [address] [place] [address] Flavia Acuña 07/21/2025 3:00 PM EST PACE Home Care / [place] [facility] [place] [facility] [place] [facility] [address] [place] [address] Flavia Acuña 07/22/2025 9:00 AM EST PACE Home Care / [place] [facility] [place] [facility] [place] [facility] [address] [place] [address] Flavia Acuña 07/22/2025 10:00 AM EST Clinical Support [facility] [place] [address] [place] [address] 07/22/2025 3:00 PM EST PACE Home Care / [place] [facility] [place] [facility] [place] [facility] [address] [place] [phone] Flavia Acuña 07/23/2025 11:30 AM EST PACE Home Care / [place] [facility] [place] [facility] [place] [facility] [address] [place] [phone] Brina Tse 07/23/2025 3:00 PM EST PACE Home Care / [place] [facility] [place] [facility] [place] [facility] [address] [place] [phone] Flavia Acuña 07/24/2025 9:00 AM EST PACE Home Care / [facility] [facility] [place] [facility] [place] [facility] [address] [place] [address] Flavia Acuña 07/24/2025 11:00 AM EST [facility] [address] [place] [address] Patrizia Mariscal, SAUL [address] [address] 07/24/2025 3:00 PM EST PACE Home Care / [place] [facility] [place] [facility] [place] [facility] [address] [place] [address] Flavia Acuña 07/25/2025 10:00 AM EST Clinical Support [facility] [place] [address] [place] [address] 07/25/2025 3:00 PM EST PACE Home Care / [facility] [place] [facility] [place] [facility] [address] [place] [address] Grace Kessler 07/28/2025 9:00 AM EST PACE Home Care / [place] Home [place] [facility] [place] [facility] [address] [place] [phone] Flavia Acuña 07/28/2025 3:00 PM EST PACE Home Care / [place] [facility] [place] [facility] [place] [facility] [address] [place] [phone] Flavia Acuña 07/29/2025 9:00 AM EST PACE Home Care / [place] [facility] [place] [facility] [place] [facility] [address] [place] [phone] Flavia Acuña 07/29/2025 3:00 PM EST PACE Home Care / [place] [facility] [place] [facility] [place] [facility] [address] [place] [phone] Flavia Acuña 07/30/2025 11:30 AM EST PACE Home Care / [place] [facility] [place] [facility] [address] [place] [phone] Brina Tse 07/30/2025 3:00 PM EST PACE Home Care / [place] [facility] [place] [facility] [address] [place] [phone] Flavia Acuña 07/31/2025 9:00 AM EST PACE Home Care / [place] [facility] [place] [facility] [address] [place] [phone] Flavia Acuña 07/31/2025 3:00 PM EST PACE Home Care / [place] [facility] [place] [facility] [address] [place] [phone] Flavia Acuña 08/01/2025 10:00 AM EST PACE Home Care / [place] [facility] [place] [facility] [address] [place] [phone] Grace Kessler 08/01/2025 3:00 PM EST PACE Home Care / [place] [facility] [place] [facility] [address] [place] [phone] Grace Kessler 08/04/2025 9:00 AM EST PACE Home Care / [place] [facility] [place] [facility] [address] [place] [phone] Flavia Acuña 08/04/2025 3:00 PM EST PACE Home Care / [place] Visit [facility] [place] [facility] [address] [place] [phone] Flavia Acuña 08/05/2025 9:00 AM EST PACE Home Care / [place] [facility] [place] [facility] [address] [place] [phone] Flavia Acuña 08/05/2025 3:00 PM EST PACE Home Care / [place] [facility] [place] [facility] [place] [facility] [address] [place] [phone] Flavia Acuña 08/06/2025 10:45 AM EST Clinical Support [facility] [place] [address] [place] [address] 08/06/2025 11:30 AM EST PACE Home Care / [facility] Home [facility] [place] [facility] [address] [place] [phone] Brina Tse 08/06/2025 3:00 PM EST PACE Home Care / [place] [facility] [place] [facility] [address] [place] [phone] Flavia Acuña 08/07/2025 9:00 AM EST PACE Home Care / [place] [facility] [place] [facility] [address] [place] [phone] Flavia Acuña 08/07/2025 3:00 PM EST PACE Home Care / [place] Home [facility] [place] [facility] [address] [place] [phone] Flavia Acuña 08/08/2025 10:00 AM EST PACE Home Care / [place] [facility] [place] [facility] [place] [facility] [address] [place] [phone] Grace Kessler 08/08/2025 3:00 PM EST PACE Home Care / [facility] [place] [facility] [address] [place] [phone] Grace Kessler 08/11/2025 9:00 AM EST PACE Home Care / [place] Home [place] [facility] [place] [facility] [address] [place] [phone] Flavia Acuña 08/11/2025 3:00 PM EST PACE Home Care / [place] Home Visit [facility] [place] [facility] [address] [place] [address] Flavia Acuña 08/12/2025 9:00 AM EST PACE Home Care / [place] [facility] [place] [facility] [address] [place] [address] Flavia Acuña 08/12/2025 3:00 PM EST PACE Home Care / [place] [facility] [place] [facility] [address] [place] [phone] Flavia Acuña 08/13/2025 11:30 AM EST PACE Home Care / [place] [facility] [place] [facility] [address] [place] [phone] Brina Tse 08/13/2025 3:00 PM EST PACE Home Care / [place] [facility] [place] [facility] [address] [place] [phone] Flavia Acuña 08/14/2025 9:00 AM EST PACE Home Care / [place] [facility] [place] [facility] [address] [place] [phone] Flavia Acuña 08/14/2025 3:00 PM EST PACE Home Care / [place] [facility] [place] [facility] [address] [place] [phone] Flavia Acuña 08/15/2025 10:00 AM EST PACE Home Care / [place] Visit [facility] [place] [facility] [address] [place] [phone] Grace Kessler 08/15/2025 3:00 PM EST PACE Home Care / [place] Home Visit [facility] [place] [facility] [address] [place] [phone] Grace Kessler 08/18/2025 9:00 AM EST PACE Home Care / [place] [facility] [place] [facility] [address] [place] [phone] Flavia Acuña 08/18/2025 3:00 PM EST PACE Home Care / [place] [facility] [place] [facility] [address] [place] [phone] Flavia Acuña 08/19/2025 9:00 AM EST PACE Home Care / [place] [facility] [place] [facility] [address] [place] [phone] Flavia Acuña 08/19/2025 11:00 AM EST Clinical Support [facility] [place] [address] [place] [phone] 08/19/2025 3:00 PM EST PACE Home Care / [place] [facility] [place] [facility] [address] [place] [phone] Flavia Acuña 08/20/2025 11:30 AM EST PACE Home Care / P[place] Home Visit [facility] [place] [facility] [address] [place] [phone] Brina Tse 08/20/2025 3:00 PM EST PACE Home Care / [place] [facility] [place] [facility] [address] [place] [phone] Flavia Acuña 08/21/2025 9:00 AM EST PACE Home Care / [place] Home Visit [facility] [place] [facility] [address] [place] [phone] Flavia Acuña 08/21/2025 3:00 PM EST PACE Home Care / [place] [facility] [place] [facility] [address] [place] [phone] Flavia Acuña 08/22/2025 10:00 AM EST PACE Home Care / [place] Home Visit [facility] [place] [facility] [address] [place] [address] Grace Kessler 08/22/2025 3:00 PM EST PACE Home Care / [place] [facility] [place] [facility] [address] [place] [address] Grace Kessler 08/25/2025 9:00 AM EST PACE Home Care / [place] [facility] [place] [facility] [address] [place] [address] Flavia Acuña 08/25/2025 3:00 PM EST PACE Home Care / [place] [facility] [place] [facility] [address] [place] [phone] Flavia Acuña 08/26/2025 9:00 AM EST PACE Home Care / [place] Visit [facility] [place] [facility] [address] [place] [phone] Flavia Acuña 08/26/2025 3:00 PM EST PACE Home Care / [place] Visit [facility] [place] [facility] [address] [place] [phone] Flavia Acuña 08/27/2025 11:30 AM EST PACE Home Care / [place] [facility] [place] [facility] [address] [place] [phone] Brina Tse 08/27/2025 3:00 PM EST PACE Home Care / [place] [facility] [place] [facility] [address] [place] [phone] Flavia Acuña 08/28/2025 9:00 AM EST PACE Home Care / [place] [facility] [place] [facility] [address] [place] [phone] Flavia Acuña 08/28/2025 3:00 PM EST PACE Home Care / [place] [facility] [place] [facility] [address] [place] [address] Flavia Acuña 08/29/2025 10:00 AM EST PACE Home Care / [place] [facility] [place] [facility] [address] [place] [address] Grace Kessler 08/29/2025 3:00 PM EST PACE Home Care / [place] [facility] [place] [facility] [address] [place] [address] Grace Kessler 09/01/2025 9:00 AM EST PACE Home Care / [place] [facility] [place] [facility] [address] [place] [address] Flavia Acuña 09/01/2025 3:00 PM EST PACE Home Care / [place] [facility] [place] [facility] [address] [place] [address] Flavia Acuña 09/02/2025 9:00 AM EST PACE Home Care / [place] [facility] [place] [facility] [address] [place] [address] Flavia Acuña 09/02/2025 3:00 PM EST PACE Home Care / [place] [facility] [place] [facility] [address] [place] [address] Flavia Acuña 09/03/2025 11:30 AM EST PACE Home Care / [place] [facility] [place] [facility] [address] [place] [address] Brina Tse 09/03/2025 3:00 PM EST PACE Home Care / [place] [facility] [place] [facility] [address] [place] [address] Flavia Acuña 09/04/2025 9:00 AM EST PACE Home Care / [facility] [place] [facility] [address] [place] [address] Flavia Acuña 09/04/2025 3:00 PM EST PACE Home Care / [facility] [place] [facility] [address] [place] [address] Flavia Acuña 09/05/2025 10:00 AM EST PACE Home Care / [facility] [place] [facility] [address] [place] [phone] Grace Kessler 09/05/2025 3:00 PM EST PACE Home Care / [facility] Home [facility] [place] [facility] [address] [place] [phone] Grace Kessler 02/27/2026 9:45 AM EDT PACE External Visit [facility] [place] [address] [place] [address] documented as of this encounter Procedures Procedure Name Priority Date/Time Associated Diagnosis Comments CBC WITH AUTO DIFFERENTIAL Routine 07/07/2025 5:04 AM EDT Aftercare following joint replacement surgery Essential (primary) hypertension Hyperlipidemia, unspecified CBC AND DIFFERENTIAL Routine 07/07/2025 5:04 AM EDT Aftercare following joint replacement surgery Essential (primary) hypertension Hyperlipidemia, unspecified COMPREHENSIVE METABOLIC PANEL Routine 07/07/2025 5:04 AM EDT Aftercare following joint replacement surgery Essential (primary) hypertension Hyperlipidemia, unspecified documented in this encounter Results * (ABNORMAL) CBC auto differential (07/07/2025 5:04 AM EDT) [facility] Signature WBC 4.0(L) 4.8 - 10.8 K/[facility] LAB HEMETOLOGY METHOD 07/07/2025 12:36 PM EDT [facility] RBC 3.00(L) 3.80 - 4.80 M/[facility] LAB HEMETOLOGY METHOD 07/07/2025 12:36 PM [facility] Hemoglobin 9.1(L) 11.5 - 16.0 g/dL LAB HEMETOLOGY METHOD 07/07/2025 12:36 PM EDT [facility] Hematocrit 28.2(L) 35.0 - 47.0 % LAB HEMETOLOGY METHOD 07/07/2025 12:36 PM [facility] MCV 94.9 79.0 - 98.0 FL LAB HEMETOLOGY METHOD 07/07/2025 12:36 PM [facility] MCH 30.6 27.0 - 32.0 pcg LAB HEMETOLOGY METHOD 07/07/2025 12:36 PM [facility] MCHC 32.3 32.0 - 37.0 g/dL LAB HEMETOLOGY METHOD 07/07/2025 12:36 PM [facility] RDW 13.5 11.0 - 15.0 % LAB HEMETOLOGY METHOD 07/07/2025 12:36 PM [facility] Platelets 375 130 - 400 K/[facility] LAB HEMETOLOGY METHOD 07/07/2025 12:36 PM [facility] MPV 9.0 7.0 - 11.0 [place] LAB [facility]EMETOLOGY METHOD [facility] NRBC 0.0 <1.0 % LAB HEMETOLOGY METHOD 07/07/2025 12:36 PM [facility] NRBC Absolute 0.00 <0.10 K/[facility] LAB HEMETOLOGY METHOD 07/07/2025 12:36 PM [facility] Neutrophils Relative 62.5 % LAB HEMETOLOGY METHOD 07/07/2025 12:36 PM [facility] Lymphocytes Relative 21.6 % LAB HEMETOLOGY METHOD 07/07/2025 12:36 PM [facility] Monocytes Relative 10.2 % LAB HEMETOLOGY METHOD 07/07/2025 12:36 PM [facility] Eosinophils Relative 2.5 % LAB HEMETOLOGY METHOD 07/07/2025 12:36 PM [facility] Basophils Relative 0.7 % LAB HEMETOLOGY METHOD 07/07/2025 12:36 PM [facility] Immature Granulocytes Relative 2.5 % LAB HEMETOLOGY METHOD 07/07/2025 12:36 PM [facility] Neutrophils Absolute 2.52 1.50 - 7.00 K/mcL LAB HEMETOLOGY METHOD 07/07/2025 12:36 PM [facility] Lymphocytes Absolute 0.87(L) 1.00 - 5.00 K/mcL LAB HEMETOLOGY METHOD 07/07/2025 12:36 PM [facility] Monocytes Absolute 0.41 0.20 - 1.00 K/mcL LAB HEMETOLOGY METHOD 07/07/2025 12:36 PM [facility] Eosinophils Absolute 0.10 0.00 - 0.50 K/mcL LAB HEMETOLOGY METHOD 07/07/2025 12:36 PM [facility] Basophils Absolute 0.03 0.00 - 0.20 K/mcL LAB HEMETOLOGY METHOD 07/07/2025 12:36 PM [facility] Immature Granulocytes Absolute 0.10(H) 0.00 - 0.03 K/mcL LAB HEMETOLOGY METHOD 07/07/2025 12:36 PM [facility] Blood Venous blood specimen / Unknown Venipuncture / Unknown 07/07/2025 5:04 AM EDT 07/07/2025 10:31 AM EDT us Antonio Esquivel MD LAB BLOOD ORDERABLES Final Resul t [facility] [address] [place] [address], [place] [phone] * (ABNORMAL) Comprehensive metabolic panel (07/07/2025 5:04 AM EDT) Sodium 137 133 - 145 mmol/L LAB CHEMISTRY METHOD 07/07/2025 2:13 PM EDT [facility] Potassium 3.9 3.5 - 5.5 mmol/L LAB CHEMISTRY METHOD 07/07/2025 2:13 PM [facility] Chloride 103 96 - 110 mmol/L LAB CHEMISTRY METHOD 07/07/2025 2:13 PM [facility] CO2 27 21 - 32 mmol/L LAB CHEMISTRY METHOD 07/07/2025 2:13 PM [facility] Anion Gap 7 3 - 11 LAB CHEMISTRY METHOD 07/07/2025 2:13 PM [facility] Glucose 80 70 - 100 mg/dL LAB CHEMISTRY METHOD 07/07/2025 2:13 PM [facility] BUN 15 5 - 25 mg/dL LAB CHEMISTRY METHOD 07/07/2025 2:13 PM [facility] Creatinine 0.61 0.50 - 1.10 mg/dL LAB CHEMISTRY METHOD 07/07/2025 2:13 PM [facility] eGFR 88 >=60 mL/min/1. 73m2 LAB CHEMISTRY METHOD 07/07/2025 2:13 PM [facility] Comment:Calculation based on the Chronic Kidney Disease Epidemiology Collaboration (CKD-EPI) equation refit without adjustment for race. BUN/Creatinine Ratio 24.6 LAB CHEMISTRY METHOD 07/07/2025 2:13 PM [facility] Calcium 8.3(L) 8.5 - 10.5 mg/dL LAB CHEMISTRY METHOD 07/07/2025 2:13 PM EDT [facility] AST (SGOT) 20 10 - 42 unit/L LAB CHEMISTRY METHOD 07/07/2025 2:13 PM EDT [facility] ALT (SGPT) 20 10 - 60 unit/L LAB CHEMISTRY METHOD 07/07/2025 2:13 PM EDT [facility] Alkaline Phosphatase 68 42 - 121 unit/L LAB CHEMISTRY METHOD 07/07/2025 2:13 PM EDT [facility] Total Protein 5.7(L) 6.0 - 8.0 g/dL LAB CHEMISTRY METHOD 07/07/2025 2:13 PM EDT [facility] Albumin 2.2(L) 3.2 - 5.0 g/dL LAB CHEMISTRY METHOD 07/07/2025 2:13 PM EDT [facility] Total Bilirubin 0.2 0.0 - 1.4 mg/dL LAB CHEMISTRY METHOD 07/07/2025 2:13 PM EDT [facility] Blood Venous blood specimen / Unknown Venipuncture / Unknown 07/07/2025 5:04 AM EDT 07/07/2025 10:31 AM EDT us Antonio Esquivel MD LAB BLOOD ORDERABLES Final Resul t [facility] [address] [place] [address], documented in this encounter Visit Diagnoses Diagnosis Aftercare following joint replacement surgery Essential (primary) hypertension Unspecified essential hypertension Hyperlipidemia, unspecified documented in this encounter Care Teams Wireless Architect Relationship Specialty Start Date End Date Antonio Esquivel MD [address] [place] [id number] PCP - General Geriatric Medicine 06/30/25 documented as of this encounter
--- OUTSIDE RECORDS SUMMARY | 2025-07-09 12:00 | XMS_ITS | Clinical Summary ---
Author Organization [facility] Address [address] [place] [address] Phone Care Team Providers Care Air Conditioning Coil Assembler Name Role Phone Antonio Esquivel MD Primary Care Provider [phone] Allergies Active Allergy Reactions Criticality Noted Date Comments Codeine 11/04/2024 Sensitivity. Stated on enrollment. Milk Containing Products (Dairy) 11/04/2024 Dairy- diarrhea Other 11/04/2024 Seasonal Allergies- takes antihistamine PRN Medications amLODIPine (NORVASC) 2.5 mg tablet 1 tab by mouth daily Active cetirizine (ZyrTEC) 10 mg tablet 1 tab by mouth daily Active cyanocobalamin (VITAMIN B-12) 1,000 mcg tablet 1 tab by mouth daily Active hydroCHLOROthi azide (HYDRODIURIL) 25 mg tablet 1 tab by mouth daily Active melatonin 5 mg tablet 1 tab by mouth every day at bedtime Active acetaminophen (TYLENOL) 500 mg tabletIndicati ons:Other chronic pain Take 2 tablets (1,000 mg total) by mouth every 6 (six) hours if needed for moderate pain. 100 tablet 5 5 07/30/20 25 Active loperamide (Imodium A-D) 2 mg tabletIndicati ons:Functional diarrhea Take 1 tablet (2 mg total) by mouth 2 (two) times a day if needed for diarrhea. 30 tablet 2 5 09/09/20 25 Active lidocaine (XYLOCAINE) 4 % external solutionIndica tions:Rectal prolapse Apply topically 3 (three) times a day if needed for mild pain. 1 application to (affected) skin 3 times per day prn pain 50 mL 5 5 12/09/19 26 Active lidocaine (XYLOCAINE) 4 % external solution 1 application to (affected) skin 3 times per day prn pain 06/11/20 25 Discontin ued(Reord er) Active Problems Problem Noted Date Diagnosed Date [...] Encounters Date Type Department Care Team Description 07/09/2025 9:30 AM EDT PACE External Visit [facility] [address] [place] [phone] 07/08/2025 Lab Requisition [facility] - Main Lab [address] [place] [address] Antonio Esquivel MD Urinary tract infection, site not specified 07/05/[address] [facility] Lab [address] [place] [phone] Antonio Esquivel MD Aftercare following joint replacement surgery; Essential (primary) hypertension; Hyperlipidemia, unspecified 07/04/[address] [phone] Kiera Cameron, STORMY Hard of hearing 06/30/[address] [facility] Lab [address] [place] [address] Antonio Esquivel MD Urinary tract infection, site not specified; Hyperlipidemia, unspecified; Essential (primary) hypertension 06/27/2025 PACE Extended Care [address] [phone] Marguerite Higginbotham RN S/P right hip fracture (Primary Dx) 06/27/[address] [phone] Kiera Cameron, STORMY Hard of hearing 06/25/2025 11:30 AM EDT PACE Home Care / PACE Home Visit [facility] In Home Nursing and Aide Services [address] [place] [phone] Brina Tse 06/25/2025 PACE Fall [address] [phone] Nasima Caceres, STORMY 06/24/2025 11:00 AM EDT Clinical Support [address] [phone] Nasima Caceres, RN 06/24/2025 PACE Admissions [address] [phone] Marguerite Higginbotham, RN Closed fracture of right hip, initial encounter (CMS/[facility] V24, CMS/[facility] V28) (Primary Dx); Sepsis with acute organ dysfunction, due to unspecified organism, unspecified organ dysfunction type, unspecified whether septic shock present ([facility] V24, [facility] V28); Traumatic rhabdomyolysis, initial encounter ([facility] V24) 06/20/2025 [address] [facility] [address] [address] Kiera Cameron, RN Hard of hearing 06/19/2025 [facility] [address] [address] Nasima Caceres RN 06/18/2025 11:30 AM EDT PACE Home Care / PACE Home Visit [facility] [place] [facility] [address] [place] [phone] Brina Tse 06/16/2025 11:30 AM EDT Treatment [facility] Physical Therapy [address] [place] [phone] Wilma, Keira, CAUL DRESSER 06/13/[address] [phone] Kiera Cameron, RN Hard of hearing 06/11/2025 11:30 AM EDT PACE Home Care / PACE Home [place] [facility] [place] [facility] [address] [place] [phone] Brina Tse 06/06/2025 Lab [facility] [address] [place] [phone] Kiera Cameron, RN Hard of hearing 06/05/2025 9:15 AM EDT PACE External Visit [facility] [address] [phone] Adult general medical examination 06/04/2025 11:30 AM EDT PACE Home Care / PACE Home Visit [facility] [place] [facility] [address] [place] [phone] Brina Tse 05/30/2025 Lab [facility] Clinic [address] [place] [address] Kiera Cameron, RN Hard of hearing 05/28/2025 11:30 AM EDT PACE Home Care / PACE Home [place] [facility] [place] [facility] [address] [place] [phone] Dedrick Brina 05/27/2025 11:00 AM EDT Treatment [facility] [place] Physical [facility] [address] [place] [phone] Jc Sequeira, PT 05/23/2025 Telephone [facility] Physical Therapy [address] [place] [phone] Jc Sequeira, PT 05/23/2025 Telephone [facility] Physical Therapy [address] [place] [phone] Jc Sequeira, PT 05/23/2025 Lab [facility] Clinic [address] [place] [phone] Kiera Cameron, STORMY Hard of hearing 05/22/2025 11:00 AM EDT Clinical Support [facility] [place] [facility] [address] [place] [phone] Kiera Cameron, STORMY 05/21/2025 11:30 AM EDT PACE Home Care / PACE Home [place] [facility] [place] [facility] [address] [place] [phone] Colin Tseah 05/16/2025 Telephone [facility] Physical Therapy [address] [place] [phone] Jc Sequeira, PT 05/16/2025 Lab [facility] P[facility] Clinic [address] [place] [phone] Kiera Cameron, RN Hard of hearing 05/14/2025 11:30 AM EDT PACE Home Care / PACE Home Visit [facility] [place] [facility] [address] [place] [address] Colin Tseah 05/09/2025 Lab [facility] [place] [facility] [address] [place] [address] Kiera Cameron, RN Hard of hearing 05/07/2025 11:30 AM EDT PACE Home Care / PACE Home Visit [facility] [place] [facility] [address] [place] [phone] [facility] 05/02/2025 Lab [facility] [place] [facility] [address] [place] [phone] Kiera Cameron, RN Hard of hearing 05/01/2025 12:45 PM EDT Office Visit [facility] [place] [facility] [address] [phone] Margo Mariscal, SAUL Edema of left lower leg (Primary Dx) 05/01/2025 11:50 AM EDT PACE External Visit [facility] [place] [address] [place] [phone] Healthcare maintenance 05/01/2025 10:00 AM EDT Clinical Support [facility] [place] [facility] [address] [place] [phone] Marilu Simon, STORMY 05/01/2025 10:00 AM EDT Clinical Support [facility] [place] [facility] [address] [place] [phone] Kiera Cameron, STORMY 05/01/2025 Plan of Care Documentation [facility] Clinic [address] [place] [phone] 04/30/2025 11:30 AM EDT PACE Home Care / PACE Home Visit [facility] [place] [facility] [address] [place] [phone] GefColin lewisah 04/25/2025 Telephone [facility] Physical [facility] [address] [place] [phone] Jc Sequeira, PT 04/25/2025 Lab [facility] [place] [address] [address] Kiera Cameron, RN Hard of hearing 04/24/2025 1:15 PM EDT Treatment [facility] Physical Therapy [address] [place] [phone] Jc Sequeira, PT 04/24/2025 1:00 PM EDT Office Visit [facility] [address] [address] Margo Mariscal, SAUL Impacted cerumen of both ears (Primary Dx); Acute cystitis without hematuria 04/23/2025 11:30 AM EDT PACE Home Care / PACE Home Visit [facility] [place] [facility] [address] [place] [phone] Brina Tse 04/21/2025 12:00 PM EDT Clinical Support [facility] [address] [address] Nasima Caceres RN 04/18/2025 Lab [facility] [address] [address] Kiera Cameron, RN Hard of hearing 04/16/2025 11:30 AM EDT PACE Home Care / PACE Home Visit [facility] [place] [facility] [address] [place] [phone] Brina Tse 04/14/2025 11:00 AM EDT PACE Assessment [facility] [place] [facility] [address] [place] [phone] Jc Sequeira, PT Dementia, unspecified dementia severity, unspecified dementia type, unspecified whether behavioral, psychotic, or mood disturbance or anxiety (CMS/HCC V24, CMS/HCC V28) (Primary Dx) 04/14/2025 11:00 AM EDT PACE Assessment [facility] Occupational Therapy [address] [place] [phone] Willy Woo OT Moderate dementia without behavioral disturbance ([facility] V24, [facility] V28) (Primary Dx) 04/11/2025 10:00 AM EDT PACE Assessment [address] [address] Marilu Simon RN Adult general medical examination (Primary Dx) 04/11/2025 10:00 AM EDT PACE Assessment [address] [address] Margo Mariscal NP Impacted cerumen of both ears (Primary Dx); History of skin cancer; Primary hypertension; Vitamin D deficiency; Deficiency of vitamin B12; Moderate dementia without behavioral disturbance (CMS/HCC V24, CMS/[facility] V28); Hard of hearing; Age-related cataract of [...] Anxiety; Urination frequency; Nocturia; Presbyopia 04/11/[address] [address] Kiera Cameron, STORMY Hard of hearing 04/10/2025 11:00 AM EDT Clinical Support [address] [phone] Nasima Caceres RN 04/09/2025 1:30 PM EDT PACE Home Care / PACE Home [facility] In Home Nursing and Aide Services [address] [place] [phone] Brina Tse from Last 3 Months Surgical History Surgery [...] [place] [facility] [address] [place] [phone] Flavia Acuña 07/14/2025 3:00 PM EDT PACE Home Care / PACE Home Visit [facility] [place] [facility] [address] [place] [phone] Flavia Acuña 07/15/2025 9:00 AM EDT PACE Home Care / PACE Home Visit [facility] [place] [facility] [address] [place] [phone] Flavia Acuña 07/15/2025 10:30 AM EDT Clinical Support [facility] [place] [address] [place] [address] 07/15/2025 3:00 PM EDT PACE Home Care / PACE Home Visit [facility] [place] [facility] [address] [place] [phone] Flavia Acuña 07/16/2025 3:00 PM EDT PACE Home Care / PACE Home Visit [facility] [place] [facility] [address] [place] [phone] Flavia Acuña 07/17/2025 9:00 AM EDT PACE Home Care / PACE Home Visit [facility] [place] [facility] [address] [place] [phone] Flavia Acuña 07/17/2025 2:00 PM EDT PACE Home Care / PACE Home Visit [facility] [place] [facility] [address] [place] [phone] Flavia Acuña 07/18/2025 10:00 AM EDT PACE Home Care / PACE Home Visit [facility] [place] [facility] [address] [place] [phone] Grace Kessler 07/18/2025 12:00 PM EDT Office Visit [facility] [place] [facility] [address] [place] [phone] Margo Mariscal, SAUL [address] [place] [address] 07/18/2025 3:00 PM EDT PACE Home Care / PACE Home Visit [facility] [place] [facility] [address] [place] [phone] Grace Kessler 07/21/2025 9:00 AM EST PACE Home Care / P[place] Home Visit [facility] [place] [facility] [address] [place] [phone] Flavia Acuña 07/21/2025 3:00 PM EST PACE Home Care / PACE Home Visit [facility] [place] [facility] [address] [place] [address] Flavia Acuña 07/22/2025 9:00 AM EST PACE Home Care / PACE Home Visit [facility] [place] [facility] [address] [place] [address] Flavia Acuña 07/22/2025 10:00 AM EST Clinical Support [facility] [place] [address] [place] [address] 07/22/2025 3:00 PM EST PACE Home Care / PACE Home Visit [facility] [place] [facility] [address] [place] [phone] Flavia Acuña 07/23/2025 11:30 AM EST PACE Home Care / PACE Home Visit [facility] [place] [facility] [address] [place] [phone] Brina Tse 07/23/2025 3:00 PM EST PACE Home Care / PACE Home Visit [facility] [place] [facility] [address] [place] [phone] Flavia Acuña 07/24/2025 9:00 AM EST PACE Home Care / PACE Home Visit [facility] [place] [facility] [address] [place] [address] Flavia Acuña 07/24/2025 11:00 AM EST Office Visit [facility] [place] [facility] [address] [place] [address] Margo Mariscal, SAUL [address] [address] 07/24/2025 3:00 PM EST PACE Home Care / PACE Home Visit [facility] [place] [facility] [address] [place] [address] Flavia Acuña 07/25/2025 10:00 AM EST Clinical Support [facility] [place] [address] [place] [address] 07/25/2025 3:00 PM EST PACE Home Care / PACE Home Visit [facility] [place] [facility] [address] [place] [address] Grace Kessler 07/28/2025 9:00 AM EST PACE Home Care / P[place] Home [place] [facility] [place] [facility] [address] [place] [phone] Flavia Acuña 07/28/2025 3:00 PM EST PACE Home Care / P[place] Home Visit [facility] [place] [facility] [address] [place] [phone] Flavia Acuña 07/29/2025 9:00 AM EST PACE Home Care / [place] Home [place] [facility] [place] [facility] [address] [place] [phone] Flavia Acuña 07/29/2025 3:00 PM EST PACE Home Care / P[place] Home Visit [facility] [place] [facility] [address] [place] [phone] Flavia Acuña 07/30/2025 11:30 AM EST PACE Home Care / [place] Home [place] [facility] [place] [facility] [address] [place] [phone] Brina Tse 07/30/2025 3:00 PM EST PACE Home Care / P[place] Home Visit [facility] [place] [facility] [address] [place] [phone] Flavia Acuña 07/31/2025 9:00 AM EST PACE Home Care / PACE Home Visit [facility] [place] [facility] [address] [place] [address] Flavia Acuña 07/31/2025 3:00 PM EST PACE Home Care / PACE Home Visit [facility] [place] [facility] [address] [place] [address] Flavia Acuña 08/01/2025 10:00 AM EST PACE Home Care / P[place] Home Visit [facility] [place] [facility] [address] [place] [address] Grace Kessler 08/01/2025 3:00 PM EST PACE Home Care / [place] Home [place] [facility] [place] [facility] [address] [place] [phone] Grace Kessler 08/04/2025 9:00 AM EST PACE Home Care / [place] Home Visit [facility] [place] [facility] [address] [place] [phone] Flavia Acuña 08/04/2025 3:00 PM EST PACE Home Care / [place] Home Visit [facility] [place] [facility] [address] [place] [phone] Flavia Acuña 08/05/2025 9:00 AM EST PACE Home Care / [place] Home [place] [facility] [place] [facility] [address] [place] [phone] Flavia Acuña 08/05/2025 3:00 PM EST PACE Home Care / [place] Home Visit [facility] [place] [facility] [address] [place] [phone] Flavia Acuña 08/06/2025 10:45 AM EST Clinical Support [facility] [place] [address] [place] [phone] 08/06/2025 11:30 AM EST PACE Home Care / PACE Home Visit [facility] [place] [facility] [address] [place] [phone] Colin Tseah 08/06/2025 3:00 PM EST PACE Home Care / [place] Home Visit [facility] [place] [facility] [address] [place] [address] Flavia Acuña 08/07/2025 9:00 AM EST PACE Home Care / [place] Home Visit [facility] [place] [facility] [address] [place] [address] Flavia Acuña 08/07/2025 3:00 PM EST PACE Home Care / [place] Home Visit [facility] [place] [facility] [address] [place] [address] Flavia Acuña 08/08/2025 10:00 AM EST PACE Home Care / [place] Home Visit [facility] [place] [facility] [address] [place] [phone] Grace Kessler 08/08/2025 3:00 PM EST PACE Home Care / [place] Home Visit [facility] [place] [facility] [address] [place] [address] Grace Kessler 08/11/2025 9:00 AM EST PACE Home Care / [place] Home Visit [facility] [place] [facility] [address] [place] [address] Flavia Acuña 08/11/2025 3:00 PM EST PACE Home Care / [place] Home Visit [facility] [place] [facility] [address] [place] [address] Flavia Acuña 08/12/2025 9:00 AM EST PACE Home Care / [place] Home Visit [facility] [place] [facility] [address] [place] [address] Flavia Acuña 08/12/2025 3:00 PM EST PACE Home Care / [place] Home Visit [facility] [place] [facility] [address] [place] [address] Flavia Acuña 08/13/2025 11:30 AM EST PACE Home Care / [place] Home Visit [facility] [place] [facility] [address] [place] [address] Brina Tse 08/13/2025 3:00 PM EST PACE Home Care / P[place] Home Visit [facility] [place] [facility] [address] [place] [address] Flavia Acuña 08/14/2025 9:00 AM EST PACE Home Care / [place] Home Visit [facility] [place] [facility] [address] [place] [phone] Flavia Acuña 08/14/2025 3:00 PM EST PACE Home Care / [place] Home Visit [facility] [place] [facility] [address] [place] [phone] Flavia Acuña 08/15/2025 10:00 AM EST PACE Home Care / [place] Home Visit [facility] [place] [facility] [address] [place] [phone] Grace Kessler 08/15/2025 3:00 PM EST PACE Home Care / [place] Home Visit [facility] [place] [facility] [address] [place] [phone] Grace Kessler 08/18/2025 9:00 AM EST PACE Home Care / [place] Home Visit [facility] [place] [facility] [address] [place] [phone] Flavia Acuña 08/18/2025 3:00 PM EST PACE Home Care / [place] Home Visit [facility] [place] [facility] [address] [place] [phone] Flavia Acuña 08/19/2025 9:00 AM EST PACE Home Care / P[place] Home Visit [facility] [place] [facility] [address] [place] [address] Flavia Acuña 08/19/2025 11:00 AM EST Clinical Support [facility] [place] [address] [place] [address] 08/19/2025 3:00 PM EST PACE Home Care / PACE Home Visit [facility] [place] [facility] [address] [place] [address] Flavia Acuña 08/20/2025 11:30 AM EST PACE Home Care / P[place] Home Visit [facility] [place] [facility] [address] [place] [phone] Brina Tse 08/20/2025 3:00 PM EST PACE Home Care / [place] Home Visit [facility] [place] [facility] [address] [place] [phone] Flavia Acuña 08/21/2025 9:00 AM EST PACE Home Care / [place] Home Visit [facility] [place] [facility] [address] [place] [phone] Flavia Acuña 08/21/2025 3:00 PM EST PACE Home Care / [place] Home Visit [facility] [place] [facility] [address] [place] [phone] Flavia Acuña 08/22/2025 10:00 AM EST PACE Home Care / PACE Home Visit [facility] [place] [facility] [address] [place] [address] Grace Kessler 08/22/2025 3:00 PM EST PACE Home Care / PACE Home Visit [facility] [place] [facility] [address] [place] [address] Grace Kessler 08/25/2025 9:00 AM EST PACE Home Care / PACE Home Visit [facility] [place] [facility] [address] [place] [address] Flavia Acuña 08/25/2025 3:00 PM EST PACE Home Care / P[place] Home Visit [facility] [place] [facility] [address] [place] [address] Flavia Acuña 08/26/2025 9:00 AM EST PACE Home Care / P[place] Home Visit [facility] [place] [facility] [address] [place] [address] Flavia Acuña 08/26/2025 3:00 PM EST PACE Home Care / [place] Home [place] [facility] [place] [facility] [address] [place] [phone] Flavia Acuña 08/27/2025 11:30 AM EST PACE Home Care / [place] Home Visit [facility] [place] [facility] [address] [place] [phone] Brina Tse 08/27/2025 3:00 PM EST PACE Home Care / [place] Home Visit [facility] [place] [facility] [address] [place] [phone] Flavia Acuña 08/28/2025 9:00 AM EST PACE Home Care / [place] Home Visit [facility] [place] [facility] [address] [place] [phone] Flavia Acuña 08/28/2025 3:00 PM EST PACE Home Care / [place] Home Visit [facility] [place] [facility] [address] [place] [phone] Flavia Acuña 08/29/2025 10:00 AM EST PACE Home Care / [place] Home Visit [facility] [place] [facility] [address] [place] [phone] Grace Kessler 08/29/2025 3:00 PM EST PACE Home Care / [place] Home Visit [facility] [place] [facility] [address] [place] [address] Grace Kessler 09/01/2025 9:00 AM EST PACE Home Care / [place] Visit [facility] [place] [facility] [address] [place] [address] Flavia Acuña 09/01/2025 3:00 PM EST PACE Home Care / [place] Visit [facility] [place] [facility] [address] [place] [address] Flavia Acuña 09/02/2025 9:00 AM EST PACE Home Care / [place] Visit [facility] [place] [facility] [address] [place] [phone] Flavia Acuña 09/02/2025 3:00 PM EST PACE Home Care / [place] Visit [facility] [place] [facility] [address] [place] [phone] Flavia Acuña 09/03/2025 11:30 AM EST PACE Home Care / [place] Home Visit [facility] [place] [facility] [address] [place] [phone] Brina Tse 09/03/2025 3:00 PM EST PACE Home Care / [place] Home Visit [facility] [place] [facility] [address] [place] [phone] Flavia Acuña 09/04/2025 9:00 AM EST PACE Home Care / [place] Home Visit [facility] [place] [facility] [address] [place] [phone] Flavia Acuña 09/04/2025 3:00 PM EST PACE Home Care / [place] Home Visit [facility] [place] [facility] [address] [place] [phone] Flavia Acuña 09/05/2025 10:00 AM EST PACE Home Care / [facility] Home [place] [facility] [place] [facility] [address] [place] [address] Grace Kessler 09/05/2025 3:00 PM EST PACE Home Care / PACE Home Visit [facility] [place] [facility] [address] [place] [address] Grace Kessler 02/27/2026 9:45 AM EDT PACE External Visit [facility] [place] [address] [place] [address] Health Maintenance Due Date Last Done Comments [...] 2025 06/22/2011 Hypertension/CHF/CAD Annual BMP Blood Test 07/07/2026 07/07/2025, 06/30/2025, 04/11/2025, Additional history exists Cholesterol Screening (Lipid Panel) 10/18/2029 10/18/2024 HIB [...] 20 months Aged Out No longer eligible based on patient's age to complete this topic Varicella Vaccines Aged Out No longer eligible based on patient's age to complete this topic Procedures Procedure Name Priority Date/Time Associated Diagnosis Comments REEVES URINE CULTURE TUBE Routine 07/08/2025 12:00 AM EDT Urinary tract infection, site not specified URINALYSIS WITH REFLEX MICROSCOPIC AND CULTURE Routine 07/08/2025 12:00 AM EDT Urinary tract infection, site not specified URINALYSIS WITH REFLEX MICROSCOPIC AND CULTURE Routine 07/08/2025 12:00 AM EDT Urinary tract infection, site not specified CULTURE URINE Routine 07/08/2025 12:00 AM EDT Urinary tract infection, site not specified CBC WITH AUTO DIFFERENTIAL Routine 07/07/2025 5:04 AM EDT Aftercare following joint replacement surgery Essential (primary) hypertension Hyperlipidemia, unspecified COMPREHENSIVE METABOLIC PANEL Routine 07/07/2025 5:04 AM EDT Aftercare following joint replacement surgery Essential (primary) hypertension Hyperlipidemia, unspecified CBC AND DIFFERENTIAL Routine 07/07/2025 5:04 AM EDT Aftercare following joint replacement surgery Essential (primary) hypertension Hyperlipidemia, unspecified COMPREHENSIVE METABOLIC PANEL Routine 06/30/2025 5:07 AM EDT Urinary tract infection, site not specified Hyperlipidemia, unspecified Essential (primary) hypertension COMPLETE BLOOD COUNT Routine 06/30/2025 5:07 AM EDT Urinary tract infection, site not specified Hyperlipidemia, unspecified Essential (primary) hypertension URINALYSIS WITH REFLEX MICROSCOPIC AND CULTURE Routine [...] microscopic and culture (07/08/2025 12:00 AM EDT) Only the most recent of2 resultswithin the time period is included. Specific [place] Urine 1.015 1.003 - 1.030 LAB URINALYSIS - AUTOMATED METHOD 07/08/2025 9:10 AM [facility] pH, Urine 7.0 5.0 - 8.0 pH LAB URINALYSIS - AUTOMATED METHOD 07/08/2025 9:10 AM [facility] Leukocytes, Urine Small(A) Negative LAB URINALYSIS - AUTOMATED METHOD 07/08/2025 9:10 AM [facility] Nitrite, Urine Negative Negative LAB URINALYSIS - AUTOMATED METHOD 07/08/2025 9:10 AM [facility] Protein, Urine Negative <=Trace mg/dL LAB URINALYSIS - AUTOMATED METHOD 07/08/2025 9:10 AM [facility] Glucose, Urine Negative Negative mg/dL LAB URINALYSIS - AUTOMATED METHOD 07/08/2025 9:10 AM [facility] Ketones, Urine Negative Negative mg/dL LAB URINALYSIS - AUTOMATED METHOD 07/08/2025 9:10 AM [facility] Urobilinogen, Urine 0.2 0.2 - 1.0 mg/dL LAB URINALYSIS - AUTOMATED METHOD 07/08/2025 9:10 AM [facility] Bilirubin, Urine Negative Negative LAB URINALYSIS - AUTOMATED METHOD 07/08/2025 9:10 AM [facility] Blood, Urine Negative Negative LAB URINALYSIS - AUTOMATED METHOD 07/08/2025 9:10 AM [facility] RBC, Urine 0.9 0 - 4 /HPF LAB URINALYSIS - AUTOMATED METHOD 07/08/2025 9:10 AM [facility] WBC, Urine 17.7(H) 0 - 4 /HPF LAB URINALYSIS - AUTOMATED METHOD 07/08/2025 9:10 AM [facility] Squamous Epithelial, Urine 77(H) 0 - 60 /LPF LAB URINALYSIS - AUTOMATED METHOD 07/08/2025 9:10 AM [facility] Bacteria, Urine Few(A) Negative /HPF LAB URINALYSIS - AUTOMATED METHOD 07/08/2025 9:10 AM [facility] Hyaline Casts, Urine 0.8 0 - 3 /LPF LAB URINALYSIS - AUTOMATED METHOD 07/08/2025 9:10 AM [facility] Urine Urine specimen obtained by clean catch procedure / Unknown 07/08/2025 07/08/2025 8:27 AM EDT us Antonio Esquivel MD LAB URINE ORDERABLES Final Resul t [facility] [address] [place] [address], * Reeves urine culture tube (07/08/2025 12:00 AM EDT) Extra Tube Hold for add-ons. 07/08/2025 11:01 AM [facility] Comment:Auto resulted. Urine Urine specimen obtained by clean catch procedure / Unknown 07/08/2025 07/08/2025 9:03 AM EDT us Antonio Esquivel MD LAB URINE ORDERABLES Final Resul t Performing Organization Address [facility] Co de Phone Number [facility] [address] [place] [address], [place] [phone] * Culture urine (07/08/2025 12:00 AM EDT) Only the most recent of2 resultswithin the time period is included. Culture, Urine 10,000-49,000 CFU/mL Mixed bacterial morphotypes present suggestive of possible contamination during collection. Suggest appropriate recollection if clinically indicated. 07/09/2025 8:36 AM EDT [facility] Urine Urine specimen obtained by clean catch procedure / Unknown 07/08/2025 07/08/2025 9:10 AM EDT us Antonio Esquivel MD LAB MICROBIOLOGY - GENERAL ORDER MICK Final Result Performing Organization Address [facility] de Phone Number [facility] [address] [place] [address], [place] [phone] * (ABNORMAL) CBC auto differential (07/07/2025 5:04 AM EDT) Only the most recent of2 resultswithin the time period is included. WBC 4.0(L) 4.8 - 10.8 K/mcL LAB HEMETOLOGY METHOD 07/07/2025 12:36 PM EDT [facility] RBC 3.00(L) 3.80 - 4.80 M/mcL LAB HEMETOLOGY METHOD 07/07/2025 12:36 PM EDT [facility] Hemoglobin 9.1(L) 11.5 - 16.0 g/dL LAB HEMETOLOGY METHOD [facility] Hematocrit 28.2(L) 35.0 - 47.0 % LAB HEMETOLOGY METHOD 07/07/2025 12:36 PM [facility] MCV 94.9 79.0 - 98.0 FL LAB HEMETOLOGY METHOD 07/07/2025 12:36 PM [facility] MCH 30.6 27.0 - 32.0 pcg LAB HEMETOLOGY METHOD 07/07/2025 12:36 PM [facility] MCHC 32.3 32.0 - 37.0 g/dL LAB HEMETOLOGY METHOD 07/07/2025 12:36 PM [facility] RDW 13.5 11.0 - 15.0 % LAB HEMETOLOGY METHOD 07/07/2025 12:36 PM [facility] Platelets 375 130 - 400 K/mcL LAB HEMETOLOGY METHOD 07/07/2025 12:36 PM [facility] MPV 9.0 7.0 - 11.0 FL LAB HEMETOLOGY METHOD 07/07/2025 12:36 PM [facility] NRBC 0.0 <1.0 % LAB HEMETOLOGY METHOD 07/07/2025 12:36 PM [facility] NRBC Absolute 0.00 <0.10 K/mcL LAB HEMETOLOGY METHOD 07/07/2025 12:36 PM [facility] Neutrophils Relative 62.5 % LAB HEMETOLOGY METHOD 07/07/2025 12:36 PM [facility] Lymphocytes Relative 21.6 % LAB HEMETOLOGY METHOD 07/07/2025 12:36 PM [facility] Monocytes Relative 10.2 % LAB HEMETOLOGY METHOD 07/07/2025 12:36 PM [facility] Eosinophils Relative 2.5 % LAB HEMETOLOGY METHOD 07/07/2025 12:36 PM EDT [facility] Basophils Relative 0.7 % LAB HEMETOLOGY METHOD 07/07/2025 12:36 PM EDT [facility] Immature Granulocytes Relative 2.5 % LAB HEMETOLOGY METHOD 07/07/2025 12:36 PM EDT [facility] Neutrophils Absolute 2.52 1.50 - 7.00 K/mcL LAB HEMETOLOGY METHOD 07/07/2025 12:36 PM EDT [facility] Lymphocytes Absolute 0.87(L) 1.00 - 5.00 K/mcL LAB HEMETOLOGY METHOD 07/07/2025 12:36 PM EDT [facility] Monocytes Absolute 0.41 0.20 - 1.00 K/mcL LAB HEMETOLOGY METHOD 07/07/2025 12:36 PM EDT [facility] Eosinophils Absolute 0.10 0.00 - 0.50 K/mcL LAB HEMETOLOGY METHOD 07/07/2025 12:36 PM EDT [facility] Basophils Absolute 0.03 0.00 - 0.20 K/mcL LAB HEMETOLOGY METHOD 07/07/2025 12:36 PM EDT [facility] Immature Granulocytes Absolute 0.10(H) 0.00 - 0.03 K/mcL LAB HEMETOLOGY METHOD 07/07/2025 12:36 PM EDT [facility] Blood Venous blood specimen / Unknown Venipuncture / Unknown 07/07/2025 5:04 AM EDT 07/07/2025 10:31 AM EDT us Antonio Esquivel MD LAB BLOOD ORDERABLES Final Resul t [facility] [address] [place] [address], * (ABNORMAL) Comprehensive metabolic panel (07/07/2025 5:04 AM EDT) Only the most recent of3 resultswithin the time period is included. Sodium 137 133 - 145 mmol/L LAB CHEMISTRY METHOD 07/07/2025 2:13 PM [facility] Potassium 3.9 3.5 - 5.5 mmol/L LAB CHEMISTRY METHOD 07/07/2025 2:13 PM [facility] Chloride 103 96 - 110 mmol/L LAB CHEMISTRY METHOD 07/07/2025 2:13 PM [facility] CO2 27 21 - 32 mmol/L LAB CHEMISTRY METHOD 07/07/2025 2:13 PM [facility] Anion Gap 7 3 - 11 LAB CHEMISTRY METHOD 07/07/2025 2:13 PM [facility] Glucose 80 70 - 100 mg/dL LAB CHEMISTRY METHOD 07/07/2025 2:13 PM [facility] BUN 15 5 - 25 mg/dL LAB CHEMISTRY METHOD 07/07/2025 2:13 PM [facility] Creatinine 0.61 0.50 - 1.10 mg/dL LAB CHEMISTRY METHOD 07/07/2025 2:13 PM [facility] eGFR 88 >=60 mL/min/1. 73m2 LAB CHEMISTRY METHOD 07/07/2025 2:13 PM [facility] Comment:Calculation based on the Chronic Kidney Disease Epidemiology Collaboration (CKD-EPI) equation refit without adjustment for race. BUN/Creatinine Ratio 24.6 LAB CHEMISTRY METHOD 07/07/2025 2:13 PM [facility] Calcium 8.3(L) 8.5 - 10.5 mg/dL LAB CHEMISTRY METHOD 07/07/2025 2:13 PM [facility] AST (SGOT) 20 10 - 42 unit/L LAB CHEMISTRY METHOD 07/07/2025 2:13 PM [facility] ALT (SGPT) 20 10 - 60 unit/L LAB CHEMISTRY METHOD 07/07/2025 2:13 PM EDT [facility] Alkaline Phosphatase 68 42 - 121 unit/L LAB CHEMISTRY METHOD 07/07/2025 2:13 PM EDT [facility] Total Protein 5.7(L) 6.0 - 8.0 g/dL LAB CHEMISTRY METHOD 07/07/2025 2:13 PM EDT [facility] Albumin 2.2(L) 3.2 - 5.0 g/dL LAB CHEMISTRY METHOD 07/07/2025 2:13 PM EDT [facility] Total Bilirubin 0.2 0.0 - 1.4 mg/dL LAB CHEMISTRY METHOD 07/07/2025 2:13 PM T [facility] Blood Venous blood specimen / Unknown Venipuncture / Unknown 07/07/2025 5:04 AM EDT 07/07/2025 10:31 AM EDT us Antonio Esquivel MD LAB BLOOD ORDERABLES Final Resul t [facility] [address] [place] [address], * (ABNORMAL) Complete blood count (06/30/2025 5:07 AM EDT) WBC 5.1 4.8 - 10.8 K/mcL LAB HEMETOLOGY METHOD 06/30/2025 10:07 AM EDT [facility] RBC 3.10(L) 3.80 - 4.80 M/[facility] LAB HEMETOLOGY METHOD 06/30/2025 10:07 AM EDT [facility] Hemoglobin 9.5(L) 11.5 - 16.0 g/dL LAB HEMETOLOGY METHOD 06/30/2025 10:07 AM T [facility] Hematocrit 29.1(L) 35.0 - 47.0 % LAB HEMETOLOGY METHOD 06/30/2025 10:07 AM EDT [facility] MCV 93.6 79.0 - 98.0 FL LAB HEMETOLOGY METHOD 06/30/2025 10:07 AM EDT [facility] MCH 30.5 27.0 - 32.0 pcg LAB HEMETOLOGY METHOD 06/30/2025 10:07 AM EDT [facility] MCHC 32.6 32.0 - 37.0 g/dL LAB HEMETOLOGY METHOD 06/30/2025 10:07 AM EDT [facility] RDW 12.7 11.0 - 15.0 % LAB HEMETOLOGY METHOD 06/30/2025 10:07 AM EDT [facility] Platelets 314 130 - 400 K/mcL LAB HEMETOLOGY METHOD 06/30/2025 10:07 AM EDT [facility] MPV 9.2 7.0 - 11.0 FL LAB HEMETOLOGY METHOD 06/30/2025 10:07 AM EDT [facility] NRBC 0.0 <1.0 % LAB HEMETOLOGY METHOD 06/30/2025 10:07 AM EDT [facility] NRBC Absolute 0.00 <0.10 K/mcL LAB HEMETOLOGY METHOD 06/30/2025 10:07 AM [facility] Blood Venous blood specimen / Unknown Venipuncture / Unknown 06/30/2025 5:07 AM EDT 06/30/2025 9:40 AM EDT us Antonio Esquivel MD LAB BLOOD ORDERABLES Final Resul t [facility] [address] [place] [address], * Vitamin D 25 hydroxy (04/11/2025 12:17 PM EDT) Vit D, 25-Hydroxy 36.1 30.0 - 80.0 ng/mL LAB CHEMISTRY METHOD 04/11/2025 8:45 PM EDT [facility] Blood Venous blood specimen / Unknown Venipuncture / Unknown 04/11/2025 12:17 PM EDT 04/11/2025 12:17 PM EDT Margo Mariscal LABORER DRIVER LAB BLOOD ORDERABLES Final Re sult [facility] [address] [place] [address], [place] [phone] * Lipid panel (10/18/2024) LDL/HDL Ratio 3 <=5 Triglycerides 93 <=150 mg/dL Cholesterol 152 <=200 mg/dL HDL 57 >=50 mg/dL LDL Cholesterol 77 <=100 mg/dL Blood Venous blood specimen / Unknown Historical Provider LAB BLOOD ORDERABLES La l Result from Last 3 Months or Most Recently Relevant to Health Maintenance Insurance [facility] * Guarantor: TRAVIS Account Type Relation to Patient Date of Phone Billing Address [place] [address] [facility] Advance Directives Documents on File Type Date Recorded Patient Proposal Specialist Expl anation Advance Directives and Living Will [...] currently active code status orders. Care Teams Air Conditioning Coil Assembler Relationship Specialty Start Date End Date Antonio Esquivel MD [address] [place] [address] PCP - General Geriatric Medicine 06/30/25
--- OUTSIDE RECORDS SUMMARY | 2025-07-09 12:00 | XMS_ITS ---
Author Organization [facility] Address [address] [place] [address] Phone Care Team Providers Care Motion Picture Set Up Worker Name Role Phone Antonio Esquivel MD Primary Care Provider [phone] [facility] Status:Enrolled (Active) Start date:03/18/2022 Enrollment date:03/18/2022 Related social drivers of health:Housing Instability, Financial Risk, Transportation, Social Isolation, Food Risk Related service episodes:[facility] (Active) Overview This episode will track [facility]ACE documentation. Case Team Name Relationship Phone Patrizia Mariscal RISK COMPLIANCE MANAGER Nurse Practitioner Ivonne Meade Recreational Therapist Myrna Stratton export coordinatorSales Officer Nasima Caceres export coordinatorSales Officer Radha Watkins SILK SCREEN ETCHER Province Archivist Willy Woo OT Occupational Therapist Marko Aaron RD Dietitian Jc Sequeira PT Physical Therapist Tramaine Hurt [facility] Chinese Teacher Jarad Castrejon SALES AND PRODUCTION MANAGER Biomass Facilitator Marylu Nova export coordinatorSales Officer Kathryn Hernandez Biomass Facilitator Sherley Dawn [facility] Biomass Facilitator Hernan Kendrick Spiritual Care Gregoria Ferreira OT Occupational Therapist Renate Guerrier DIRECTOR INVESTMENT BANKING Biomass Facilitator Soto Albert PT Physical Therapist Marilu Simon RN Registered Nurse Kristi Evans MD Primary Care Provider Continued Care and Services Coordination
== END 2025-07-09 11:04 | disposition home or self-care (01) ==
LOC: HO.HOS 09:57
PROVIDERS: Visit Provider Physician Assistant
DX: Z96.641 Presence of right artificial hip joint (principal)
CPT/HCPCS: 99024

== ENCOUNTER → 2025-07-09 10:03 | Outpatient (BNV) | payer OTHER, SELFPAY | PROVIDERS: Visit Provider Radiology Diagnostic Ultrasound | DX: M25.551 Pain in right hip (principal); Z96.641 Presence of right artificial hip joint | CPT/HCPCS: 73502 ==

== ENCOUNTER 2025-07-09 11:46 | Outpatient (REF) | payer OTHER, SELFPAY ==
--- NOTE | ~2025-07-09 | XR_ITS ---
EXAMINATION: XR HIP, RIGHT CLINICAL INFORMATION: M25.551 - Pain in right hip COMPARISON: X-ray 06/27/2025 TECHNIQUE: 3 views of the right hip. FINDINGS: Status post right total hip arthroplasty. Expected positioning and alignment. No acute periprosthetic fracture is identified.. Redemonstrated 3 compression screws fixating the left hip, unchanged from previous x-ray.. SI joints are symmetric. Spondylosis in the visualized lower lumbar spine. Redemonstrated skin olga over the lateral right hip, with soft tissue swelling. Soft tissue vascular calcification redemonstrated. XR/XR hip RT min 2V IMPRESSION: Right hip total arthroplasty without evidence of complications. Electronically signed by: Sarkis Mcguire MD 07/09/2025 10:21 AM EDT
--- OUTSIDE RECORDS SUMMARY | 2025-07-09 09:30 | XMS_ITS | Encounter Summary ---
Author Organization [facility] Address [address] [place] [address] Care Team Providers Care Car Wash Attendant Automatic Name Role Phone Antonio Esquivel MD Primary Care Provider [phone] Reason for Visit * Consultation (Routine) - Authorized Specialty Diagnoses / Procedures Referred By Jackson osborne Referred To Contact Orthopaedics Diagnoses Closed fracture of right hip with routine healing, subsequent encounter Patrizia Mariscal NP 200 [facility] 1 [place] [address] Phone: tel: fax: [facility] [address] [place] [address] Dr [address] [place] [address] Phone: tel: Referral ID Status Reason Start Date Expiration Date Visits Requested Visits Authorized [id number] Authorized Specialty Services Required 06/30/2026 1 1 Encounter Details Date Type Department Care Team (Late st Contact Info) Description 07/09/2025 9:30 AM EDT PACE External Visit [facility] [address] [place] [id number] Social History Tobacco Use Types Packs/Day Years [...] Care Team (Late st Contact Info) Description 07/14/2025 1:30 PM EDT PACE Home Care / [facility] [place] [facility] [address] [place] [phone] Flavia Acuña 07/15/2025 9:00 AM EDT PACE Home Care / [facility] [facility] [place] [facility] [place] [facility] [address] [place] [phone] Flavia Acuña 07/15/2025 10:30 AM EDT Clinical Support [facility] [place] [address] [place] [phone] 07/15/2025 3:00 PM EDT PACE Home Care / [facility] [place] [facility] [address] [place] [phone] Flavia Acuña 07/16/2025 3:00 PM EDT PACE Home Care / [facility] [place] [facility] [address] [place] [phone] Flavia Acuña 07/17/2025 9:00 AM EDT PACE Home Care / [facility] [place] [facility] [address] [place] [phone] Flavia Acuña 07/17/2025 2:00 PM EDT PACE Home Care / [facility] [place] [facility] [address] [place] [phone] Flavia Acuña 07/18/2025 10:00 AM EDT PACE Home Care / [facility] [place] [facility] [place] [facility] [address] [place] [phone] Grace Kessler 07/18/2025 12:00 PM EDT [facility] [address] [place] [address] Patrizia Mariscal NP [address] [address] 07/18/2025 3:00 PM EDT PACE Home Care / [facility] [place] [facility] [address] [place] [address] Grace Kessler 07/21/2025 9:00 AM EST PACE Home Care / [facility] [address] [place] [address] Flavia Acuña 07/21/2025 3:00 PM EST PACE Home Care / [facility] [place] [facility] [address] [place] [address] Flavia Acuña 07/22/2025 9:00 AM EST PACE Home Care / [facility] [place] [facility] [address] [place] [phone] Flavia Acuña 07/22/2025 10:00 AM EST Clinical Support [facility] [place] [address] [place] [address] 07/22/2025 3:00 PM EST PACE Home Care / [facility] [place] [facility] [address] [place] [address] Flavia Acuña 07/23/2025 11:30 AM EST PACE Home Care / [facility] [address] [place] [phone] Brina Tse 07/23/2025 3:00 PM EST PACE Home Care / [facility] [address] [place] [address] Flavia Acuña 07/24/2025 9:00 AM EST PACE Home Care / [facility] [place] [facility] [address] [place] [address] Flavia Acuña 07/24/2025 11:00 AM EST [facility] [place] [facility] [address] [place] [address] Patrizia Mariscal, SAUL [address] [address] 07/24/2025 3:00 PM EST PACE Home Care / [facility] [place] [facility] [address] [place] [address] Flavia Acuña 07/25/2025 10:00 AM EST Clinical Support [facility] [place] [address] [place] [address] 07/25/2025 3:00 PM EST PACE Home Care / [facility] [place] [facility] [place] [facility] [address] [place] [phone] Grace Kessler 07/28/2025 9:00 AM EST PACE Home Care / [facility] [place] [facility] [place] [facility] [address] [place] [phone] Flavia Acuña 07/28/2025 3:00 PM EST PACE Home Care / [facility] [place] [facility] [place] [facility] [address] [place] [address] Flavia Acuña 07/29/2025 9:00 AM EST PACE Home Care / [facility] [place] [facility] [address] [place] [address] Flavia Acuña 07/29/2025 3:00 PM EST PACE Home Care / [place] [facility] [place] [facility] [address] [place] [address] Flavia Acuña 07/30/2025 11:30 AM EST PACE Home Care / [facility] [place] [facility] [address] [place] [address] Brina Tse 07/30/2025 3:00 PM EST PACE Home Care / [facility] [address] [place] [address] Flavia Acuña 07/31/2025 9:00 AM EST PACE Home Care / [place] [place] [facility] [address] [place] [phone] Flavia Acuña 07/31/2025 3:00 PM EST PACE Home Care / [place] [place] [facility] [address] [place] [phone] Flavia Acuña 08/01/2025 10:00 AM EST PACE Home Care / [place] [facility] [place] [facility] [address] [place] [phone] Grace Kessler 08/01/2025 3:00 PM EST PACE Home Care / [place] [facility] [address] [place] [phone] Grace Kessler 08/04/2025 9:00 AM EST PACE Home Care / [place] [facility] [place] [facility] [place] [facility] [address] [place] [phone] Flavia Acuña 08/04/2025 3:00 PM EST PACE Home Care / [place] [facility] [place] [facility] [place] [facility] [address] [place] [phone] Flavia Acuña 08/05/2025 9:00 AM EST PACE Home Care / [facility] [place] [facility] [address] [place] [address] Flavia Acuña 08/05/2025 3:00 PM EST PACE Home Care / [facility] [address] [place] [address] Flavia Acuña 08/06/2025 10:45 AM EST Clinical Support [facility] [place] [address] [place] [address] 08/06/2025 11:30 AM EST PACE Home Care / [facility] [place] [facility] [address] [place] [address] Brina Tse 08/06/2025 3:00 PM EST PACE Home Care / [place] [address] [place] [address] Flavia Acuña 08/07/2025 9:00 AM EST PACE Home Care / [facility] [place] [facility] [address] [place] [phone] Flavia Acuña 08/07/2025 3:00 PM EST PACE Home Care / [facility] [place] [facility] [address] [place] [phone] Flavia Acuña 08/08/2025 10:00 AM EST PACE Home Care / [facility] [place] [facility] [address] [place] [address] Grace Kessler 08/08/2025 3:00 PM EST PACE Home Care / [facility] [place] [facility] [place] [facility] [address] [place] [address] Grace Kessler 08/11/2025 9:00 AM EST PACE Home Care / [place] [place] [facility] [address] [place] [address] Flavia Acuña 08/11/2025 3:00 PM EST PACE Home Care / [place] [facility] [place] [facility] [address] [place] [address] Flavia Acuña 08/12/2025 9:00 AM EST PACE Home Care / [place] [facility] [place] [facility] [address] [place] [phone] Flavia Acuña 08/12/2025 3:00 PM EST PACE Home Care / [place] [facility] [place] [facility] [place] [facility] [address] [place] [phone] Flavia Acuña 08/13/2025 11:30 AM EST PACE Home Care / [place] [facility] [place] [facility] [place] [facility] [address] [place] [phone] Brina Tse 08/13/2025 3:00 PM EST PACE Home Care / [place] [facility] [place] [facility] [address] [place] [phone] Flavia Acuña 08/14/2025 9:00 AM EST PACE Home Care / [place] [facility] [place] [facility] [address] [place] [phone] Flavia Acuña 08/14/2025 3:00 PM EST PACE Home Care / [place] [facility] [place] [facility] [place] [facility] [address] [place] [phone] Flavia Acuña 08/15/2025 10:00 AM EST PACE Home Care / [place] [facility] [place] [facility] [address] [place] [phone] Grace Kessler 08/15/2025 3:00 PM EST PACE Home Care / [facility] [place] [facility] [address] [place] [address] Grace Kessler 08/18/2025 9:00 AM EST PACE Home Care / [facility] [place] [facility] [address] [place] [address] Flavia Acuña 08/18/2025 3:00 PM EST PACE Home Care / [facility] [place] [facility] [address] [place] [address] Flavia Acuña 08/19/2025 9:00 AM EST PACE Home Care / [facility] [place] [facility] [address] [place] [address] Flavia Acuña 08/19/2025 11:00 AM EST Clinical Support [facility] [place] [address] [place] [address] 08/19/2025 3:00 PM EST PACE Home Care / [facility] [place] [facility] [address] [place] [phone] Flavia Acuña 08/20/2025 11:30 AM EST PACE Home Care / [facility] [place] [facility] [address] [place] [address] Brina Tse 08/20/2025 3:00 PM EST PACE Home Care / [place] [facility] [place] [facility] [address] [place] [phone] Flavia Acuña 08/21/2025 9:00 AM EST PACE Home Care / [facility] [facility] [place] [facility] [address] [place] [address] Flavia Acuña 08/21/2025 3:00 PM EST PACE Home Care / [place] [facility] [place] [facility] [place] [facility] [address] [place] [address] Flavia Acuña 08/22/2025 10:00 AM EST PACE Home Care / [place] [facility] [place] [facility] [place] [facility] [address] [place] [address] Grace Kessler 08/22/2025 3:00 PM EST PACE Home Care / [place] [facility] [place] [facility] [address] [place] [address] Grace Kessler 08/25/2025 9:00 AM EST PACE Home Care / [place] [facility] [place] [facility] [address] [place] [address] Flavia Acuña 08/25/2025 3:00 PM EST PACE Home Care / [place] [facility] [place] [facility] [address] [place] [address] Flavia Acuña 08/26/2025 9:00 AM EST PACE Home Care / [place] [facility] [place] [facility] [place] [facility] [address] [place] [phone] Flavia Acuña 08/26/2025 3:00 PM EST PACE Home Care / [place] [facility] [place] [facility] [address] [place] [address] Flavia Acuña 08/27/2025 11:30 AM EST PACE Home Care / [place] [facility] [place] [facility] [address] [place] [phone] Brina Tse 08/27/2025 3:00 PM EST PACE Home Care / [place] [facility] [place] [facility] [address] [place] [address] Flavia Acuña 08/28/2025 9:00 AM EST PACE Home Care / [place] [facility] [place] [facility] [place] [facility] [address] [place] [address] Flavia Acuña 08/28/2025 3:00 PM EST PACE Home Care / [place] [facility] [place] [facility] [place] [facility] [address] [place] [phone] Flavia Acuña 08/29/2025 10:00 AM EST PACE Home Care / [place] [facility] [place] [facility] [address] [place] [phone] Grace Kessler 08/29/2025 3:00 PM EST PACE Home Care / [place] [facility] [place] [facility] [address] [place] [phone] Grace Kessler 09/01/2025 9:00 AM EST PACE Home Care / [place] [facility] [place] [facility] [place] [facility] [address] [place] [phone] Flavia Acuña 09/01/2025 3:00 PM EST PACE Home Care / [place] [facility] [place] [facility] [address] [place] [phone] Flavia Acuña 09/02/2025 9:00 AM EST PACE Home Care / [place] [facility] [place] [facility] [address] [place] [phone] Flavia Acuña 09/02/2025 3:00 PM EST PACE Home Care / [place] [facility] [place] [facility] [address] [place] [phone] Flavia Acuña 09/03/2025 11:30 AM EST PACE Home Care / [place] [facility] [place] [facility] [address] [place] [phone] Colin Tseah 09/03/2025 3:00 PM EST PACE Home Care / [place] [facility] [place] [facility] [address] [place] [phone] Flavia Acuña 09/04/2025 9:00 AM EST PACE Home Care / [facility] [place] [facility] [address] [place] [phone] Flavia Acuña 09/04/2025 3:00 PM EST PACE Home Care / [facility] [place] [facility] [address] [place] [phone] Flavia Acuña 09/05/2025 10:00 AM EST PACE Home Care / [facility] [place] [facility] [address] [place] [phone] Grace Kessler 09/05/2025 3:00 PM EST PACE Home Care / [facility] [place] [facility] [address] [place] [phone] Grace Kessler 09/08/2025 9:00 AM EST PACE Home Care / [facility] [place] [facility] [address] [place] [phone] Flavia Acuña 09/08/2025 3:00 PM EST PACE Home Care / [facility] [place] [facility] [address] [place] [phone] Flavia Acuña 02/27/2026 9:45 AM EDT P[place] External Visit [facility] [place] [address] [place] [phone] documented as of this encounter Visit Diagnoses Not on filedocumented in this encounter Orders Outpatient Referral Count Last Ordered Date Fir st Ordered Date AMB REFERRAL TO ORTHOPEDIC SURGERY 1 2024 documented in this encounter Care Teams Car Wash Attendant Automatic Relationship Specialty Start Date End Date Antonio Esquivel MD [address] [place] [address] PCP - General Geriatric Medicine 06/30/25 documented as of this encounter
--- OUTSIDE RECORDS SUMMARY | 2025-07-10 15:00 | XMS_ITS ---
Author Organization [facility] Address [address] [place] [address] Phone Care Team Providers Care Director Global Strategic Publisher Sales Name Role Phone Antonio Esquivel MD Primary Care Provider [phone] [facility] Status:Enrolled (Active) Start date:03/18/2022 Enrollment date:03/18/2022 Related social drivers of health:Housing Instability, Financial Risk, Transportation, Social Isolation, Food Risk Related service episodes:[facility] (Active) Overview This episode will track [facility] documentation. Case Team Name Relationship Phone Patrizia Mariscal MAIL HANDLER Nurse Practitioner [phone] Ivonne Meade Recreational Therapist Myrna Stratton appraiserTrailhead Construction Worker Nasima Caceres appraiserTrailhead Construction Worker Radha Watkins UPPER CUTTER OUT Dog Warden Willy Woo OT Occupational Therapist Marko Aaron RD Dietitian Jc Sequeira PT Physical Therapist Tramaine Hurt [facility] CenterCar Carder Jarad Castrejon GASOLINE ENGINE INSPECTOR Resizer Operator Marylu Nova appraiserTrailhead Construction Worker Kathryn Hernandez Resizer Operator Sherley Dawn [facility] Resizer Operator Hernan Kendrick Spiritual Care Gregoria Ferreira OT Occupational Therapist Renate Guerrier INVESTMENT COUNSELOR Resizer Operator Soto Albert PT Physical Therapist Marilu Simon RN Registered Nurse Kristi Evans MD Primary Care Provider Continued Care and Services Coordination
--- OUTSIDE RECORDS SUMMARY | 2025-07-10 15:00 | XMS_ITS ---
Author Organization [facility] Address [address] [place] [address] Phone Care Team Providers Care Hardware Design Engineer Name Role Phone Antonio Esquivel MD Primary Care Provider [phone] [facility] Status:Enrolled (Active) Start date:11/16/2024 Related program episode:[facility] (Active) Case Team Name Relationship Phone Patrizia Mariscal PACKAGER(Responsible Staff) Nurse Prac titioner [phone] Continued Care and Services Coordination
--- OUTSIDE RECORDS SUMMARY | 2025-07-10 15:00 | XMS_ITS | Encounter Summary ---
Author Organization [place] [address] Care Team Providers Care Casing Operator Name Role Phone Antonio Esquivel MD Primary Care Provider [phone] Encounter Details Date Type Department Care Team (Late st Contact Info) Description 07/08/2025 Lab Requisition [facility] - Main Lab [address] [place] [address] Antonio Esquivel MD [address] [place] [address] Urinary tract infection, site not specified Social [...] PACE Home Care / PACE Home Visit [facility] [address] [place] [address] Flavia Acuña 07/15/2025 9:00 AM EDT P[facility] Home Care / [place] [facility] [place] [facility] [place] [facility] [address] [place] [phone] Flavia Acuña 07/15/2025 10:30 AM EDT Clinical Support [facility] [place] [address] [place] [address] 07/15/2025 3:00 PM EDT P[facility] Home Care / [facility] [place] [facility] [place] [facility] [address] [place] [address] Flavia Acuña 07/16/2025 3:00 PM EDT PACE Home Care / [facility] [place] [facility] [address] [place] [address] Flavia Acuña 07/17/2025 9:00 AM EDT PACE Home Care / [facility] [place] [facility] [address] [place] [address] Flavia Acuña 07/17/2025 2:00 PM EDT PACE Home Care / [facility] [place] [facility] [place] [facility] [address] [place] [phone] Flavia Acuña 07/18/2025 10:00 AM EDT PACE Home Care / [facility] [place] [facility] [address] [place] [address] Grace Kessler 07/18/2025 12:00 PM EDT [facility] [place] [facility] [address] [place] [address] Patrizia Mariscal NP [address] [address] 07/18/2025 3:00 PM EDT P[facility] Home Care / [facility] [place] [facility] [address] [place] [address] Grace Kessler 07/21/2025 9:00 AM EST [facility] Home [facility] / [facility] [place] [facility] [address] [place] [phone] Flavia Acuña 07/21/2025 3:00 PM EST PACE Home Care / [facility] [place] [facility] [address] [place] [phone] Falvia Acuña 07/22/2025 9:00 AM EST PACE Home Care / [facility] [place] [facility] [address] [place] [phone] Flavia Acuña 07/22/2025 10:00 AM EST Clinical Support [facility] [place] [address] [place] [phone] 07/22/2025 3:00 PM EST PACE Home Care / [facility] [place] [facility] [address] [place] [phone] Flavia Acuña 07/23/2025 11:30 AM EST PACE Home Care / [facility] [place] [facility] [address] [place] [phone] Brina Tse 07/23/2025 3:00 PM EST PACE Home Care / [facility] [place] [facility] [place] [facility] [address] [place] [phone] Flavia Acuña 07/24/2025 9:00 AM EST PACE Home Care / [facility] [place] [facility] [place] [facility] [address] [place] [phone] Flavia Acuña 07/24/2025 11:00 AM EST [facility] [place] [facility] [address] [place] [phone] Patrizia Mariscal, SAUL 200 [facility] [address] [place] [address] 07/24/2025 3:00 PM EST PACE Home Care / [facility] [facility] [place] [facility] [place] [facility] [address] [place] [address] Flavia Acuña 07/25/2025 10:00 AM EST Clinical Support [facility] [place] [address] [place] [address] 07/25/2025 3:00 PM EST PACE Home Care / [place] [facility] [place] [facility] [place] [facility] [address] [place] [address] Grace Kessler 07/28/2025 9:00 AM EST PACE Home Care / [facility] [place] [facility] [place] [facility] [address] [place] [address] Flavia Acuña 07/28/2025 3:00 PM EST PACE Home Care / [facility] [place] [facility] [place] [facility] [address] [place] [phone] Flavia Acuña 07/29/2025 9:00 AM EST PACE Home Care / [facility] [place] [facility] [place] [facility] [address] [place] [address] Flavia Acuña 07/29/2025 3:00 PM EST PACE Home Care / [facility] [place] [facility] [place] [facility] [address] [place] [address] Flavia Acuña 07/30/2025 11:30 AM EST PACE Home Care / [facility] [facility] [place] [facility] [place] [facility] [address] [place] [address] Brina Tse 07/30/2025 3:00 PM EST PACE Home Care / [place] [facility] [place] [facility] [place] [facility] [address] [place] [address] Flavia Acuña 07/31/2025 9:00 AM EST PACE Home Care / [place] [facility] [place] [facility] [address] [place] [address] Flavia Acuña 07/31/2025 3:00 PM EST PACE Home Care / [place] [facility] [place] [facility] [address] [place] [address] Flavia Acuña 08/01/2025 10:00 AM EST PACE Home Care / [facility] [place] [facility] [address] [place] [phone] Grace Kessler 08/01/2025 3:00 PM EST PACE Home Care / [place] [facility] Visit [facility] [place] [facility] [address] [place] [phone] Grace Kessler 08/04/2025 9:00 AM EST PACE Home Care / [place] [facility] [place] [facility] [address] [place] [phone] Flavia Acuña 08/04/2025 3:00 PM EST PACE Home Care / [place] [facility] [place] [facility] [address] [place] [phone] Flavia Acuña 08/05/2025 9:00 AM EST PACE Home Care / [place] [facility] [place] [facility] [address] [place] [phone] Flavia Acuña 08/05/2025 3:00 PM EST PACE Home Care / [place] [facility] [place] [facility] [address] [place] [phone] Flavia Acuña 08/06/2025 10:45 AM EST Clinical Support [facility] [place] [address] [place] [address] 08/06/2025 11:30 AM EST PACE Home Care / [facility] [place] [facility] [place] [facility] [address] [place] [phone] Brina Tse 08/06/2025 3:00 PM EST PACE Home Care / [facility] [place] [facility] [address] [place] [phone] Flavia Acuña 08/07/2025 9:00 AM EST PACE Home Care / [facility] [place] [facility] [address] [place] [phone] Flavia Acuña 08/07/2025 3:00 PM EST PACE Home Care / [facility] [place] [facility] [address] [place] [phone] Flavia Acuña 08/08/2025 10:00 AM EST PACE Home Care / [facility] [place] [facility] [address] [place] [phone] Grace Kessler 08/08/2025 3:00 PM EST PACE Home Care / [facility] [place] [facility] [address] [place] [phone] Grace Kessler 08/11/2025 9:00 AM EST PACE Home Care / [facility] [place] [facility] [address] [place] [phone] Flavia Acuña 08/11/2025 3:00 PM EST PACE Home Care / [place] [facility] [place] [facility] [address] [place] [phone] Flavia Acuña 08/12/2025 9:00 AM EST PACE Home Care / [place] [facility] [place] [facility] [address] [place] [address] Flavia Acuña 08/12/2025 3:00 PM EST PACE Home Care / [place] [facility] [place] [facility] [address] [place] [address] Flavia Acuña 08/13/2025 11:30 AM EST PACE Home Care / [place] [facility] [place] [facility] [address] [place] [phone] Brina Tse 08/13/2025 3:00 PM EST PACE Home Care / [place] [facility] [place] [facility] [address] [place] [phone] Flavia Acuña 08/14/2025 9:00 AM EST PACE Home Care / [place] [facility] [place] [facility] [address] [place] [phone] Flavia Acuña 08/14/2025 3:00 PM EST PACE Home Care / [place] [facility] [place] [facility] [address] [place] [phone] Flavia Acuña 08/15/2025 10:00 AM EST PACE Home Care / [place] [facility] [place] [facility] [place] [facility] [address] [place] [phone] Grace Kessler 08/15/2025 3:00 PM EST PACE Home Care / [place] [facility] [place] [facility] [place] [facility] [address] [place] [phone] Grace Kessler 08/18/2025 9:00 AM EST PACE Home Care / [facility] [facility] [place] [facility] [address] [place] [phone] Flavia Acuña 08/18/2025 3:00 PM EST PACE Home Care / [facility] [place] [facility] [address] [place] [address] Flavia Acuña 08/19/2025 9:00 AM EST PACE Home Care / [place] [facility] [place] [facility] [place] [facility] [address] [place] [phone] Flavia Acuña 08/19/2025 11:00 AM EST [facility] Support [facility] [place] [address] [place] [address] 08/19/2025 3:00 PM EST PACE Home Care / [place] [facility] [place] [facility] [place] [facility] [address] [place] [phone] Flavia Acuña 08/20/2025 11:30 AM EST PACE Home Care / [facility] [facility] [place] [facility] [place] [facility] [address] [place] [phone] Brina Tse 08/20/2025 3:00 PM EST PACE Home Care / [place] [facility] [place] [facility] [place] [facility] [address] [place] [phone] Flavia Acuña 08/21/2025 9:00 AM EST PACE Home Care / [facility] [facility] [place] [facility] [place] [facility] [address] [place] [phone] Flavia Acuña 08/21/2025 3:00 PM EST PACE Home Care / [facility] [facility] [place] [facility] [address] [place] [phone] Flavia Acuña 08/22/2025 10:00 AM EST PACE Home Care / [place] [facility] [place] [facility] [place] [facility] [address] [place] [phone] Grace Kessler 08/22/2025 3:00 PM EST PACE Home Care / [place] [facility] [place] [facility] [place] [facility] [address] [place] [address] Grace Kessler 08/25/2025 9:00 AM EST PACE Home Care / [place] [facility] [place] [facility] [place] [facility] [address] [place] [address] Flavia Acuña 08/25/2025 3:00 PM EST PACE Home Care / [facility] [place] [facility] [place] [facility] [address] [place] [address] Flavia Acuña 08/26/2025 9:00 AM EST PACE Home Care / [facility] [place] [facility] [address] [place] [phone] Flavia Acuña 08/26/2025 3:00 PM EST PACE Home Care / [place] [facility] [place] [facility] [place] [facility] [address] [place] [phone] Flavia Acuña 08/27/2025 11:30 AM EST PACE Home Care / [place] [facility] [place] [facility] [place] [facility] [address] [place] [phone] Brina Tse 08/27/2025 3:00 PM EST PACE Home Care / [place] [facility] [place] [facility] [place] [facility] [address] [place] [phone] Flavia Acuña 08/28/2025 9:00 AM EST PACE Home Care / [place] [facility] [place] [facility] [place] [facility] [address] [place] [phone] Flavia Acuña 08/28/2025 3:00 PM EST PACE Home Care / [facility] [facility] [place] [facility] [place] [facility] [address] [place] [phone] Flavia Acuña 08/29/2025 10:00 AM EST PACE Home Care / [facility] [place] [facility] [address] [place] [address] Grace Kessler 08/29/2025 3:00 PM EST PACE Home Care / [facility] [place] [facility] [address] [place] [address] Grace Kessler 09/01/2025 9:00 AM EST PACE Home Care / [place] [facility] [place] [facility] [place] [facility] [address] [place] [address] Flavia Acuña 09/01/2025 3:00 PM EST PACE Home Care / [facility] [place] [facility] [place] [facility] [address] [place] [phone] Flavia Acuña 09/02/2025 9:00 AM EST PACE Home Care / [facility] [place] [facility] [address] [place] [phone] Flavia Acuña 09/02/2025 3:00 PM EST PACE Home Care / [facility] [facility] [place] [facility] [place] [facility] [address] [place] [phone] Flavia Acuña 09/03/2025 11:30 AM EST PACE Home Care / [place] [facility] [place] [facility] [place] [facility] [address] [place] [phone] Brina Tse 09/03/2025 3:00 PM EST PACE Home Care / [facility] [facility] [place] [facility] [address] [place] [phone] Flavia Acuña 09/04/2025 9:00 AM EST PACE Home Care / [facility] [facility] [place] [facility] [address] [place] [phone] Flavia Acuña 09/04/2025 3:00 PM EST PACE Home Care / [facility] [place] [facility] [address] [place] [address] Flavia Acuña 09/05/2025 10:00 AM EST PACE Home Care / [facility] [place] [facility] [address] [place] [address] Grace Kessler 09/05/2025 3:00 PM EST PACE Home Care / [facility] [place] [facility] [address] [place] [address] Grace Kessler 09/08/2025 9:00 AM EST PACE Home Care / [facility] [place] [facility] [address] [place] [address] Flavia Acuña 09/08/2025 3:00 PM EST PACE Home Care / [facility] [place] [facility] [address] [place] [address] Flavia Acuña 02/27/2026 9:45 AM EDT PACE External Visit [facility] [place] [address] [place] [address] documented as of this encounter Procedures Procedure Name Priority Date/Time Associated Diagnosis Comments URINALYSIS WITH REFLEX MICROSCOPIC AND CULTURE Routine 07/08/2025 12:00 AM EDT Urinary tract infection, site not specified REEVSE URINE CULTURE TUBE Routine 07/08/2025 12:00 AM EDT Urinary tract infection, site not specified URINALYSIS WITH REFLEX MICROSCOPIC AND CULTURE Routine 07/08/2025 12:00 AM EDT Urinary tract infection, site not specified CULTURE URINE Routine 07/08/2025 12:00 AM EDT Urinary tract infection, site not specified documented in this encounter Results * Culture urine (07/08/2025 12:00 AM EDT) Pathologist [facility] Culture, Urine 10,000-49,000 CFU/mL Mixed bacterial morphotypes present suggestive of possible contamination during collection. Suggest appropriate recollection if clinically indicated. 07/09/2025 8:36 AM EDT [facility] Urine Urine specimen obtained by clean catch procedure / Unknown 07/08/2025 07/08/2025 9:10 AM EDT us Antonio Esquivel MD LAB MICROBIOLOGY - GENERAL ORDER MICK Final Result Performing Organization Address [facility]/ZIP Co de Phone Number [facility] [address] [place] [address], [place] [phone] * Reeves urine culture tube (07/08/2025 12:00 AM EDT) [facility] Extra Tube Hold for add-ons. 07/08/2025 11:01 AM EDT [facility] Comment:Auto resulted. Urine Urine specimen obtained by clean catch procedure / Unknown 07/08/2025 07/08/2025 9:03 AM EDT us Antonio Esquivel MD LAB URINE ORDERABLES Final Resul t Performing Organization Address [facility]/ZIP Co de Phone Number [facility] [address] [place] [address], [place] [phone] * (ABNORMAL) Urinalysis with reflex microscopic and culture (07/08/2025 12:00 AM EDT) [facility] Specific [place] Urine 1.015 1.003 - 1.030 LAB URINALYSIS - AUTOMATED METHOD 07/08/2025 9:10 AM EDT [facility] pH, Urine 7.0 5.0 - [...] - AUTOMATED METHOD 07/08/2025 9:10 AM EDT [facility] Urine Urine specimen obtained by clean catch procedure / Unknown 07/08/2025 07/08/2025 8:27 AM EDT us Antonio Esquivel MD LAB URINE ORDERABLES Final Resul t [facility] [address] [place] [address], [place] [phone] documented in this encounter Visit Diagnoses Diagnosis Urinary tract infection, site not specified documented in this encounter Care Teams Casing Operator Relationship Specialty Start Date End Date Antonio Esquivel MD [address] [place] [address] PCP - General Geriatric Medicine 06/30/25 documented as of this encounter
--- OUTSIDE RECORDS SUMMARY | 2025-07-10 15:00 | XMS_ITS | Encounter Summary ---
Author Organization [facility] Address [address] [place] [address] Care Team Providers Care Motor Vehicle Emissions Inspector Name Role Phone Antonio Esquivel MD Primary Care Provider [phone] Encounter Details Date Type Department Care Team (Late st Contact Info) Description 07/05/2025 Lab Requisition [facility] - Main Lab [address] [place] [address] Antonio Esquivel MD [address] [place] [address] Aftercare following joint replacement surgery; [...] PACE Home Care / PACE Home Visit [facility] [address] [place] [address] Flavia Acuña 07/15/2025 9:00 AM EDT PACE Home Care / [place] Home [place] [facility] [place] [facility] [address] [place] [address] Flavia Acuña 07/15/2025 10:30 AM EDT Clinical Support [facility] [place] [address] [place] [address] 07/15/2025 3:00 PM EDT PACE Home Care / [place] [facility] [place] [facility] [address] [place] [phone] Flavia Acuña 07/16/2025 3:00 PM EDT PACE Home Care / [place] [facility] [place] [facility] [address] [place] [phone] Flavia Acuña 07/17/2025 9:00 AM EDT PACE Home Care / [place] [facility] [place] [facility] [address] [place] [address] Flavia Acuña 07/17/2025 2:00 PM EDT PACE Home Care / [place] [facility] [place] [facility] [address] [phone] Flavia Acuña 07/18/2025 10:00 AM EDT PACE Home Care / [place] [facility] [place] [facility] [place] [facility] [address] [place] [address] Grace Kessler 07/18/2025 12:00 PM EDT [facility] [place] [facility] [address] [place] [address] Patrizia Mariscal NP [address] [address] 07/18/2025 3:00 PM EDT PACE Home Care / [place] [facility] [place] [facility] [address] [place] [address] Grace Kessler 07/21/2025 9:00 AM EST PACE Home Care / [place] [facility] [place] [facility] [place] [facility] [address] [place] [address] Flavia Acuña 07/21/2025 3:00 PM EST PACE Home Care / [place] [facility] [place] [facility] [address] [place] [address] Flavia Acuña 07/22/2025 9:00 AM EST PACE Home Care / [place] [facility] [place] [facility] [address] [place] [address] Flavia Acuña 07/22/2025 10:00 AM EST Clinical Support [facility] [place] [address] [place] [address] 07/22/2025 3:00 PM EST PACE Home Care / [place] [facility] [place] [facility] [address] [place] [address] Flavia Acuña 07/23/2025 11:30 AM EST PACE Home Care / [place] [facility] [place] [facility] [place] [facility] [address] [place] [address] Brina Tse 07/23/2025 3:00 PM EST PACE Home Care / [place] Home [place] [facility] [place] [facility] [address] [place] [address] Flavia Acuña 07/24/2025 9:00 AM EST PACE Home Care / [place] Home [place] [facility] [place] [facility] [address] [place] [address] Flavia Acuña 07/24/2025 11:00 AM EST Office Visit [facility] [address] [place] [address] Patrizia Mariscal, SAUL [address] [address] 07/24/2025 3:00 PM EST PACE Home Care / [place] Home [place] [facility] [place] [facility] [address] [place] [address] Flavia Acuña 07/25/2025 10:00 AM EST Clinical Support [facility] [place] [address] [place] [address] 07/25/2025 3:00 PM EST PACE Home Care / [place] [facility] [place] [facility] [place] [facility] [address] [place] [address] Grace Kessler 07/28/2025 9:00 AM EST PACE Home Care / [place] [facility] [place] [facility] [place] [facility] [address] [place] [address] Flavia Acuña 07/28/2025 3:00 PM EST PACE Home Care / [place] [facility] [place] [facility] [address] [place] [phone] Flavia Acuña 07/29/2025 9:00 AM EST PACE Home Care / [place] Home [place] [facility] [place] [facility] [address] [place] [phone] Flavia Acuña 07/29/2025 3:00 PM EST PACE Home Care / [place] [facility] [place] [facility] [address] [place] [phone] Flavia Acuña 07/30/2025 11:30 AM EST PACE Home Care / [place] [facility] [place] [facility] [address] [place] [phone] Brina Tse 07/30/2025 3:00 PM EST PACE Home Care / [place] [facility] [place] [facility] [address] [place] [phone] Flavia Acuña 07/31/2025 9:00 AM EST PACE Home Care / [place] [facility] [place] [facility] [address] [place] [phone] Flavia Acuña 07/31/2025 3:00 PM EST PACE Home Care / [place] [facility] [place] [facility] [address] [phone] Flavia Acuña 08/01/2025 10:00 AM EST PACE Home Care / [place] [facility] [place] [facility] [address] [place] [phone] Grace Kessler 08/01/2025 3:00 PM EST PACE Home Care / [place] [facility] [place] [facility] [address] [place] [phone] Grace Kessler 08/04/2025 9:00 AM EST PACE Home Care / [place] [facility] [place] [facility] [address] [place] [phone] Flavia Acuña 08/04/2025 3:00 PM EST PACE Home Care / [place] [facility] [place] [facility] [address] [place] [phone] Flavia Acuña 08/05/2025 9:00 AM EST PACE Home Care / [place] [facility] [place] [facility] [address] [phone] Flavia Acuña 08/05/2025 3:00 PM EST PACE Home Care / [place] [facility] [place] [facility] [address] [place] [phone] Flavia Acuña 08/06/2025 10:45 AM EST Clinical Support [facility] [place] [address] [place] [address] 08/06/2025 11:30 AM EST PACE Home Care / [place] Home [place] [facility] [place] [facility] [address] [place] [phone] Brina Tse 08/06/2025 3:00 PM EST PACE Home Care / [place] Home [place] [facility] [place] [facility] [address] [place] [phone] Flavia Acuña 08/07/2025 9:00 AM EST PACE Home Care / [place] Home [place] [facility] [place] [facility] [address] [place] [phone] Flavia Acuña 08/07/2025 3:00 PM EST PACE Home Care / [place] Home [place] [facility] [place] [facility] [address] [place] [phone] Flavia Acuña 08/08/2025 10:00 AM EST PACE Home Care / [place] [facility] [place] [facility] [place] [facility] [address] [place] [phone] Grace Kessler 08/08/2025 3:00 PM EST PACE Home Care / [place] [facility] [place] [facility] [place] [facility] [address] [place] [phone] Grace Kessler 08/11/2025 9:00 AM EST PACE Home Care / [place] [place] [facility] [address] [place] [phone] Flavia Acuña 08/11/2025 3:00 PM EST PACE Home Care / [place] [facility] [place] [facility] [address] [place] [phone] Flavia Acuña 08/12/2025 9:00 AM EST PACE Home Care / [place] [facility] [place] [facility] [address] [place] [phone] Flavia Acuña 08/12/2025 3:00 PM EST PACE Home Care / [place] [facility] [place] [facility] [address] [place] [phone] Flavia Acuña 08/13/2025 11:30 AM EST PACE Home Care / [place] [facility] [place] [facility] [address] [place] [phone] Brina Tse 08/13/2025 3:00 PM EST PACE Home Care / [place] [facility] [place] [facility] [address] [place] [phone] Flavia Acuña 08/14/2025 9:00 AM EST PACE Home Care / [place] [facility] [place] [facility] [address] [place] [phone] Flavia Acuña 08/14/2025 3:00 PM EST PACE Home Care / [place] [facility] [place] [facility] [address] [place] [phone] Flavia Acuña 08/15/2025 10:00 AM EST PACE Home Care / [place] [facility] [place] [facility] [address] [place] [phone] Grace Kessler 08/15/2025 3:00 PM EST PACE Home Care / [place] [facility] [place] [facility] [address] [place] [phone] Grace Kessler 08/18/2025 9:00 AM EST PACE Home Care / [place] [facility] [place] [facility] [address] [place] [phone] Flavia Acuña 08/18/2025 3:00 PM EST PACE Home Care / [place] Home [place] [facility] [place] [facility] [address] [place] [phone] Flavia Acuña 08/19/2025 9:00 AM EST PACE Home Care / [place] [facility] [place] [facility] [place] [facility] [address] [place] [phone] Flavia Acuña 08/19/2025 11:00 AM EST Clinical Support [facility] [place] [address] [phone] 08/19/2025 3:00 PM EST PACE Home Care / [place] Home [place] [facility] [place] [facility] [address] [place] [phone] Flavia Acuña 08/20/2025 11:30 AM EST PACE Home Care / [place] Home [place] [facility] [place] [facility] [address] [place] [phone] Brina Tse 08/20/2025 3:00 PM EST PACE Home Care / [place] Home [place] [facility] [place] [facility] [address] [place] [phone] Flavia Acuña 08/21/2025 9:00 AM EST PACE Home Care / [place] [place] [facility] [address] [place] [phone] Flavia Acuña 08/21/2025 3:00 PM EST PACE Home Care / [place] [facility] [place] [facility] [address] [place] [phone] Flavia Acuña 08/22/2025 10:00 AM EST PACE Home Care / [place] [facility] [place] [facility] [address] [place] [phone] Grace Kessler 08/22/2025 3:00 PM EST PACE Home Care / [place] [facility] Visit [facility] [place] [facility] [address] [place] [address] Grace Kessler 08/25/2025 9:00 AM EST PACE Home Care / [place] [facility] [place] [facility] [address] [place] [address] Flavia Acuña 08/25/2025 3:00 PM EST PACE Home Care / [place] [facility] [place] [facility] [address] [place] [address] Flavia Acuña 08/26/2025 9:00 AM EST PACE Home Care / [place] [facility] [place] [facility] [address] [place] [phone] Flavia Acuña 08/26/2025 3:00 PM EST PACE Home Care / [place] [facility] [place] [facility] [address] [place] [phone] Flavia Acuña 08/27/2025 11:30 AM EST PACE Home Care / [place] [facility] [place] [facility] [address] [place] [phone] Brina Tse 08/27/2025 3:00 PM EST PACE Home Care / [place] [facility] [place] [facility] [address] [place] [phone] Flavia Acuña 08/28/2025 9:00 AM EST PACE Home Care / [place] [facility] [place] [facility] [address] [place] [phone] Flavia Acuña 08/28/2025 3:00 PM EST PACE Home Care / [place] [facility] [place] [facility] [address] [place] [phone] Flavia Acuña 08/29/2025 10:00 AM EST PACE Home Care / [place] [facility] [place] [facility] [address] [place] [address] Grace Kessler 08/29/2025 3:00 PM EST PACE Home Care / [place] [facility] [place] [facility] [address] [place] [address] Grace Kessler 09/01/2025 9:00 AM EST PACE Home Care / [place] [facility] [place] [facility] [address] [place] [address] Flavia Acuña 09/01/2025 3:00 PM EST PACE Home Care / [place] [facility] [place] [facility] [address] [place] [phone] Flavia Acuña 09/02/2025 9:00 AM EST PACE Home Care / [place] [facility] [place] [facility] [address] [place] [phone] Flavia Acuña 09/02/2025 3:00 PM EST PACE Home Care / [place] [facility] [place] [facility] [address] [place] [phone] Flavia Acuña 09/03/2025 11:30 AM EST PACE Home Care / [place] [facility] [place] [facility] [address] [place] [phone] Brina Tse 09/03/2025 3:00 PM EST PACE Home Care / [place] [facility] [place] [facility] [address] [place] [phone] Flavia Acuña 09/04/2025 9:00 AM EST PACE Home Care / [place] [facility] [place] [facility] [place] [facility] [address] [place] [address] Flavia Acuña 09/04/2025 3:00 PM EST PACE Home Care / [place] Home [facility] [place] [facility] [address] [place] [address] Flavia Acuña 09/05/2025 10:00 AM EST PACE Home Care / [place] [facility] [place] [facility] [place] [facility] [address] [place] [address] Grace Kessler 09/05/2025 3:00 PM EST PACE Home Care / [place] [facility] [place] [facility] [place] [facility] [address] [place] [address] Grace Kessler 09/08/2025 9:00 AM EST PACE Home Care / [place] Home Visit [facility] [place] [facility] [address] [place] [phone] Flavia Acuña 09/08/2025 3:00 PM EST PACE Home Care / [place] Home [place] [facility] [place] [facility] [address] [place] [phone] Flavia Acuña 02/27/2026 9:45 AM EDT PACE External Visit [facility] [place] [address] [place] [address] documented as of this encounter Procedures Procedure [...] CBC auto differential (07/07/2025 5:04 AM EDT) WBC 4.0(L) 4.8 - 10.8 K/mcL LAB [facility] RBC 3.00(L) 3.80 - 4.80 M/mcL LAB HEMETOLOGY METHOD 07/07/2025 12:36 PM EDT [facility] Hemoglobin 9.1(L) 11.5 - 16.0 g/dL LAB HEMETOLOGY METHOD 07/07/2025 12:36 PM [facility] Hematocrit 28.2(L) 35.0 - 47.0 % LAB HEMETOLOGY METHOD 07/07/2025 12:36 PM [facility] MCV 94.9 79.0 - 98.0 FL LAB HEMETOLOGY METHOD 07/07/2025 12:36 PM EDT [facility] MCH 30.6 27.0 - 32.0 pcg LAB HEMETOLOGY METHOD 07/07/2025 12:36 PM [facility] MCHC 32.3 32.0 - 37.0 g/dL LAB HEMETOLOGY METHOD 07/07/2025 12:36 PM [facility] RDW 13.5 11.0 - 15.0 % LAB HEMETOLOGY METHOD 07/07/2025 12:36 PM EDT [facility] Platelets 375 130 - 400 K/mcL LAB HEMETOLOGY METHOD 07/07/2025 12:36 PM EDT [facility] MPV 9.0 7.0 - 11.0 FL LAB HEMETOLOGY METHOD 07/07[facility]2025 [facility] NRBC 0.0 <1.0 % LAB HEMETOLOGY METHOD 07/07[facility]25 [facility] NRBC Absolute 0.00 <0.10 K/mcL LAB HEMETOLOGY METHOD 07/07/2025 12:36 PM EDT [facility] Neutrophils Relative 62.5 % LAB HEMETOLOGY METHOD 07/07[facility]25 [facility] Lymphocytes Relative 21.6 % LAB HEMETOLOGY METHOD 07/07/2025 12:36 PM EDT [facility] Monocytes Relative 10.2 % LAB HEMETOLOGY METHOD 07/07/2025 12:36 PM EDT [facility] Eosinophils Relative 2.5 % LAB HEMETOLOGY METHOD 07/07[facility]25 [facility] Basophils Relative 0.7 % LAB HEMETOLOGY METHOD 07/07/2025 12:36 PM [facility] Immature Granulocytes Relative 2.5 % LAB HEMETOLOGY METHOD 07/07/2025 12:36 PM T [facility] Neutrophils Absolute 2.52 1.50 - 7.00 K/mcL LAB HEMETOLOGY METHOD 07/07/2025 12:36 PM [facility] Lymphocytes Absolute 0.87(L) 1.00 - 5.00 K/mcL LAB HEMETOLOGY METHOD 07/07/2025 12:36 PM [facility] Monocytes Absolute 0.41 0.20 - 1.00 K/mcL LAB HEMETOLOGY METHOD 07/07/2025 12:36 PM EDT [facility] Eosinophils Absolute 0.10 0.00 - 0.50 K/mcL LAB HEMETOLOGY METHOD 07/07[facility]25 [facility] Basophils Absolute 0.03 0.00 - 0.20 K/mcL LAB HEMETOLOGY METHOD 07/07/2025 12:36 PM [facility] Immature Granulocytes Absolute 0.10(H) 0.00 - 0.03 K/mcL LAB HEMETOLOGY METHOD 07/07/2025 12:36 PM T [facility] Blood Venous blood specimen / Unknown Venipuncture / Unknown 07/07/2025 5:04 AM EDT 07/07/2025 10:31 AM EDT us Antonio Esquivel MD LAB BLOOD ORDERABLES Final Resul t [facility] [address] [place] [address], [place] [phone] * (ABNORMAL) Comprehensive metabolic panel (07/07/2025 5:04 AM EDT) Sodium 137 133 - 145 mmol/L LAB CHEMISTRY METHOD 07/07/2025 2:13 PM [facility] Potassium 3.9 3.5 - 5.5 mmol/L LAB CHEMISTRY METHOD 07/07/2025 2:13 PM [facility] Chloride 103 96 - 110 mmol/L LAB CHEMISTRY METHOD 07/07/2025 2:13 PM [facility] CO2 27 21 - 32 mmol/L LAB CHEMISTRY METHOD 07/07/2025 2:13 PM [facility] Anion Gap 7 3 - 11 LAB CHEMISTRY METHOD 07/07/2025 2:13 PM [facility] Glucose 80 70 - 100 mg/dL LAB CHEMISTRY METHOD 07/07/2025 2:13 PM [facility] BUN 15 5 - 25 mg/dL LAB CHEMISTRY METHOD 07/07/2025 2:13 PM [facility] Creatinine 0.61 0.50 - 1.10 mg/dL LAB CHEMISTRY METHOD 07/07/2025 2:13 PM [facility] eGFR 88 >=60 mL/min/1. 73m2 LAB CHEMISTRY METHOD 07/07/2025 2:13 PM [facility] Comment:Calculation based on the Chronic Kidney Disease Epidemiology Collaboration (CKD-EPI) equation refit without adjustment for race. BUN/Creatinine Ratio 24.6 LAB CHEMISTRY METHOD 07/07/2025 2:13 PM T [facility] Calcium 8.3(L) 8.5 - 10.5 mg/dL LAB CHEMISTRY METHOD 07/07/2025 2:13 PM [facility] AST (SGOT) 20 10 - 42 unit/L LAB CHEMISTRY METHOD 07/07/2025 2:13 PM T [facility] ALT (SGPT) 20 10 - 60 unit/L LAB CHEMISTRY METHOD 07/07/2025 2:13 PM T [facility] Alkaline Phosphatase 68 42 - 121 unit/L LAB CHEMISTRY METHOD 07/07/2025 2:13 PM [facility] Total Protein 5.7(L) 6.0 - 8.0 g/dL LAB CHEMISTRY METHOD 07/07/2025 2:13 PM T [facility] Albumin 2.2(L) 3.2 - 5.0 g/dL LAB CHEMISTRY METHOD 07/07/2025 2:13 PM T [facility] Total Bilirubin 0.2 0.0 - 1.4 mg/dL LAB CHEMISTRY METHOD 07/07/2025 2:13 PM T [facility] Blood Venous blood specimen / Unknown Venipuncture / Unknown 07/07/2025 5:04 AM EDT 07/07/2025 10:31 AM EDT us Antonio Esquivel MD LAB BLOOD ORDERABLES Final Resul t [facility] [address] [place] [address], documented in this encounter Visit Diagnoses Diagnosis Aftercare following joint replacement surgery Essential (primary) hypertension Unspecified essential hypertension Hyperlipidemia, unspecified documented in this encounter Care Teams Motor Vehicle Emissions Inspector Relationship Specialty Start Date End Date Antonio Esquivel MD [address] [place] [address] PCP - General Geriatric Medicine 06/30/25 documented as of this encounter
--- OUTSIDE RECORDS SUMMARY | 2025-07-10 15:01 | XMS_ITS | Encounter Summary ---
Author Organization [facility] [place] [address] Care Team Providers Care Clip On Sunglasses Assembler Name Role Phone Antonio Esquivel MD Primary Care Provider [phone] Encounter Details Date Type Department Care Team (Late st Contact Info) Description 01/28/2025 [facility] [address] [place] [phone] Beverly Lebron RN Social History Tobacco Use [...] [facility] [address] [place] [phone] Flavia Acuña 07/15/2025 9:00 AM EDT P[facility] Home [facility] / [facility] [place] [facility] [address] [place] [phone] Flavia Acuña 07/15/2025 10:30 AM EDT Clinical Support [facility] [address] [place] [address] 07/15/2025 3:00 PM EDT P[facility] Home [facility] / [facility] [place] [facility] [address] [place] [phone] Flavia Acuña 07/16/2025 3:00 PM EDT P[facility] Home [facility] / [facility] [place] [facility] [address] [place] [phone] Flavia Acuña 07/17/2025 9:00 AM EDT [facility] Home [facility] / [facility] [place] [facility] [address] [place] [phone] Flavia Acuña 07/17/2025 2:00 PM EDT P[facility] Home [facility] / [facility] [place] [facility] [address] [place] [phone] Flavia Acuña 07/18/2025 10:00 AM EDT [facility] Home [facility] / [facility] [address] [place] [phone] Grace Kessler 07/18/2025 12:00 PM EDT Office [facility] [address] [place] [phone] Patrizia Mariscal NP [address] [place] [address] 07/18/2025 3:00 PM EDT P[facility] Home [facility] / [facility] [address] [place] [phone] Grace Kessler 07/21/2025 9:00 AM EST [facility] / [facility] [place] [facility] [address] [place] [phone] Flavia Acuña 07/21/2025 3:00 PM EST [facility] Home [facility] / [facility] [address] [place] [address] Flavia Acuña 07/22/2025 9:00 AM EST [facility] Home [facility] / [facility] [place] [facility] [address] [place] [address] Flavia Acuña 07/22/2025 10:00 AM EST Clinical Support [facility] [place] [address] [place] [address] 07/22/2025 3:00 PM EST [facility] Home [facility] / [facility] [place] [facility] [address] [place] [phone] Flavia Acuña 07/23/2025 11:30 AM EST [facility] Home [facility] / [facility] [place] [facility] [address] [place] [phone] Brina Tse 07/23/2025 3:00 PM EST [facility] Home [facility] / [facility] [place] [facility] [address] [place] [phone] Flavia Acuña 07/24/2025 9:00 AM EST [facility] Home [facility] / [facility] [place] [facility] [address] [place] [phone] Flavia Acuña 07/24/2025 11:00 AM EST [facility] [address] [place] [address] Patrizia Mariscal NP [address] [address] 07/24/2025 3:00 PM EST [facility] Home [facility] [address] [place] [address] Flavia Acuña 07/25/2025 10:00 AM EST Clinical Support [facility] [address] [place] [address] 07/25/2025 3:00 PM EST [facility] Home [facility] [address] [place] [address] Grace Kessler 07/28/2025 9:00 AM EST [facility] Home [facility] [address] [place] [address] Flavia Acuña 07/28/2025 3:00 PM EST [facility] Home [facility] [address] [place] [phone] Flavia Acuña 07/29/2025 9:00 AM EST [facility] Home [facility] [address] [place] [phone] Flavia Acuña 07/29/2025 3:00 PM EST [facility] Home [facility] [address] [place] [phone] Flavia cAuña 07/30/2025 11:30 AM EST [facility] Home [facility] / [facility] [place] [facility] [address] [place] [phone] Brina Tse 07/30/2025 3:00 PM EST [facility] Home [facility] / [facility] [place] [facility] [address] [place] [address] Flavia Acuña 07/31/2025 9:00 AM EST [facility] Home [facility] / [facility] [place] [facility] [address] [place] [address] Flavia Acuña 07/31/2025 3:00 PM EST [facility] Home [facility] / [facility] [place] [facility] [address] [place] [address] Flavia Acuña 08/01/2025 10:00 AM EST [facility] Home [facility] / [facility] [place] [facility] [address] [place] [address] Grace Kessler 08/01/2025 3:00 PM EST [facility] Home [facility] / [facility] [place] [facility] [address] [place] [address] Grace Kessler 08/04/2025 9:00 AM EST [facility] Home [facility] / [facility] [place] [facility] [address] [place] [address] Flavia Acuña 08/04/2025 3:00 PM EST [facility] Home [facility] / [facility] [place] [facility] [address] [place] [phone] Flavia Acuña 08/05/2025 9:00 AM EST [facility] Home [facility] / [facility] [place] [facility] [address] [place] [phone] Flavia Acuña 08/05/2025 3:00 PM EST [facility] Home [facility] / [facility] [place] [facility] [address] [place] [phone] Flavia Acuña 08/06/2025 10:45 AM EST Clinical Support [facility] [address] [place] [address] 08/06/2025 11:30 AM EST [facility] Home [facility] / [facility] [place] [facility] [address] [place] [address] Colin Tseah 08/06/2025 3:00 PM EST [facility] Home [facility] [place] [facility] [address] [place] [address] Flavia Acuña 08/07/2025 9:00 AM EST [facility] Home [facility] [place] [facility] [address] [place] [address] Flavia Acuña 08/07/2025 3:00 PM EST [facility] Home [facility] [place] [facility] [address] [place] [phone] Flavia Acuña 08/08/2025 10:00 AM EST [facility] [place] [facility] [address] [place] [phone] Grace Kessler 08/08/2025 3:00 PM EST [facility] Home [facility] / [facility] [place] [facility] [address] [place] [phone] Grace Kessler 08/11/2025 9:00 AM EST [facility] Home [facility] / [facility] [place] [facility] [address] [place] [phone] Flavia Acuña 08/11/2025 3:00 PM EST [facility] Home [facility] / [facility] [place] [facility] [address] [place] [phone] Flavia Acuña 08/12/2025 9:00 AM EST [facility] Home [facility] [place] [facility] [address] [place] [phone] Flavia Acuña 08/12/2025 3:00 PM EST [facility] Home [facility] [place] [facility] [address] [place] [address] Flavia Acuña 08/13/2025 11:30 AM EST [facility] Home [facility] / [facility] [place] [facility] [address] [place] [address] Brina Tse 08/13/2025 3:00 PM EST [facility] Home [facility] / [facility] [place] [facility] [address] [place] [phone] Flavia Acuña 08/14/2025 9:00 AM EST [facility] Home [facility] [place] [facility] [address] [place] [phone] Flavia Acuña 08/14/2025 3:00 PM EST [facility] Home [facility] / [facility] [place] [facility] [address] [place] [phone] Flavia Acuña 08/15/2025 10:00 AM EST P[facility] Home [facility] / [facility] [place] [facility] [address] [place] [phone] Grace Kessler 08/15/2025 3:00 PM EST [facility] Home [facility] / [facility] [place] [facility] [address] [place] [phone] Grace Kessler 08/18/2025 9:00 AM EST [facility] Home [facility] / [facility] [place] [facility] [address] [place] [phone] Flavia Acuña 08/18/2025 3:00 PM EST [facility] Home [facility] / [facility] [place] [facility] [address] [place] [phone] Flavia Acuña 08/19/2025 9:00 AM EST P[facility] Home [facility] / [facility] [place] [facility] [address] [place] [address] Flavia Acuña 08/19/2025 11:00 AM EST Clinical Support [facility] [place] [address] [place] [address] 08/19/2025 3:00 PM EST [facility] Home [facility] / [facility] [place] [facility] [address] [place] [address] Flavia Acuña 08/20/2025 11:30 AM EST P[facility] Home [facility] / [facility] [place] [facility] [address] [place] [address] Brina Tse 08/20/2025 3:00 PM EST [facility] Home [facility] / [facility] [place] [facility] [address] [place] [address] Flavia Acuña 08/21/2025 9:00 AM EST P[facility] Home [facility] / [facility] [place] [facility] [address] [place] [address] Flavia Acuña 08/21/2025 3:00 PM EST P[facility] Home [facility] / [facility] [place] [facility] [address] [place] [address] Flavia Acuña 08/22/2025 10:00 AM EST P[facility] Home [facility] / [facility] [place] [facility] [address] [place] [address] Grace Kessler 08/22/2025 3:00 PM EST [facility] Home [facility] / [facility] [place] [facility] [address] [place] [address] Grace Kessler 08/25/2025 9:00 AM EST [facility] Home [facility] / [facility] [place] [facility] [address] [place] [address] Flavia Acuña 08/25/2025 3:00 PM EST [facility] Home [facility] / [facility] [place] [facility] [address] [place] [address] Flavia Acuña 08/26/2025 9:00 AM EST [facility] Home [facility] / [facility] [place] [facility] [address] [place] [address] Flavia Acuña 08/26/2025 3:00 PM EST [facility] Home [facility] / [facility] [place] [facility] [address] [place] [phone] Flavia Acuña 08/27/2025 11:30 AM EST [facility] Home [facility] / [facility] [place] [facility] [address] [place] [phone] Brina Tse 08/27/2025 3:00 PM EST [facility] Home [facility] / [facility] [place] [facility] [address] [place] [phone] Flavia Acuña 08/28/2025 9:00 AM EST [facility] Home [facility] / [facility] [place] [facility] [address] [place] [phone] Flavia Acuña 08/28/2025 3:00 PM EST [facility] Home [facility] / [facility] [place] [facility] [address] [place] [phone] Flavia Acuña 08/29/2025 10:00 AM EST [facility] Home [facility] / [facility] [place] [facility] [address] [place] [phone] Grace Kessler 08/29/2025 3:00 PM EST [facility] Home [facility] / [facility] [place] [facility] [address] [place] [address] Grace Kessler 09/01/2025 9:00 AM EST [facility] Home [facility] / [facility] [place] [facility] [address] [place] [address] Flavia Acuña 09/01/2025 3:00 PM EST [facility] Home [facility] / [facility] [place] [facility] [address] [place] [address] Flavia Acuña 09/02/2025 9:00 AM EST [facility] Home [facility] / [facility] [place] [facility] [address] [place] [address] Flavia Acuña 09/02/2025 3:00 PM EST [facility] Home [facility] / [facility] [place] [facility] [address] [place] [address] Flavia Acuña 09/03/2025 11:30 AM EST [facility] / [facility] [place] [facility] [address] [place] [phone] Brina Tse 09/03/2025 3:00 PM EST [facility] Home [facility] / [facility] [place] [facility] [address] [place] [address] Flavia Acuña 09/04/2025 9:00 AM EST [facility] Home [facility] / [facility] [place] [facility] [address] [place] [phone] Flavia Acuña 09/04/2025 3:00 PM EST [facility] Home [facility] / [facility] [place] [facility] [address] [place] [phone] Flavia Acuña 09/05/2025 10:00 AM EST [facility] [place] [facility] [address] [place] [phone] Grace Kessler 09/05/2025 3:00 PM EST [facility] Home [facility] / [facility] [place] [facility] [address] [place] [phone] Grace Kessler 09/08/2025 9:00 AM EST [facility] Home [facility] / [facility] [place] [facility] [address] [place] [phone] Flavia Acuña 09/08/2025 3:00 PM EST [facility] Home [facility] / [facility] [place] [facility] [address] [place] [phone] Flavia Acuña 02/27/2026 9:45 AM EDT [facility] [address] [place] [address] documented as of this encounter Visit Diagnoses Not on filedocumented in this encounter Care Teams Clip [employer] Sunglasses Assembler Relationship Specialty Start Date End Date Antonio Esquivel MD [address] [place] [address] PCP - General Geriatric Medicine 06/30/25 documented as of this encounter
--- OUTSIDE RECORDS SUMMARY | 2025-07-10 15:01 | XMS_ITS | Encounter Summary ---
Author Organization [facility] [place] [place] [address] Care Team Providers Care Spa Assistant Manager Name Role Phone Antonio Esquivel MD Primary Care Provider [phone] Encounter Details Date Type Department Care Team (Late st Contact Info) Description 07/04/2025 [facility] [address] [place] [id number] Kiera Cameron RN Hard of hearing Social [...] [facility] [address] [place] [phone] Flavia Acuña 07/15/2025 9:00 AM EDT P[facility] Home [facility] / [facility] [place] [facility] [address] [place] [address] Flavia Acuña 07/15/2025 10:30 AM EDT Clinical Support [facility] [place] [address] [place] [address] 07/15/2025 3:00 PM EDT P[facility] Home [facility] / [facility] [address] [place] [address] Flavia Acuña 07/16/2025 3:00 PM EDT [facility] Home [facility] / [facility] [place] [facility] [address] [place] [phone] Flavia Acuña 07/17/2025 9:00 AM EDT [facility] Home [facility] / [facility] [place] [facility] [address] [place] [phone] Flavia Acuña 07/17/2025 2:00 PM EDT P[facility] Home [facility] / [facility] [place] [facility] [address] [place] [phone] Flavia Acuña 07/18/2025 10:00 AM EDT [facility] Home [facility] / [facility] [address] [place] [address] Grace Kessler 07/18/2025 12:00 PM EDT Office [facility] [address] [place] [address] Patrizia Mariscal NP [address] [address] 07/18/2025 3:00 PM EDT P[facility] Home [facility] / [facility] [place] [facility] [address] [place] [address] Grace Kessler 07/21/2025 9:00 AM EST [facility] / [facility] [place] [facility] [address] [place] [address] Flavia Acuña 07/21/2025 3:00 PM EST [facility] Home [facility] / [facility] [place] [facility] [address] [place] [address] Flavia Acuña 07/22/2025 9:00 AM EST [facility] / [facility] [place] [facility] [address] [place] [address] Flavia Acuña 07/22/2025 10:00 AM EST Clinical Support [facility] [place] [address] [place] [address] 07/22/2025 3:00 PM EST [facility] Home [facility] / [facility] [address] [place] [address] Flavia Acuña 07/23/2025 11:30 AM EST [facility] / [facility] [place] [facility] [address] [place] [phone] Brina Tse 07/23/2025 3:00 PM EST [facility] Home [facility] / [facility] [place] [facility] [address] [place] [phone] Flavia Acuña 07/24/2025 9:00 AM EST [facility] Home [facility] / [facility] [place] [facility] [address] [place] [phone] Flavia Acuña 07/24/2025 11:00 AM EST [facility] [address] [place] [address] Patrizia Mariscal, SAUL [address] [address] 07/24/2025 3:00 PM EST [facility] Home [facility] / [facility] [place] [facility] [address] [place] [phone] Flavia Acuña 07/25/2025 10:00 AM EST Clinical Support [facility] [place] [address] [place] [address] 07/25/2025 3:00 PM EST [facility] Home [facility] / [facility] [place] [facility] [address] [place] [phone] Grace Kessler 07/28/2025 9:00 AM EST [facility] Home [facility] / [facility] [place] [facility] [address] [place] [phone] Flavia Acuña 07/28/2025 3:00 PM EST [facility] Home [facility] / [facility] [place] [facility] [address] [place] [phone] Flavia Acuña 07/29/2025 9:00 AM EST [facility] Home [facility] / [facility] [place] [facility] [address] [place] [phone] Flavia Acuña 07/29/2025 3:00 PM EST [facility] Home [facility] / [facility] [place] [facility] [address] [place] [phone] Flavia Acuña 07/30/2025 11:30 AM EST [facility] Home [facility] / [facility] [place] [facility] [address] [place] [phone] Brina Tse 07/30/2025 3:00 PM EST [facility] Home [facility] / [facility] [place] [facility] [address] [place] [phone] Flavia Acuña 07/31/2025 9:00 AM EST [facility] Home [facility] / [facility] [place] [facility] [address] [place] [address] Flavia Acuña 07/31/2025 3:00 PM EST [facility] Home [facility] [place] [facility] [address] [place] [address] Flavia Acuña 08/01/2025 10:00 AM EST [facility] [place] [facility] [address] [place] [phone] Grace Kessler 08/01/2025 3:00 PM EST [facility] Home [facility] / [facility] [place] [facility] [address] [place] [phone] Grace Kessler 08/04/2025 9:00 AM EST [facility] [place] [facility] [address] [place] [phone] Flavia Acuña 08/04/2025 3:00 PM EST [facility] [place] [facility] [address] [place] [phone] Flavia Acuña 08/05/2025 9:00 AM EST [facility] [place] [facility] [address] [place] [phone] Flavia Acuña 08/05/2025 3:00 PM EST [facility] Home [facility] / [facility] [place] [facility] [address] [place] [phone] Flavia Acuña 08/06/2025 10:45 AM EST Clinical Support [facility] [place] [address] [place] [address] 08/06/2025 11:30 AM EST [facility] [place] [facility] [address] [place] [phone] Brina Tse 08/06/2025 3:00 PM EST [facility] Home [facility] / [facility] [place] [facility] [address] [place] [phone] Flavia Acuña 08/07/2025 9:00 AM EST [facility] Home [facility] / [facility] [place] [facility] [address] [place] [phone] Flavia Acuña 08/07/2025 3:00 PM EST [facility] [place] [facility] [address] [place] [phone] Flavia Acuña 08/08/2025 10:00 AM EST [facility] [place] [facility] [address] [place] [phone] Grace Kessler 08/08/2025 3:00 PM EST [facility] Home [facility] / [facility] [place] [facility] [address] [place] [phone] Grace Kessler 08/11/2025 9:00 AM EST [facility] [place] [facility] [address] [place] [phone] Flavia Acuña 08/11/2025 3:00 PM EST [facility] Home [facility] [place] [facility] [address] [place] [phone] Flavia Acuña 08/12/2025 9:00 AM EST [facility] Home [facility] [place] [facility] [address] [place] [phone] Flavia Acuña 08/12/2025 3:00 PM EST [facility] Home [facility] / [facility] [place] [facility] [address] [place] [phone] Flavia Acuña 08/13/2025 11:30 AM EST [facility] [place] [facility] [address] [place] [phone] Brina Tse 08/13/2025 3:00 PM EST [facility] Home [facility] / [facility] [place] [facility] [address] [place] [phone] Flavia Acuña 08/14/2025 9:00 AM EST [facility] Home [facility] / [facility] [place] [facility] [address] [place] [phone] Flavia Acuña 08/14/2025 3:00 PM EST [facility] Home [facility] / [facility] [place] [facility] [address] [place] [phone] Flavia Acuña 08/15/2025 10:00 AM EST [facility] Home [facility] / [facility] [place] [facility] [address] [place] [phone] Grace Kessler 08/15/2025 3:00 PM EST [facility] Home [facility] / [facility] [place] [facility] [address] [place] [phone] Grace Kessler 08/18/2025 9:00 AM EST [facility] Home [facility] / [facility] [place] [facility] [address] [place] [phone] Flavia Acuña 08/18/2025 3:00 PM EST [facility] Home [facility] / [facility] [place] [facility] [address] [place] [phone] Flavia Acuña 08/19/2025 9:00 AM EST [facility] Home [facility] / [facility] [place] [facility] [address] [place] [address] Flavia Acuña 08/19/2025 11:00 AM EST Clinical Support [facility] [place] [address] [place] [address] 08/19/2025 3:00 PM EST [facility] Home [facility] [place] [facility] [address] [place] [phone] Flavia Acuña 08/20/2025 11:30 AM EST [facility] [place] [facility] [address] [place] [phone] Brina Tse 08/20/2025 3:00 PM EST [facility] Home [facility] [place] [facility] [address] [place] [phone] Flavia Acuña 08/21/2025 9:00 AM EST [facility] [place] [facility] [address] [place] [phone] Flavia Acuña 08/21/2025 3:00 PM EST PACE Home Care / [facility] [place] [facility] [address] [place] [phone] Flavia Acuña 08/22/2025 10:00 AM EST [facility] Home [facility] / [facility] [place] [facility] [address] [place] [phone] Grace Kessler 08/22/2025 3:00 PM EST [facility] Home [facility] / [facility] [place] [facility] [address] [place] [phone] Grace Kessler 08/25/2025 9:00 AM EST [facility] Home [facility] / [facility] [place] [facility] [address] [place] [address] Flavia Acuña 08/25/2025 3:00 PM EST [facility] [place] [facility] [address] [place] [address] Flavia Acuña 08/26/2025 9:00 AM EST [facility] [place] [facility] [address] [place] [phone] Flavia Acuña 08/26/2025 3:00 PM EST [facility] / [facility] [place] [facility] [address] [place] [phone] Flavia Acuña 08/27/2025 11:30 AM EST [facility] / [facility] [place] [facility] [address] [place] [phone] Brina Tse 08/27/2025 3:00 PM EST [facility] / [facility] [place] [facility] [address] [place] [phone] Flavia Acuña 08/28/2025 9:00 AM EST [facility] [place] [facility] [address] [place] [phone] Flavia Acuña 08/28/2025 3:00 PM EST [facility] / [facility] [place] [facility] [address] [place] [phone] Flavia Acuña 08/29/2025 10:00 AM EST [facility] [place] [facility] [address] [place] [phone] Grace Kessler 08/29/2025 3:00 PM EST [facility] [place] [facility] [address] [place] [address] Grace Kessler 09/01/2025 9:00 AM EST [facility] / [facility] [place] [facility] [address] [place] [address] Flavia Acuña 09/01/2025 3:00 PM EST [facility] [place] [facility] [address] [place] [phone] Flavia Acuña 09/02/2025 9:00 AM EST [facility] [place] [facility] [address] [place] [phone] Flavia Acuña 09/02/2025 3:00 PM EST [facility] [place] [facility] [address] [place] [phone] Flavia Acuña 09/03/2025 11:30 AM EST [facility] [place] [facility] [address] [place] [phone] Brina Tse 09/03/2025 3:00 PM EST [facility] [place] [facility] [address] [place] [phone] Flavia Acuña 09/04/2025 9:00 AM EST [facility] [place] [facility] [address] [place] [phone] Flavia Acuña 09/04/2025 3:00 PM EST [facility] / [facility] [place] [facility] [address] [place] [phone] Flavia Acuña 09/05/2025 10:00 AM EST [facility] Home [facility] / [facility] [place] [facility] [address] [place] [phone] Grace Kessler 09/05/2025 3:00 PM EST [facility] Home [facility] / [facility] [place] [facility] [address] [place] [phone] Grace Kessler 09/08/2025 9:00 AM EST [facility] Home [facility] / [facility] [place] [facility] [address] [place] [phone] Flavia Acuña 09/08/2025 3:00 PM EST [facility] Home [facility] / [facility] [place] [facility] [address] [place] [phone] Flavia Acuña 02/27/2026 9:45 AM EDT [facility] [place] [address] [place] [phone] documented as of this encounter Visit Diagnoses Diagnosis Hard of hearing Unspecified hearing loss documented in this encounter Orders PACE Service Orderables Count Last Ordered Date First Ordered Date [facility] 1 06/27/2025 documented in this encounter Care Teams Spa Assistant Manager Relationship Specialty Start Date End Date Antonio Esquivel MD [address] [place] [address] PCP - General Geriatric Medicine 06/30/25 documented as of this encounter
--- OUTSIDE RECORDS SUMMARY | 2025-07-10 15:01 | XMS_ITS | Clinical Summary ---
Author Organization [facility] Address [address] [place] [address] Phone Care Team Providers Care Vegetable Scullion Name Role Phone Antonio Esquivel MD Primary Care Provider [phone] Allergies Active Allergy Reactions Criticality Noted Date [...] 07/09/2025 9:30 AM EDT PACE External Visit [facility] [address] [place] [phone] 07/08/2025 Lab Requisition [facility] Lab [address] [place] [address] Antonio Esquivel MD Urinary tract infection, site not specified 07/05/2025 Lab Requisition [facility] Lab [address] [place] [phone] Antonio Esquivel MD Aftercare following joint replacement surgery; Essential (primary) hypertension; Hyperlipidemia, unspecified 07/04/[address] [phone] Kiera Cameron, STORMY Hard of hearing 06/30/2025 Lab Requisition [facility] Lab [address] [place] [address] Antonio Esquivel MD Urinary tract infection, site not specified; Hyperlipidemia, unspecified; Essential (primary) hypertension 06/27/2025 PACE Extended Care [address] [phone] Marguerite Higginbotham RN S/P right hip fracture (Primary Dx) 06/27/[address] [phone] Kiera Cameron, STORMY Hard of hearing 06/25/2025 11:30 AM EDT PACE Home Care / PACE Home Visit [facility] In [facility] Nursing and Aide Services [address] [place] [phone] Brina Tse 06/25/2025 PACE Fall [address] [phone] Nasima Caceres, STORMY 06/24/2025 11:00 AM EDT Clinical Support [address] [phone] Nasima Caceres, RN 06/24/2025 PACE Admissions [address] [phone] Marguerite Higginbotham, RN Closed fracture of right hip, initial encounter (CMS/[facility] V24, CMS/[facility] V28) (Primary Dx); Sepsis with acute organ dysfunction, due to unspecified organism, unspecified organ dysfunction type, unspecified whether septic shock present ([facility] V24, [facility] V28); Traumatic rhabdomyolysis, initial encounter ([facility] V24) 06/20/20[address] [facility] [address] [phone] Kiera Cameron, RN Hard of hearing 06/19/2025 [facility] [address] [phone] Nasima Caceres RN 06/18/2025 11:30 AM EDT PACE Home Care / PACE Home Visit [facility] [place] [facility] [address] [place] [phone] Brina Tse 06/16/2025 11:30 AM EDT Treatment [facility] Physical Therapy [address] [place] [phone] Wilma, Keira, [employer] 06/13/[address] [address] Kiera Cameron, RN Hard of hearing 06/11/2025 11:30 AM EDT PACE Home Care / PACE Home Visit [facility] [place] [facility] [address] [place] [phone] Brina Tse 06/06/2025 Lab [facility] [address] [place] [phone] Kiera Cameron, RN Hard of hearing 06/05/2025 9:15 AM EDT PACE External Visit [facility] [address] [phone] Adult general medical examination 06/04/2025 11:30 AM EDT PACE Home Care / PACE Home Visit [facility] [place] [facility] [address] [place] [phone] Brina Tse 05/30/2025 Lab Rupal [facility] PACE Clinic [address] [place] [address] Kiera Cameron, RN Hard of hearing 05/28/2025 11:30 AM EDT PACE Home Care / PACE Home Visit [facility] [place] [facility] [address] [place] [phone] Dedrick Brina 05/27/2025 11:00 AM EDT Treatment [facility] [place] Physical Therapy [address] [place] [phone] Jc Sequeira, PT 05/23/2025 Telephone [facility] Physical Therapy [address] [place] [phone] Jc Sequeira, PT 05/23/2025 Telephone [facility] Physical Therapy [address] [place] [phone] Jc Sequeira, PT 05/23/2025 Lab R[facility] PACE Clinic [address] [place] [phone] Kiera Cameron, STORMY Hard of hearing 05/22/2025 11:00 AM EDT Clinical Support [facility] [place] [facility] [address] [place] [phone] Kiera Cameron, STORMY 05/21/2025 11:30 AM EDT PACE Home Care / PACE Home Visit [facility] [place] [facility] [address] [place] [phone] Colin Tesah 05/16/2025 Telephone [facility] Physical Therapy [address] [place] [phone] Jc Sequeira, PT 05/16/2025 Lab [facility] PACE Clinic [address] [place] [phone] Kiera Cameron, RN Hard of hearing 05/14/2025 11:30 AM EDT PACE Home Care / PACE Home Visit [facility] [place] [facility] [address] [place] [address] Colin Tseah 05/09/2025 Lab [facility] [place] [facility] [address] [place] [address] Kiera Cameron, RN Hard of hearing 05/07/2025 11:30 AM EDT PACE Home Care / PACE Home Visit [facility] [place] [facility] [address] [place] [phone] [facility] 05/02/2025 Lab [facility] [place] [facility] [address] [place] [phone] Kiera Cameron, RN Hard of hearing 05/01/2025 12:45 PM EDT Office Visit [facility] [place] [address] [phone] Margo Mariscal, SAUL Edema of left lower leg (Primary Dx) 05/01/2025 11:50 AM EDT PACE External Visit [facility] [place] [place] [address] [place] [phone] Healthcare maintenance 05/01/2025 10:00 AM EDT Clinical Support [facility] [place] [facility] [address] [place] [phone] Marilu Simon, STORMY 05/01/2025 10:00 AM EDT Clinical Support [facility] [place] [facility] [address] [place] [phone] Kiera Cameron, STORMY 05/01/2025 Plan of Care [facility]ation [facility] PACE Clinic [address] [place] [phone] 04/30/2025 11:30 AM EDT PACE Home Care / PACE Home Visit [facility] [place] [facility] [address] [place] [phone] GefColin lewisah 04/25/2025 Telephone [facility] Physical Therapy [address] [place] [phone] Jc Sequeira, PT 04/25/2025 Lab [facility] [place] [address] [phone] Kiera Cameron, RN Hard of hearing 04/24/2025 1:15 PM EDT [facility] Physical Therapy [address] [place] [phone] Jc Sequeira, PT 04/24/2025 1:00 PM EDT Office Visit [facility] [address] [phone] Margo Mariscal, SAUL Impacted cerumen of both ears (Primary Dx); Acute cystitis without hematuria 04/23/2025 11:30 AM EDT PACE Home Care / PACE Home Visit [facility] [place] [facility] [address] [place] [phone] Brina Tse 04/21/2025 12:00 PM EDT Clinical Support [facility] [address] [phone] Nasima Caceres RN 04/18/2025 Lab [facility] PACE [address] [address] Kiera Cameron, RN Hard of hearing 04/16/2025 11:30 AM EDT PACE Home Care / PACE Home Visit [facility] [place] [facility] [address] [place] [phone] Brina Tse 04/14/2025 11:00 AM EDT PACE Assessment [facility] [place] Physical Therapy [address] [place] [phone] Jc Sequeira, PT Dementia, unspecified dementia severity, unspecified dementia type, unspecified whether behavioral, psychotic, or mood disturbance or anxiety (CMS/HCC V24, CMS/HCC V28) (Primary Dx) 04/14/2025 11:00 AM EDT PACE Assessment [facility] Occupational Therapy [address] [place] [phone] Willy Woo OT Moderate dementia without behavioral disturbance ([facility] V24, [facility] V28) (Primary Dx) 04/11/2025 10:00 AM EDT PACE Assessment [address] [phone] Marilu Simon RN Adult general medical examination (Primary Dx) 04/11/2025 10:00 AM EDT PACE Assessment [address] [phone] Margo Mariscal NP Impacted cerumen of both ears (Primary Dx); History of skin cancer; Primary hypertension; Vitamin D deficiency; Deficiency of vitamin B12; Moderate dementia without behavioral disturbance (CMS/HCC V24, CMS/[facility] V28); Hard of hearing; Age-related cataract [...] Anxiety; Urination frequency; Nocturia; Presbyopia 04/11/[address] [phone] Kiera Cameron, STORMY Hard of hearing 04/10/2025 11:00 AM EDT Clinical Support [address] [phone] Nasima Caceres RN 04/09/2025 1:30 PM EDT PACE Home Care / [facility] In Home Nursing and Aide Services [address] [place] [phone] Brina Tse from Last 3 Months [...] [place] In [facility] Services [address] [place] [phone] Flavia Acuña 07/15/2025 9:00 AM EDT PACE Home Care / PACE Home Visit [facility] [place] [facility] [address] [place] [phone] Flavia Acuña 07/15/2025 10:30 AM EDT Clinical Support [facility] [place] [address] [place] [phone] 07/15/2025 3:00 PM EDT PACE Home Care / PACE Home Visit [facility] [address] [place] [phone] Flavia Acuña 07/16/2025 3:00 PM EDT PACE Home Care / PACE Home Visit [facility] [place] [facility] [address] [place] [phone] Flavia Acuña 07/17/2025 9:00 AM EDT PACE Home Care / PACE Home Visit [facility] [place] [facility] [address] [place] [phone] Flavia Acuña 07/17/2025 2:00 PM EDT PACE Home Care / PACE Home Visit [facility] [place] [facility] [address] [place] [phone] Flavia Acuña 07/18/2025 10:00 AM EDT PACE Home Care / PACE Home Visit [facility] [place] [facility] [address] [place] [phone] Grace Kessler 07/18/2025 12:00 PM EDT Office Visit [facility] [address] [place] [phone] Margo Mariscal NP [address] [place] [address] 07/18/2025 3:00 PM EDT PACE Home Care / PACE Home Visit [facility] [place] [facility] [address] [place] [phone] Grace Kessler 07/21/2025 9:00 AM EST PACE Home Care / PACE Home Visit [facility] [place] [facility] [address] [place] [phone] Flavia Acuña 07/21/2025 3:00 PM EST PACE Home Care / PACE Home Visit [facility] [place] [facility] [address] [place] [phone] Flavia Acuña 07/22/2025 9:00 AM EST PACE Home Care / PACE Home Visit [facility] [place] [facility] [address] [place] [phone] Flavia Acuña 07/22/2025 10:00 AM EST Clinical Support [facility] [place] [address] [place] [address] 07/22/2025 3:00 PM EST PACE Home Care / PACE Home Visit [facility] [place] [facility] [address] [place] [phone] Flavia Acuña 07/23/2025 11:30 AM EST PACE Home Care / PACE Home Visit [facility] [place] [facility] [address] [place] [phone] Brina Tse 07/23/2025 3:00 PM EST PACE Home Care / PACE Home Visit [facility] [place] [facility] [address] [place] [phone] Flavia Acuña 07/24/2025 9:00 AM EST PACE Home Care / PACE Home Visit [facility] [place] [facility] [address] [place] [phone] Flavia Acuña 07/24/2025 11:00 AM EST Office Visit [facility] [facility] [address] [place] [phone] Margo Mariscal, SAUL [address] [place] [address] 07/24/2025 3:00 PM EST PACE Home Care / PACE Home Visit [facility] [place] [facility] [address] [place] [phone] Flavia Acuña 07/25/2025 10:00 AM EST Clinical Support [facility] [place] [address] [place] [phone] 07/25/2025 3:00 PM EST PACE Home Care / P[place] Home Visit [facility] [place] [facility] [address] [place] [address] Grace Kessler 07/28/2025 9:00 AM EST PACE Home Care / PACE Home Visit [facility] [place] [facility] [address] [place] [address] Flavia Acuña 07/28/2025 3:00 PM EST PACE Home Care / PACE Home Visit [facility] [place] [facility] [address] [place] [phone] Flavia Acuña 07/29/2025 9:00 AM EST PACE Home Care / P[place] Home Visit [facility] [place] [facility] [address] [place] [phone] Flavia Acuña 07/29/2025 3:00 PM EST PACE Home Care / PACE Home Visit [facility] [place] [facility] [address] [place] [phone] Flavia Acuña 07/30/2025 11:30 AM EST PACE Home Care / PACE Home Visit [facility] [place] [facility] [address] [place] [phone] Brina Tse 07/30/2025 3:00 PM EST PACE Home Care / PACE Home Visit [facility] [place] [facility] [address] [place] [address] Flavia Acuña 07/31/2025 9:00 AM EST PACE Home Care / PACE Home Visit [facility] [place] [facility] [address] [place] [phone] Flavia Acuña 07/31/2025 3:00 PM EST PACE Home Care / PACE Home Visit [facility] [place] [facility] [address] [place] [address] [place] [address] Flavia Acuña 08/01/2025 10:00 AM EST PACE Home Care / PACE Home Visit [facility] [place] [facility] [address] [place] [address] Grace Kessler 08/01/2025 3:00 PM EST PACE Home Care / PACE Home Visit [facility] [place] [facility] [address] [place] [address] Grace Kessler 08/04/2025 9:00 AM EST PACE Home Care / PACE Home Visit [facility] [place] [facility] [address] [place] [phone] Flavia Acuña 08/04/2025 3:00 PM EST PACE Home Care / PACE Home Visit [facility] [place] [facility] [address] [place] [phone] Flavia Acuña 08/05/2025 9:00 AM EST PACE Home Care / PACE Home Visit [facility] [place] [facility] [address] [place] [phone] Flavia Acuña 08/05/2025 3:00 PM EST PACE Home Care / [facility] Home Visit [facility] [place] [facility] [address] [place] [phone] Flavia Acuña 08/06/2025 10:45 AM EST Clinical Support [facility] [place] [address] [place] [address] 08/06/2025 11:30 AM EST PACE Home Care / P[facility] Home Visit [facility] [place] [facility] [address] [place] [phone] Brina Tse 08/06/2025 3:00 PM EST PACE Home Care / PACE Home Visit [facility] [place] [facility] [address] [place] [phone] Flavia Acuña 08/07/2025 9:00 AM EST PACE Home Care / PACE Home Visit [facility] [place] [facility] [address] [place] [address] Flavia Acuña 08/07/2025 3:00 PM EST PACE Home Care / P[place] Home Visit [facility] [place] [facility] [address] [place] [address] Flavia Acuña 08/08/2025 10:00 AM EST PACE Home Care / [place] Home Visit [facility] [place] [facility] [address] [place] [address] Grace Kessler 08/08/2025 3:00 PM EST PACE Home Care / P[place] Home Visit [facility] [place] [facility] [address] [place] [phone] Grace Kessler 08/11/2025 9:00 AM EST PACE Home Care / P[place] Home Visit [facility] [place] [facility] [address] [place] [phone] Flavia Acuña 08/11/2025 3:00 PM EST PACE Home Care / P[place] Home Visit [facility] [place] [facility] [address] [place] [phone] Flavia Acuña 08/12/2025 9:00 AM EST PACE Home Care / P[place] Home Visit [facility] [place] [facility] [address] [place] [address] Flavia Acuña 08/12/2025 3:00 PM EST PACE Home Care / P[place] Home Visit [facility] [place] [facility] [address] [place] [phone] Flavia Acuña 08/13/2025 11:30 AM EST PACE Home Care / P[place] Home Visit [facility] [place] [facility] [address] [place] [address] Colin Tseah 08/13/2025 3:00 PM EST PACE Home Care / P[facility] Home Visit [facility] [place] [facility] [address] [place] [address] Flavia Acuña 08/14/2025 9:00 AM EST PACE Home Care / PACE Home Visit [facility] [place] [facility] [address] [place] [address] Flavia Acuña 08/14/2025 3:00 PM EST PACE Home Care / P[place] Home Visit [facility] [place] [facility] [address] [place] [address] Flavia Acuña 08/15/2025 10:00 AM EST PACE Home Care / PACE Home Visit [facility] [place] [facility] [address] [place] [address] Grace Kessler 08/15/2025 3:00 PM EST PACE Home Care / [facility] Home Visit [facility] [place] [facility] [address] [place] [phone] Grace Kessler 08/18/2025 9:00 AM EST PACE Home Care / P[place] Home Visit [facility] [place] [facility] [address] [place] [phone] Flavia Acuña 08/18/2025 3:00 PM EST PACE Home Care / P[place] Home Visit [facility] [place] [facility] [address] [place] [address] Flavia Acuña 08/19/2025 9:00 AM EST PACE Home Care / PACE Home Visit [facility] [place] [facility] [address] [place] [address] Flavia Acuña 08/19/2025 11:00 AM EST Clinical Support [facility] [place] [address] [place] [address] 08/19/2025 3:00 PM EST PACE Home Care / PACE Home Visit [facility] [place] [facility] [address] [place] [address] Flavia Acuña 08/20/2025 11:30 AM EST PACE Home Care / PACE Home Visit [facility] [place] [facility] [address] [place] [address] Brina Tse 08/20/2025 3:00 PM EST PACE Home Care / P[facility] Home Visit [facility] [place] [facility] [address] [place] [address] Flavia Acuña 08/21/2025 9:00 AM EST PACE Home Care / PACE Home Visit [facility] [place] [facility] [address] [place] [address] Flavia Acuña 08/21/2025 3:00 PM EST PACE Home Care / P[place] Home Visit [facility] [place] [facility] [address] [place] [phone] Flavia Acuña 08/22/2025 10:00 AM EST PACE Home Care / P[place] Home Visit [facility] [place] [facility] [address] [place] [phone] Grace Kessler 08/22/2025 3:00 PM EST PACE Home Care / P[place] Home Visit [facility] [place] [facility] [address] [place] [address] Grace Kessler 08/25/2025 9:00 AM EST PACE Home Care / PACE Home Visit [facility] [place] [facility] [address] [place] [address] Flavia Acuña 08/25/2025 3:00 PM EST PACE Home Care / P[place] Home Visit [facility] [place] [facility] [address] [place] [address] Flavia Acuña 08/26/2025 9:00 AM EST PACE Home Care / P[place] Home Visit [facility] [place] [facility] [address] [place] [address] Flavia Acuña 08/26/2025 3:00 PM EST PACE Home Care / PACE Home Visit [facility] [place] [facility] [address] [place] [address] Flavia Acuña 08/27/2025 11:30 AM EST PACE Home Care / PACE Home Visit [facility] [place] [facility] [address] [place] [phone] Brina Tse 08/27/2025 3:00 PM EST PACE Home Care / P[place] Home Visit [facility] [place] [facility] [address] [place] [phone] Flavia Acuña 08/28/2025 9:00 AM EST PACE Home Care / P[place] Home Visit [facility] [place] [facility] [address] [place] [phone] Flavia Acuña 08/28/2025 3:00 PM EST PACE Home Care / P[place] Home Visit [facility] [place] [facility] [address] [place] [phone] Flavia Acuña 08/29/2025 10:00 AM EST PACE Home Care / PACE Home Visit [facility] [place] [facility] [address] [place] [phone] Grace Kessler 08/29/2025 3:00 PM EST PACE Home Care / P[place] Home Visit [facility] [place] [facility] [address] [place] [address] Grace Kessler 09/01/2025 9:00 AM EST PACE Home Care / P[place] Home Visit [facility] [place] [facility] [address] [place] [address] Flavia Acuña 09/01/2025 3:00 PM EST PACE Home Care / P[place] Home Visit [facility] [place] [facility] [address] [place] [address] Flavia Acuña 09/02/2025 9:00 AM EST PACE Home Care / P[place] Home Visit [facility] [place] [facility] [address] [place] [address] Flavia Acuña 09/02/2025 3:00 PM EST PACE Home Care / P[place] Home Visit [facility] [place] [facility] [address] [place] [phone] Flavia Acuña 09/03/2025 11:30 AM EST PACE Home Care / P[place] Home Visit [facility] [place] [facility] [address] [place] [phone] Brina Tse 09/03/2025 3:00 PM EST PACE Home Care / P[place] Home Visit [facility] [place] [facility] [address] [place] [phone] Flavia Acuña 09/04/2025 9:00 AM EST PACE Home Care / P[place] Home Visit [facility] [place] [facility] [address] [place] [phone] Flavia Acuña 09/04/2025 3:00 PM EST PACE Home Care / P[place] Home Visit [facility] [place] [facility] [address] [place] [phone] Flavia Acuña 09/05/2025 10:00 AM EST PACE Home Care / P[place] Home Visit [facility] [place] [facility] [address] [place] [phone] Grace Kessler 09/05/2025 3:00 PM EST PACE Home Care / PACE Home Visit [facility] [place] [facility] [address] [place] [address] Grace Kessler 09/08/2025 9:00 AM EST PACE Home Care / PACE Home Visit [facility] [place] [facility] [address] [place] [address] Flavia Acuña 09/08/2025 3:00 PM EST PACE Home Care / PACE Home Visit [facility] [place] [facility] [address] [place] [address] Flavia Acuña 02/27/2026 9:45 AM EDT PACE External Visit [facility] [place] [address] [place] [address] Health Maintenance Due Date Last Done Comments [...] resultswithin the time period is included. Specific Gepp Urine 1.015 1.003 - 1.030 LAB URINALYSIS - AUTOMATED METHOD 07/08/2025 9:10 AM [facility] LAB pH, Urine 7.0 5.0 - 8.0 pH LAB URINALYSIS - AUTOMATED METHOD 07/08/2025 9:10 AM [facility] LAB Leukocytes, Urine Small(A) Negative LAB URINALYSIS - AUTOMATED METHOD 07/08/2025 9:10 AM [facility] LAB Nitrite, Urine Negative Negative LAB URINALYSIS - AUTOMATED METHOD 07/08/2025 9:10 AM [facility] LAB Protein, Urine Negative <=Trace mg/dL LAB URINALYSIS - AUTOMATED METHOD 07/08/2025 9:10 AM [facility] LAB Glucose, Urine Negative Negative mg/dL LAB URINALYSIS - AUTOMATED METHOD [facility] Ketones, Urine Negative Negative mg/dL LAB URINALYSIS - AUTOMATED METHOD 07/08/2025 9:10 AM [facility] LAB Urobilinogen, Urine 0.2 0.2 - 1.0 mg/dL LAB URINALYSIS - AUTOMATED METHOD 07/08/2025 9:10 AM [facility] LAB Bilirubin, Urine Negative Negative LAB URINALYSIS - AUTOMATED METHOD 07/08/2025 9:10 AM [facility] LAB Blood, Urine Negative Negative LAB URINALYSIS - AUTOMATED METHOD 07/08/2025 9:10 AM [facility] LAB RBC, Urine 0.9 0 - 4 /HPF LAB URINALYSIS - AUTOMATED METHOD 07/08/2025 9:10 AM [facility] LAB WBC, Urine 17.7(H) 0 - 4 /HPF LAB URINALYSIS - AUTOMATED METHOD 07/08/2025 9:10 AM [facility] LAB Squamous Epithelial, Urine 77(H) 0 - 60 /LPF LAB URINALYSIS - AUTOMATED METHOD 07/08/2025 9:10 AM [facility] Bacteria, Urine Few(A) Negative /HPF LAB URINALYSIS - AUTOMATED METHOD 07/08/2025 9:10 AM [facility] Hyaline Casts, Urine 0.8 0 - 3 /LPF LAB URINALYSIS - AUTOMATED METHOD 07/08/2025 9:10 AM [facility] Urine Urine specimen obtained by clean catch procedure / Unknown 07/08/2025 07/08/2025 8:27 AM EDT us Antonio Esquivel MD LAB URINE ORDERABLES Final Resul t [facility] [address] [place] [address], * Reeves urine culture tube (07/08/2025 12:00 AM EDT) Pathologist [facility] Extra Tube Hold for add-ons. 07/08/2025 11:01 AM EDT [facility] Comment:Auto resulted. Urine Urine specimen obtained by clean catch procedure / Unknown 07/08/2025 07/08/2025 9:03 AM EDT us Antonio Esquivel MD LAB URINE ORDERABLES Final Resul t Performing Organization Address City/[facility]/ZIP Co de Phone Number [facility] [address] [place] [address], [place] [phone] * Culture urine (07/08/2025 12:00 AM EDT) Only the most recent of2 resultswithin the time period is included. Pathologist [facility] Culture, Urine 10,000-49,000 CFU/mL Mixed bacterial morphotypes present suggestive of possible contamination during collection. Suggest appropriate recollection if clinically indicated. 07/09/2025 8:36 AM EDT [facility] Urine Urine specimen obtained by clean catch procedure / Unknown 07/08/2025 07/08/2025 9:10 AM EDT us Antonio sEquivel MD LAB MICROBIOLOGY - GENERAL ORDER MICK Final Result Performing Organization Address City/[facility]/ZIP Co de Phone Number [facility] [address] [place] [address], [place] [phone] * (ABNORMAL) CBC auto differential (07/07/2025 5:04 AM EDT) Only the most recent of2 resultswithin the time period is included. WBC 4.0(L) 4.8 - 10.8 K/[facility] LAB HEMETOLOGY METHOD 07/07/2025 12:36 PM EDT [facility] RBC 3.00(L) 3.80 - 4.80 M/[facility] LAB HEMETOLOGY METHOD 07/07/2025 12:36 PM EDT [facility] Hemoglobin 9.1(L) 11.5 - 16.0 g/dL LAB HEMETOLOGY [facility]07[facility] Hematocrit 28.2(L) 35.0 - 47.0 % LAB HEMETOLOGY METHOD 07/07/2025 12:[facility] MCV 94.9 79.0 - 98.0 FL LAB HEMETOLOGY METHOD 07/07/2025 12:[facility] MCH 30.6 27.0 - 32.0 pcg LAB HEMETOLOGY METHOD 07/07/2025 12:36 PM [facility] MCHC 32.3 32.0 - 37.0 g/dL LAB HEMETOLOGY METHOD 07/07/2025 12:36 PM [facility] RDW 13.5 11.0 - 15.0 % LAB HEMETOLOGY METHOD 07/07/2025 12:36 PM [facility] Platelets 375 130 - 400 K/mcL LAB HEMETOLOGY METHOD 07/07/2025 12:36 PM [facility] MPV 9.0 7.0 - 11.0 FL LAB HEMETOLOGY METHOD 07/07/2025 12:36 PM [facility] NRBC 0.0 <1.0 % LAB HEMETOLOGY METHOD 07/07/2025 12:36 PM [facility] NRBC Absolute 0.00 <0.10 K/mcL LAB HEMETOLOGY METHOD 07/07/2025 12:36 [facility] Neutrophils Relative 62.5 % LAB HEMETOLOGY METHOD 07/07/2025 12:36 PM [facility] Lymphocytes Relative 21.6 % LAB HEMETOLOGY METHOD 07/07/2025 12:[facility] Monocytes Relative 10.2 % LAB HEMETOLOGY METHOD 07/07/2025 12:36 PM EDT [facility] Eosinophils Relative 2.5 % LAB HEMETOLOGY METHOD 07/07/2025 12:36 PM EDT [facility] Basophils Relative 0.7 % LAB HEMETOLOGY METHOD 07/07/2025 12:36 PM EDT [facility] Immature Granulocytes Relative 2.5 % LAB HEMETOLOGY METHOD 07/07/2025 12:36 PM EDT [facility] Neutrophils Absolute 2.52 1.50 - 7.00 K/mcL LAB HEMETOLOGY METHOD 07/07/2025 12:36 PM EDT [facility] Lymphocytes Absolute 0.87(L) 1.00 - 5.00 K/mcL LAB HEMETOLOGY METHOD 07/07/2025 12:36 PM EDT [facility] Monocytes Absolute 0.41 0.20 - 1.00 K/mcL LAB HEMETOLOGY METHOD 07/07/2025 12:36 PM EDT [facility] Eosinophils Absolute 0.10 0.00 - 0.50 K/mcL LAB HEMETOLOGY METHOD 07/07/2025 12:36 PM EDT [facility] Basophils Absolute 0.03 0.00 - 0.20 K/mcL LAB HEMETOLOGY METHOD 07/07/2025 12:36 PM EDT [facility] Immature Granulocytes Absolute 0.10(H) 0.00 - 0.03 K/mcL LAB HEMETOLOGY METHOD 07/07/2025 12:36 PM EDT [facility] Blood Venous blood specimen / Unknown Venipuncture / Unknown 07/07/2025 5:04 AM EDT 07/07/2025 10:31 AM EDT us Antonio Esquivel MD LAB BLOOD ORDERABLES Final Resul t [facility] [address] [place] [address], * (ABNORMAL) Comprehensive metabolic panel (07/07/2025 5:04 AM EDT) Only the most recent of3 resultswithin the time period is included. Sodium 137 133 - 145 mmol/L LAB CHEMISTRY METHOD 07/07/2025 2:13 PM EDT [facility] Potassium 3.9 3.5 - 5.5 mmol/L LAB CHEMISTRY METHOD 07/07/2025 2:13 PM T [facility] Chloride 103 96 - 110 mmol/L LAB CHEMISTRY METHOD 07/07/2025 2:13 PM [facility] CO2 27 21 - 32 mmol/L LAB CHEMISTRY METHOD 07/07/2025 2:[facility] Anion Gap 7 3 - 11 LAB CHEMISTRY METHOD 07/07/2025 2:13 PM EDT [facility] Glucose 80 70 - 100 mg/dL LAB CHEMISTRY METHOD 07/07/2025 2:13 PM [facility] BUN 15 5 - 25 mg/dL LAB CHEMISTRY METHOD 07/07/2025 2:13 PM [facility] Creatinine 0.61 0.50 - 1.10 mg/dL LAB CHEMISTRY METHOD 07/07/2025 2:[facility] eGFR 88 >=60 mL/min/1. 73m2 LAB CHEMISTRY METHOD 07/07/2025 2:13 PM T [facility] Comment:Calculation based on the Chronic Kidney Disease Epidemiology Collaboration (CKD-EPI) equation refit without adjustment for race. BUN/Creatinine Ratio 24.6 LAB CHEMISTRY METHOD 07/07/2025 2:13 PM [facility] Calcium 8.3(L) 8.5 - 10.5 mg/dL LAB CHEMISTRY METHOD 07/07/2025 2:[facility] AST (SGOT) 20 10 - 42 unit/L LAB CHEMISTRY METHOD 07/07/2025 2:13 PM EDT [facility] ALT (SGPT) 20 10 - 60 unit/L LAB CHEMISTRY METHOD 07/07/2025 2:13 PM EDT [facility] Alkaline Phosphatase 68 42 - 121 unit/L LAB CHEMISTRY METHOD 07/07/2025 2:13 PM EDT [facility] Total Protein 5.7(L) 6.0 - 8.0 g/dL LAB CHEMISTRY METHOD 07/07/2025 2:13 PM EDT [facility] Albumin 2.2(L) 3.2 - 5.0 g/dL LAB CHEMISTRY METHOD 07/07/2025 2:13 PM EDT [facility] Total Bilirubin 0.2 0.0 - 1.4 mg/dL LAB CHEMISTRY METHOD 07/07/2025 2:13 PM EDT [facility] Blood Venous blood specimen / Unknown Venipuncture / Unknown 07/07/2025 5:04 AM EDT 07/07/2025 10:31 AM EDT us Antonio Esquivel MD LAB BLOOD ORDERABLES Final Resul t [facility] [address] [place] [address], * (ABNORMAL) Complete blood count (06/30/2025 5:07 AM EDT) WBC 5.1 4.8 - 10.8 K/mcL LAB HEMETOLOGY METHOD 06/30/2025 10:07 AM EDT [facility] RBC 3.10(L) 3.80 - 4.80 M/mcL LAB HEMETOLOGY METHOD 06/30/2025 10:07 AM EDT [facility] Hemoglobin 9.5(L) 11.5 - 16.0 g/dL LAB HEMETOLOGY METHOD 06/30/2025 10:07 AM T [facility] Hematocrit 29.1(L) 35.0 - 47.0 % LAB HEMETOLOGY METHOD 06/30/2025 10:07 AM [facility] MCV 93.6 79.0 - 98.0 FL LAB HEMETOLOGY METHOD 06/30/2025 10:07 AM T [facility] MCH 30.5 27.0 - 32.0 pcg LAB HEMETOLOGY METHOD 06/30/2025 10:07 AM [facility] MCHC 32.6 32.0 - 37.0 g/dL LAB HEMETOLOGY METHOD 06/30/2025 10:07 AM [facility] RDW 12.7 11.0 - 15.0 % LAB HEMETOLOGY METHOD 06/30/2025 10:07 AM [facility] Platelets 314 130 - 400 K/mcL LAB HEMETOLOGY METHOD 06/30/2025 10:07 AM [facility] MPV 9.2 7.0 - 11.0 FL LAB HEMETOLOGY METHOD 06/30/2025 10:07 AM [facility] NRBC 0.0 <1.0 % LAB HEMETOLOGY METHOD 06/30/2025 10:07 AM [facility] NRBC Absolute 0.00 <0.10 K/mcL LAB HEMETOLOGY METHOD 06/30/2025 10:07 AM [facility] Blood Venous blood specimen / Unknown Venipuncture / Unknown 06/30/2025 5:07 AM EDT 06/30/2025 9:40 AM EDT us Antonio Esquivel MD LAB BLOOD ORDERABLES Final Resul t [facility] [address] [place] [address], [place] [phone] * Vitamin D 25 hydroxy (04/11/2025 12:17 PM EDT) [facility] Vit D, 25-Hydroxy 36.1 30.0 - 80.0 ng/mL LAB CHEMISTRY METHOD 04/11/2025 8:45 PM EDT [facility] Blood Venous blood specimen / Unknown Venipuncture / Unknown 04/11/2025 12:17 PM EDT 04/11/2025 12:17 PM EDT Margo Mariscal NP LAB BLOOD ORDERABLES Final Re sult [facility] [address] [place] [address], [place] [phone] * Lipid panel (10/18/2024) [facility] LDL/HDL Ratio 3 <=5 Triglycerides 93 <=150 mg/dL Cholesterol 152 <=200 mg/dL HDL 57 >=50 mg/dL LDL Cholesterol 77 <=100 mg/dL Blood Venous blood specimen / Unknown Historical Provider LAB BLOOD ORDERABLES La l Result from Last 3 Months or Most Recently Relevant to Health Maintenance [facility] [place] [address] * Guarantor: [employer] Account Type Relation to Patient Date of Phone Billing Address [place] [address] [facility] Advance Directives Documents on File Type Date Recorded Patient Analyst Business Analysis Expl anation Advance Directives and Living Will [...] currently active code status orders. Care Teams Vegetable Scullion Relationship Specialty Start Date End Date Antonio Esquivel MD [address] [place] [address] PCP - General Geriatric Medicine 06/30/25
--- OUTSIDE RECORDS SUMMARY | 2025-07-10 15:01 | XMS_ITS | Encounter Summary ---
Author Organization [facility] Address [address] [place] [address] Care Team Providers Care Machine Maintenance Repairer Name Role Phone Antonio Esquivel MD Primary Care Provider [phone] Encounter Details Date Type Department Care Team (Late st Contact Info) Description 06/30/2025 Lab Requisition [facility] - Main Lab [address] [place] [address] Antonio Esquivel MD [address] [place] [address] Urinary tract infection, site not specified; Hyperlipidemia, [...] [facility] [address] [place] [address] Flavia Acuña 07/15/2025 9:00 AM EDT PACE Home Care / [facility] Home Visit [facility] [place] [facility] [address] [place] [address] Flavia Acuña 07/15/2025 10:30 AM EDT Clinical Support [facility] [place] [place] [address] [place] [address] 07/15/2025 3:00 PM EDT PACE Home Care / [place] Home [place] [facility] [place] [facility] [address] [place] [address] Flavia Acuña 07/16/2025 3:00 PM EDT PACE Home Care / [place] [facility] [place] [facility] [address] [place] [phone] Flavia Acuña 07/17/2025 9:00 AM EDT PACE Home Care / [place] Home [place] [facility] [place] [facility] [address] [place] [address] Flavia Acuña 07/17/2025 2:00 PM EDT PACE Home Care / [place] Home [place] [facility] [place] [facility] [address] [place] [phone] Flavia Acuña 07/18/2025 10:00 AM EDT PACE Home Care / [place] Home [place] [facility] [place] [facility] [address] [place] [address] Grace Kessler 07/18/2025 12:00 PM EDT [facility] [place] [facility] [address] [place] [address] Patrizia Mariscal NP [address] [address] 07/18/2025 3:00 PM EDT PACE Home Care / [place] [facility] [place] [facility] [address] [place] [address] Grace Kessler 07/21/2025 9:00 AM EST PACE Home Care / [facility] Home Visit [facility] [place] [facility] [address] [place] [address] Flavia Acuña 07/21/2025 3:00 PM EST PACE Home Care / [place] Home [place] [facility] [place] [facility] [address] [place] [address] Flavia Acuña 07/22/2025 9:00 AM EST PACE Home Care / [place] Home [place] [facility] [place] [facility] [address] [place] [address] Flavia Acuña 07/22/2025 10:00 AM EST Clinical Support [facility] [place] [address] [place] [address] 07/22/2025 3:00 PM EST PACE Home Care / [place] Home [place] [facility] [place] [facility] [address] [place] [address] Flavia Acuña 07/23/2025 11:30 AM EST PACE Home Care / [place] Home Visit [facility] [place] [facility] [address] [place] [address] Brina Tse 07/23/2025 3:00 PM EST PACE Home Care / [facility] [place] [facility] [address] [place] [address] Flavia Acuña 07/24/2025 9:00 AM EST PACE Home Care / [place] [facility] [place] [facility] [place] [facility] [address] [place] [address] Flavia Acuña 07/24/2025 11:00 AM EST [facility] Visit [facility] [place] [facility] [address] [place] [address] Patrizia Mariscal, SAUL [address] [address] 07/24/2025 3:00 PM EST PACE Home Care / [place] Home [place] [facility] [place] [facility] [address] [place] [address] Flavia Acuña 07/25/2025 10:00 AM EST Clinical Support [facility] [place] [place] [address] [place] [address] 07/25/2025 3:00 PM EST PACE Home Care / [place] Home Visit [facility] [place] [facility] [address] [place] [address] Grace Kessler 07/28/2025 9:00 AM EST PACE Home Care / [place] Home Visit [facility] [place] [facility] [address] [place] [address] Flavia Acuña 07/28/2025 3:00 PM EST PACE Home Care / [place] Home [place] [facility] [place] [facility] [address] [place] [phone] Flavia Acuña 07/29/2025 9:00 AM EST PACE Home Care / [place] [facility] [place] [facility] [address] [place] [phone] Flavia Acuña 07/29/2025 3:00 PM EST PACE Home Care / [place] [facility] [place] [facility] [address] [place] [phone] Flavia Acuña 07/30/2025 11:30 AM EST PACE Home Care / [place] Home [place] [facility] [place] [facility] [address] [place] [phone] Brina Tse 07/30/2025 3:00 PM EST PACE Home Care / [place] [facility] [place] [facility] [place] [facility] [address] [place] [phone] Flavia Acuña 07/31/2025 9:00 AM EST PACE Home Care / [place] [facility] [place] [facility] [place] [facility] [address] [place] [phone] Flavia Acuña 07/31/2025 3:00 PM EST PACE Home Care / [place] [facility] [place] [facility] [address] [place] [phone] Flavia Acuña 08/01/2025 10:00 AM EST PACE Home Care / [place] [facility] [place] [facility] [address] [place] [phone] Grace Kessler 08/01/2025 3:00 PM EST PACE Home Care / [place] [facility] [place] [facility] [address] [place] [phone] Grace Kessler 08/04/2025 9:00 AM EST PACE Home Care / [place] [facility] [place] [facility] [address] [place] [phone] Flavia Acuña 08/04/2025 3:00 PM EST PACE Home Care / [place] [facility] [place] [facility] [address] [place] [phone] Flavia Acuña 08/05/2025 9:00 AM EST PACE Home Care / [place] [facility] [place] [facility] [address] [place] [phone] Flavia Acuña 08/05/2025 3:00 PM EST PACE Home Care / [place] [facility] [place] [facility] [address] [place] [phone] Flavia Acuña 08/06/2025 10:45 AM EST Clinical Support [facility] [place] [address] [place] [address] 08/06/2025 11:30 AM EST PACE Home Care / [place] [facility] [place] [facility] [place] [facility] [address] [place] [phone] Brina Tse 08/06/2025 3:00 PM EST PACE Home Care / [place] Home Visit [facility] [place] [facility] [address] [place] [phone] Flavia Acuña 08/07/2025 9:00 AM EST PACE Home Care / [place] [facility] [place] [facility] [place] [facility] [address] [place] [phone] Flavia Acuña 08/07/2025 3:00 PM EST PACE Home Care / [place] [facility] [place] [facility] [address] [place] [phone] Flavia Acuña 08/08/2025 10:00 AM EST PACE Home Care / [place] Home Visit [facility] [place] [facility] [address] [place] [phone] Grace Kessler 08/08/2025 3:00 PM EST PACE Home Care / [place] [facility] [place] [facility] [place] [facility] [address] [place] [phone] Grace Kessler 08/11/2025 9:00 AM EST PACE Home Care / [place] [facility] [place] [facility] [place] [facility] [address] [place] [phone] Flavia Acuña 08/11/2025 3:00 PM EST PACE Home Care / [place] [facility] [place] [facility] [place] [facility] [address] [place] [phone] Flavia Acuña 08/12/2025 9:00 AM EST PACE Home Care / [place] [facility] [place] [facility] [place] [facility] [address] [place] [phone] Flavia Acuña 08/12/2025 3:00 PM EST PACE Home Care / [place] [facility] [place] [facility] [address] [place] [phone] Flavia Acuña 08/13/2025 11:30 AM EST PACE Home Care / [place] [facility] [place] [facility] [address] [place] [phone] Brina Tse 08/13/2025 3:00 PM EST PACE Home Care / [place] [facility] [place] [facility] [address] [place] [phone] Flavia Acuña 08/14/2025 9:00 AM EST PACE Home Care / [place] [facility] [place] [facility] [address] [place] [phone] Flavia Acuña 08/14/2025 3:00 PM EST PACE Home Care / [place] [facility] [place] [facility] [address] [place] [phone] Flavia Acuña 08/15/2025 10:00 AM EST PACE Home Care / [place] [facility] [place] [facility] [address] [place] [phone] Grace Kessler 08/15/2025 3:00 PM EST PACE Home Care / [place] [facility] [place] [facility] [address] [place] [phone] Grace Kessler 08/18/2025 9:00 AM EST PACE Home Care / [place] [facility] [place] [facility] [address] [place] [phone] Flavia Acuña 08/18/2025 3:00 PM EST PACE Home Care / [place] Home Visit [facility] [place] [facility] [address] [place] [phone] Flavia Acuña 08/19/2025 9:00 AM EST PACE Home Care / [place] Home Visit [facility] [place] [facility] [address] [place] [phone] Flavia Acuña 08/19/2025 11:00 AM EST Clinical Support [facility] [place] [address] [place] [phone] 08/19/2025 3:00 PM EST PACE Home Care / [place] Home [place] [facility] [place] [facility] [address] [place] [phone] Flavia Acuña 08/20/2025 11:30 AM EST PACE Home Care / [place] Home Visit [facility] [place] [facility] [address] [place] [phone] Brina Tse 08/20/2025 3:00 PM EST PACE Home Care / [place] Home Visit [facility] [place] [facility] [address] [place] [phone] Flavia Acuña 08/21/2025 9:00 AM EST PACE Home Care / [place] Home [place] [facility] [place] [facility] [address] [place] [phone] Flavia Acuña 08/21/2025 3:00 PM EST PACE Home Care / [place] [facility] [place] [facility] [address] [place] [phone] Flavia Acuña 08/22/2025 10:00 AM EST PACE Home Care / [place] Home [place] [facility] [place] [facility] [address] [place] [phone] Grace Kessler 08/22/2025 3:00 PM EST PACE Home Care / [place] [facility] [place] [facility] [place] [facility] [address] [place] [address] Grace Kessler 08/25/2025 9:00 AM EST PACE Home Care / [place] [facility] [place] [facility] [address] [place] [address] Flavia Acuña 08/25/2025 3:00 PM EST PACE Home Care / [place] [facility] [place] [facility] [address] [place] [address] Flavia Acuña 08/26/2025 9:00 AM EST PACE Home Care / [place] [facility] [place] [facility] [address] [place] [phone] Flavia Acuña 08/26/2025 3:00 PM EST PACE Home Care / [place] [facility] [place] [facility] [address] [place] [phone] Flavia Acuña 08/27/2025 11:30 AM EST PACE Home Care / [place] [facility] [place] [facility] [address] [place] [phone] Brina Tse 08/27/2025 3:00 PM EST PACE Home Care / [place] [facility] [place] [facility] [address] [place] [phone] Flavia Acuña 08/28/2025 9:00 AM EST PACE Home Care / [place] [facility] [place] [facility] [place] [facility] [address] [place] [phone] Flavia Acuña 08/28/2025 3:00 PM EST PACE Home Care / [place] [facility] [place] [facility] [place] [facility] [address] [place] [phone] Flavia Acuña 08/29/2025 10:00 AM EST PACE Home Care / [place] [facility] [place] [facility] [place] [facility] [address] [place] [address] Grace Kessler 08/29/2025 3:00 PM EST PACE Home Care / [place] [facility] [place] [facility] [place] [facility] [address] [place] [address] Grace Kessler 09/01/2025 9:00 AM EST PACE Home Care / [place] [facility] [place] [facility] [place] [facility] [address] [place] [address] Flavia Acuña 09/01/2025 3:00 PM EST PACE Home Care / [place] [facility] [place] [facility] [place] [facility] [address] [place] [phone] Flavia Acuña 09/02/2025 9:00 AM EST PACE Home Care / [place] [facility] [place] [facility] [place] [facility] [address] [place] [address] Flavia Acuña 09/02/2025 3:00 PM EST PACE Home Care / [place] Visit [facility] [place] [facility] [address] [place] [phone] Flavia Acuña 09/03/2025 11:30 AM EST PACE Home Care / [place] [facility] [place] [facility] [place] [facility] [address] [place] [address] Brina Tse 09/03/2025 3:00 PM EST PACE Home Care / [place] [facility] [place] [facility] [place] [facility] [address] [place] [address] Flavia Acuña 09/04/2025 9:00 AM EST PACE Home Care / [place] [facility] Visit [facility] [place] [facility] [address] [place] [address] Flavia Acuña 09/04/2025 3:00 PM EST PACE Home Care / [facility] Home Visit [facility] [place] [facility] [address] [place] [phone] Flavia Acuña 09/05/2025 10:00 AM EST PACE Home Care / [facility] Home Visit [facility] [place] [facility] [address] [place] [address] Grace Kessler 09/05/2025 3:00 PM EST PACE Home Care / [facility] Home Visit [facility] [place] [facility] [address] [place] [phone] Grace Kessler 09/08/2025 9:00 AM EST PACE Home Care / [facility] Home Visit [facility] [place] [facility] [address] [place] [phone] Flavia Acuña 09/08/2025 3:00 PM EST PACE Home Care / [facility] Home Visit [facility] [place] [facility] [address] [place] [phone] Flavia Acuña 02/27/2026 9:45 AM EDT PACE External Visit [facility] [place] [address] [place] [phone] documented as of this encounter Procedures Procedure [...] Comprehensive metabolic panel (06/30/2025 5:07 AM EDT) Sodium 138 133 - 145 mmol/L LAB CHEMISTRY METHOD 06/30/2025 10:34 AM [facility] Potassium 3.7 3.5 - 5.5 mmol/L LAB CHEMISTRY METHOD 06/30/2025 10:34 AM [facility] Chloride 102 96 - 110 mmol/L LAB CHEMISTRY METHOD 06/30/2025 10:34 AM [facility] CO2 28 21 - 32 mmol/L LAB CHEMISTRY METHOD 06/30/2025 10:34 AM [facility] Anion Gap 8 3 - 11 LAB CHEMISTRY METHOD 06/30/2025 10:34 AM [facility] Glucose 83 70 - 100 mg/dL LAB CHEMISTRY METHOD 06/30/2025 10:34 AM [facility] BUN 17 5 - 25 mg/dL LAB CHEMISTRY METHOD 06/30/2025 10:34 AM [facility] Creatinine 0.40(L) 0.50 - 1.10 mg/dL LAB CHEMISTRY METHOD 06/30/2025 10:34 AM [facility] eGFR 97 >=60 mL/min/1. 73m2 LAB CHEMISTRY METHOD 06/30/2025 10:34 AM [facility] Comment:Calculation based on the Chronic Kidney Disease Epidemiology Collaboration (CKD-EPI) equation refit without adjustment for race. BUN/Creatinine Ratio 42.5 LAB CHEMISTRY METHOD 06/30/2025 10:34 AM [facility] Calcium 8.2(L) 8.5 - 10.5 mg/dL LAB CHEMISTRY METHOD 06/30/2025 10:34 AM [facility] AST (SGOT) 29 10 - 42 unit/L LAB CHEMISTRY METHOD 06/30/2025 10:34 AM [facility] ALT (SGPT) 21 10 - 60 unit/L LAB CHEMISTRY METHOD 06/30/2025 10:34 AM [facility] Alkaline Phosphatase 54 42 - 121 unit/L LAB CHEMISTRY METHOD 06/30/2025 10:34 AM EDT [facility] Total Protein 5.7(L) 6.0 - 8.0 g/dL LAB CHEMISTRY METHOD 06/30/2025 10:34 AM T [facility] Albumin 2.2(L) 3.2 - 5.0 g/dL LAB CHEMISTRY METHOD 06/30/2025 10:34 AM T [facility] Total Bilirubin 0.3 0.0 - 1.4 mg/dL LAB CHEMISTRY METHOD 06/30/2025 10:34 AM [facility] Blood Venous blood specimen / Unknown Venipuncture / Unknown 06/30/2025 5:07 AM EDT 06/30/2025 9:40 AM EDT us Antonio Esquivel MD LAB BLOOD ORDERABLES Final Resul t [facility] [address] [place] [address], * (ABNORMAL) Complete blood count (06/30/2025 5:07 AM EDT) WBC 5.1 4.8 - 10.8 K/[facility] LAB HEMETOLOGY METHOD 06/30/2025 10:07 AM [facility] RBC 3.10(L) 3.80 - 4.80 M/[facility] LAB HEMETOLOGY METHOD 06/30/2025 10:07 AM [facility] Hemoglobin 9.5(L) 11.5 - 16.0 g/dL LAB HEMETOLOGY METHOD 06/30/2025 10:07 AM [facility] Hematocrit 29.1(L) 35.0 - 47.0 % LAB HEMETOLOGY METHOD [facility]30[facility]25 [facility] MCV 93.6 79.0 - 98.0 FL LAB HEMETOLOGY METHOD 06/30/2025 10:07 AM EDT [facility] MCH 30.5 27.0 - 32.0 pcg LAB HEMETOLOGY METHOD 06/30/2025 10:07 AM EDT [facility] MCHC 32.6 32.0 - 37.0 g/dL LAB HEMETOLOGY METHOD 06/30/2025 10:07 AM EDT [facility] RDW 12.7 11.0 - 15.0 % LAB HEMETOLOGY METHOD 06/30/2025 10:07 AM EDT [facility] Platelets 314 130 - 400 K/mcL LAB HEMETOLOGY METHOD 06/30/2025 10:07 AM T [facility] MPV 9.2 7.0 - 11.0 FL LAB HEMETOLOGY METHOD 06/30/2025 10:07 AM EDT [facility] NRBC 0.0 <1.0 % LAB HEMETOLOGY METHOD 06/30/2025 10:07 AM T [facility] NRBC Absolute 0.00 <0.10 K/mcL LAB HEMETOLOGY METHOD 06/30/2025 10:07 AM [facility] Blood Venous blood specimen / Unknown Venipuncture / Unknown 06/30/2025 5:07 AM EDT 06/30/2025 9:40 AM EDT us Antonio Esquivel MD LAB BLOOD ORDERABLES Final Resul t [facility] [address] [place] [address], documented in this encounter Visit Diagnoses Diagnosis Urinary tract infection, site not specified Hyperlipidemia, unspecified Essential (primary) hypertension Unspecified essential hypertension documented in this encounter Care Teams Machine Maintenance Repairer Relationship Specialty Start Date End Date Antonio Esquivel MD [address] [place] [phone] PCP - General Geriatric Medicine 06/30/25 documented as of this encounter
--- OUTSIDE RECORDS SUMMARY | 2025-07-10 15:01 | XMS_ITS | Encounter Summary ---
Author Organization [facility] [place] [address] Care Team Providers Care Operations Assistant Name Role Phone Antonio Esquivel MD Primary Care Provider [phone] Reason for Referral * Consultation (Routine) - Authorized Specialty Diagnoses / Procedures Referred By Contac t Referred To Contact [facility] Facility Diagnoses S/P right hip fracture Patrizia Mariscal NP [address] [address] Phone: tel: fax: [facility] [address] [place] [address] Referral ID Status Reason Start Date Expiration Date Visits Requested Visits Authorized [id number] Authorized Co-Managemen t of Problem 06/27/2026 1 1 Encounter Details Date Type Department Care Team (Latest Contact Info) Description 06/27/2025 [facility] [address] [place] [phone] Marguerite Higginbotham, RN S/P right hip fracture [...] [facility] [address] [place] [phone] Flavia Acuña 07/15/2025 9:00 AM EDT P[facility] Home Care / [facility] [place] [facility] [address] [place] [phone] Flavia Acuña 07/15/2025 10:30 AM EDT Clinical Support [facility] [place] [address] [place] [phone] 07/15/2025 3:00 PM EDT PACE Home Care / PACE Home Visit [facility] [place] [facility] [address] [place] [phone] Flavia Acuña 07/16/2025 3:00 PM EDT PACE Home Care / [facility] Home [facility] [place] [facility] [address] [place] [phone] Flavia Acuña 07/17/2025 9:00 AM EDT PACE Home Care / [facility] Home [facility] [place] [facility] [address] [place] [phone] Flavia Acuña 07/17/2025 2:00 PM EDT PACE Home Care / [facility] Home [facility] [place] [facility] [address] [place] [phone] Flavia Acuña 07/18/2025 10:00 AM EDT PACE Home Care / [facility] Home [facility] [place] [facility] [address] [place] [phone] Grace Kessler 07/18/2025 12:00 PM EDT Office [place] [facility] [place] [facility] [address] [place] [phone] Patrizia Mariscal, SAUL 200 [facility] [address] [place] [address] 07/18/2025 3:00 PM EDT PACE Home Care / [facility] Home Visit [facility] [place] [facility] [address] [place] [phone] Grace Kessler 07/21/2025 9:00 AM EST PACE Home Care / [facility] Home Visit [facility] [place] [facility] [address] [place] [address] Flavia Acuña 07/21/2025 3:00 PM EST PACE Home Care / [facility] Home Visit [facility] [place] [facility] [address] [place] [address] Flavia Acuña 07/22/2025 9:00 AM EST PACE Home Care / [facility] Home Visit [facility] [place] [facility] [address] [place] [address] Flavia Acuña 07/22/2025 10:00 AM EST Clinical Support [facility] [place] [address] [place] [address] 07/22/2025 3:00 PM EST PACE Home Care / PACE Home Visit [facility] [place] [facility] [address] [place] [phone] Flavia Acuña 07/23/2025 11:30 AM EST PACE Home Care / PACE Home Visit [facility] [place] [facility] [address] [place] [address] Brina Tse 07/23/2025 3:00 PM EST PACE Home Care / [facility] Home Visit [facility] [place] [facility] [address] [place] [address] Flavia Acuña 07/24/2025 9:00 AM EST PACE Home Care / [facility] Home Visit [facility] [place] [facility] [address] [place] [address] Flavia Acuña 07/24/2025 11:00 AM EST [facility] [place] [facility] [address] [place] [address] Patrizia Mariscal, SAUL [address] [address] 07/24/2025 3:00 PM EST PACE Home Care / PACE Home Visit [facility] [place] [facility] [address] [place] [address] Flavia Acuña 07/25/2025 10:00 AM EST Clinical Support [facility] [place] [address] [place] [address] 07/25/2025 3:00 PM EST PACE Home Care / [facility]ACE Home Visit [facility] [place] [facility] [address] [place] [address] Grace Kessler 07/28/2025 9:00 AM EST PACE Home Care / PACE Home Visit [facility] [place] [facility] [address] [place] [address] Flavia Acuña 07/28/2025 3:00 PM EST PACE Home Care / PACE Home Visit [facility] [place] [facility] [address] [place] [phone] Flavia Acuña 07/29/2025 9:00 AM EST PACE Home Care / [facility]ACE Home Visit [facility] [place] [facility] [address] [place] [address] Flavia Acuña 07/29/2025 3:00 PM EST PACE Home Care / [facility] [place] [facility] [address] [place] [phone] Flavia Acuña 07/30/2025 11:30 AM EST PACE Home Care / [facility] [place] [facility] [address] [place] [phone] Brina Tse 07/30/2025 3:00 PM EST PACE Home Care / [facility] [place] [facility] [address] [place] [phone] Flavia Acuña 07/31/2025 9:00 AM EST PACE Home Care / [facility] Home [facility] [place] [facility] [address] [place] [phone] Flavia Acuña 07/31/2025 3:00 PM EST PACE Home Care / [facility] Home Visit [facility] [place] [facility] [address] [place] [phone] Flavia Acuña 08/01/2025 10:00 AM EST PACE Home Care / [facility] Home Visit [facility] [place] [facility] [address] [place] [phone] Grace Kessler 08/01/2025 3:00 PM EST PACE Home Care / [facility] Home Visit [facility] [place] [facility] [address] [place] [phone] Grace Kessler 08/04/2025 9:00 AM EST PACE Home Care / [facility] Home Visit [facility] [place] [facility] [address] [place] [phone] Flavia Acuña 08/04/2025 3:00 PM EST PACE Home Care / [facility] Home Visit [facility] [place] [facility] [address] [place] [phone] Flavia Acuña 08/05/2025 9:00 AM EST PACE Home Care / [facility] Home Visit [facility] [place] [facility] [address] [place] [phone] Flavia Acuña 08/05/2025 3:00 PM EST PACE Home Care / [facility]ACE Home Visit [facility] [place] [facility] [address] [place] [phone] Flavia Acuña 08/06/2025 10:45 AM EST Clinical Support [facility] [place] [address] [place] [phone] 08/06/2025 11:30 AM EST PACE Home Care / PACE Home Visit [facility] [place] [facility] [address] [place] [phone] Brina Tse 08/06/2025 3:00 PM EST PACE Home Care / [facility] [place] [facility] [address] [place] [phone] Flavia Acuña 08/07/2025 9:00 AM EST PACE Home Care / PACE Home Visit [facility] [place] [facility] [address] [place] [phone] Flavia Acuña 08/07/2025 3:00 PM EST PACE Home Care / PACE Home Visit [facility] [place] [facility] [address] [place] [phone] Flavia Acuña 08/08/2025 10:00 AM EST PACE Home Care / [facility] [place] [facility] [address] [place] [phone] Grace Kessler 08/08/2025 3:00 PM EST PACE Home Care / [facility] [place] [facility] [address] [place] [phone] Grace Mc 08/11/2025 9:00 AM EST PACE Home Care / [facility] Home Visit [facility] [place] [facility] [address] [place] [address] Flavia Acuña 08/11/2025 3:00 PM EST PACE Home Care / [facility] Visit [facility] [place] [facility] [address] [place] [address] Flavia Acuña 08/12/2025 9:00 AM EST PACE Home Care / [facility] Home Visit [facility] [place] [facility] [address] [place] [phone] Flavia Acuña 08/12/2025 3:00 PM EST PACE Home Care / [facility] Home Visit [facility] [place] [facility] [address] [place] [phone] Flavia Acuña 08/13/2025 11:30 AM EST PACE Home Care / [facility] Home Visit [facility] [place] [facility] [address] [place] [phone] Brina Tse 08/13/2025 3:00 PM EST PACE Home Care / [facility] Home Visit [facility] [place] [facility] [address] [place] [phone] Flavia Acuña 08/14/2025 9:00 AM EST PACE Home Care / [facility] Home Visit [facility] [place] [facility] [address] [place] [phone] Flavia Acuña 08/14/2025 3:00 PM EST PACE Home Care / [facility] Home Visit [facility] [place] [facility] [address] [place] [phone] Flavia Acuña 08/15/2025 10:00 AM EST PACE Home Care / [facility] Home Visit [facility] [place] [facility] [address] [place] [phone] Grace Kessler 08/15/2025 3:00 PM EST PACE Home Care / [facility] Home Visit [facility] [place] [facility] [address] [place] [address] Grace Kessler 08/18/2025 9:00 AM EST PACE Home Care / [facility] Home Visit [facility] [place] [facility] [address] [place] [phone] Flavia Acuña 08/18/2025 3:00 PM EST PACE Home Care / [facility] Home Visit [facility] [place] [facility] [address] [place] [phone] Flavia Acuña 08/19/2025 9:00 AM EST PACE Home Care / [facility] Home Visit [facility] [place] [facility] [address] [place] [phone] Flavia Acuña 08/19/2025 11:00 AM EST Clinical Support [facility] [place] [address] [place] [address] 08/19/2025 3:00 PM EST PACE Home Care / [facility] Home Visit [facility] [place] [facility] [address] [place] [phone] Flavia Acuña 08/20/2025 11:30 AM EST PACE Home Care / [facility] Home Visit [facility] [place] [facility] [address] [place] [phone] Brian Tse 08/20/2025 3:00 PM EST PACE Home Care / [facility] Home Visit [facility] [place] [facility] [address] [place] [phone] lFavia Acuña 08/21/2025 9:00 AM EST PACE Home Care / [facility] Visit [facility] [place] [facility] [address] [place] [phone] Flavia Acuña 08/21/2025 3:00 PM EST PACE Home Care / [facility] Visit [facility] [place] [facility] [address] [place] [address] Flavia Acuña 08/22/2025 10:00 AM EST PACE Home Care / [facility] Visit [facility] [place] [facility] [address] [place] [address] Grace Kessler 08/22/2025 3:00 PM EST PACE Home Care / [facility] Home Visit [facility] [place] [facility] [address] [place] [phone] Grace Kessler 08/25/2025 9:00 AM EST PACE Home Care / [facility] Home Visit [facility] [place] [facility] [address] [place] [phone] Flavia Acuña 08/25/2025 3:00 PM EST PACE Home Care / [facility] Home Visit [facility] [place] [facility] [address] [place] [phone] Flavia Acuña 08/26/2025 9:00 AM EST PACE Home Care / [facility] Visit [facility] [place] [facility] [address] [place] [phone] Flavia Acuña 08/26/2025 3:00 PM EST PACE Home Care / [facility] Visit [facility] [place] [facility] [address] [place] [phone] Flavia Acuña 08/27/2025 11:30 AM EST PACE Home Care / [facility] Home Visit [facility] [place] [facility] [address] [place] [phone] Brina Tse 08/27/2025 3:00 PM EST PACE Home Care / [facility] Home Visit [facility] [place] [facility] [address] [place] [phone] Flavia Acuña 08/28/2025 9:00 AM EST PACE Home Care / [facility] Visit [facility] [place] [facility] [address] [place] [address] Flavia Acuña 08/28/2025 3:00 PM EST PACE Home Care / [facility] Visit [facility] [place] [facility] [address] [place] [address] lFavia Acuña 08/29/2025 10:00 AM EST PACE Home Care / [facility] Visit [facility] [place] [facility] [address] [place] [address] Grace Kessler 08/29/2025 3:00 PM EST PACE Home Care / [facility] Visit [facility] [place] [facility] [address] [place] [address] Grace Kessler 09/01/2025 9:00 AM EST PACE Home Care / [facility] Visit [facility] [place] [facility] [address] [place] [address] Flavia Acuña 09/01/2025 3:00 PM EST PACE Home Care / [facility] Visit [facility] [place] [facility] [address] [place] [phone] Flavia Acuña 09/02/2025 9:00 AM EST PACE Home Care / [facility] Visit [facility] [place] [facility] [address] [place] [address] Flavia Acuña 09/02/2025 3:00 PM EST PACE Home Care / [facility] Visit [facility] [place] [facility] [address] [place] [phone] Flavia Acuña 09/03/2025 11:30 AM EST PACE Home Care / [facility] Home Visit [facility] [place] [facility] [address] [place] [address] Colin Tseah 09/03/2025 3:00 PM EST PACE Home Care / PACE Home Visit [facility] [place] [facility] [address] [place] [address] Flavia Acuña 09/04/2025 9:00 AM EST PACE Home Care / PACE Home Visit [facility] [place] [facility] [address] [place] [phone] Flavia Acuña 09/04/2025 3:00 PM EST PACE Home Care / PACE Home Visit [facility] [place] [facility] [address] [place] [phone] Flavia Acuña 09/05/2025 10:00 AM EST PACE Home Care / PACE Home Visit [facility] [place] [facility] [address] [place] [phone] Grace Kessler 09/05/2025 3:00 PM EST PACE Home Care / PACE Home Visit [facility] [place] [facility] [address] [place] [phone] Grace Kessler 09/08/2025 9:00 AM EST PACE Home Care / PACE Home Visit [facility] [place] [facility] [address] [place] [phone] Flavia Acuña 09/08/2025 3:00 PM EST PACE Home Care / P[facility] Visit [facility] [address] [place] [phone] Flavia Acuña 02/27/2026 9:45 AM EDT PACE External Visit [facility] [place] [address] [place] [phone] Scheduled Referrals Name Type Priority Associated Diagnoses Orde r Schedule PACE Admisssion Outpatient Referral Routine S/P right hip fracture Ordered: 06/27/2025 documented as of this encounter Visit Diagnoses Diagnosis S/P right hip fracture- Primary documented in this encounter Care Teams Operations Assistant Relationship Specialty Start Date End Date Antonio Esquivel MD [address] [place] [address] PCP - General Geriatric Medicine 06/30/25 documented as of this encounter
== END 2025-07-09 11:47 | disposition home or self-care (01) ==
LOC: HO.HOSX 11:46
PROVIDERS: Visit Provider Physician Assistant
DX: M25.551 Pain in right hip (principal); Z96.641 Presence of right artificial hip joint
CPT/HCPCS: 73502; 99212

== ENCOUNTER 2025-08-06 08:47 | Outpatient (REF) | payer OTHER, SELFPAY ==
--- NOTE | ~2025-08-06 | XR_ITS ---
EXAMINATION: XR HIP, RIGHT CLINICAL INFORMATION: M25.551 - Pain in right hip COMPARISON: July 09, 2025. TECHNIQUE: AP and cross lateral view of the right hip. FINDINGS: There is a metallic prosthesis with an acetabular and femoral component well-seated in the osseous structures. No gross malalignment. No acute cortical disruption. The prosthesis intact. Vascular calcifications. Skin olga have been removed. 3. Metallic screws through the left femoral head neck with a foreshortening deformity, old. Spondylosis L5-S1. XR/XR hip RT min 2V IMPRESSION: Total right hip arthroplasty prosthesis, intact without fracture or dislocation. Electronically signed by: Jose D Eugene MD 08/06/2025 11:15 AM JUSTYN
--- OUTSIDE RECORDS SUMMARY | 2025-08-07 10:18 | XMS_ITS | Clinical Summary ---
Author Organization [facility] Facility Address [address] [address] Care Team Providers Care Auto Tune Up Mechanic Name Role Phone Alcides Powers MD Primary Care Provider [phone] Social History Tobacco Use Types Packs/Day Years [...] Medicaid [place] Care Teams Auto Tune Up Mechanic Relationship Specialty Start Date End Date Alcides Powers MD [address] [place] [address] PCP - General Internal Medicine 12/22/21
== END 2025-08-06 08:48 | disposition home or self-care (01) ==
LOC: HO.HOSX 08:47
PROVIDERS: Visit Provider Physician Assistant
DX: M25.551 Pain in right hip (principal); Z96.641 Presence of right artificial hip joint
CPT/HCPCS: 73502; 99212

== ENCOUNTER 2025-08-06 10:29 | Outpatient (AMB) | payer OTHER, SELFPAY ==
--- NOTE | 2025-08-06 10:44 | MHC.OFFVIS ---
Intake Visit Reasons: PO-s/p right hip jeffrey with NE 06/25/25 Intake Note: Eileen is a 85 year old female who presents today post operatively after underoging a right hip jeffrey, performed by Dr. Hewitt on 06/25/25. At last visit on 07/09/25 we discussed for her to continue with physical therapy. At today's visit her daughter states that she is doing well, stating facility has not had any complaints. Allergies codeine (From TYLENOL-CODEINE #3) Allergy (Unknown, Verified 08/06/25 10:46) HIVES,RASH penicillin V Allergy (Unknown, Verified 08/06/25 10:46) Unknown Sulfa (Sulfonamide Antibiotics) Allergy (Unknown, Verified 08/06/25 10:46) Unknown Medication List - Last Reconciled 08/06/25 by Hetal Thakkar PA-C acetaminophen 1,000 mg PO Q6H PRN amlodipine 2.5 mg PO DAILY aspirin 325 mg PO BID 42 days cetirizine (All Day Allergy (cetirizine)) 10 mg PO DAILY PRN cyanocobalamin (vitamin B-12) (Vitamin B-12) 1,000 mcg PO DAILY hydrochlorothiazide 25 mg PO DAILY lidocaine 4% 1 appl topical TID PRN loperamide 2 mg PO BID PRN melatonin 5 mg PO BEDTIME HPI HPI PO-s/p right hip jeffrey with NE 06/25/25: Details: 85-year-old female returns to the office today 6 weeks status post right hip hemiarthroplasty on 06/25/[address] Hewitt. Patient is doing well ambulating with a walker and working with physical therapy at home. She continues to follow posterior precautions. She is accompanied today by her son and [id number]. [facility] Medical History Rectal prolapse Anxiety Hyperlipidemia Hypertension Surgical History History of open reduction and internal fixation (ORIF) procedure History of hysterectomy Family History Father No problems noted. Mother Hypertension Social History Household Members: None Housing: Apartment Are you a primary caretaker grounds to a significant other at home: No Do you presently have visiting nurse or other home services: Yes ([employer]) Alcohol intake: never Patient Tobacco Use Status: Former Tobacco user e-Cigarette/Vaping Use: Never Used Second Hand Smoke Exposure: No service: No Current occupational status: disabled Current occupational exposures/hazards: No Cognitive needs: Yes Hearing needs: Yes Vision needs: Yes Review of Systems Const All systems reviewed & are unremarkable except as noted in HPI and below Physical Exam Extrem Other: Right hip incision is well healed. No surrounding erythema or drainage. She is able to perform hip flexion and range of motion without pain. Calf is supple and nontender neurovascularly intact. Results Reviewed Results Reviewed: X-rays of the right hip obtained in the office today and reviewed by me show intact hip prosthesis. Assessment & Plan Assessment & Plan (1) Status post hemiarthroplasty of right hip: Code(s): Z96.641 - Presence of right artificial hip joint Category: Surgical Plan: Patient will continue working with physical therapy and occupational therapy for gait training and strengthening. ADLs. Posterior precautions remain in place. She will see me back in 6 weeks for re-evaluation, sooner if needed. Orders: Orders PT Evaluation and Treatment Today Z96.641 - Presence of right artificial hip joint XR hip RT min 2V Today M25.551 - Pain in right hip Coding Level of Care Code Global (60876) Diagnoses Status post hemiarthroplasty of right hip Z96.641
== END 2025-08-06 11:11 | disposition home or self-care (01) ==
LOC: HO.HOS 10:29
PROVIDERS: PCP Internal Medicine; Visit Provider Physician Assistant
DX: Z96.641 Presence of right artificial hip joint (principal)
CPT/HCPCS: 99024

== ENCOUNTER → 2025-08-06 10:31 | Outpatient (BNV) | payer OTHER, SELFPAY | PROVIDERS: Visit Provider Radiology Diagnostic Radiology | DX: M25.551 Pain in right hip (principal); Z96.641 Presence of right artificial hip joint | CPT/HCPCS: 73502 ==